=== PATIENT | male | born 1990 | race Caucasian/White ===

== ENCOUNTER → 2017-05-12 09:59 | Outpatient (CLI) | payer OTHER, SELFPAY ==
[2017-05-12 10:24] LABS: Basophils # 0.1 K/mm3 (0-0.2); Basophils % 0.5 % (0.1-2.0); Eosinophils # 0.7 K/mm3 (0.0-0.4); Eosinophils % 6.5 % (0.1-12.0); Hematocrit 49.3 % (42.0-52.0); Hemoglobin 16.6 g/dL (14.1-18.0); Lymphocytes % 28.4 K/mm3 (10-50); Mean Corpuscular HGB Conc 33.7 g/dL (31.8-35.4); Mean Corpuscular Hemoglobin 31.4 pg (27.0-31.2); Mean Corpuscular Volume 93.4 fl (80-94); Monocytes # 0.4 K/mm3 (0.1-1.0); Monocytes % 3.8 % (1.7-9.3); Neutrophils # 6.3 K/mm3 (1.8-7.8); Neutrophils % 60.8 % (37.0-80.0); Platelet Count 224 K/mm3 (142-424); Red Blood Count 5.28 M/mm3 (4.60-6.20); Red Cell Distribution Width 12.4 % (11.5-17.5); White Blood Count 10.3 K/mm3 (4.8-10.8)
[2017-05-12 10:35] LABS: Anion Gap 13.1 mEq/L (5-15); Blood Urea Nitrogen 14 mg/dL (7-18); Carbon Dioxide 25 mmol/L (21.0-32.0); Chloride 107 mmol/L (98-107); Creatinine,Serum 0.75 mg/dL (0.70-1.30); Estimated Glomerular Filt Rate 124 ml/min (>60); GFR (African American) 150 ML/MIN (>60); Glucose 103 mg/dL (74-106); Potassium 4.1 mmoL/L (3.5-5.1); Sodium 141 mmol/L (136-145)
== END ==
PROVIDERS: Visit Provider Surgery
DX: L72.9 Follicular cyst of the skin and subcutaneous tissue, unspecified; Z01.818 Encounter for other preprocedural examination
CPT/HCPCS: 36415; 80048; 85025

== ENCOUNTER 2017-05-15 09:31 | Day surgery (SDC) | payer OTHER, SELFPAY ==
[2017-05-15] VITALS (12 sets, daily range): BP systolic 127–158; BP diastolic 74–96; PULSE 75–91; RESP 16–18; TEMP 36.3–37.2; O2SAT 92–97
--- NOTE | 2017-05-15 10:30 | P.PN_ITS ---
[facility] Anesthesia Checklist - Patient Identification Patient Identification: Arm Band - Structural Data Admitted From: Home Planned Operative Procedure/s: I&D left perineal hidradenitis Consent for Planned Operative Procedure(s) Verified: Yes Verified Documents: Surgical Consent, History and Physical - NPO Status Verified Time NPO: 00:00 - Additional verifications Anesthesia Reactions: No - Airway Assessment C-Spine Mobility Assessed: Yes (mp2) TMJ Mobility Assessed: Yes Dentition: Good Dentition - Neurological Assessment Level of Consciousness: Awake, Alert - Anesthesia Plan Anesthesia Risk discussed: Yes Anesthesia Plan: Verified ASA Class: II Anesthesia Type: General [facility] Anesthesia HX I have reviewed the patient's past medical history: Yes Medical History: Reports:: Asthma, Hyperlipidemia, Kidney Stones, MRSA Denies:: Cancer, Diabetes Mellitus Type 1, Diabetes Mellitus Type 2, Seizures Other Medical History: Denies: Blood Transfusion Reaction Other Surgeries: Yes: Colonoscopy, Plastic Surgery, Other Amputation: No Fractures: Yes (right arm) *Family Hx:: Hypertension, Diabetes, Anemia, Asthma
--- NOTE | 2017-05-15 13:05 | HMH.OPNOTE ---
Date of procedure: 05/15/17 Pre-op Diagnosis:: Perineal abscess hidradenitis Post-op Diagnosis:: Same Procedure performed:: Incision and drainage of focal abscess hidradenitis of the perineum with debridement of skin. Surgeon:: Blake Rider MD SKIVER HEEL TAP:: Ishmael Valerio Anesthesia: LMA Estimated blood loss (mL): 20 Clinical Note:: Patient is a 27-year-old white male with a long-standing history for several years of recurrent hidradenitis of the perineum and proximal thigh area. He is undergone extensive plastic surgery of the left proximal medial thigh at the [facility] for hidradenitis. He has also had several other areas dealt with with more limited surgery. Some of these areas have resolved conservatively. He has seen dermatology in [place] and recommendation is for [facility]. However insurance approval is pending. Last time I had seen the patient he had a new area on the left medial proximal thigh. He was given course of antibiotics including Bactrim and clindamycin. However, the area was refractory to conservative management and continued to be bothersome. There was mild fluctuance with some discoloration of the skin. Plan was made for limited incision and drainage and debridement. Operative findings:: Consistent with focal abscess hidradenitis. Operative note:: Consent was obtained patient was taken the operating room. General anesthesia was induced. He was positioned in modified lithotomy position. The area was prepped and draped in the standard surgical fashion. Limited incision was made overlying the purplish area on the right perineum. There was some serous fluid in purulent material which drained. This was sent for culture. Using mostly sharp dissection the devitalized discolored skin was sharply excised. Hemostasis was achieved with liberal use of electrocautery. The wound was irrigated. Local anesthetic was infiltrated. The wound was packed with moistened saline gauze and covered with clean dry sterile dressing. Condition: stable Disposition: PACU Complications:: None
--- NOTE | 2017-05-15 13:08 | P.OP_ITS ---
Date of procedure: 05/15/17 Pre-op Diagnosis:: Perineal abscess hidradenitis Post-op Diagnosis:: Same Procedure performed:: Incision and drainage of focal abscess hidradenitis of the perineum with debridement of skin. Surgeon:: Blake Rider MD OFFICE MACHINE TECHNICIAN:: Ishmael Valerio Anesthesia: LMA Estimated blood loss (mL): 20 Clinical Note:: Patient is a 27-year-old white male with a long-standing history for several years of recurrent hidradenitis of the perineum and proximal thigh area. He is undergone extensive plastic surgery of the left proximal medial thigh at the [facility] for hidradenitis. He has also had several other areas dealt with with more limited surgery. Some of these areas have resolved conservatively. He has seen dermatology in [place] and recommendation is for [facility]. However insurance approval is pending. Last time I had seen the patient he had a new area on the left medial proximal thigh. He was given course of antibiotics including Bactrim and clindamycin. However, the area was refractory to conservative management and continued to be bothersome. There was mild fluctuance with some discoloration of the skin. Plan was made for limited incision and drainage and debridement. Operative findings:: Consistent with focal abscess hidradenitis. Operative note:: Consent was obtained patient was taken the operating room. General anesthesia was induced. He was positioned in modified lithotomy position. The area was prepped and draped in the standard surgical fashion. Limited incision was made overlying the purplish area on the right perineum. There was some serous fluid in purulent material which drained. This was sent for culture. Using mostly sharp dissection the devitalized discolored skin was sharply excised. Hemostasis was achieved with liberal use of electrocautery. The wound was irrigated. Local anesthetic was infiltrated. The wound was packed with moistened saline gauze and covered with clean dry sterile dressing. Condition: stable Disposition: PACU Complications:: None
--- NOTE | 2017-05-15 13:15 | HMH.ANESI ---
[facility] Anesthesia Record Part I Intake, IV Amount: 1,315 Estimated blood loss (mL): 10 Urine output (mL): 0 Blood Products used (#): none Blood Pressure: 158/74 SaO2: 92 Pulse Rate: 88 Respiratory Rate: 18 Temperature: 97.3 F Patient is:: Drowsy, Stable Stable to PACU at:: 13:15
--- NOTE | 2017-05-15 13:16 | HMH.ANESII ---
[facility] Anesthesia Record Part II Discharge Time: 13:45 Destination: Surgical Day Care (OP Surgery) PACU nurse assessment reviewed?: Yes Patient Condition:: Good Anesthesia Complications:: None
--- NOTE | 2017-05-15 14:05 | SUR.PHASEI ---
1340- rates incisional pain @ 8/10. 2 mg morphine given. see emar. 1345- rates pain @ 5/10. 2 mg morphine given. see emar. 1347- detailed report called to ML RN in post-op. 1349- pt transported to post-op via str per RN. Left in the care of ML RN in stable condition.
== END 2017-05-15 14:35 | disposition home or self-care (01) ==
LOC: OR 09:32
PROVIDERS: Family Provider Pediatrics; PCP Pediatrics; Visit Provider Surgery
PROC: (CPT 10060; principal; 2017-05-15 11:15)
DX: L73.2 Hidradenitis suppurativa (principal)
CPT/HCPCS: 10060; 87070; 87077; 87205; 96374; J0131; J2405

== ENCOUNTER → 2017-12-19 12:08 | Outpatient (CLI) | payer OTHER, SELFPAY ==
[2017-12-19 12:54] LABS: Basophils % 0.6 % (0.1-2.0); Eosinophils # 0.2 K/mm3 (0.0-0.4); Eosinophils % 3.3 % (0.1-12.0); Hematocrit 44.7 % (42.0-52.0); Hemoglobin 14.7 g/dL (14.1-18.0); Lymphocytes # 2.6 K/mm3 (0.7-4.5); Lymphocytes % 36.4 K/mm3 (10-50); Mean Corpuscular HGB Conc 32.9 g/dL (31.8-35.4); Mean Corpuscular Hemoglobin 30.8 pg (27.0-31.2); Mean Corpuscular Volume 93.8 fl (80-94); Mean Platelet Volume 7.3 fl (7.4-10.4); Monocytes # 0.4 K/mm3 (0.1-1.0); Neutrophils # 3.9 K/mm3 (1.8-7.8); Neutrophils % 54.9 % (37.0-80.0); Platelet Count 244 K/mm3 (142-424); Red Blood Count 4.77 M/mm3 (4.60-6.20); Red Cell Distribution Width 12.6 % (11.5-17.5); White Blood Count 7.1 K/mm3 (4.8-10.8)
[2017-12-19 14:45] LABS: Anion Gap 16.4 mEq/L (5-15); Blood Urea Nitrogen 14 mg/dL (7-18); Calcium 9.2 mg/dL (8.5-10.1); Carbon Dioxide 26 mmol/L (21.0-32.0); Chloride 105 mmol/L (98-107); Creatinine,Serum 0.61 mg/dL (0.70-1.30); Estimated Glomerular Filt Rate 157 ml/min (>60); GFR (African American) 190 ML/MIN (>60); Glucose 87 mg/dL (74-106); Potassium 4.4 mmoL/L (3.5-5.1); Sodium 143 mmol/L (136-145)
== END ==
PROVIDERS: PCP Pediatrics; Visit Provider Surgery
DX: L73.2 Hidradenitis suppurativa (principal)
CPT/HCPCS: 36415; 80048; 85025

== ENCOUNTER → 2018-12-18 11:08 | Outpatient (CLI) | payer OTHER, SELFPAY ==
[2018-12-18 11:34] LABS: Basophils % 0.6 % (0.1-2.0); Eosinophils # 0.4 K/mm3 (0.0-0.4); Eosinophils % 5.7 % (0.1-12.0); Hematocrit 43.2 % (42.0-52.0); Mean Corpuscular HGB Conc 32.3 g/dL (31.8-35.4); Mean Corpuscular Hemoglobin 30.6 pg (27.0-31.2); Mean Corpuscular Volume 94.7 fl (80-94); Mean Platelet Volume 8.6 fl (7.4-10.4); Monocytes # 0.3 K/mm3 (0.1-1.0); Monocytes % 4.9 % (1.7-9.3); Neutrophils # 3.5 K/mm3 (1.8-7.8); Neutrophils % 56.7 % (37.0-80.0); Platelet Count 220 K/mm3 (142-424); Red Blood Count 4.56 M/mm3 (4.60-6.20); Red Cell Distribution Width 13.5 % (11.5-17.5); White Blood Count 6.1 K/mm3 (4.8-10.8)
[2018-12-18 12:30] LABS: Anion Gap 12.9 mEq/L (5-15); Blood Urea Nitrogen 13 mg/dL (7-18); Calcium 9.5 mg/dL (8.5-10.1); Carbon Dioxide 28 mmol/L (21.0-32.0); Chloride 106 mmol/L (98-107); Creatinine,Serum 0.66 mg/dL (0.70-1.30); Estimated Glomerular Filt Rate 143 ml/min (>60); GFR (African American) 173 ML/MIN (>60); Glucose 90 mg/dL (74-106); Potassium 3.9 mmoL/L (3.5-5.1); Sodium 143 mmol/L (136-145)
== END ==
PROVIDERS: Visit Provider Surgery
DX: L73.2 Hidradenitis suppurativa (principal)
CPT/HCPCS: 36415; 80048; 85025

== ENCOUNTER → 2019-05-07 13:37 | Outpatient (CLI) | payer OTHER, SELFPAY ==
[2019-05-07 14:30] LABS: Basophils # 0.1 K/mm3 (0-0.2); Basophils % 0.8 % (0.1-2.0); Eosinophils # 0.3 K/mm3 (0.0-0.4); Eosinophils % 4.4 % (0.1-12.0); Hematocrit 42.1 % (42.0-52.0); Hemoglobin 14.6 g/dL (14.1-18.0); Lymphocytes # 2.4 K/mm3 (0.7-4.5); Lymphocytes % 33.2 % (10-50); Mean Corpuscular HGB Conc 34.6 g/dL (31.8-35.4); Mean Corpuscular Hemoglobin 31.6 pg (27.0-31.2); Mean Corpuscular Volume 91.3 fl (80-94); Mean Platelet Volume 7.9 fl (7.4-10.4); Monocytes # 0.3 K/mm3 (0.1-1.0); Monocytes % 4.6 % (1.7-9.3); Neutrophils # 4.1 K/mm3 (1.8-7.8); Neutrophils % 57.1 % (37.0-80.0); Platelet Count 237 K/mm3 (142-424); Red Blood Count 4.61 M/mm3 (4.60-6.20); Red Cell Distribution Width 13.3 % (11.5-17.5); White Blood Count 7.1 K/mm3 (4.8-10.8)
[2019-05-07 15:11] LABS: Anion Gap 11.6 mEq/L (5-15); Blood Urea Nitrogen 13 mg/dl (9-20); Calcium 10.2 mg/dl (8.4-10.2); Carbon Dioxide 28 mmol/L (22.0-30.0); Chloride 105 mmol/L (98-107); Estimated Glomerular Filt Rate 158 ml/min (>60); GFR (African American) 191 ML/MIN (>60); Glucose 83 mg/dl (74-100); Potassium 4.6 mmoL/L (3.5-5.1); Sodium 140 mmol/L (136-145)
== END ==
PROVIDERS: Visit Provider Surgery
DX: L73.2 Hidradenitis suppurativa (principal)
CPT/HCPCS: 36415; 80048; 85025

== ENCOUNTER → 2019-07-04 11:10 | Outpatient (CLI) | payer OTHER, SELFPAY ==
[2019-07-04 11:53] LABS: Basophils # 0.1 K/mm3 (0-0.2); Basophils % 0.8 % (0.1-2.0); Eosinophils # 0.3 K/mm3 (0.0-0.4); Eosinophils % 4.1 % (0.1-12.0); Hematocrit 43.5 % (42.0-52.0); Lymphocytes # 2.5 K/mm3 (0.7-4.5); Lymphocytes % 34.1 % (10-50); Mean Corpuscular HGB Conc 34.6 g/dL (31.8-35.4); Mean Corpuscular Hemoglobin 31.1 pg (27.0-31.2); Mean Platelet Volume 7.6 fl (7.4-10.4); Monocytes # 0.4 K/mm3 (0.1-1.0); Monocytes % 4.9 % (1.7-9.3); Neutrophils # 4.1 K/mm3 (1.8-7.8); Platelet Count 243 K/mm3 (142-424); Red Blood Count 4.84 M/mm3 (4.60-6.20); Red Cell Distribution Width 13.3 % (11.5-17.5); White Blood Count 7.3 K/mm3 (4.8-10.8)
[2019-07-04 11:56] LABS: Anion Gap 15.2 mEq/L (5-15); Blood Urea Nitrogen 11 mg/dl (9-20); Calcium 10.5 mg/dl (8.4-10.2); Carbon Dioxide 28 mmol/L (22.0-30.0); Chloride 101 mmol/L (98-107); Estimated Glomerular Filt Rate 158 ml/min (>60); GFR (African American) 191 ML/MIN (>60); Glucose 93 mg/dl (74-100); Potassium 4.2 mmoL/L (3.5-5.1); Sodium 140 mmol/L (136-145)
[2019-07-05 17:21] LABS: Covid-19 Nasal PCR Sendout Lex Not Detected
== END ==
PROVIDERS: PCP Pediatrics; Visit Provider Surgery
DX: Z01.818 Encounter for other preprocedural examination (principal); L73.2 Hidradenitis suppurativa; Z03.818 Encounter for observation for suspected exposure to other biological agents ruled out
CPT/HCPCS: 36415; 80048; 85025; U0003

== ENCOUNTER 2019-07-06 06:10 | Day surgery (SDC) | payer OTHER, SELFPAY ==
[2019-07-05 11:24] VITALS: BMI 28.0
--- NOTE | 2019-07-05 17:25 | PC.NURSE ---
notified pt of negative COVID 19 results.
--- NOTE | 2019-07-05 17:35 | PC.NURSE ---
notified Dr. Rider of negative COVID 19 results.
[2019-07-06] VITALS (14 sets, daily range): BP systolic 134–155; BP diastolic 75–98; PULSE 75–89; RESP 12–20; TEMP 36.4–43; O2SAT 97–100
--- NOTE | 2019-07-06 07:47 | P.OP_ITS ---
Date of procedure: 07/06/19 Pre-op Diagnosis:: Hidradenitis Post-op Diagnosis:: Same Procedure performed:: Incision and drainage with excision of hidradenitis (debridement of skin from suprapubic and scrotal area) Surgeon:: Blake Rider MD SLEEPING CAR SERVICE ATTENDANT:: John Carbajal Anesthesia: LMA Estimated blood loss (mL): 5 Clinical Note:: Patient is a 29-year-old male from [place]. He has a longstanding history of refractory hidradenitis of the perineal and groin areas. I had previously performed several incision and drainage on him for refractory hidradenitis suppurativa. He actually did undergo extensive excision and plastic surgery flap at [facility] at one point. Patient had previously been on Humira which seemed to keep his symptoms controlled. However, he underwent laparoscopic gastric bypass surgery in [place] and he can no longer take the Humira. Most recent surgery I had performed was incision and drainage of left groin and suprapubic. The left groin wound was slower to heal and the suprapubic area healed quite quickly. However, recently he had presented with recurrent drainage from the suprapubic site. This has been refractory to antibiotic nonoperative management. He also has an area on the left scrotum which has been persistent. He was scheduled for surgery for unroofing of the suprapubic and scrotal hidradenitis however this needed to be rescheduled a couple of times. He has had ongoing issue with drainage from both areas. Operative findings:: Left scrotal area consistent with hidradenitis with underlying granulation tissue. Suprapubic area consistent with chronic folliculitis versus hidradenitis Operative note:: Patient was taken to the operating room. He was positioned supine position and general anesthesia was induced via LMA. The areas were prepped and draped in the standard surgical fashion. Attention was first turned to the scrotal lesion. He had a couple of draining sinuses. Blunt probe was inserted in this tract to both draining sinuses. The overlying skin was incised with electrocautery unroofing underlying hidradenitis tissue characterized by chronic granulation tissue. This was debrided with a small curette. The suprapubic area was then probed. There was no evidence of any sinus opening. Limited incision was made with electrocautery. The inflamed tissue was excised in elliptical fashion using electrocautery. This was sent as debrided tissue, suprapubic hidradenitis. Local anesthetic was infiltrated. Both wounds were packed with small amount of saline moistened gauze and covered with clean dry sterile dressing. Condition: stable Disposition: PACU Complications:: None immediately apparent
--- NOTE | 2019-07-06 07:56 | HMH.ANESCL ---
[facility] Anesthesia Checklist - Structural Data Admitted From: Home Planned Operative Procedure/s: i/d hydrradenitis Consent for Planned Operative Procedure(s) Verified: Yes - Additional verifications Anesthesia Reactions: No Hx Blood Transfusions: No Blood Transfusion Reaction: No - Airway Assessment C-Spine Mobility Assessed: Yes TMJ Mobility Assessed: Yes Dentition: Good Dentition - Neurological Assessment Level of Consciousness: Awake, Alert, Appropriate - Anesthesia Plan Anesthesia Risk discussed: Yes Anesthesia Plan: Verified ASA Class: II Anesthesia Type: General [facility] History I have reviewed the patient's past medical history: Yes Medical History: Reports:: Asthma, Depression, Gastroesophageal Reflux Disease(GERD), Hyperlipidemia, Hypertension, Kidney Stones Denies:: Cancer, Diabetes Mellitus Type 1, Diabetes Mellitus Type 2, Internal Pacemaker, MRSA, Seizures *Have you ever received a pneumonia vaccine?: No *Have you received a flu vaccine this season?: No Other Medical History: Denies: Blood Transfusion Reaction Anesthesia experience/problems:: none Other Surgeries: Yes: Bariatric Surgery, Colonoscopy, Plastic Surgery, Other. No: Pacemaker Amputation: No Fractures: Yes - *Social History Educational Level: Completed High School Smoking Status: Never smoker Tobacco Type: cigarettes # Packs/Day (cigarettes): 1 Alcohol Intake: never Alcohol Intake Frequency:: holidays/special occasions only Substance Use Type: denies use *Occupational Status:: unemployed Housing: house Household Members: spouse *Travel in the last 8 weeks: None - Psychiatric History Pschychiatric History:: Reports:: Depression Family Hx:: Hypertension, Diabetes, Anemia, Asthma
--- NOTE | 2019-07-06 07:58 | HMH.ANESI ---
[facility] Anesthesia Record Part I Intake, IV Amount: 1,000 Estimated blood loss (mL): 0 Urine output (mL): 0 Blood Pressure: 155/91 SaO2: 98 Pulse Rate: 86 Respiratory Rate: 12 Temperature: 99 F Patient is:: Drowsy, Stable Stable to PACU at:: 07:50
--- NOTE | 2019-07-06 10:28 | SUR.PHASEII ---
0852 initial postop assessment Intermediate assessments occurred 0835, 0844, 0855 Discharge assessement 0907 Computer not allowing RN to go back in and correct times of assessments
--- NOTE | 2019-07-06 14:48 | HMH.ANESII ---
[facility] Anesthesia Record Part II Discharge Time: 08:24 Destination: Surgical Day Care (OP Surgery) PACU nurse assessment reviewed?: Yes Patient Condition:: Good Anesthesia Complications:: None Swallowing reflex intact?: Yes Cyanosis?: No Blood Pressure: 134/75 Pulse Rate: 75 Temperature: 97.6 F Mental Status: Alert & Oriented Pain level:: 3 Nausea and/or vomitting:: None Intake, IV Amount: 0
== END 2019-07-06 09:10 | disposition home or self-care (01) ==
LOC: OR 06:12
PROVIDERS: PCP Pediatrics; Visit Provider Surgery
PROC: (CPT 11462; principal; 2019-07-06 07:30)
DX: L73.2 Hidradenitis suppurativa (principal)
CPT/HCPCS: 11462; 96374; J2405

== ENCOUNTER → 2020-04-03 10:49 | Outpatient (CLI) | payer OTHER, SELFPAY ==
[2020-04-03 11:17] LABS: Basophils # 0.1 K/mm3 (0-0.2); Basophils % 0.7 % (0.1-2.0); Eosinophils # 0.6 K/mm3 (0.0-0.4); Eosinophils % 5.6 % (0.1-12.0); Hematocrit 49.6 % (42.0-52.0); Hemoglobin 16.5 g/dL (14.1-18.0); Lymphocytes # 2.9 K/mm3 (0.7-4.5); Lymphocytes % 28.4 % (10-50); Mean Corpuscular HGB Conc 33.3 g/dL (31.8-35.4); Mean Corpuscular Hemoglobin 32.2 pg (27.0-31.2); Mean Platelet Volume 8.7 fl (7.4-10.4); Monocytes # 0.5 K/mm3 (0.1-1.0); Neutrophils # 6.1 K/mm3 (1.8-7.8); Neutrophils % 60.3 % (37.0-80.0); Platelet Count 190 K/mm3 (142-424); Red Blood Count 5.12 M/mm3 (4.60-6.20); Red Cell Distribution Width 13.3 % (11.5-17.5)
[2020-04-03 11:36] LABS: Chloride 104 mmol/L (98-107); Potassium 4.3 mmoL/L (3.5-5.1); Sodium 138 mmol/L (136-145)
[2020-04-03 11:40] LABS: Anion Gap 10.3 mEq/L (5-15); Blood Urea Nitrogen 14 mg/dl (9-20); Calcium 10.1 mg/dl (8.4-10.2); Carbon Dioxide 28 mmol/L (22.0-30.0); Estimated Glomerular Filt Rate 157 ml/min (>60); GFR (African American) 190 ML/MIN (>60); Glucose 100 mg/dl (74-100)
[2020-04-03 11:51] LABS: Coronavirus 19 IgG Antibody Negative (Negative); Coronavirus 19 IgM Antibody Negative (Negative)
== END ==
PROVIDERS: Visit Provider Surgery
DX: Z01.812 Encounter for preprocedural laboratory examination (principal); Z20.822 Contact with and (suspected) exposure to COVID-19; L73.2 Hidradenitis suppurativa
CPT/HCPCS: 36415; 80048; 85025; 86328

== ENCOUNTER 2020-04-05 06:06 | Day surgery (SDC) | payer OTHER, SELFPAY ==
[2020-03-31 15:20] VITALS: BMI 25.0
[2020-04-05] VITALS (11 sets, daily range): BP systolic 132–148; BP diastolic 81–97; PULSE 69–89; RESP 12–18; TEMP 36.1–36.8; O2SAT 92–99
--- NOTE | 2020-04-05 07:27 | HMH.ANESCL ---
[facility] Anesthesia Checklist - Structural Data Admitted From: Home Planned Operative Procedure/s: i/d r groin Consent for Planned Operative Procedure(s) Verified: Yes - Additional verifications Anesthesia Reactions: No Hx Blood Transfusions: No Blood Transfusion Reaction: No - Airway Assessment C-Spine Mobility Assessed: Yes TMJ Mobility Assessed: Yes Dentition: Good Dentition - Neurological Assessment Level of Consciousness: Awake, Alert, Appropriate - Anesthesia Plan Anesthesia Risk discussed: Yes Anesthesia Plan: Verified ASA Class: II Anesthesia Type: General [facility] History I have reviewed the patient's past medical history: Yes Medical History: Reports:: Asthma, Depression, Gastroesophageal Reflux Disease(GERD), Hyperlipidemia, Hypertension, Kidney Stones Denies:: Cancer, Diabetes Mellitus Type 1, Diabetes Mellitus Type 2, Internal Pacemaker, MRSA, Seizures *Have you ever received a pneumonia vaccine?: No *Have you received a flu vaccine this season?: Yes Other Medical History: Denies: Blood Transfusion Reaction Anesthesia experience/problems:: none Other Surgeries: Yes: Bariatric Surgery, Colonoscopy, Plastic Surgery, Other. No: Pacemaker Amputation: No Fractures: Yes - *Social History Last grade of school completed: High school graduate Smoking Status: Current every day smoker Tobacco Type: cigarettes # Packs/Day (cigarettes): 1 Alcohol Intake: never Alcohol Intake Frequency:: holidays/special occasions only Substance Use Type: denies use *Occupational Status:: unemployed Housing: house Household Members: spouse, children *Travel in the last 8 weeks: None - Psychiatric History Pschychiatric History:: Reports:: Depression Family Hx:: Coronary Artery Disease, Diabetes, Heart Attack, Hyperlipidemia, Hypertension, Stroke
--- NOTE | 2020-04-05 07:37 | P.OP_ITS ---
Date of procedure: 04/05/20 Pre-op Diagnosis:: Right groin hidradenitis Post-op Diagnosis:: Same Procedure performed:: Incision and drainage unroofing right groin hidradenitis Surgeon:: Blake Rider MD PICKING MACHINE OPERATOR:: John Carbajal Anesthesia: LMA Estimated blood loss (mL): 5 Clinical Note:: He is a 29-year-old male from [place] whom I am very familiar with. He has had problems with hidradenitis. I have performed numerous unroofing and incision and drainage of groin and perineal hidradenitis. He did undergo extensive plastic surgery of the left medial proximal thigh area for hidradenitis at [facility]. His symptoms have been controlled when he was on Humira by a bridge operator slip. He had to discontinue this for some time after his gastric bypass. He then had some recurrent hidradenitis requiring minor procedures. He has been able to reinitiate Humira. This is kept his disease in check. He has lost a significant amount of weight. He states that over the past 2 months in the right groin crease he has had a couple of areas that have flared up. It sounds as though they became abscessed and he actually had cellulitis extending onto his lower abdomen. This has subsequently improved but he does have residual hidradenitis inflammation. Plan was for unroofing of what appeared to be chronic hidradenitis suppurativa in the right groin area. Please note that the morning of the surgery in the preoperative area patient complained of a possible area on his tailbone. Examination revealed findings in the left gluteal cleft in the post coccygeal region consistent with possible inflamed pilonidal cyst. Operative findings:: Consistent with hidradenitis Operative note:: Patient was taken to the operating room. He was given preoperative intravenous antibiotics. In the operating room he was placed in a supine position. The area was exposed and prepped and draped in the standard surgical fashion. There were a couple of areas consistent with chronic skin inflammation and skin punctum consistent with hidradenitis. This was probed with a blunt probe. There was subcutaneous tunneling. This was opened with electrocautery incising the overlying skin and superficial subcutaneous tissues. The 2 areas did not communicate as previously suspected. This was debrided excising inflamed granulation tissue using a very small curette. Hemostasis was achieved with electrocautery. Wound was irrigated. Wound was covered with clean dry sterile dressing. Plan will be for the patient to cleanse the area well in the shower or with irrigation twice daily and cover with clean dry sterile dressing. We will give him antibiotics for possible pilonidal cyst inflammation. He is return to the office in about 5 days. Condition: stable Disposition: PACU Specimens:: None Complications:: None immediately apparent
--- NOTE | 2020-04-05 07:44 | HMH.ANESI ---
[facility] Anesthesia Record Part I Intake, IV Amount: 1,000 Estimated blood loss (mL): 0 Urine output (mL): 0 Blood Pressure: 137/81 SaO2: 96 Pulse Rate: 74 Respiratory Rate: 12 Temperature: 97 F Patient is:: Awake, Stable Stable to PACU at:: 07:40
--- NOTE | 2020-04-05 08:57 | SUR.PHASEII ---
STERILE 4X4'S. STERILE WATER, 60CC SYRINGE FOR IRRIGATION, MEDIPORT TAPE SUPPLIED FOR PT. [facility] [place]
[2020-04-06 12:20] VITALS: BP 140/88; PULSE 73; TEMP 36.4
--- NOTE | 2020-04-06 12:20 | HMH.ANESII ---
[facility] Anesthesia Record Part II Discharge Time: 08:27 Destination: Surgical Day Care (OP Surgery) PACU nurse assessment reviewed?: Yes Patient Condition:: Good Anesthesia Complications:: None Swallowing reflex intact?: Yes Cyanosis?: No Blood Pressure: 140/88 Pulse Rate: 73 Temperature: 97.6 F Mental Status: Alert & Oriented Pain level:: 4 Nausea and/or vomitting:: None Intake, IV Amount: 0
== END 2020-04-05 08:57 | disposition home or self-care (01) ==
LOC: OR 06:09
PROVIDERS: PCP Pediatrics; Visit Provider Surgery
PROC: (CPT 10061; principal; 2020-04-05 07:30)
DX: L73.2 Hidradenitis suppurativa (principal); E78.5 Hyperlipidemia, unspecified; I10 Essential (primary) hypertension; J45.909 Unspecified asthma, uncomplicated; F32.9 Major depressive disorder, single episode, unspecified; K21.9 Gastro-esophageal reflux disease without esophagitis; Z87.442 Personal history of urinary calculi; Z72.0 Tobacco use; Z79.899 Other long term (current) drug therapy; Z98.84 Bariatric surgery status; Z83.3 Family history of diabetes mellitus; Z82.49 Family history of ischemic heart disease and other diseases of the circulatory system
CPT/HCPCS: 10061; 96374; J2405

== ENCOUNTER → 2021-01-01 14:23 | Outpatient (CLI) | payer OTHER, SELFPAY ==
[2021-01-01 15:15] LABS: Basophils # 0.1 K/mm3 (0-0.2); Basophils % 0.8 % (0.1-2.0); Eosinophils # 0.4 K/mm3 (0.0-0.4); Eosinophils % 6.6 % (0.1-12.0); Hematocrit 46.8 % (42.0-52.0); Lymphocytes # 3.1 K/mm3 (0.7-4.5); Lymphocytes % 49.6 % (10-50); Mean Corpuscular HGB Conc 34.2 g/dL (31.8-35.4); Mean Corpuscular Hemoglobin 32.8 pg (27.0-31.2); Mean Corpuscular Volume 96.1 fl (80-94); Mean Platelet Volume 8.7 fl (7.4-10.4); Monocytes # 0.3 K/mm3 (0.1-1.0); Monocytes % 4.1 % (1.7-9.3); Neutrophils # 2.4 K/mm3 (1.8-7.8); Neutrophils % 38.9 % (37.0-80.0); Platelet Count 231 K/mm3 (142-424); Red Blood Count 4.87 M/mm3 (4.60-6.20); Red Cell Distribution Width 12.9 % (11.5-17.5); White Blood Count 6.2 K/mm3 (4.8-10.8)
[2021-01-01 16:14] LABS: Anion Gap 13.8 mEq/L (5-15); Blood Urea Nitrogen 13 mg/dl (9-20); Calcium 9.5 mg/dl (8.4-10.2); Carbon Dioxide 28 mmol/L (22.0-30.0); Chloride 103 mmol/L (98-107); Estimated Glomerular Filt Rate 194 ml/min (>60); GFR (African American) 235 ML/MIN (>60); Glucose 86 mg/dl (74-100); Potassium 4.8 mmoL/L (3.5-5.1); Sodium 140 mmol/L (136-145)
== END ==
PROVIDERS: Visit Provider Surgery
DX: Z01.812 Encounter for preprocedural laboratory examination (principal); Z11.52 Encounter for screening for COVID-19; L02.91 Cutaneous abscess, unspecified
CPT/HCPCS: 36415; 80048; 85025; C9803; U0003; U0005

== ENCOUNTER 2021-01-02 08:18 | Day surgery (SDC) | payer OTHER, SELFPAY ==
[2020-12-26 13:06] VITALS: BMI 25.9
[2021-01-02] VITALS (12 sets, daily range): BP systolic 125–143; BP diastolic 75–91; PULSE 72–86; RESP 16–20; TEMP 36.1–43; O2SAT 95–100
--- NOTE | 2021-01-02 09:21 | HMH.ANESCL ---
[facility] Anesthesia Checklist - Patient Identification Patient Identification: Arm Band - Structural Data Admitted From: Home Planned Operative Procedure/s: I&D of Perineal and Perianal Abscess Consent for Planned Operative Procedure(s) Verified: Yes Verified Documents: Surgical Consent, History and Physical - NPO Status Verified Time NPO: 00:00 - Additional verifications Anesthesia Reactions: No Hx Blood Transfusions: No Blood Transfusion Reaction: No - Airway Assessment C-Spine Mobility Assessed: Yes (mp2) TMJ Mobility Assessed: Yes Dentition: Good Dentition - Neurological Assessment Level of Consciousness: Awake, Alert - Anesthesia Plan Anesthesia Risk discussed: Yes Anesthesia Plan: Verified ASA Class: II Anesthesia Type: General [facility] History I have reviewed the patient's past medical history: Yes Medical History: Reports:: Asthma, Depression, Gastroesophageal Reflux Disease(GERD), Hyperlipidemia, Hypertension, Kidney Stones Denies:: Cancer, Diabetes Mellitus Type 1, Diabetes Mellitus Type 2, Internal Pacemaker, MRSA, Seizures *Have you ever received a pneumonia vaccine?: No *Have you received a flu vaccine this season?: No Other Medical History: Denies: Blood Transfusion Reaction Anesthesia experience/problems:: nac Other Surgeries: Yes: Bariatric Surgery, Colonoscopy, Plastic Surgery, Other. No: Pacemaker Amputation: No Fractures: Yes - *Social History Last grade of school completed: High school graduate Smoking Status: Former smoker Tobacco Type: cigarettes # Packs/Day (cigarettes): 1 #Yrs smoked (if former smoker): 12 Alcohol Intake: never Alcohol Intake Frequency:: holidays/special occasions only Substance Use Type: denies use *Occupational Status:: unemployed Housing: house Household Members: family *Travel in the last 8 weeks: Inside the [place] - Psychiatric History Pschychiatric History:: Reports:: Depression Family Hx:: Heart Attack, Stroke
--- NOTE | 2021-01-02 09:50 | P.PN_ITS ---
[facility] Anesthesia Record Part I Intake, IV Amount: 600 Estimated blood loss (mL): 5 Urine output (mL): 0 Blood Pressure: 126/76 SaO2: 95 Pulse Rate: 86 Respiratory Rate: 16 Temperature: 97.2 F Patient is:: Drowsy, Stable Stable to PACU at:: 09:50
--- NOTE | 2021-01-02 09:53 | P.OP_ITS ---
Date of procedure: 01/02/21 Pre-op Diagnosis:: Right groin hidradenitis, possible perianal hidradenitis Post-op Diagnosis:: Same Procedure performed:: Incision and drainage with unroofing of right groin and perianal hidradenitis suppurativa Surgeon:: Blake Rider MD DATA ENTRY OPERATOR:: Easton Farley Anesthesia: GETA Estimated blood loss (mL): 10 Clinical Note:: Patient is a 30-year-old male from [place]. He has a longstanding history of refractory hidradenitis of the perineal and groin areas. I had previously performed several incision and drainage on him for refractory hidradenitis suppurativa. He actually did undergo extensive excision and plastic surgery flap at [facility] at one point. He has recently restarted Humira prescribed by dermatology. This has previously kept his areas in check. Most recently over the past couple days he has had some purulent drainage from a couple of areas that he had previous incision and drainage in the right proximal medial thigh/perineal area. He also describes an area in the perianal location which has been persistent and occasionally tender with occasional drainage. Operative findings:: Right groin area had some communication in the subcutaneous tissues between 2 previous relatively recent incision and drainage site. There is no pus. Per ianal location revealed some underlying granulation tissue and some deeper pus. This did track towards the anus. This could potentially be a perianal fistula. Operative note:: Patient was taken to the operating room. He was positioned in a supine position. General anesthesia was induced. He was positioned in some of the frog-leg position to allow for exposure of the area in the right inguinal area. This was prepped and draped in the standard surgical fashion. It was much less inflamed than it had been in the office a couple of weeks ago. Limited incision was made in the upper area of scarring where there was some palpable induration. Probe was then inserted. This did track towards the other area. Overlying tissues were incised. There was minimal underlying granulation tissue consistent with hidradenitis. This was debrided with a small curette. Local anesthetic was infiltrated. Wound was packed with a saline moistened gauze and covered with clean dry sterile dressing. Next, patient was positioned in left lateral position. Perianal area was prepped and draped. Lesion in the posterior perianal location was probed with a blunt probe. There was some tracking subcutaneously. The overlying tissues were incised. There was some underlying granulation tissue. Additional probing revealed this to track somewhat medially which was opened with there was appreciable granulation tissue. It was then noted to track somewhat inferiorly and deeply where there was noted to be some pus. This was opened up as well. Tissues were debrided with a small curette. Local anesthetic was infiltrated. Wound was packed with a small amount of saline moistened gauze. Clean dry sterile dressing was applied. Condition: stable Disposition: PACU Complications:: None immediately apparent
[2021-01-03 10:08] VITALS: BP 125/76; PULSE 83; TEMP 36.4
--- NOTE | 2021-01-03 10:08 | HMH.ANESII ---
[facility] Anesthesia Record Part II Discharge Time: 10:20 Destination: [facility] PACU nurse assessment reviewed?: Yes Patient Condition:: Good Anesthesia Complications:: None Swallowing reflex intact?: Yes Cyanosis?: No Blood Pressure: 125/76 Pulse Rate: 83 Temperature: 97.6 F Mental Status: Alert & Oriented Pain level:: 0 Nausea and/or vomitting:: None Intake, IV Amount: 500
== END 2021-01-02 11:10 | disposition home or self-care (01) ==
LOC: OR 08:19
PROVIDERS: PCP Pediatrics; Visit Provider Surgery
PROC: (CPT 10061; principal; 2021-01-02 09:45)
DX: L73.2 Hidradenitis suppurativa (principal); J45.909 Unspecified asthma, uncomplicated; F32.9 Major depressive disorder, single episode, unspecified; K21.9 Gastro-esophageal reflux disease without esophagitis; E78.5 Hyperlipidemia, unspecified; I10 Essential (primary) hypertension; Z87.891 Personal history of nicotine dependence; Z82.3 Family history of stroke; Z79.899 Other long term (current) drug therapy
CPT/HCPCS: 10061; 96374; J2405

== ENCOUNTER 2021-01-12 14:09 | Emergency (ER) | payer OTHER, SELFPAY ==
[2021-01-12] VITALS (7 sets, daily range): BP systolic 123–156; BP diastolic 76–96; PULSE 77–98; RESP 16–20; TEMP 37; O2SAT 98–100; BMI 25.7
--- NOTE | 2021-01-12 14:38 | CT_ITS ---
PROCEDURE: CT ABDOMEN PELVIS W CON CLINICAL INDICATION: R lower abd pain COMPARISON: CT CT ABDOMEN PELVIS W CON from 02/21/2019 TECHNIQUE: IV Contrast: 75ML OPTIRAY 350 Oral Contrast none given Axial images obtained with sagittal and coronal reformats. All CT scans at the facility use one or more dose reduction, viz: automated exposure control, ma/kV adjustment per patient size (including targeted exams where dose is matched to indication, i.e. head), or iterative reconstruction technique. FINDINGS: Lower thorax: No acute finding ABDOMEN: Liver: No masses or biliary dilatation. Gallbladder: Post cholecystectomy Pancreas: No masses or peripancreatic fluid collections. Spleen: unremarkable there are few scattered calcifications within the spleen. Adrenals: unremarkable Kidneys/ureters: The kidneys are normal in size and show symmetrical function. There is hydronephrotic change right kidney with a 7 mm calculus in the proximal right ureter. The left kidney appears normal. ABDOMEN & PELVIS: Stomach bowel: Post gastric bypass changes. The small bowel appears normal. There is a large amount stool in the cecum and ascending colon. Moderate stool seen in the descending and sigmoid colon. The rectum is normal. Peritoneum: No abnormal fluid collections. No obvious inflammatory changes. No free air. Lymph nodes: No enlarged lymph nodes apparent. Vasculature: No evidence of abdominal aortic aneurysm. No retroperitoneal hemorrhage evident. Bones: There are mild degenerate changes thoracolumbar junction. PELVIS: Reproductive: unremarkable Bladder: The prostate is normal in size. Appendix: Unremarkable. No distention or periappendiceal phlegmonous change. IMPRESSION: 7 mm proximal right ureteral calculus causing only mild obstructive uropathy of the right kidney, other nonacute findings as described above Dictated by: Dr. Sherif Beck MD 01/12/2021 15:13 Dr. Sherif Beck MD in [place] 01/12/2021 15:13
[2021-01-12 14:44] LABS: Microscopic, Urine URINE MICROSCOPIC (MICROSCOPIC)
[2021-01-12 14:45] LABS: Appearance,Urine CLEAR (Clear); Blood, Urine 3+ (Negative); Color,Urine YELLOW (Yellow); Glucose,Urine (UA) Negative (Negative); Ketones,Urine TRACE (Negative); Leukocyte Esterase,Urine Negative (Negative); Nitrate,Urine POSITIVE (Negative); Protein,Urine 2+ (Negative); Specific Gravity, Urine >= 1.030 (1.005-1.030)
[2021-01-12 14:54] LABS: Bilirubin,Urine 1+ (Negative)
[2021-01-12 14:55] LABS: Alanine Aminotransferase 23 U/L (12-78); Albumin Level 4.6 g/dl (3.5-5.0); Albumin/Globulin Ratio 1.5 (1.1-1.8); Alkaline Phosphatase 105 U/L (38-126); Aspartate Amino Transferase 31 U/L (17-59); Bilirubin,Total 0.8 mg/dl (0.2-1.3); Blood Urea Nitrogen 10 mg/dl (9-20); Calcium 9.4 mg/dl (8.4-10.2); Chloride 103 mmol/L (98-107); Creatinine Clearance Estimated 261 mL/min (50-200); Estimated Glomerular Filt Rate 194 ml/min (>60); GFR (African American) 235 ML/MIN (>60); Glucose 98 mg/dl (74-100); Lipase 63 U/L (23-300); Potassium 3.9 mmoL/L (3.5-5.1); Sodium 139 mmol/L (136-145); Total Protein,Serum 7.6 g/dl (6.3-8.2)
[2021-01-12 14:59] LABS: Bacteria,Urine 4+ /lpf; RBC,Urine TNTC #/hpf (0-3); Squamous Epithelial Cell,Urine Occasional #/hpf (0-5)
[2021-01-12 15:02] LABS: Basophils # 0.1 K/mm3 (0-0.2); Basophils % 0.9 % (0.1-2.0); Eosinophils # 0.3 K/mm3 (0.0-0.4); Eosinophils % 3.1 % (0.1-12.0); Hematocrit 45.4 % (42.0-52.0); Hemoglobin 15.5 g/dL (14.1-18.0); Lymphocytes # 2.4 K/mm3 (0.7-4.5); Lymphocytes % 24.9 % (10-50); Mean Corpuscular HGB Conc 34.1 g/dL (31.8-35.4); Mean Corpuscular Hemoglobin 32.7 pg (27.0-31.2); Mean Corpuscular Volume 95.7 fl (80-94); Mean Platelet Volume 8.4 fl (7.4-10.4); Monocytes # 0.4 K/mm3 (0.1-1.0); Monocytes % 4.5 % (1.7-9.3); Neutrophils # 6.3 K/mm3 (1.8-7.8); Neutrophils % 66.5 % (37.0-80.0); Platelet Count 245 K/mm3 (142-424); Red Blood Count 4.74 M/mm3 (4.60-6.20); Red Cell Distribution Width 12.9 % (11.5-17.5); White Blood Count 9.5 K/mm3 (4.8-10.8)
[2021-01-12 16:04] LABS: Anion Gap 14.9 mEq/L (5-15); Carbon Dioxide 25 mmol/L (22.0-30.0)
[2021-01-12 16:54] LABS: Coronavirus 19, PCR Not Detected (NotDetected); Influenza A, PCR Not Detected (NotDetected); Influenza B, PCR Not Detected (NotDetected)
--- NOTE | 2021-01-12 17:04 | HMH.EDABDPAI ---
ED Disposition Clinical Impression: Kidney stone on right side UTI (urinary tract infection) Qualifiers: Urinary tract infection type: acute cystitis Hematuria presence: with hematuria Qualified Code(s): N30.01 - Acute cystitis with hematuria Disposition: Home, Self-Care Condition on Discharge: Good Instructions: Kidney Stones -- Adult Prescriptions: cephALEXin [Cephalexin 500mg Tab] 500 mg PO BID #20 tab Transmission Status: Pending to [facility] [employer] #[id number] Tamsulosin HCl [Flomax 0.4mg capsule] 0.4 mg PO DAILY #10 cap Transmission Status: Pending to [facility] #[id number] Oxycodone HCl/Acetaminophen [Percocet 7.5-325 mg Tablet] 1 each PO Q6 #12 tablet Transmission Status: Received by [facility] #[id number] Ondansetron [Zofran 4mg ODT] 4 mg PO BIDP PRN #10 tab PRN Reason: Nausea Transmission Status: Pending to [facility] #[id number] Referrals: Sunny Horton [Primary Care Provider] - Walter Weeks MD [Staff Physician] - 01/15/21 9:00 am - Critical Care Critical Care Time: No Attestation: On 01/12/21, the high probability of a clinically significant, sudden or life threatening deterioration of the following system(s) required my full and direct attention, intervention and personal management. The time I documented below is in addition to time spent performing reported procedures but includes the following listed in this critical care notation. Medical Decision Making - Medical Records Medical records reviewed: Yes: I reviewed the patient's medical records. - Juan Inquiry Pt receiving controlled substance: Yes Juan was queried for this patient: Yes Reference #:: [id number] Risks and benefits of using a controlled substance: were discussed with pt by me Vital Signs: 01/12/21 14:21 Temperature 98.6 F Temperature Source Oral Pulse Rate [Right Radial] 98 H Respiratory Rate 16 Blood Pressure [Right Arm] 154/96 H Blood Pressure Mean [Right Arm] 115 Blood Pressure Source [Right Arm] Automatic Cuff Blood Pressure Position [Right Arm] Sitting 02 Sat by Pulse Oximetry 98 Oxygen Delivery Method Room Air - Lab Data Lab Results 01/12/21 14:25: Urine Color Yellow, Urine Appearance Clear, Urine pH 6.0, Ur Specific [place] >= 1.030, Urine Protein 2+, Urine Glucose (UA) Negative, Urine Ketones Trace, Urine Blood 3+, Urine Nitrate Positive, Urine Bilirubin 1+ A, Urine Urobilinogen 1.0, Ur Leukocyte Esterase Negative, Urine RBC Tntc, Urine WBC 10-20, Ur Squamous Epith Cells Occasional, Urine Bacteria 4+ 01/12/21 14:30: WBC 9.5, RBC 4.74, Hgb 15.5, Hct 45.4, MCV 95.7 H, MCH 32.7 H, MCHC 34.1, RDW 12.9, Plt Count 245, MPV 8.4, Neut % (Auto) 66.5, Lymph % (Auto) 24.9, [place] % (Auto) 4.5, Eos % (Auto) 3.1, Baso % (Auto) 0.9, Neut # (Auto) 6.3, Lymph # (Auto) 2.4, [place] # (Auto) 0.4, Eos # (Auto) 0.3, Baso # (Auto) 0.1 01/12/21 14:30: Sodium 139, Potassium 3.9, Chloride 103, Carbon Dioxide 25, Anion Gap 14.9, BUN 10, Creatinine 0.50 L, Estimated Creat Clear 261, Estimated GFR 194, Est GFR ( Amer) 235, Glucose 98, Calcium 9.4, Total Bilirubin 0.8, AST 31, ALT 23, Alkaline Phosphatase 105, Total Protein 7.6, Albumin 4.6, Globulin 3.0, Albumin/Globulin Ratio 1.5, Lipase 63 Result diagrams: 01/12/21 14:30 01/12/21 14:30 Orders (Tests/Meds): ED MEDICATIONS Generic Name Dose Route Start Last Admin Trade Name Freq PRN Reason Stop Dose Admin Ceftriaxone Sodium 1 gm/ 50 mls @ 100 mls/hr 01/12/21 16:00 01/12/21 16:39 Sodium Chloride IV 01/26/21 15:59 100 mls/hr Q24H LILIAN Administration Discontinued Medications Generic Name Dose Route Start Last Admin Trade Name Freq PRN Reason Stop Dose Admin Sodium Chloride 1,000 mls @ 999 mls/hr 01/12/21 15:45 01/12/21 15:47 Sod Chlor 0.9% 1000ml Bag IV 01/12/21 16:45 999 mls/hr .Q1H1M LILIAN Administration Sodium Chloride 1,000 mls @ 999 mls/hr 01/12/21 16:00 01/12/21 16:39 Sod Chlor 0.9% 1000ml Bag IV 01/12
== END 2021-01-12 18:30 | disposition home or self-care (01) ==
PROVIDERS: Emergency Provider Emergency Medicine; PCP Pediatrics
DX: N30.01 Acute cystitis with hematuria (principal); N20.1 Calculus of ureter; K21.9 Gastro-esophageal reflux disease without esophagitis; E78.5 Hyperlipidemia, unspecified; I10 Essential (primary) hypertension; Z87.891 Personal history of nicotine dependence; Z79.899 Other long term (current) drug therapy
CPT/HCPCS: 74177; 80053; 81001; 83690; 85025; 87086; 96365; 96366; 96375; 96376; 99283; C9803; J2405; Q9967; U0003; U0005

== ENCOUNTER 2021-01-15 07:13 | Day surgery (SDC) | payer OTHER, SELFPAY ==
[2021-01-15] VITALS (9 sets, daily range): BP systolic 129–149; BP diastolic 76–92; PULSE 74–87; RESP 12–18; TEMP 36.5–38; O2SAT 80–99; BMI 57.1
--- NOTE | 2021-01-15 08:19 | P.PN_ITS ---
[facility] Anesthesia Checklist - Patient Identification Patient Identification: Arm Band - Structural Data Admitted From: Home Planned Operative Procedure/s: Cysto with stent placement Consent for Planned Operative Procedure(s) Verified: Yes - NPO Status Verified Time NPO: 00:00 - Additional verifications Anesthesia Reactions: No Hx Blood Transfusions: No Blood Transfusion Reaction: No - Airway Assessment C-Spine Mobility Assessed: Yes TMJ Mobility Assessed: Yes Dentition: Good Dentition - Neurological Assessment Level of Consciousness: Awake Hx Seizures: No Numbness or tingling in extremities: No - Anesthesia Plan Anesthesia Risk discussed: Yes Anesthesia Plan: Verified ASA Class: II Anesthesia Type: General [facility] History I have reviewed the patient's past medical history: Yes Medical History: Reports:: Asthma, Depression, Gastroesophageal Reflux Disease(GERD), Hyperlipidemia, Hypertension, Kidney Stones Denies:: Cancer, Diabetes Mellitus Type 1, Diabetes Mellitus Type 2, Internal Pacemaker, MRSA, Seizures *Have you ever received a pneumonia vaccine?: No *Have you received a flu vaccine this season?: No Other Medical History: Denies: Blood Transfusion Reaction Anesthesia experience/problems:: None Other Surgeries: Yes: Bariatric Surgery, Colonoscopy, Plastic Surgery, Other. No: Pacemaker Amputation: No Fractures: Yes - *Social History Last grade of school completed: High school graduate Smoking Status: Current every day smoker Tobacco Type: cigarettes # Packs/Day (cigarettes): 1 #Yrs smoked (if former smoker): 12 Alcohol Intake: never Alcohol Intake Frequency:: holidays/special occasions only Substance Use Type: denies use *Occupational Status:: unemployed Housing: house Household Members: family *Travel in the last 8 weeks: None - Psychiatric History Pschychiatric History:: Reports:: Depression Family Hx:: Heart Attack, Stroke
--- NOTE | 2021-01-15 09:35 | P.PN_ITS ---
[facility] Anesthesia Record Part I Intake, IV Amount: 500 Estimated blood loss (mL): 0 Urine output (mL): 0 Blood Pressure: 134/80 SaO2: 99 Pulse Rate: 74 Respiratory Rate: 12 Temperature: 97.9 F Patient is:: Awake, Stable Stable to PACU at:: 09:30
--- NOTE | 2021-01-15 09:43 | XR_ITS ---
PROCEDURE: XR KUB CLINICAL INDICATION: STENT PLACED IN OR COMPARISON: No exams were available for comparison FINDINGS: Fluoroscopy time: 1.21 minutes. Two images submitted with the C-arm show interval placement of a right ureteral stent with the proximal aspect in the right upper quadrant and the distal aspect in the lower pelvis area on the right. IMPRESSION: Post right-sided stent placement with C-arm assistance Dictated by: Daniel Pearson MD 01/15/2021 10:07 Daniel Pearson MD in [place] 01/15/2021 10:07
--- NOTE | 2021-01-15 13:09 | HMH.OPNOTE ---
Date of procedure: 01/15/21 Pre-op Diagnosis:: Right proximal ureteral calculus Post-op Diagnosis:: Right proximal ureteral calculus Procedure performed:: Cystoscopy with stone manipulation and right stent placement Surgeon:: Walter Weeks MD PHYSICS TECHNICIAN:: John Carbajal Anesthesia: LMA Estimated blood loss (mL): 0 Clinical Note:: Patient is a 30-year-old white male with right flank pain 3 days ago. He presented to the emergency room where CT scan showed a 7 mm stone in the right proximal ureter with hydronephrosis. Patient was discharged home with pain medication, antibiotics and nausea medication.. States he has continued to have some discomfort through the weekend but manageable. He presents today for urologic management. Operative findings:: Fluoroscopy reveals a 6 mm stone in the right proximal ureter. The stone was manipulated back into the renal pelvis and a 4.8 x 26 [place] stent was placed. Operative note:: Patient taken to the operating room after informed consent was obtained. He was placed on the operating table in the supine position and general anesthesia administered. Preoperative antibiotics and sequential compression devices placed. Placed into the dorsal lithotomy position and prepped and draped in the standard surgical fashion. A 22 [place] cystoscope passed into the urethra and into the bladder. The bladder was examined in a systematic fashion and was within normal limits. A 5 [place] ureteral catheter passed into the right ureteral orifice and under fluoroscopy passed up to the right proximal ureteral stone. The stone was manipulated back into the renal pelvis. A guidewire then passed through the ureteral catheter and the ureteral catheter removed. A 4.8 x 26 [place] stent was then passed over the guidewire and under fluoroscopy the guidewire removed and a good curl was noted proximally and distally. String was left on for later removal. The bladder emptied and scope removed. Urojet placed into the urethra. Patient tolerated procedure well. Condition: stable Disposition: PACU Specimens:: None Complications:: None
--- NOTE | 2021-01-17 19:59 | HMH.ANESII ---
[facility] Anesthesia Record Part II Discharge Time: 10:05 Destination: home PACU nurse assessment reviewed?: Yes Patient Condition:: Good Anesthesia Complications:: None none Swallowing reflex intact?: Yes Cyanosis?: No Blood Pressure: 137/78 Pulse Rate: 77 Temperature: 97.7 F Mental Status: Alert & Oriented Pain level:: 0 Nausea and/or vomitting:: None Intake, IV Amount: 0
[2021-01-17 20:00] VITALS: BP 137/78; PULSE 77; TEMP 36.5
== END 2021-01-15 10:35 | disposition home or self-care (01) ==
LOC: OR 07:14
PROVIDERS: PCP Pediatrics; Visit Provider Urology
PROC: (CPT 52330; principal; 2021-01-15 08:30)
DX: N13.2 Hydronephrosis with renal and ureteral calculous obstruction (principal); J45.909 Unspecified asthma, uncomplicated; F32.9 Major depressive disorder, single episode, unspecified; K21.9 Gastro-esophageal reflux disease without esophagitis; E78.5 Hyperlipidemia, unspecified; I10 Essential (primary) hypertension; Z72.0 Tobacco use; Z82.3 Family history of stroke; Z79.899 Other long term (current) drug therapy
CPT/HCPCS: 52330; 74018; 76000; 96374; C2617

== ENCOUNTER → 2021-04-07 12:03 | Outpatient (CLI) | payer OTHER, SELFPAY ==
[2021-04-07 14:53] LABS: Basophils # 0.2 K/mm3 (0-0.2); Basophils % 1.6 % (0.1-2.0); Eosinophils # 0.6 K/mm3 (0.0-0.4); Hematocrit 47.1 % (42.0-52.0); Hemoglobin 15.5 g/dL (14.1-18.0); Mean Corpuscular Volume 99.7 fl (80-94); Mean Platelet Volume 9.6 fl (7.4-10.4); Monocytes # 0.4 K/mm3 (0.1-1.0); Monocytes % 4.7 % (1.7-9.3); Neutrophils % 54.7 % (37.0-80.0); Platelet Count 203 K/mm3 (142-424); Red Blood Count 4.72 M/mm3 (4.60-6.20); Red Cell Distribution Width 12.8 % (11.5-17.5); White Blood Count 9.1 K/mm3 (4.8-10.8)
[2021-04-07 15:36] LABS: Anion Gap 13.4 mEq/L (5-15); Blood Urea Nitrogen 13 mg/dl (9-20); Calcium 9.9 mg/dl (8.4-10.2); Carbon Dioxide 27 mmol/L (22.0-30.0); Chloride 106 mmol/L (98-107); Estimated Glomerular Filt Rate 131 ml/min (>60); GFR (African American) 158 ML/MIN (>60); Glucose 71 mg/dl (74-100); Potassium 4.4 mmoL/L (3.5-5.1); Sodium 142 mmol/L (136-145)
== END ==
PROVIDERS: PCP Pediatrics; Visit Provider Surgery
DX: Z01.812 Encounter for preprocedural laboratory examination (principal); U07.1 COVID-19; L73.2 Hidradenitis suppurativa
CPT/HCPCS: 80048; 85025; C9803; U0003; U0005

== ENCOUNTER 2021-04-10 06:56 | Day surgery (SDC) | payer OTHER, SELFPAY ==
[2021-04-04 13:10] VITALS: BMI 25.4
[2021-04-10] VITALS (10 sets, daily range): BP systolic 123–154; BP diastolic 65–99; PULSE 71–85; RESP 12–18; TEMP 36.2–36.9; O2SAT 93–100
--- NOTE | 2021-04-10 08:07 | P.PN_ITS ---
[facility] Anesthesia Checklist - Patient Identification Patient Identification: Arm Band, Verbal (Name & ) - Structural Data Admitted From: Home Planned Operative Procedure/s: Excision of Bilateral groin Hydradentitis Consent for Planned Operative Procedure(s) Verified: Yes Verified Documents: Surgical Consent - NPO Status Verified Time NPO: 00:00 - Chart Verification Results Verified: BMP - Additional verifications Anesthesia Reactions: No Hx Blood Transfusions: No Blood Transfusion Reaction: No - Anesthesia Plan Anesthesia Risk discussed: Yes ASA Class: II Anesthesia Type: General [facility] History Medical History: Reports:: Asthma, Depression, Gastroesophageal Reflux Disease(GERD), Hyperlipidemia, Hypertension, Kidney Stones Denies:: Cancer, Diabetes Mellitus Type 1, Diabetes Mellitus Type 2, Internal Pacemaker, MRSA, Seizures *Have you ever received a pneumonia vaccine?: No *Have you received a flu vaccine this season?: Yes Other Medical History: Denies: Blood Transfusion Reaction Anesthesia experience/problems:: none Other Surgeries: Yes: Bariatric Surgery, Colonoscopy, Plastic Surgery, Other. No: Pacemaker Amputation: No Fractures: Yes - *Social History Last grade of school completed: High school graduate Smoking Status: Current every day smoker Tobacco Type: cigarettes # Packs/Day (cigarettes): 1 #Yrs smoked (if former smoker): 12 Alcohol Intake: never Alcohol Intake Frequency:: holidays/special occasions only Substance Use Type: denies use *Occupational Status:: unemployed Housing: house Household Members: family *Travel in the last 8 weeks: None - Psychiatric History Pschychiatric History:: Reports:: Depression Family Hx:: Diabetes, Heart Attack, Hypertension, Stroke
--- NOTE | 2021-04-10 08:14 | P.OP_ITS ---
Date of procedure: 04/10/21 Pre-op Diagnosis:: Perineal and perianal hidradenitis Post-op Diagnosis:: Same Procedure performed:: Excision and debridement of perineal/perianal hidradenitis Surgeon:: Blake Rider MD [employer] MACHINE OPERATOR:: Other Anesthesia: LMA Estimated blood loss (mL): 15 Clinical Note:: Patient is a 31-year-old male from [place]. He has a very longstanding history of somewhat refractory recurrent hidradenitis of the perineal and groin areas. I have performed multiple incision and drainage on him for refractory hidradenitis suppurativa. He actually did undergo extensive excision and plastic surgery flap at [facility] at one point. He has seen dermatology and has been on Humira which often keeps these areas in check. I had performed incision and drainage and debridement of a area on the right medial proximal thigh area in lesion and there is concern that this could be a perianal fistula January. He has been followed in the office regularly. Interestingly he does state that he has had some has had some drainage from the perianal location but this seems to have healed completely. Last time he was in the office he had complained of an area of mild inflammation in the left anterior perianal/perineal location. I had started him on clindamycin. He recently presented to the office stating that the area is still inflamed. Interestingly he has had some drainage from the perianal wound. In the left anterior perianal location there was an area of focal mild inflammation. Plan was made for incision and drainage and unroofing. When he presented to the preoperative area previous area in the right groin area had become quite inflamed and tender. Plan was made for incision and drainage and debridement of these areas. Operative findings:: Consistent with hidradenitis Operative note:: Consent was obtained and patient was taken the operating room. He was positioned supine position. Anesthesia was induced via LMA. He was repositioned in modified lithotomy position. The areas were prepped and draped in the standard surgical fashion. Attention was first turned to the right groin. There is some minor erythema at lower area of hidradenitis. Limited incision was made with scalpel. There was some underlying purulent drainage. This was sent for culture. Inflamed skin was excised. There was some underlying granulation tissue consistent with inflamed hidradenitis suppurativa. This was debrided with curette. The more anterior lesion did not appear to be terribly inflamed and was not addressed at this time. Attention was turned to the perianal area. This was probed. The overlying skin was incised with electrocautery. Underlying tissue appeared to be consistent with hidradenitis. Subcutaneous tissues were debrided with a small curette. Local anesthetic was infiltrated into both wounds. Wounds were packed with dry gauze. Clean dry sterile dressings were applied. Condition: stable Disposition: PACU Specimens:: Debrided hidradenitis Complications:: None immediately apparent
--- NOTE | 2021-04-10 08:21 | HMH.ANESI ---
[facility] Anesthesia Record Part I Intake, IV Amount: 300 Estimated blood loss (mL): 5 Urine output (mL): 0 Blood Pressure: 123/74 SaO2: 93 Pulse Rate: 76 Respiratory Rate: 12 Temperature: 97.5 F Patient is:: Drowsy
[2021-04-12 08:02] VITALS: BP 133/75; PULSE 75; TEMP 36.2
--- NOTE | 2021-04-12 08:02 | P.PN_ITS ---
[facility] Anesthesia Record Part II Discharge Time: 08:48 Destination: Surgical Day Care (OP Surgery) PACU nurse assessment reviewed?: Yes Patient Condition:: Good Anesthesia Complications:: None Swallowing reflex intact?: Yes Cyanosis?: No Blood Pressure: 133/75 Pulse Rate: 75 Temperature: 97.1 F Mental Status: Alert & Oriented Pain level:: 4 Nausea and/or vomitting:: None Intake, IV Amount: 0
== END 2021-04-10 09:40 | disposition home or self-care (01) ==
LOC: OR 06:57
PROVIDERS: PCP Pediatrics; Visit Provider Surgery
PROC: (CPT 11470; principal; 2021-04-10 08:30)
DX: L73.2 Hidradenitis suppurativa (principal); J45.909 Unspecified asthma, uncomplicated; F32.A Depression, unspecified; K21.9 Gastro-esophageal reflux disease without esophagitis; E78.5 Hyperlipidemia, unspecified; I10 Essential (primary) hypertension; Z72.0 Tobacco use; Z87.442 Personal history of urinary calculi; Z83.3 Family history of diabetes mellitus; Z82.3 Family history of stroke; Z82.49 Family history of ischemic heart disease and other diseases of the circulatory system; Z79.899 Other long term (current) drug therapy
CPT/HCPCS: 11470; 11000; 87070; 87075; 87205; 96374; J2405

== ENCOUNTER 2021-05-29 19:43 | Emergency (ER) | payer OTHER, SELFPAY ==
[2021-05-29] VITALS (7 sets, daily range): BP systolic 122–158; BP diastolic 82–87; PULSE 78–90; RESP 12–24; TEMP 36.7–37.2; O2SAT 98–100; BMI 26.2
--- NOTE | 2021-05-29 19:49 | ECG_ITS ---
APPROVED REPORT Exam: Resting ECG HR:91 bpm ECG Measurements Heart Rate 91 AXES CA 163 P 68 QRSd 93 QRS 64 QT 331 T 60 QTc 380 Conclusion SINUS RHYTHM NORMAL ECG UNCONFIRMED REPORT Electronically signed by : Ishmael Yoon MD 05/31/2021 16:04:25
--- NOTE | 2021-05-29 19:59 | XR_ITS ---
PROCEDURE INFORMATION: Exam: XR Chest Exam date and time: 05/29/2021 8:17 PM Age: 31 years old Clinical indication: Other: Chest pressure, elevated BP. ; Additional info: Chest pain TECHNIQUE: Imaging protocol: XR of the chest. Views: 2 views. COMPARISON: SD XR KUB 01/15/2021 9:43 AM FINDINGS: Lungs: Unremarkable. No consolidation. Pleural spaces: No pleural effusion. No pneumothorax. Heart/Mediastinum: Normal heart size. Bones/joints: Unremarkable. IMPRESSION: No acute findings.
[2021-05-29 20:30] LABS: Basophils # 0.1 K/mm3 (0-0.2); Basophils % 1.8 % (0.1-2.0); Eosinophils # 0.3 K/mm3 (0.0-0.4); Hematocrit 43.6 % (42.0-52.0); Hemoglobin 15.2 g/dL (14.1-18.0); Lymphocytes # 2.5 K/mm3 (0.7-4.5); Lymphocytes % 31.7 % (10-50); Mean Corpuscular HGB Conc 34.7 g/dL (31.8-35.4); Mean Corpuscular Hemoglobin 33.1 pg (27.0-31.2); Mean Corpuscular Volume 95.3 fl (80-94); Mean Platelet Volume 8.9 fl (7.4-10.4); Monocytes # 0.3 K/mm3 (0.1-1.0); Monocytes % 4.2 % (1.7-9.3); Neutrophils # 4.6 K/mm3 (1.8-7.8); Neutrophils % 58.3 % (37.0-80.0); Platelet Count 189 K/mm3 (142-424); Red Blood Count 4.58 M/mm3 (4.60-6.20); Red Cell Distribution Width 13.3 % (11.5-17.5); White Blood Count 7.8 K/mm3 (4.8-10.8)
[2021-05-29 20:38] LABS: Chloride 108 mmol/L (98-107); Potassium 3.6 mmoL/L (3.5-5.1); Sodium 137 mmol/L (136-145)
[2021-05-29 20:41] LABS: Alanine Aminotransferase 27 U/L (12-78); Albumin Level 4.3 g/dl (3.5-5.0); Alkaline Phosphatase 90 U/L (38-126); Anion Gap 9.6 mEq/L (5-15); Aspartate Amino Transferase 29 U/L (17-59); Bilirubin,Direct 0.3 mg/dl (0.0-0.4); Bilirubin,Indirect 0.3 mg/dL (0.0-0.9); Bilirubin,Total 0.6 mg/dl (0.2-1.3); Bilirubin,Unconjugated 0.2 mg/dL (0.0-1.1); Blood Urea Nitrogen 13 mg/dl (9-20); Calcium 8.4 mg/dl (8.4-10.2); Carbon Dioxide 23 mmol/L (22.0-30.0); Creatinine Clearance Estimated 219 mL/min (50-200); Estimated Glomerular Filt Rate 156 ml/min (>60); GFR (African American) 189 ML/MIN (>60); Glucose 145 mg/dl (74-100); Total Protein,Serum 6.7 g/dl (6.3-8.2)
[2021-05-29 20:42] LABS: Magnesium 1.7 mg/dl (1.6-2.3)
[2021-05-29 20:54] LABS: Troponin I < 0.01 ng/ml (0.00-0.034)
--- NOTE | 2021-05-29 21:01 | HMH.EDCP ---
ED Disposition Clinical Impression: Atypical chest pain, Palpitations Disposition: Home, Self-Care Condition on Discharge: Good Instructions: DI for Palpitations Additional Instructions: see card for follow up Referrals: Sunny Horton [Primary Care Provider] - - Critical Care Critical Care Time: No Attestation: On 05/29/21, the high probability of a clinically significant, sudden or life threatening deterioration of the following system(s) required my full and direct attention, intervention and personal management. The time I documented below is in addition to time spent performing reported procedures but includes the following listed in this critical care notation. Medical Decision Making - Medical Records Medical records reviewed: Yes: I reviewed the patient's medical records. - Juan Inquiry Pt receiving controlled substance: No Vital Signs: 05/29/21 19:51 05/29/21 20:00 05/29/21 20:30 Temperature 98.9 F Temperature Source Oral Pulse Rate 90 86 Pulse Rate [Left Radial] 87 Respiratory Rate 15 18 20 Blood Pressure 136/84 130/87 Blood Pressure [Right Arm] 158/87 H Blood Pressure Mean Blood Pressure Mean [Right Arm] 110 02 Sat by Pulse Oximetry 99 98 98 Oxygen Delivery Method Room Air 05/29/21 21:00 05/29/21 21:30 05/29/21 22:00 Temperature Temperature Source Pulse Rate 82 85 Pulse Rate [Left Radial] Respiratory Rate 24 21 12 Blood Pressure 131/87 130/82 122/83 Blood Pressure [Right Arm] Blood Pressure Mean 97 93 94 Blood Pressure Mean [Right Arm] 02 Sat by Pulse Oximetry 100 99 99 Oxygen Delivery Method - Lab Data Lab results reviewed: Yes: I reviewed the patient's lab results. Lab Results 05/29/21 20:14: WBC 7.8, RBC 4.58 L, Hgb 15.2, Hct 43.6, MCV 95.3 H, MCH 33.1 H, MCHC 34.7, RDW 13.3, Plt Count 189, MPV 8.9, Neut % (Auto) 58.3, Lymph % (Auto) 31.7, [place] % (Auto) 4.2, Eos % (Auto) 4.0, Baso % (Auto) 1.8, Neut # (Auto) 4.6, Lymph # (Auto) 2.5, [place] # (Auto) 0.3, Eos # (Auto) 0.3, Baso # (Auto) 0.1 05/29/21 20:14: Sodium 137, Potassium 3.6, Chloride 108 H, Carbon Dioxide 23, Anion Gap 9.6, BUN 13, Creatinine 0.60 L, Estimated Creat Clear 219, Estimated GFR 156, Est GFR ( Amer) 189, Glucose 145 H, Calcium 8.4, Total Bilirubin 0.6, Direct Bilirubin 0.3, Conjugated Bilirubin 0.0, Indirect Bilirubin 0.3, Unconjugated Bilirubin 0.2, AST 29, ALT 27, Alkaline Phosphatase 90, Troponin I < 0.01, Total Protein 6.7, Albumin 4.3 05/29/21 20:14: Magnesium 1.7 05/29/21 22:26: Troponin I < 0.01, Thyroxine (T4) 8.7 Result diagrams: 05/29/21 20:14 05/29/21 20:14 Orders (Tests/Meds): ED MEDICATIONS Generic Name Dose Route Start Last Admin Trade Name Freq PRN Reason Stop Dose Admin Sodium Chloride 1,000 mls @ 999 mls/hr 05/29/21 20:15 05/29/21 20:05 Sod Chlor 0.9% 1000ml Bag IV 05/29/21 21:15 999 mls/hr .Q1H1M LILIAN Administration Discontinued Medications Generic Name Dose Route Start Last Admin Trade Name Freq PRN Reason Stop Dose Admin Aspirin 324 mg 05/29/21 19:58 05/29/21 20:05 Aspirin 81mg Chewable Tablet PO 05/29/21 19:59 324 mg ONCE ONE Administration ORDERS Category Date Time Status T4 (Thyroxine) Stat Lab 05/29/21 22:26 Results TSH [Thyroid Stimulating Hormone] Stat Lab 05/29/21 22:26 Results Troponin I Q3H Lab 05/29/21 22:26 Results Troponin I Q3H Lab 05/30/21 02:00 Ordered Holter Monitor Req by Madhav/ Stat Y 05/29/21 23:18 Ordered - Radiology Data #1 Image(s): Chest Image Reviewed: Yes I have reviewed radiologist's interpretation Preliminary Findings: Normal/NAD - ECG Data Tracing #1 Normal Sinus Rhythm: Yes Ischemic changes: non-specific ST-T wave changes Medical Decision Narrative: has possible a fib but nsr now and stable exam - will try to place holter and refer to card Chest Pain HPI - General Chief Complaint: Chest Pain Stated Complaint: LEFT ARM COLD AND NUMB
[2021-05-29 23:03] LABS: Troponin I < 0.01 ng/ml (0.00-0.034)
[2021-05-29 23:08] LABS: T4 (Thyroxine) 8.7 ug/dl (5.53-11.0)
[2021-05-29 23:21] LABS: Thyroid Stimulating Hormone 1.05 uIU/mL (0.465-4.68)
== END 2021-05-29 23:43 | disposition home or self-care (01) ==
PROVIDERS: Emergency Provider Emergency Medicine; PCP Pediatrics
DX: R07.89 Other chest pain (principal); R00.2 Palpitations; R20.2 Paresthesia of skin; K21.9 Gastro-esophageal reflux disease without esophagitis; I10 Essential (primary) hypertension; I48.0 Paroxysmal atrial fibrillation; E78.5 Hyperlipidemia, unspecified; F17.210 Nicotine dependence, cigarettes, uncomplicated; Z98.84 Bariatric surgery status; Z79.899 Other long term (current) drug therapy
CPT/HCPCS: 71046; 80048; 80076; 83735; 84436; 84443; 84484; 85025; 93005; 96360; 96365; 99284

== ENCOUNTER → 2021-05-30 14:48 | Outpatient (CLI) | payer OTHER, SELFPAY | PROVIDERS: PCP Pediatrics; Visit Provider Physician Assistant | DX: R07.89 Other chest pain (principal); R00.2 Palpitations | CPT/HCPCS: 93225; 93226 ==

== ENCOUNTER → 2022-10-09 08:09 | Outpatient (CLI) | payer BC, OTHER, SELFPAY ==
--- NOTE | 2022-10-09 08:19 | US_ITS ---
FINAL REPORT CLINICAL HISTORY: HX OF GASTRIC BYPass X 4 YRS-- NOW WITH NAUSEA-- GB REMOVED-- BLOATING ON LT SIDE OFG ABD COMPARISON: None FINDINGS: Sonographic images of the abdomen were obtained. The liver has an unremarkable appearance with normal echogenicity. The gallbladder has been surgically resected. There is no evidence of biliary ductal dilatation. The common hepatic duct measures 2 mm, which is within normal limits. Limited images of the pancreas are unremarkable. Multiple splenic calcifications are present compatible with calcified granulomas. The right kidney measures 11.2 in length. The left kidney measures 11.6 in length. There is normal renal echogenicity. There are foci of increased echogenicity in both kidneys with posterior acoustical shadowing most compatible with bilateral renal stones, the largest of which is in the left kidney. There is no evidence of hydronephrosis. The aorta has an unremarkable appearance. Limited images of the inferior vena cava are unremarkable. IMPRESSION: Prior cholecystectomy. No biliary ductal dilatation is identified. Bilateral renal stones, largest on the left. Would recommend CT with renal stone protocol if clinically indicated. Reviewed, Interpreted and Dictated by Blake James III, MD Transcribed by Patricia Kuo Authenticated and . [facility]
== END ==
PROVIDERS: PCP Pediatrics; Visit Provider Nurse Practitioner Family
DX: R14.0 Abdominal distension (gaseous) (principal)
CPT/HCPCS: 76700

== ENCOUNTER → 2022-11-06 10:46 | Outpatient (CLI) | payer BC, OTHER, SELFPAY ==
--- NOTE | 2022-11-06 10:50 | FL_ITS ---
FINAL REPORT CLINICAL HISTORY: abd pain ft- 1.17 dap- 2103.87 FINDINGS: Upper GI and small bowel follow-through. HISTORY: Status post gastric-bypass with acute left abdominal pain. PROCEDURE: The patient ingested barium contrast. Spot and overhead films were obtained. FINDINGS: UGI: The esophagus is unremarkable. There is no gastroesophageal reflux demonstrated. The gastric pouch is normal. There is no GG fistula or evidence of leak. SBFT: Water Well Driller film demonstrates suture material in the left upper quadrant consistent with gastric-bypass. The small bowel loops in the left upper quadrant are mildly distended. The distal anastomosis is patent. Mucosal fold pattern of the small bowel is normal. Transit time is normal with contrast in the colon at 90 minutes. Fluoro dose: 2103.87 DAP in uG[employer] Fluoroscopy time: 1 minute 17 seconds Total images: 45 IMPRESSION: Status post gastric-bypass without evidence of leak or G-G fistula. The transit time to the colon is normal. Reviewed, Interpreted and Dictated by Blake James III, MD Transcribed by Kaye Jerome PA-C Authenticated and [facility]
== END ==
PROVIDERS: PCP Pediatrics; Visit Provider Nurse Practitioner Family
DX: R10.9 Unspecified abdominal pain (principal)
CPT/HCPCS: 74246; 74248

== ENCOUNTER 2023-12-12 09:06 | Outpatient (CLI) | payer BC, SELFPAY ==
[2023-12-12 09:47] VITALS: BMI 55.6
[2023-12-12 10:08] LABS: Basophils # 0.1 K/mm3 (0-0.2); Basophils % 1.1 % (0.1-2.0); Eosinophils # 0.5 K/mm3 (0.0-0.4); Eosinophils % 4.7 % (0.1-12.0); Hematocrit 44.3 % (42.0-52.0); Hemoglobin 15.3 g/dL (14.1-18.0); Lymphocytes # 2.1 K/mm3 (0.7-4.5); Lymphocytes % 20.9 % (10-50); Mean Corpuscular HGB Conc 34.6 g/dL (31.8-35.4); Mean Corpuscular Hemoglobin 32.7 pg (27.0-31.2); Mean Corpuscular Volume 94.8 fl (80-94); Mean Platelet Volume 8.1 fl (7.4-10.4); Monocytes # 0.6 K/mm3 (0.1-1.0); Monocytes % 5.8 % (1.7-9.3); Neutrophils # 6.6 K/mm3 (1.8-7.8); Neutrophils % 67.5 % (37.0-80.0); Platelet Count 200 K/mm3 (142-424); Red Blood Count 4.68 M/mm3 (4.60-6.20); Red Cell Distribution Width 13.2 % (11.5-17.5); White Blood Count 9.8 K/mm3 (4.8-10.8)
[2023-12-12 10:10] LABS: Chloride 104 mmol/L (98-107); Sodium 140 mmol/L (136-145)
[2023-12-12 10:11] LABS: Potassium 4.5 mmoL/L (3.5-5.1)
[2023-12-12 10:13] LABS: Blood Urea Nitrogen 15 mg/dl (9-20); Creatinine Clearance Estimated 143 mL/min (50-200); Estimated Glomerular Filt Rate 111 ml/min (>60); GFR (African American) 134 ML/MIN (>60)
[2023-12-12 10:14] LABS: Anion Gap 8.5 mEq/L (5-15); Calcium 10.1 mg/dl (8.4-10.2); Carbon Dioxide 32 mmol/L (22.0-30.0); Glucose 84 mg/dl (74-100)
== END 2023-12-12 23:59 | disposition home or self-care (01) ==
LOC: PREOP 09:07
PROVIDERS: PCP Pediatrics; Visit Provider Surgery
DX: Z01.812 Encounter for preprocedural laboratory examination (principal)
CPT/HCPCS: 80048; 85025

== ENCOUNTER 2023-12-22 11:26 | Day surgery (SDC) | payer BC, SELFPAY ==
[2023-12-12 09:52] VITALS: BMI 25.2
[2023-12-22] VITALS (9 sets, daily range): BP systolic 121–148; BP diastolic 55–95; PULSE 80–110; RESP 16–18; TEMP 36.4–36.7; O2SAT 95–99
--- NOTE | 2023-12-22 11:56 | P.PNANES_ITS ---
[facility] Disclaimer: The information contained in this section may have been updated after the patient was seen, as this information can be updated by other users. Medical History Hidradenitis Migraine Glaucoma Surgical History History of ureteroscopy History of cholecystectomy History of gastric bypass History of incision and drainage Family History Other Family history of diabetes mellitus Family history of heart disease Family history of hypertension Social History Smoking Status: Current every day smoker tobacco type: cigarettes packs per day: 1 second hand exposure: No alcohol intake: never counseling provided: provider counseling substance use type: denies use current occupational status: employed and unemployed Travel in the last 8 weeks: None household members: family housing: house 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 current occupational exposures/hazards: No caffeine: Yes [facility] Anesthesia Checklist Patient Identification Patient Identification: Arm Band and Verbal (Name & ) Structural Data Admitted From: Home Planned Operative Procedure/s: I & D perianal hidradenitis Consent for Planned Operative Procedure(s) Verified: Yes Verified Documents: Surgical Consent and History and Physical NPO Status Verified Time NPO: 00:00 Additional verifications Anesthesia Reactions: No Hx Blood Transfusions: No Blood Transfusion Reaction: No Airway Assessment Mallampati Score:: Class I C-Spine Mobility Assessed: Yes TMJ Mobility Assessed: Yes Dentition: Good Dentition Neurological Assessment Level of Consciousness: Awake Hx Seizures: No Numbness or tingling in extremities: No Anesthesia Plan Anesthesia Risk discussed: Yes Anesthesia Plan: Verified ASA Class: II Anesthesia Type: General
[2023-12-22] MEDS: CLINDAMYCIN PHOSPHATE/D5W 900 MG/50 ML PIGGYBACK 100 MG IV (13:37)
[2023-12-22] MEDS: ROPIVACAINE 0.5% 30ML VIAL 150 MG (13:55)
[2023-12-22] MEDS: LIDOCAINE 1% 20ML MDV 20 ML (13:55)
--- NOTE | 2023-12-22 14:14 | P.OP_ITS ---
Date of procedure: 12/22/23 Pre-op Diagnosis:: Perineal hidradenitis Post-op Diagnosis:: Same Procedure performed:: Incision and drainage debridement perineal hidradenitis Surgeon:: Blake Rider MD PRODUCTION DRILLING MACHINE OPERATOR:: Mehran Avila Anesthesia: LMA Estimated blood loss (mL): 5 Operative findings:: At the base of the left scrotum there was a fistulous opening with purulent drainage. There was purulent granulation tissue. There was a slightly fluctuant nodule near the base of the right hemiscrotum containing pus. Operative note:: Consent was obtained and patient was taken the operating room. He was given preoperative intravenous antibiotics. In the operating room he was placed in a supine position. General anesthesia was induced via LMA. He was positioned in the lithotomy position. Area was prepped and draped in the standard surgical fashion. Attention was first turned to the area at the base of the left scrotum. There was a fistulous opening which was probed. There was undermining for a couple of centimeters. This was unroofed with electrocautery. There was somewhat purulent granulation tissue present once unroofing and this was debrided bluntly with a curette. Local anesthetic was infiltrated. Attention was then turned to the somewhat fluctuant nodule at the base of the right hemiscrotum. Very limited tiny incision was made. There was purulent material. This was probed with a probe and opened for about a centimeter. Underlying tissues were debrided with curette. Both wounds were irrigated. Local anesthetic was infiltrated. They were packed with half-inch plain packing gauze and covered with clean dry sterile dressing. Condition: stable Disposition: PACU Complications:: None immediately
--- NOTE | 2023-12-22 14:21 | EXP.ANES.I ---
[facility] Anesthesia Record Part I Anesthesia Record I Intake, IV Amount: 300 Hydration: Adequate Estimated blood loss (mL): 5 Urine output (mL): 0 Blood Products used (#): none Blood Pressure: 121/55 SaO2: 95 Pulse Rate: 110 Airway Patency: Patent Respiratory Rate: 18 Temperature: 98.1 F Patient is:: Drowsy and Stable Stable to PACU at:: 14:17
--- NOTE | 2023-12-23 10:33 | P.PNANES_ITS ---
[facility] Anesthesia Record Part II Anesthesia Record Part II Discharge Time: 14:45 Destination: Surgical Day Care (OP Surgery) PACU nurse assessment reviewed?: Yes Patient Condition:: Good Anesthesia Complications:: None Swallowing reflex intact?: Yes Airway Patency: Patent Cyanosis?: No Blood Pressure: 148/94 SaO2: 96 Respiratory Rate: 18 Pulse Rate: 85 Temperature: 97.6 F Mental Status: Alert & Oriented Pain level:: 0 Nausea and/or vomitting:: None Intake, IV Amount: 0 Hydration: Adequate
[2023-12-23 10:35] VITALS: BP 148/94; PULSE 85; RESP 18; TEMP 36.4; O2SAT 96
== END 2023-12-22 15:10 | disposition home or self-care (01) ==
PROVIDERS: PCP Pediatrics; Visit Provider Surgery
PROC: (CPT 11470; principal; 2023-12-22 13:20)
DX: L73.2 Hidradenitis suppurativa (principal)
CPT/HCPCS: 11470; J1100; J1885; J2250; J2405; J3010

== ENCOUNTER 2024-03-31 15:05 | Outpatient (CLI) | payer BC, SELFPAY ==
[2024-03-31 15:33] LABS: Basophils % 0.6 % (0.1-2.0); Eosinophils # 0.4 K/mm3 (0.0-0.4); Eosinophils % 5.7 % (0.1-12.0); Hematocrit 41.5 % (42.0-52.0); Hemoglobin 14.2 g/dL (14.1-18.0); Lymphocytes # 1.8 K/mm3 (0.7-4.5); Lymphocytes % 26.1 % (10-50); Mean Corpuscular HGB Conc 34.2 g/dL (31.8-35.4); Mean Corpuscular Hemoglobin 31.8 pg (27.0-31.2); Mean Platelet Volume 10.3 fl (7.4-10.4); Monocytes # 0.4 K/mm3 (0.1-1.0); Monocytes % 5.4 % (1.7-9.3); Neutrophils # 4.2 K/mm3 (1.8-7.8); Neutrophils % 61.9 % (37.0-80.0); Platelet Count 173 K/mm3 (142-424); Red Blood Count 4.46 M/mm3 (4.60-6.20); Red Cell Distribution Width 12.4 % (11.5-17.5); White Blood Count 6.8 K/mm3 (4.8-10.8)
[2024-03-31 15:42] LABS: Chloride 104 mmol/L (98-107); Sodium 137 mmol/L (136-145)
[2024-03-31 15:45] LABS: Blood Urea Nitrogen 15 mg/dl (9-20); Estimated Glomerular Filt Rate 153 ml/min (>60); GFR (African American) 186 ML/MIN (>60)
[2024-03-31 15:46] LABS: Calcium 9.6 mg/dl (8.4-10.2); Carbon Dioxide 25 mmol/L (22.0-30.0); Glucose 116 mg/dl (74-100)
[2024-03-31 16:17] VITALS: BMI 25.7
== END 2024-03-31 23:59 | disposition home or self-care (01) ==
LOC: PREOP 15:07
PROVIDERS: PCP Pediatrics; Visit Provider Surgery
DX: L73.2 Hidradenitis suppurativa (principal)
CPT/HCPCS: 80048; 85025

== ENCOUNTER 2024-04-05 07:11 | Day surgery (SDC) | payer BC, SELFPAY ==
[2024-03-31 16:18] VITALS: BMI 25.7
[2024-04-05] VITALS (11 sets, daily range): BP systolic 116–142; BP diastolic 70–87; PULSE 69–85; RESP 13–18; TEMP 35.7–36.4; O2SAT 95–100
[2024-04-05] MEDS: LACTATED RINGERS 1000ML 1,000 ML 25 ML IV (07:34)
--- NOTE | 2024-04-05 07:42 | EXP.ANES.CKL ---
[facility] Disclaimer: The information contained in this section may have been updated after the patient was seen, as this information can be updated by other users. Medical History Hidradenitis Migraine Glaucoma Surgical History History of ureteroscopy History of cholecystectomy History of gastric bypass History of incision and drainage Family History Other Family history of diabetes mellitus Family history of heart disease Family history of hypertension Social History Smoking Status: Current every day smoker tobacco type: cigarettes packs per day: 1 second hand exposure: No alcohol intake: never counseling provided: provider counseling substance use type: denies use current occupational status: employed Travel in the last 8 weeks: None household members: family housing: house 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 current occupational exposures/hazards: No caffeine: Yes Have you lived/traveled outside [place] in past 30 days?: No Contact w/someone who lives/traveled outside US past 30 days?: No Exposure to someone with infectious disease in past 14 days?: No Do you have a fever (greater than 100.4 F or 38 C)?: No Have you tested positive for COVID-19: No Exposed to someone with COVID-19 in past 14 days?: No Do you have a sore throat?: No Do you have a cough?: No Do you have any weakness?: No Do you have any diarrhea?: No Are you experiencing any unusual bleeding?: No Do you have any muscle aches/pain?: No Do you have any abdominal pain?: No Are you experiencing loss of taste or smell?: No [facility] Anesthesia Checklist Patient Identification Patient Identification: Arm Band Structural Data Admitted From: Home Planned Operative Procedure/s: I&D Perineal Abscess Consent for Planned Operative Procedure(s) Verified: Yes Verified Documents: Surgical Consent and History and Physical NPO Status Verified Time NPO: 00:00 Additional verifications Anesthesia Reactions: No Hx Blood Transfusions: No Blood Transfusion Reaction: No Airway Assessment Mallampati Score:: Class II C-Spine Mobility Assessed: Yes TMJ Mobility Assessed: Yes Dentition: Good Dentition Neurological Assessment Level of Consciousness: Awake, Alert and Appropriate Anesthesia Plan Anesthesia Risk discussed: Yes Anesthesia Plan: Verified ASA Class: II Anesthesia Type: General
--- NOTE | 2024-04-05 07:59 | P.HP_ITS ---
HPI HPI HPI: Patient presents for incision and unroofing of hidradenitis. He underwent incision and debridement with unroofing of hidradenitis on 12/22/2023. The area at the base of the right hemiscrotum was slow to heal. At this point he states that this area has healed but he has concerns about another area. Patient has undergone numerous incision and drainage for refractory hidradenitis suppurativa and actually had extensive excision and plastic surgery flap at [facility] years ago. He does see a warper tender. He has an area in the left perineum and somewhat of the left anterior lateral perianal location which has developed a small hole which occasionally drains. Lockstitch Shoulder Joiner has increased his dose of Cosentyx recently. [facility] Disclaimer: The information contained in this section may have been updated after the patient was seen, as this information can be updated by other users. Medical History Hidradenitis Migraine Glaucoma Surgical History History of ureteroscopy History of cholecystectomy History of gastric bypass History of incision and drainage Family History Other Family history of diabetes mellitus Family history of heart disease Family history of hypertension Social History Smoking Status: Current every day smoker tobacco type: cigarettes packs per day: 1 second hand exposure: No alcohol intake: never counseling provided: provider counseling substance use type: denies use current occupational status: employed Travel in the last 8 weeks: None household members: family housing: house 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 current occupational exposures/hazards: No caffeine: Yes Have you lived/traveled outside [place] in past 30 days?: No Contact w/someone who lives/traveled outside US past 30 days?: No Exposure to someone with infectious disease in past 14 days?: No Do you have a fever (greater than 100.4 F or 38 C)?: No Have you tested positive for COVID-19: No Exposed to someone with COVID-19 in past 14 days?: No Do you have a sore throat?: No Do you have a cough?: No Do you have any weakness?: No Do you have any diarrhea?: No Are you experiencing any unusual bleeding?: No Do you have any muscle aches/pain?: No Do you have any abdominal pain?: No Are you experiencing loss of taste or smell?: No Other Medical History Have you received the Flu Vaccine for this season: No Have you received the Pneumonia Vaccine: No Meds Home Medications and Allergies Home Medications ?Medication ?Instructions ?Recorded ?Confirmed ?Type buspirone 15 mg tablet 15 mg PO DAILY 11/27/23 04/05/24 History linaclotide 72 mcg capsule 72 mcg PO DAILY 11/27/23 04/05/24 History (Linzess) loratadine 10 mg tablet 10 mg PO DAILY 11/27/23 04/05/24 History secukinumab 300 mg/2 mL (150 300 mg SQ WEEKLY 11/27/23 04/05/24 History mg/mL) subcutaneous pen injector (Cosentyx UnoReady Pen) topiramate 25 mg tablet 25 mg PO DAILY 11/27/23 04/05/24 History New Prescriptions to Start Prescriptions: Allergies Allergy/AdvReac Type Severity Reaction Status Date / Time No Known Allergies Allergy Verified 03/31/24 16:18 Exam Data for Last 24 hours Vital signs and Labs for Last 24 Hours: Temp Pulse Resp BP Pulse Ox O2 Del Method 97.6 F 82 16 135/85 100 Room Air 04/05/24 07:25 04/05/24 07:25 04/05/24 07:25 04/05/24 07:25 04/05/24 07:25 04/05/24 07:25 *Routine HEENT Exam Head: Present normocephalic Eye: Present EOMI ENT: Present mucous membranes moist *Routine Respiratory Exam Respiratory: Present CTA bilaterally *Routine Cardiovascular Exam Cardiovascular: Present RRR *Routine Abdominal Exam Abdominal: Present soft *Routine Rectal Exam Rectal:: deferred *Routine Genitalia Exam Genitalia:: normal male *Routine Skin Exam Comments: He has extensive scarring from hidradenitis. There is a sinus open somewhat of a generous distance from the anal opening but in the left anterior lateral location. I am unable to express any purulence and there is no fluctuance at this time. In the midline there is an area of mild induration and fluctuance. Assessment and Plan *Assessment and plan (1) Hidradenitis: Status: Acute Category: Medical Code(s): L73.2 - Hidradenitis suppurativa Plan Plan will be for incision and unroofing of perineal hidradenitis. I did explain to him there is a possibility that this could be a perianal fistula but this seems less likely given the location and history.
[2024-04-05] MEDS: CLINDAMYCIN PHOSPHATE/D5W 900 MG/50 ML PIGGYBACK 25 MG (08:25)
[2024-04-05] MEDS: LIDOCAINE 1% 20ML MDV 20 ML (08:40)
--- NOTE | 2024-04-05 08:52 | EXP.OP.NOTE ---
Date of procedure: 04/05/24 Pre-op Diagnosis:: Hidradenitis Post-op Diagnosis:: Same Procedure performed:: Incision and debridement of perineal hidradenitis Surgeon:: Blake Rider MD SCHEDULE PLANNING MANAGER:: Other Anesthesia: LMA Estimated blood loss (mL): 3 Clinical Note:: Patient presents for incision and unroofing of hidradenitis. He underwent incision and debridement with unroofing of hidradenitis on 12/22/2023. The area at the base of the right hemiscrotum was slow to heal. At this point he states that this area has healed but he has concerns about another area. Patient has undergone numerous incision and drainage for refractory hidradenitis suppurativa and actually had extensive excision and plastic surgery flap at [facility] years ago. He does see a scientific glass blower. He has an area in the left perineum and somewhat of the left anterior lateral perianal location which has developed a small hole which occasionally drains. In the preoperative area patient also pointed out an area in the midline in the perianal location inferior to the scrotum which is somewhat tender and indurated. Operative findings:: Consistent with focal hidradenitis of the perineum Operative note:: Consent was obtained patient was taken the operating room. He was positioned in supine position. General anesthesia was induced. He was repositioned in modified lithotomy position. The area was prepped and draped in the standard surgical fashion. He had a punctate sinus in the left anterior perianal location. This is the area that was symptomatic to him noted preoperatively. There was no purulence noted. The area was probed. It tracked somewhat medially for about a centimeter. This was unroofed. There was some underlying chronic granulation tissue consistent with hidradenitis. The wound was probed in all directions and there was no other unroofing. It was very limited area. It was debrided with a small curette removing the inflamed granulation tissue. Next attention was turned to the area of mild focal induration and erythema in the midline. Limited incision was made with electrocautery. There was some minimal purulence. The area was inspected and probed. There was no evidence of any significant granulation tissue but some of the inflamed tissues were excised with tenotomy scissors. This was a rather focal area as well. Hemostasis was achieved electrocautery. Both wounds were irrigated. Clean dry sterile dressing was applied. Condition: stable Disposition: PACU Complications:: None immediately apparent
[2024-04-05] MEDS: KETOROLAC 30MG/ML VIAL 30 MG IV (09:37)
--- NOTE | 2024-04-05 12:26 | P.PNANES_ITS ---
[facility] Anesthesia Record Part I Anesthesia Record I Intake, IV Amount: 200 Hydration: Adequate Estimated blood loss (mL): 5 Urine output (mL): 0 Blood Products used (#): none Blood Pressure: 116/76 SaO2: 95 Pulse Rate: 85 Airway Patency: Patent Respiratory Rate: 16 Temperature: 96.2 F Patient is:: Drowsy and Stable Stable to PACU at:: 09:00
--- NOTE | 2024-04-05 13:33 | P.PNANES_ITS ---
[facility] Anesthesia Record Part II Anesthesia Record Part II Discharge Time: 09:40 Destination: Surgical Day Care (OP Surgery) PACU nurse assessment reviewed?: Yes Patient Condition:: Good Anesthesia Complications:: None Swallowing reflex intact?: Yes Airway Patency: Patent Cyanosis?: No Blood Pressure: 135/73 SaO2: 99 Respiratory Rate: 14 Pulse Rate: 69 Temperature: 97.1 F Mental Status: Alert & Oriented Pain level:: 6 Nausea and/or vomitting:: None Intake, IV Amount: 0 Hydration: Adequate
== END 2024-04-05 10:10 | disposition home or self-care (01) ==
PROVIDERS: PCP Pediatrics; Visit Provider Surgery
PROC: (CPT 11470; principal; 2024-04-05 08:35)
DX: L73.2 Hidradenitis suppurativa (principal)
CPT/HCPCS: 11470; J0736; J1100; J1885; J2250; J2405; J3010; J7120

== ENCOUNTER 2024-10-17 16:29 | Emergency (ER) | payer SELFPAY ==
--- OUTSIDE RECORDS SUMMARY | 2024-10-04 14:45 | XMS_ITS | Encounter Summary ---
Author Organization [facility] Address [address] [place] [address] Care Team Providers Care Teacher Drama Name Role Phone Sunny Horton MD Primary Care Provider [phone] Reason for Referral * Imaging (Routine) - Canceled Specialty Diagnoses / Procedures Referred By Howard sanchez Referred To Contact Radiology Diagnoses Kidney stones Procedures CT Abdomen wo IV Contrast Adilson Alfredo MD [address] [address] Phone: tel: fax: Referral ID Status Reason Start Date Expiration Date V isits Requested Visits Authorized [id number] Canceled 02/19/2024 08/20/2025 1 1 Reason for Visit * Imaging (Routine) - Canceled Specialty Diagnoses / Procedures Referred By Howard sanchez Referred To Contact Radiology Diagnoses Kidney stones Procedures CT Abdomen wo IV Contrast Adilson Alfredo MD [address] [address] Phone: tel: fax: Referral ID Status Reason Start Date Expiration Date V isits Requested Visits Authorized [id number] Canceled 02/19/2024 08/20/2025 1 1 Encounter Details Date Type Department Care Team (Latest Contact Info) Description 10/04/2024 2:45 PM EDT - 10/04/2024 11:59 PM EDT Hospital Encounter [facility] [address] [place] [address] Kidney stones Discharge Disposition: Home [...] capsule 11 02/19/2024 Vitamin D3 1.25 MG (93527 UT) capsule Take 1 capsule (50,000 Units) by mouth 1 (one) time per week. documented as of this encounter Plan of Treatment Upcoming Encounters Date Type Department Care Team (Late st Contact Info) Description 03/04/2025 2:30 PM EST Appointment [facility] Ultrasound [address] [place] [address] documented as of this encounter Procedures Procedure [...] in the right lower pole (series 3, [id number]).No hydronephrosis. GI Tract/Mesentery/Peritoneum: The large and small [...] signing this report, I, the attending physician, cathie I have personally reviewed the images/data for [...] documented as of this encounter Care Teams Teacher Drama Relationship Specialty Start Date End Date Sunny Horton MD [address] [place] [address] PCP - General 07/14/20 documented as of this encounter
--- OUTSIDE RECORDS SUMMARY | 2024-10-14 08:00 | XMS_ITS | Encounter Summary ---
Author Organization [facility] Address [address] [place] [address] Care Team Providers Care Phlebotomy Technician Name Role Phone Sunny Horton MD Primary Care Provider [phone] Encounter Details Date Type Department Care Team ([facility] Contact Info) Description 10/14/2024 8:00 AM EDT Office Visit Medical Office Building Urology [address] [facility], [address] [place] [address] Adilson Alfredo MD [address] [place] [address] Social History Tobacco Use Types Packs/Day Years Used Date Smoking Tobacco: Some Days Cigarettes 0.3 15 Smokeless Tobacco: Never Tobacco Cessation:Ready to Q uit: Not Asked; Counseling Given: Not Answered Comments:2cigs/day Alcohol Use Standard Drinks/Week Comments No [...] Bridger Costa documented as of this encounter Plan of Treatment Upcoming Encounters Date Type Department Care Team (Late st Contact Info) Description 03/04/2025 2:30 PM EST Appointment [facility] Ultrasound [address] [place] [address] documented as of this encounter Visit Diagnoses Not on filedocumented in this encounter Additional Health Concerns Assessment Noted Time PHQ-9 Depression Total Score: 0 10/15/19 25 7:47 AM EDT A fall risk assessment has been complete d for the patient 10/14/2024 7:47 AM EDT A Body Mass Index follow-up plan has been documented for the patient 03/25/2024 3:51 PM EST documented as of this encounter Care Teams Phlebotomy Technician Relationship Specialty Start Date End Date Sunny Horton MD [address] [place] [address] [place] [address] PCP - General 07/14/20 documented as of this encounter
[2024-10-17] VITALS (20 sets, daily range): BP systolic 115–154; BP diastolic 71–91; PULSE 78–122; RESP 13–27; TEMP 36.6–36.8; O2SAT 95–100; BMI 26.8
--- NOTE | 2024-10-17 16:43 | ECG_ITS ---
APPROVED REPORT Exam: Resting ECG HR:110 bpm ECG Measurements Heart Rate 110 AXES OH 137 P 64 QRSd 78 QRS 65 QT 297 T 68 QTc 362 Conclusion SINUS TACHYCARDIA ABNORMAL RHYTHM ECG Electronically signed by : NITA BALDWIN, 10/30/2024 00:13:21
--- NOTE | 2024-10-17 16:45 | HMH.EDGENADL ---
Discharge Plan Disposition Patient Disposition: Home, Self-Care Condition: Good Prescriptions Prescriptions: New sulfamethoxazole-trimethoprim [Bactrim DS] 800-160 mg tablet 1 tab PO BID 7 Days Qty: 14 0RF No Action topiramate 25 mg tablet 25 mg PO DAILY Patient Comments: TAKE 1 TABLET BY MOUTH EVERY NIGHT Cosentyx UnoReady Pen 300 mg/2 mL (150 mg/mL) pen injector 300 mg SQ WEEKLY Linzess 72 mcg capsule 72 mcg PO DAILY Patient Comments: TAKE 1 CAPSULE BY MOUTH 30 MINUTES BEFORE A MEAL ON AN EMPTY STOMACH loratadine 10 mg tablet 10 mg PO DAILY Patient Comments: TAKE 1 TABLET BY MOUTH EVERY DAY buspirone 15 mg tablet 15 mg PO DAILY Patient Comments: TAKE 1 TABLET BY MOUTH THREE TIMES DAILY duloxetine 30 mg capsule,delayed release(DR/EC) PO Patient Comments: TAKE 1 CAPSULE BY MOUTH DAILY montelukast 10 mg tablet 10 mg PO Patient Comments: TAKE 1 TABLET BY MOUTH EVERY NIGHT doxycycline hyclate 100 mg tablet 100 mg PO BID 10 Days Qty: 20 0RF Referrals Follow up/Referrals: Sunny Horton MD [Primary Care Provider, Medical] - See instructions Clinical Impressions Clinical Impression: Abscess of scrotum Instructions Patient Instructions: DI for Skin Abscess Print Language Print Language: Kyrgyz Discharge ED Provider: Myrtle Villa General Adult HPI <Joanna Jones - Last Filed: 10/17/24 19:35> General Chief complaint: Skin/Abscess/Foreign Body Stated complaint: lightheaded,nausea,faint feelins Time Seen by Provider: 10/17/24 16:45 Mode of Arrival: Ambulatory Source of Information: Patient Description of Symptoms (Recalled from ER Triage Doc. by RN): Pt presents with c/o rash to left upper arm that developed today. Pt states he checked his HR at home and it was in the 120s, and has felt increasingly fatigued. History of Present Illness HPI narrative: 34-year-old male with a history of hidradenitis presents to the emergency department with complaints of fever, chills, lightheadedness, tachycardia, pain to his right groin since yesterday. Patient states he has a swollen firm area in his right groin that he suspected was part of his [place] nidus however he reports last night it opened up and started draining a black material. He has not take any medication for fever control prior to arrival. Related Data Home Medications ?Medication ?Instructions ?Recorded ?Confirmed buspirone 15 mg tablet 15 mg PO DAILY 11/27/23 04/20/24 linaclotide 72 mcg capsule 72 mcg PO DAILY 11/27/23 04/20/24 (Linzess) loratadine 10 mg tablet 10 mg PO DAILY 11/27/23 04/20/24 secukinumab 300 mg/2 mL 300 mg SQ WEEKLY 11/27/23 04/20/24 subcutaneous pen injector (Cosentyx UnoReady Pen) topiramate 25 mg tablet 25 mg PO DAILY 11/27/23 04/20/24 duloxetine 30 mg capsule,delayed mg PO 04/20/24 04/20/24 release montelukast 10 mg tablet 10 mg PO 04/20/24 04/20/24 Previous Rx's ?Medication ?Instructions ?Recorded doxycycline hyclate 100 mg tablet 100 mg PO BID 10 days #20 tabs 04/20/24 sulfamethoxazole 800 1 tab PO BID 7 days #14 tabs 10/17/24 mg-trimethoprim 160 mg tablet (Bactrim DS) Allergies Allergy/AdvReac Type Severity Reaction Status Date / Time No Known Allergies Allergy Verified 04/20/24 09:12 [facility] <Joanna Jones - Last Filed: 10/17/24 19:35> [facility] Disclaimer: The information contained in this section may have been updated after the patient was seen, as this information can be updated by other users. Medical History Hidradenitis Migraine Glaucoma Surgical History History of ureteroscopy History of cholecystectomy History of gastric bypass History of incision and drainage Family History Other Family history of diabetes mellitus Family history of heart disease Family history of hypertension Social History Smoking Status: Former smoker tobacco type: cigarettes packs per day: 1 second hand exposure: No alcohol intake: never counseling provided: provider counseling substance use type: denies use current occupational status: employed Travel in the last 8 weeks?: None household members: family housing: house 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 current occupational exposures/hazards: No caffeine: Yes Have you lived/traveled outside [place] in past 30 days?: No Contact w/someone who lives/traveled outside US past 30 days?: No Exposure to someone with infectious disease in past 14 days?: No Do you have a fever (greater than 100.4 F or 38 C)?: No Have you tested positive for COVID-19?: No Exposed to someone with COVID-19 in past 14 days?: No Do you have a sore throat?: No Do you have a cough?: No Do you have any weakness?: Yes Do you have any diarrhea?: No Are you experiencing any unusual bleeding?: No Do you have any muscle aches/pain?: No Do you have any abdominal pain?: No Are you experiencing loss of taste or smell?: No Other Medical History Have you received the Flu Vaccine for this season: No Have you received the Pneumonia Vaccine: No <Joanna Jones - Last Filed: 10/17/24 19:35> ROS Obtained: Yes All systems reviewed & no additional complaints except as documented Physical Exam <Joanna Jones - Last Filed: 10/17/24 19:35> Narrative Physical exam: Reveals a firm tender nodule in patient's right groin. No drainage or bleeding noted at this time. Patient has numerous scars in bilateral groin area from previous procedures for his hidradenitis. Abdomen is soft nontender with normal active bowel sounds. Also clear bilaterally with normal heart sounds. Patient with 2+ pulses in all extremities and intact sensation. Rest of exam is unremarkable General General appearance: alert Respiratory Respiratory exam: Present normal lung sounds bilaterally Cardiovascular Cardiovascular exam: Present regular rate Neurological Exam Neurological exam: Present alert Medical Decision Making <Joanna Jones - Last Filed: 10/17/24 19:35> Medical Records Screening: Per USPSTF and CDC recommendations, given the prevalence of disease in our region, it is our hospital?s policy to screen for HIV and viral Hepatitis for all patients aged 18 and over and those with ongoing risk factors. Juan Inquiry Pt receiving controlled substance: No Vital Signs: 10/17/24 16:33 10/17/24 16:37 10/17/24 16:51 Temperature 98.0 F 98 F Temperature Source Oral Oral Pulse Rate 122 H Pulse Rate [Right] 122 H Respiratory Rate 18 18 Blood Pressure 154/88 H Blood Pressure [Right Arm] 154/88 H Blood Pressure Mean Blood Pressure Mean [Right Arm] 110 Blood Pressure Source Automatic Cuff Blood Pressure Source [Right Arm] Automatic Cuff Blood Pressure Position Supine Blood Pressure Position [Right Arm] Sitting 02 Sat by Pulse Oximetry 98 98 98 Oxygen Delivery Method Room Air Room Air Room Air 10/17/24 17:10 10/17/24 17:20 10/17/24 17:35 Temperature Temperature Source Pulse Rate 105 H Pulse Rate [Right] Respiratory Rate 22 24 13 Blood Pressure 139/87 142/85 H Blood Pressure [Right Arm] Blood Pressure Mean Blood Pressure Mean [Right Arm] Blood Pressure Source Blood Pressure Source [Right Arm] Blood Pressure Position Blood Pressure Position [Right Arm] 02 Sat by Pulse Oximetry 98 Oxygen Delivery Method 10/17/24 17:40 10/17/24 17:50 10/17/24 18:00 Temperature Temperature Source Pulse Rate 91 H 94 H 87 Pulse Rate [Right] Respiratory Rate 27 H 14 17 Blood Pressure 131/84 142/90 H 138/90 Blood Pressure [Right Arm] Blood Pressure Mean Blood Pressure Mean [Right Arm] Blood Pressure Source Blood Pressure Source [Right Arm] Blood Pressure Position Blood Pressure Position [Right Arm] 02 Sat by Pulse Oximetry 100 100 100 Oxygen Delivery Method 10/17/24 18:10 10/17/24 18:20 10/17/24 18:30 Temperature Temperature Source Pulse Rate 106 H 88 95 H Pulse Rate [Right] Respiratory Rate 22 18 21 Blood Pressure 133/72 118/76 115/88 Blood Pressure [Right Arm] Blood Pressure Mean Blood Pressure Mean [Right Arm] Blood Pressure Source Blood Pressure Source [Right Arm] Blood Pressure Position Blood Pressure Position [Right Arm] 02 Sat by Pulse Oximetry 100 100 98 Oxygen Delivery Method 10/17/24 19:00 10/17/24 19:00 10/17/24 19:10 Temperature Temperature Source Pulse Rate 78 Pulse Rate [Right] Respiratory Rate 22 Blood Pressure 126/77 118/82 Blood Pressure [Right Arm] Blood Pressure Mean 93 91 Blood Pressure Mean [Right Arm] Blood Pressure Source Blood Pressure Source [Right Arm] Blood Pressure Position Blood Pressure Position [Right Arm] 02 Sat by Pulse Oximetry 95 Oxygen Delivery Method 10/17/24 19:20 10/17/24 19:20 10/17/24 19:30 Temperature Temperature Source Pulse Rate 83 Pulse Rate [Right] Respiratory Rate 22 Blood Pressure 125/71 119/71 Blood Pressure [Right Arm] Blood Pressure Mean 81 78 Blood Pressure Mean [Right Arm] Blood Pressure Source Blood Pressure Source [Right Arm] Blood Pressure Position Blood Pressure Position [Right Arm] 02 Sat by Pulse Oximetry 100 Oxygen Delivery Method 10/17/24 19:40 10/17/24 19:40 10/17/24 19:45 Temperature Temperature Source Pulse Rate 88 Pulse Rate [Right] Respiratory Rate 15 13 Blood Pressure 119/76 Blood Pressure [Right Arm] Blood Pressure Mean 90 Blood Pressure Mean [Right Arm] Blood Pressure Source Blood Pressure Source [Right Arm] Blood Pressure Position Blood Pressure Position [Right Arm] 02 Sat by Pulse Oximetry 100 Oxygen Delivery Method 10/17/24 19:50 10/17/24 19:50 10/17/24 19:51 Temperature 98.3 F Temperature Source Oral Pulse Rate 78 Pulse Rate [Right] Respiratory Rate 13 18 Blood Pressure 139/91 H 139/91 H Blood Pressure [Right Arm] Blood Pressure Mean 107 Blood Pressure Mean [Right Arm] Blood Pressure Source Blood Pressure Source [Right Arm] Blood Pressure Position Blood Pressure Position [Right Arm] 02 Sat by Pulse Oximetry Oxygen Delivery Method Room Air Lab Data Lab Results 10/17/24 16:39: SARS-CoV-2 (PCR) Not detected, Influenza A Untype (PCR) Not detected, Influenza Type B (PCR) Not detected 10/17/24 16:45: Urine Color Yellow, Urine Appearance Clear, Urine pH 6.0, Ur Specific [place] 1.025, Urine Protein Negative, Urine Glucose (UA) Negative, Urine Ketones Negative, Urine Blood Negative, Urine Nitrate Negative, Urine Bilirubin Negative, Urine Urobilinogen 0.2, Ur Leukocyte Esterase Negative, Urine RBC None, Urine WBC Occasional, Ur Squamous Epith Cells 3-5, Urine Bacteria Trace, Urine Mucus 1+ 10/17/24 16:55: WBC 8.2, RBC 4.97, Hgb 16.0, Hct 46.1, MCV 92.8, MCH 32.2 H, MCHC 34.7, RDW 12.3, Plt Count 227, MPV 9.7, Neut % (Auto) 64.8, Lymph % (Auto) 23.0, [place] % (Auto) 7.0, Eos % (Auto) 4.2, Baso % (Auto) 0.6, Neut # (Auto) 5.3, Lymph # (Auto) 1.9, [place] # (Auto) 0.6, Eos # (Auto) 0.3, Baso # (Auto) 0.1, Sodium 140, Potassium 3.9, Chloride 104, Carbon Dioxide 28, Anion Gap 11.9, BUN 17, Creatinine 0.80, Estimated Creat Clear 164, Estimated GFR 110, Est GFR ( Amer) 133, Glucose 93, Calcium 10.0, Total Bilirubin 0.7, AST 34, ALT 40, Alkaline Phosphatase 119, Total Protein 8.6 H D, Albumin 5.1 H, Globulin 3.5 H, Albumin/Globulin Ratio 1.5 10/17/24 16:58: VBG pH 7.34, VBG pCO2 46.1, VBG pO2 45.0 H, VBG HCO3 24.1, VBG Total CO2 25.5, VBG O2 Saturation 78.6 H, VBG Base Excess -1.7, VBG Lactic Acid 1.2 10/17/24 16:55 10/17/24 16:55 Orders (Tests/Meds): ED MEDICATIONS Discontinued Medications Generic Name Dose Route Start Last Admin Trade Name Freq PRN Reason Stop Dose Admin Acetaminophen 1,000 mg 10/17/24 16:51 10/17/24 17:09 Acetaminophen 500mg Tab PO 10/17/24 16:52 1,000 mg ONCE ONE Administration Sodium Chloride 2,330 mls @ 1,165 mls/hr 10/17/24 16:51 10/17/24 17:09 Sod Chlor 0.9% 1000ml Bag 30 ml/kg infuse over 2 hr (2330 ml) 10/17/24 18:50 1,165 mls/hr IV Administration .Q2H ONE Lactated Ringer's 500 mls @ 999 mls/hr 10/17/24 18:30 10/17/24 18:38 Lactated Ringer's 500ml IV 10/17/24 19:00 Not Given .Q31M ONE Iopamidol 75 ml 10/17/24 17:33 10/17/24 17:34 Iopamidol-370 (76%);100ml Bottle IV 10/17/24 17:34 75 ml ONCE ONE Administration Ondansetron HCl 4 mg 10/17/24 17:01 10/17/24 17:18 Ondansetron 4mg/2ml Vial IV 10/17/24 17:02 4 mg ONCE ONE Administration Sodium Chloride 10 ml 10/17/24 17:33 10/17/24 17:34 Sodium Chloride 0.9% 10ml Syr (Rad Only) IV 11/16/24 17:32 10 ml NEEDED PRN Administration Maintain IV Site ORDERS Category Date Time Status CT abdomen pelvis w con Stat Cat Scan 10/17/24 16:53 Completed CBC w/Auto Diff [Complete Blood Count Auto Diff] Stat Lab 10/17/24 16:55 Completed CMP [Comprehensive Metabolic Panel] Stat Lab 10/17/24 16:55 Completed Lactate Venous Stat Lab 10/17/24 17:10 Ordered Rapid PCR Covid and Flu A/B Stat Lab 10/17/24 16:39 Completed Urinalysis and Microscopic Stat Lab 10/17/24 16:45 Completed Blood Culture Stat Micro 10/17/24 17:12 Received Venous Blood Gas Stat RT 10/17/24 16:58 Completed Medical Decision Narrative: 34-year-old male presents emergency department with complaints of fever, lightheadedness, tachycardia with pain to his right groin that started yesterday. Patient reports that he has a history of hidradenitis and has had numerous procedures on bilateral groins for this condition. Reports he has had a swollen firm nodule to his left groin for the past couple of days however it has recently opened up and started draining a black drainage. Patient has not take any medication for fever control prior to arrival. On exam patient has multiple scars in bilateral groins there is a firm nodule to his right groin that is tender to palpation. Bleeding or drainage noted from this area. Exam is unremarkable. Patient is currently tachycardic reports fevers at home we will move forward with a sepsis workup including blood cultures. We will also do a CT scan of abdomen pelvis with IV contrast to look for any pelvic abscesses. In addition we will give patient normal saline bolus at 30 mL/kg and Tylenol for fever control. Patient complains of nausea so we will also give Zofran. In addition we will swab for COVID and flu. Patient's laboratory studies including urinalysis were nonactionable. His COVID and flu swabs were also negative. CT of abdomen pelvis with IV contrast shows a small subcutaneous 2.3 x 2.2 x 1.5 cm complex fluid collection with surrounding enhancement and inflammation within the right upper scrotum which is consistent with a developing abscess. Gas was noted within this fluid collection or in the surrounding tissue. Contacted [facility] and spoke with Dr. Calderon with [facility] as well as urology provider. He states that it would be appropriate to treat patient with oral Bactrim for this abscess and have him follow-up with his primary care provider. I reviewed the findings today's workup with patient and spouse and informed him of this abscess that is developing. Advised him that we will prescribed Bactrim to treat the abscess. I also recommended that he continue with Tylenol for fever control while increasing his fluids and rest for the next several days. Informed him to return immediately to the emergency department if he develops uncontrolled fevers, worsening pain, redness or swelling to the area. He is agreeable to the plan of care. <Myrtle Villa MD - Last Filed: 10/18/24 00:00> Vital Signs: 10/17/24 16:33 10/17/24 16:37 10/17/24 16:51 Temperature 98.0 F 98 F Temperature Source Oral Oral Pulse Rate 122 H Pulse Rate [Right] 122 H Respiratory Rate 18 18 Blood Pressure 154/88 H Blood Pressure [Right Arm] 154/88 H Blood Pressure Mean Blood Pressure Mean [Right Arm] 110 Blood Pressure Source Automatic Cuff Blood Pressure Source [Right Arm] Automatic Cuff Blood Pressure Position Supine Blood Pressure Position [Right Arm] Sitting 02 Sat by Pulse Oximetry 98 98 98 Oxygen Delivery Method Room Air Room Air Room Air 10/17/24 17:10 10/17/24 17:20 10/17/24 17:35 Temperature Temperature Source Pulse Rate 105 H Pulse Rate [Right] Respiratory Rate 22 24 13 Blood Pressure 139/87 142/85 H Blood Pressure [Right Arm] Blood Pressure Mean Blood Pressure Mean [Right Arm] Blood Pressure Source Blood Pressure Source [Right Arm] Blood Pressure Position Blood Pressure Position [Right Arm] 02 Sat by Pulse Oximetry 98 Oxygen Delivery Method 10/17/24 17:40 10/17/24 17:50 10/17/24 18:00 Temperature Temperature Source Pulse Rate 91 H 94 H 87 Pulse Rate [Right] Respiratory Rate 27 H 14 17 Blood Pressure 131/84 142/90 H 138/90 Blood Pressure [Right Arm] Blood Pressure Mean Blood Pressure Mean [Right Arm] Blood Pressure Source Blood Pressure Source [Right Arm] Blood Pressure Position Blood Pressure Position [Right Arm] 02 Sat by Pulse Oximetry 100 100 100 Oxygen Delivery Method 10/17/24 18:10 10/17/24 18:20 10/17/24 18:30 Temperature Temperature Source Pulse Rate 106 H 88 95 H Pulse Rate [Right] Respiratory Rate 22 18 21 Blood Pressure 133/72 118/76 115/88 Blood Pressure [Right Arm] Blood Pressure Mean Blood Pressure Mean [Right Arm] Blood Pressure Source Blood Pressure Source [Right Arm] Blood Pressure Position Blood Pressure Position [Right Arm] 02 Sat by Pulse Oximetry 100 100 98 Oxygen Delivery Method 10/17/24 19:00 10/17/24 19:00 10/17/24 19:10 Temperature Temperature Source Pulse Rate 78 Pulse Rate [Right] Respiratory Rate 22 Blood Pressure 126/77 118/82 Blood Pressure [Right Arm] Blood Pressure Mean 93 91 Blood Pressure Mean [Right Arm] Blood Pressure Source Blood Pressure Source [Right Arm] Blood Pressure Position Blood Pressure Position [Right Arm] 02 Sat by Pulse Oximetry 95 Oxygen Delivery Method 10/17/24 19:20 10/17/24 19:20 10/17/24 19:30 Temperature Temperature Source Pulse Rate 83 Pulse Rate [Right] Respiratory Rate 22 Blood Pressure 125/71 119/71 Blood Pressure [Right Arm] Blood Pressure Mean 81 78 Blood Pressure Mean [Right Arm] Blood Pressure Source Blood Pressure Source [Right Arm] Blood Pressure Position Blood Pressure Position [Right Arm] 02 Sat by Pulse Oximetry 100 Oxygen Delivery Method 10/17/24 19:40 10/17/24 19:40 10/17/24 19:45 Temperature Temperature Source Pulse Rate 88 Pulse Rate [Right] Respiratory Rate 15 13 Blood Pressure 119/76 Blood Pressure [Right Arm] Blood Pressure Mean 90 Blood Pressure Mean [Right Arm] Blood Pressure Source Blood Pressure Source [Right Arm] Blood Pressure Position Blood Pressure Position [Right Arm] 02 Sat by Pulse Oximetry 100 Oxygen Delivery Method 10/17/24 19:50 10/17/24 19:50 10/17/24 19:51 Temperature 98.3 F Temperature Source Oral Pulse Rate 78 Pulse Rate [Right] Respiratory Rate 13 18 Blood Pressure 139/91 H 139/91 H Blood Pressure [Right Arm] Blood Pressure Mean 107 Blood Pressure Mean [Right Arm] Blood Pressure Source Blood Pressure Source [Right Arm] Blood Pressure Position Blood Pressure Position [Right Arm] 02 Sat by Pulse Oximetry Oxygen Delivery Method Room Air Lab Data Lab Results 10/17/24 16:39: SARS-CoV-2 (PCR) Not detected, Influenza A Untype (PCR) Not detected, Influenza Type B (PCR) Not detected 10/17/24 16:45: Urine Color Yellow, Urine Appearance Clear, Urine pH 6.0, Ur Specific [place] 1.025, Urine Protein Negative, Urine Glucose (UA) Negative, Urine Ketones Negative, Urine Blood Negative, Urine Nitrate Negative, Urine Bilirubin Negative, Urine Urobilinogen 0.2, Ur Leukocyte Esterase Negative, Urine RBC None, Urine WBC Occasional, Ur Squamous Epith Cells 3-5, Urine Bacteria Trace, Urine Mucus 1+ 10/17/24 16:55: WBC 8.2, RBC 4.97, Hgb 16.0, Hct 46.1, MCV 92.8, MCH 32.2 H, MCHC 34.7, RDW 12.3, Plt Count 227, MPV 9.7, Neut % (Auto) 64.8, Lymph % (Auto) 23.0, [place] % (Auto) 7.0, Eos % (Auto) 4.2, Baso % (Auto) 0.6, Neut # (Auto) 5.3, Lymph # (Auto) 1.9, [place] # (Auto) 0.6, Eos # (Auto) 0.3, Baso # (Auto) 0.1, Sodium 140, Potassium 3.9, Chloride 104, Carbon Dioxide 28, Anion Gap 11.9, BUN 17, Creatinine 0.80, Estimated Creat Clear 164, Estimated GFR 110, Est GFR ( Amer) 133, Glucose 93, Calcium 10.0, Total Bilirubin 0.7, AST 34, ALT 40, Alkaline Phosphatase 119, Total Protein 8.6 H D, Albumin 5.1 H, Globulin 3.5 H, Albumin/Globulin Ratio 1.5 10/17/24 16:58: VBG pH 7.34, VBG pCO2 46.1, VBG pO2 45.0 H, VBG HCO3 24.1, VBG Total CO2 25.5, VBG O2 Saturation 78.6 H, VBG Base Excess -1.7, VBG Lactic Acid 1.2 Orders (Tests/Meds): ED MEDICATIONS Discontinued Medications Generic Name Dose Route Start Last Admin Trade Name Sarita PRN Reason Stop Dose Admin Acetaminophen 1,000 mg 10/17/24 16:51 10/17/24 17:09 Acetaminophen 500mg Tab PO 10/17/24 16:52 1,000 mg ONCE ONE Administration Sodium Chloride 2,330 mls @ 1,165 mls/hr 10/17/24 16:51 10/17/24 17:09 Sod Chlor 0.9% 1000ml Bag 30 ml/kg infuse over 2 hr (2330 ml) 10/17/24 18:50 1,165 mls/hr IV Administration .Q2H ONE Lactated Ringer's 500 mls @ 999 mls/hr 10/17/24 18:30 10/17/24 18:38 Lactated Ringer's 500ml IV 10/17/24 19:00 Not Given .Q31M ONE Iopamidol 75 ml 10/17/24 17:33 10/17/24 17:34 Iopamidol-370 (76%);100ml Bottle IV 10/17/24 17:34 75 ml ONCE ONE Administration Ondansetron HCl 4 mg 10/17/24 17:01 10/17/24 17:18 Ondansetron 4mg/2ml Vial IV 10/17/24 17:02 4 mg ONCE ONE Administration Sodium Chloride 10 ml 10/17/24 17:33 10/17/24 17:34 Sodium Chloride 0.9% 10ml Syr (Rad Only) IV 11/16/24 17:32 10 ml NEEDED PRN Administration Maintain IV Site ORDERS Category Date Time Status CT abdomen pelvis w con Stat Cat Scan 10/17/24 16:53 Completed CBC w/Auto Diff [Complete Blood Count Auto Diff] Stat Lab 10/17/24 16:55 Completed CMP [Comprehensive Metabolic Panel] Stat Lab 10/17/24 16:55 Completed Lactate Venous Stat Lab 10/17/24 17:10 Ordered Rapid PCR Covid and Flu A/B Stat Lab 10/17/24 16:39 Completed Urinalysis and Microscopic Stat Lab 10/17/24 16:45 Completed Blood Culture Stat Micro 10/17/24 17:12 Received Venous Blood Gas Stat RT 10/17/24 16:58 Completed Medical Decision Narrative: 34-year-old male presents emergency department with complaints of fever, lightheadedness, tachycardia with pain to his right groin that started yesterday. Patient reports that he has a history of hidradenitis and has had numerous procedures on bilateral groins for this condition. Reports he has had a swollen firm nodule to his left groin for the past couple of days however it has recently opened up and started draining a black drainage. Patient has not take any medication for fever control prior to arrival. On exam patient has multiple scars in bilateral groins there is a firm nodule to his right groin that is tender to palpation. Bleeding or drainage noted from this area. Exam is unremarkable. Patient is currently tachycardic reports fevers at home we will move forward with a sepsis workup including blood cultures. We will also do a CT scan of abdomen pelvis with IV contrast to look for any pelvic abscesses. In addition we will give patient normal saline bolus at 30 mL/kg and Tylenol for fever control. Patient complains of nausea so we will also give Zofran. In addition we will swab for COVID and flu. Patient's laboratory studies including urinalysis were nonactionable. His COVID and flu swabs were also negative. CT of abdomen pelvis with IV contrast shows a small subcutaneous 2.3 x 2.2 x 1.5 cm complex fluid collection with surrounding enhancement and inflammation within the right upper scrotum which is consistent with a developing abscess. Gas was noted within this fluid collection or in the surrounding tissue. Contacted [facility] and spoke with Dr. Calderon with [facility] as well as urology provider. He states that it would be appropriate to treat patient with oral Bactrim for this abscess and have him follow-up with his primary care provider. I reviewed the findings today's workup with patient and spouse and informed him of this abscess that is developing. Advised him that we will prescribed Bactrim to treat the abscess. I also recommended that he continue with Tylenol for fever control while increasing his fluids and rest for the next several days. Informed him to return immediately to the emergency department if he develops uncontrolled fevers, worsening pain, redness or swelling to the area. He is agreeable to the plan of care. I was consulted by the FELICIA, and we discussed the complexity of problems being addressed. I approved the treatment and management plan for this patient's care in the emergency department, thus performing a substantial portion of the medical decision making. Myrtle Villa MD Critical Care <Joanna Jones - Last Filed: 10/17/24 19:35> Critical Care Time Critical Care Time: No
--- OUTSIDE RECORDS SUMMARY | 2024-10-17 16:46 | XMS_ITS | Clinical Summary ---
Author Organization [facility] Address [address] [place] [address] Phone Care Team Providers Care Group Managing Director Name Role Phone Parviz VALADEZ, Coleman Stark [phone] Conditions or Problems Problem Name Problem Code Onset Date Status Entry Date Provider Comment Standard Description Annotate Obesity 845980038 (SNOMED CT) Active 04/21 Coleman Jj MD. Obesity Hidradenitis 28939731 (SNOMED CT) Active 04/20 Gricelda Andres Hidradenitis Abscess of right leg L02.415 (ICD-10-CM) Active 04/20 Gricelda Andres Cutaneous abscess of right lower limb Cellulitis of right leg L03.115 (ICD-10-CM) Active 04/20 Gricelda Andres Cellulitis of right lower limb Benign Essential Hypertension 85899466 (SNOMED CT) Active 04/20 Gricelda Andres Benign hypertension Nicotine dependence, cigarettes F17.210 (ICD-10-CM) Active 04/20 Gricelda Andres Nicotine dependence, cigarettes, uncomplicated Abscess, groin 25175365 (SNOMED CT) Active 04/20 Gricelda Andres Abscess of groin Medications Medication Instructions Start Date Stop Date Generic Name [facility] Provider BACTROBAN 2 % EXTERNAL OINTMENT apply to each nostril twice a day x 5 days. MUPIROCIN [id number] Coleman Jj MD. SULFAMETHOXAZOLE -TRIMETHOPRIM 800-160 MG TABS take 2 tablets by mouth twice a day SULFAMETHOXAZOLE -TRIMETHOPRIM 59858836467 Estefani S RANITIDINE HCL 150 MG ORAL TABLET take 1 tablet by mouth every evening RANITIDINE HCL 78088382991 Estefani Lee ACYCLOVIR 800 MG TABS take 1 tablet by mouth five times a day for 10 days ACYCLOVIR 93305961223 Estefani S GABAPENTIN 300 MG CAPS take 1 capsule by mouth at bedtime MAY INCREASE TO TWICE DAILY GABAPENTIN 03418063749 Estefani S GABAPENTIN 300 MG CAPS take 1 capsule by mouth at bedtime MAY INCREASE TO TWICE DAILY GABAPENTIN 19141174376 Karime Ko ACYCLOVIR 800 MG TABS take 1 tablet by mouth five times a day for 10 days ACYCLOVIR 25862278967 Karime Ko RANITIDINE HCL 150 MG ORAL TABLET take 1 tablet by mouth every evening RANITIDINE HCL 67422553124 Karime Ko LISINOPRIL-HYDRO CHLOROTHIAZIDE 10-12.5 MG TABS 1 po qd LISINOPRIL-HYDRO CHLOROTHIAZIDE 31628303848 Karime Ko PRAVASTATIN SODIUM 20 MG TABS take 1 tablet by mouth at bedtime PRAVASTATIN SODIUM 04945671501 Karime Ko CIPROFLOXACIN HCL 0.3 % SOLN INSTILL 1 DROP INTO AFFECTED EYE WHILE WAKE EVERY 4 HOURS CIPROFLOXACIN HCL 80796110883 Karime Ko SULFAMETHOXAZOLE -TRIMETHOPRIM 800-160 MG TABS take 2 tablets by mouth twice a day SULFAMETHOXAZOLE -TRIMETHOPRIM 66914482113 Karime Ko AMOXICILLIN-POT CLAVULANATE 875-125 MG TABS take 1 tablet by mouth twice a day for 10 days AMOXICILLIN-POT CLAVULANATE 69627761747 Karime Ko Medications Administered No information available. Allergies, Adverse Reactions, Alerts Observed no known allergies at Results Date Name Value Unit Range Flag Description Office Visit: New Patient [place] om #4 MEDS REVIEW Done Documenta tion of current medications (procedure) ORALTOBACUSE Never Tobacco smoking status CIGARET SMKG yes Tobacco smoking status SMOK STATUS Current every day smoker Tobacco smoking status Lab Report: Culture MRSA Scr een CULTURE Specimen: Screening Nares culture, comment Lab Report: Panel [id number] 2296/02/19 [id number] NR Non Reactive GE use only - for LinkLogic import when terms are not otherwise specified Plan of Care Type Date Detail Pending order HIV 1/2 atb/ag 4 th generation with cascade reflex Pending order Nasal Swab for M RSA Procedures Code Procedure Name Date Entry Date CPT-749576 HIV 1/2 atb/ag 4th generation with cascad e reflex CPT-91692 Nasal Swab for MRSA Vital Signs Date Name Value Unit Description BMI (Body Mass Index) 32.19 kg/m2 Bod y Mass Index (Ratio) Body Temperature 97.6 [degF] temperat ure E&M BP Diastolic 68 mm[Hg] blood pressu re, diastolic BP Systolic 120 mm[Hg] blood pressur e, systolic Heart Rate 80 /min pulse rate Height 71 [in_us] height E&M Respiratory Rate 12 /min respirat ory rate E&M Weight Measured 230.8 [lb_av] weight E& M Weight Measured 230.8 [lb_av] weight E& M Immunizations No information available. Advance Directives No information available.
--- OUTSIDE RECORDS SUMMARY | 2024-10-17 16:47 | XMS_ITS | Encounter Summary ---
Author Organization Healthcare Address [address] [place] [address] Care Team Providers Care Chassis Engineer Name Role Phone Sunny Horton MD Primary Care Provider [phone] Encounter Details Date Type Department Care Team (Latest Contact Info) Description 10/14/2024 Travel Social History Tobacco Use Types Packs/Day Years Used Date Smoking Tobacco: Some Days Cigarettes 0.3 15 Smokeless Tobacco: Never Comments:2cigs/day Alcohol Use Standard Drinks/Week Comments No [...] of Assessment Author 0 10/14/2024 7:44 AM EDT Jasmin Lynn * Question Answer Date of Assessment Author Q1: How often do you have a drink containing alcohol? Never 10/14/2024 7:44 AM Bridger Costa Q2: How many drinks containing alcohol do you have on a typical day when you are drinking? Patient does not drink 10/14/2024 7:44 AM Bridger Cosat Q3: How often do you have six [...] Not difficult at all 10/14/2024 7:47 AM EDT Bridger Lynn documented as of this encounter Plan of Treatment Upcoming Encounters Date Type Department Care Team (Late st Contact Info) Description 03/04/2025 2:30 PM EST Appointment [facility] Ultrasound [address] [place] [address] documented as of this encounter Visit Diagnoses [...] documented as of this encounter Care Teams Chassis Engineer Relationship Specialty Start Date End Date Sunny Horton MD [address] [place] [address] PCP - General 07/14/20 documented as of this encounter
--- OUTSIDE RECORDS SUMMARY | 2024-10-17 16:47 | XMS_ITS | Encounter Summary ---
Author Organization [facility] Address [address] [place] [address] Care Team Providers Care Biscuit Maker Name Role Phone Sunny Horton MD Primary Care Provider Encounter Details Date Type Department Care Team (Late st Contact Info) Description 08/27/2024 Telephone [facility] [address] [place] [address] Sunny Horton MD [address] [place] [address] Social History Tobacco Use Types Packs/Day Years Used Date Smoking Tobacco: Former Cigarettes 2 10 0 09/10/2007 - 09/09/2017 Smokeless Tobacco: Never Alcohol Use Standard Drinks/Week Comments Not Currently 0 (1 standard drink = 0.6 oz pur e alcohol) PHQ-2 Answer Date Recorded Retired PHQ-9: Brief Depression Severity Measure Score 0 11/14/2022 PHQ-2 Answer Date Recorded Patient Health Questionnaire-2 Score 0 04/19/2024 Sex and Gender Information Value Date Recorded Sex Assigned at Not on file Legal Sex Male 10:50 AM EST Gender Identity Not on file Sexual Orientation Not on file documented as of this encounter Miscellaneous Notes * Telephone Encounter - Joanne Cobb MA - 08/27/2024 4:25 PM EDT Let know meds have been sent * Telephone Encounter - Sunny Horton MD - 08/27/2024 4:05 PM EDT I have sent in the Chantix with the starter pack 0.5 months follow-up monthly prescriptions. Do caution vivid dreams, sometimes agitation with the medicine, although most people do well. Also reinforced importance of setting a quit date within the next month or 2 which will help the likelihood of cessation. * Telephone Encounter - Joanne Cobb MA - 08/27/2024 3:58 PM EDT He would like to initiate chantix if possible. I see you all discussed it at his visit in April but at that time he did not want to pursue this. Can we send in or does he need to be seen to discuss? documented in this encounter Plan of Treatment Upcoming Encounters Date Type Department Care Team (Late st Contact Info) Description 10/19/2024 11:15 AM EDT Office Visit [facility] [address] [place] [address] [place] [phone] Sunny Horton MD [address] [place] [address] [place] [id number] 01/03/2025 1:00 PM EST Office Visit [facility] [address] [place] [place] [phone] Trini Andres MD [address] [id number] documented as of this encounter Visit Diagnoses Not on filedocumented in this encounter Care Teams Biscuit Maker Relationship Specialty Start Date End Date Sunny Horton MD [address] [place] [address] [place] [id number] PCP - General Internal Medicine 11/09/21 documented as of this encounter
--- OUTSIDE RECORDS SUMMARY | 2024-10-17 16:47 | XMS_ITS | Clinical Summary ---
[facility] Address [address] [place] [address] Care Team Providers Care Senior Regulatory Affairs Specialist Name Role Phone Sunny Horton MD Primary Care Provider [phone] Allergies Active Allergy Reactions Criticality Noted Date Comments Nsaids Other (See Comments) Low 01/23/2021 Doesn't take after gastric bypass surgery Medications Linzess 72 MCG capsule capsule Take 1 capsule by mouth Daily. 4 Active Cosentyx Sensoready, 300 MG, 150 MG/ML solution auto-injector 4 Active busPIRone (BUSPAR) 15 MG tabletIndication s:Anxiety and depression Take 1 tablet by mouth 2 (Two) Times a Day. 180 tablet 1 4 Active DULoxetine (Cymbalta) 30 MG capsuleIndicatio ns:Anxiety and depression Take 1 capsule by mouth Daily. 30 capsule 2 4 Active fluticasone (FLONASE) 50 MCG/ACT nasal sprayIndications :Seasonal allergic rhinitis due to pollen Administer 2 sprays into the nostril(s) as directed by provider Daily. 16 g 2 4 Active loratadine (CLARITIN) 10 MG tabletIndication s:Seasonal allergic rhinitis due to pollen Take 1 tablet by mouth Daily. 90 tablet 1 4 Active rizatriptan (MAXALT) 5 MG tabletIndication s:Migraine with aura and without status migrainosus, not intractable Take 1 tablet by mouth 1 (One) Time As Needed for Migraine. May repeat in 2 hours if needed 9 tablet 1 4 Active albuterol sulfate HFA 108 (90 Base) MCG/ACT inhaler Inhale 2 puffs Every 4 (Four) Hours As Needed for Wheezing or Shortness of Air. 8 g 5 Active montelukast (SINGULAIR) 10 MG tabletIndication s:Seasonal allergic rhinitis due to pollen TAKE 1 TABLET BY MOUTH EVERY NIGHT 30 tablet 3 5 Active varenicline (CHANTIX) 1 MG tabletIndication s:Cigarette smoker Take 1 tablet by mouth 2 (Two) Times a Day for 140 days. 56 tablet 4 5 02/12/20 25 Active Varenicline Tartrate, Starter, 0.5 MG X 11 & 1 MG X 42 tablet therapy packIndications: Cigarette smoker Take 0.5 mg by mouth Daily for 3 days, THEN 0.5 mg 2 (Two) Times a Day for 4 days, THEN 1 mg 2 (Two) Times a Day for 21 days. Take 0.5 mg po daily x 3 days, then 0.5 mg po bid x 4 days, then 1 mg po bid 1 each 5 09/25/19 25 Active Problems Problem Noted Date Diagnosed Date Left upper quadrant abdominal pain 04/19/2024 Assessment & Plan (04/19/2024 10:44 AM EST): Intermittent pattern of some left upper quadrant abdominal cramping, that might last half an hour 45 minutes a couple times a week, maybe a few times a week at most. Not clearly associated to postprandial or post defecation pattern, he does have notable irritable bowel syndrome type symptoms but thinks his bowels are doing fairly well. No fevers or chills. Between the episodes that it flares he feels completely baseline. I would like to obtain lipase to assess pancreas, in addition to standard screening blood work for complete liver function test. Reassuring examination findings today 04/19/2024. He also has follow-up with his [facility] for his irritable bowel syndrome, Dr. Cabrera in case. Influenza B 03/05/2024 Assessment & Plan (03/08/2024 7:11 PM EST): Patient testing positive for flu B in office today. He does have some concerning wheezes on rhonchi on auscultation giving concern for potential secondary bacterial pathogen. Will treat with azithromcyin zpack as directed. Will also give prednisone for inflammation and tessalon for cough. Advised plenty of rest and increased fluids. Patient on cosentyx injection, advised to hold dosing until illness resolved. Will advise if no imrpovement Common wart 02/20/2024 Assessment & Plan (02/20/2024 3:31 PM EST): Common wart approxi-3/4 cm on the right posterior middle finger at the mid phalanx. Not responsive [id number] treatment. As such with informed verbal consent, I cleaned the area, with shaving down to the base and applied 40 seconds of cryotherapy with scant bleeding and good toleration. Triple antibiotic ointment and bandage applied. Continue similar treatment over the next few days, then as needed. Reassess how is doing at follow-up in 2 months where he might benefit from another treatment. Advise concerns. Vaping nicotine dependence, tobacco product 02/01 Assessment & Plan (04/19/2024 10:48 AM EST): Since smoking cessation in early 2023 transition to vaping daily with continued nicotine use, which he was planning to pursue cessation by weaning off gradually. Reinforced benefits of doing so. Advise concerns. Assessment & Plan (02/20/2024 3:31 PM EST): Since smoking cessation in early 2023 transition to vaping daily with continued nicotine use, which he was planning to pursue cessation by weaning off gradually. Reinforced benefits of doing so. Advise concerns. Migraine with aura and witho ut status migrainosus, not intractable 07/25/2023 Assessment & Plan (04/19/2024 10:45 AM EST): Diagnosed 07/25/2023 with aura with a bit of a visual altered sensation, no previous pattern known although his strong family history including the mother. Pattern of temporal headache with visual aura, light and sound sensitive and nauseous but never vomiting. Good response to initiation of topiramate 25 mg at nighttime as of 07/25/2023 using for a few months he is doing better subsequently and is weaned off and has had rare need for the Maxalt is initiated at that time did. Continue Maxalt 5 mg daily as needed for onset headache, caution sedation. No new concerns as of 04/19/2024. Assessment & Plan (02/20/2024 3:33 PM EST): Diagnosed 07/25/2023 with aura with a bit of a visual altered sensation, no previous pattern known although his strong family history including the mother. Pattern of temporal headache with visual aura, light and sound sensitive and nauseous but never vomiting. Good response to initiation of topiramate 25 mg at nighttime as of 07/25/2023 using for a few months he is doing better subsequently and is weaned off and has had rare need for the Maxalt is initiated at that time did. Continue Maxalt 5 mg daily as needed for onset headache, caution sedation. Advise any notable recurrence or worsening. Assessment & Plan (07/25/2023 1:58 PM EDT): Newly diagnosed 07/25/2023 with aura with a bit of a visual altered sensation, no previous pattern known although his strong family history including the mother. Pattern of temporal headache with visual aura, light and sound sensitive and nauseous but never vomiting. Sometimes a bit of a tingly sensation in weird sensation in the body associated as well, where he feels fatigued for the few hours. Initiate topiramate 25 mg at nighttime which could be titrated up further follow-up. Add Maxalt 5 mg daily as needed for onset headache, caution sedation. Reassess how he is doing in 2-month follow-up visit, sooner as needed. COVID-19 11/14/2022 Assessment & Plan (11/14/2022 1:21 PM EDT): presents today for cough, sore throat, fever, headache, nausea and myalgias. Patient reports onset of symptoms today yesterday, however this morning severe worsening of symptoms and development of temperature of 102. Patient reports this is exactly how he felt previously when he was diagnosed with COVID. He has taken a test at home which was positive for COVID. He has utilized NyQuil, ibuprofen and Tylenol at home with little to no benefit. He describes his cough as dry in nature. No associated vomiting and diarrhea at this time. Patient testing negative for COVID and flu in office today, however with clinical presentation and home COVID test likely he is positive. -Follow CDC guidelines for strict 5-day quarantine followed by continued mask wearing for additional 5 days as long as symptoms are improving. -Give Zofran for nausea -We will give prednisone Medrol Dosepak for wheezing and chest tightness -Prescribed Bromfed for cough and congestion Strep pharyngitis 01/14/2022 Acute non-recurrent pansinusitis 01/14/2022 Assessment & Plan (01/14/2022 3:45 PM EST): Complaints of earache, sore throat and sinus congestion x two weeks in duration. He denies any runny nose or eye crusting. He feels his sinuses are tender to the touch, mucous varies from clear, to yellow to green. No nosebleeds. No nausea, vomiting, diarrhea fever or rash. He reports some days he has felt as though he's getting better but then will worsen again. He has no known sick contacts. No change in appetite or activity. Will treat with amoxicillin 500mg BID x 7 days Advised use of flonase two sprays each nostril daily Advised use of daily claritin or zyrtec Prediabetes 11/16/2021 Assessment & Plan (04/19/2024 10:46 AM EST): Diagnosis with hemoglobin A1c 6.0 on 04/10/2018, with notable weight loss status post bariatric surgery, improved to 5.6% 09/08/2018, 5.0 01/07/2019. Today's hemoglobin A1c continues in good range at 5.3%, compared to previous 5.2%, 5.3%, 5.1%. Caution recurrence risk if he gains weight again. Monitor every 6 to 12 months with good stability. Assessment & Plan (02/20/2024 3:35 PM EST): Diagnosis with hemoglobin A1c 6.0 on 04/10/2018, with notable weight loss status post bariatric surgery, improved to 5.6% 09/08/2018, 5.0 01/07/2019. Today's hemoglobin A1c continues in good range at 5.2%, previous 5.3%, previous 5.1%. Monitor at minimum yearly in context of history, caution recurrence risk if he gains weight again. Assessment & Plan (03/28/2023 12:23 PM EST): Diagnosis with hemoglobin A1c 6.0 on 04/10/2018, with notable weight loss status post bariatric surgery, improved to 5.6% 09/08/2018, 5.0 01/07/2019. Today's hemoglobin A1c continues in good range at 5.3%, previous 5.1% with nonfasting glucose 90. Monitor at minimum yearly in context of history, caution recurrence risk if he gains weight again. Assessment & Plan (11/16/2021 5:43 PM EDT): Notable diagnosis with hemoglobin A1c 6.0 on 04/10/2018, subsequent improved to 5.6% 09/08/2018, 5.0 01/07/2019, 4.9% to 21/06/2019, 4.8% 11/05/2019. Today's globin A1c continues to do well at 5.1% with nonfasting glucose 90. Monitor yearly in context of history, caution recurrence risk if he gains weight again. Routine general medical exam ination at a health care facility 11/16/2021 Assessment & Plan (04/19/2024 10:48 AM EST): Last screening blood work 03/28/2023, including additionally negative HIV and hepatitis C virus screening 11/16/2021. Repeat blood work today 04/19/2024 with management per results. Tdap given 03/29/2022 through work at [employer]. Flu vaccine given yearly. Patient declines pneumococcal 20 valent vaccine with smoking history. Assessment & Plan (03/28/2023 12:23 PM EST): Last screening blood work 11/16/2021 including negative HIV and hepatitis C virus screening. Repeated today 03/28/2023 with managed per results. Tdap given 03/29/2022 through work at [employer]. Flu vaccine given 11/16/2022. Patient Clines pneumococcal 20 valent vaccine with smoking history. GERD (gastroesophageal reflux disease) Assessment & Plan (04/19/2024 10:44 AM EST): Shai fundoplication December 2015 with benefit. Recurrence of some abdominal complaints as of May 2017 resulting in a negative screening blood work, right upper quadrant ultrasound and HIDA scan negative, referral to gastroenterology with June 2017 negative colonoscopy and EGD only consistent with reflux pattern. Good improvement status post weight loss, no longer requiring omeprazole. Continue reflux precautions, advise recurrence. No new concerns as of 04/19/2024. Assessment & Plan (02/20/2024 3:32 PM EST): Shai fundoplication December 2015 with benefit. Recurrence of some abdominal complaints as of May 2017 resulting in a negative screening blood work, right upper quadrant ultrasound and HIDA scan negative, referral to gastroenterology with June 2017 negative colonoscopy and EGD only consistent with reflux pattern. Good improvement status post weight loss, no longer requiring omeprazole. Continue reflux precautions, advise recurrence. Assessment & Plan (03/28/2023 12:21 PM EST): Shai fundoplication December 2015 with benefit. Recurrence of some abdominal complaints as of May 2017 resulting in a negative screening blood work, right upper quadrant ultrasound and HIDA scan negative, referral to gastroenterology with June 2017 negative colonoscopy and EGD only consistent with reflux pattern. Good improvement status post weight loss. Assessment & Plan (11/16/2021 5:42 PM EDT): Shai fundoplication December 2015 with benefit. Recurrence of some abdominal complaints as of May 2017 resulting in a negative screening blood work, right upper quadrant ultrasound and HIDA scan negative, referral to gastroenterology with June 2017 negative colonoscopy and EGD only consistent with reflux pattern. Good improvement status post weight loss. Hidradenitis suppurativa 11/16/2021 Assessment & Plan (04/19/2024 10:45 AM EST): Status post surgical incision by Dr. Rider in 2014, as well as status post evaluations with infectious disease, dermatology. Per advanced dermatology, initiated Humira 2018 transiently and resumed again August 2019 with benefit. Ongoing follow-up with dermatology with additional surgical interventions to help with drainage multiple times, most recently early April 2024 on the left groin region. Keep regular follow-up. Assessment & Plan (03/28/2023 12:21 PM EST): Status post surgical incision by Dr. Rider in 2014, as well as status post evaluations with infectious disease, dermatology. Per advanced dermatology, initiated Humira 2018 transiently and resumed again August 2019 with benefit. Keep follow-up with dermatology, overall doing better since weight loss. Assessment & Plan (11/16/2021 5:40 PM EDT): Status post surgical incision by Dr. Rider in 2014, as well as status post evaluations with infectious disease, dermatology. Per advanced dermatology, initiated Humira 2017 transiently and resumed again August 2019 with benefit. Primary hypertension 11/16/2021 Assessment & Plan (04/19/2024 10:47 AM EST): Early 2019 resumption of losartan/HCTZ 50/12.5, ultimately discontinued after weight loss. Blood pressure continues in good range pain. Based on history, EKG 04/19/2024 normal, unchanged compared to 03/28/2023, 02/28/2021. I continue to recommend dietary modification with weight loss, initiate exercise, continued smoking cessation. No new concerns as of 04/19/2024. Assessment & Plan (02/20/2024 3:35 PM EST): Early 2019 resumption of losartan/HCTZ 50/12.5, ultimately discontinued after weight loss. Blood pressure continues in good range pain. Based on history of obtain EKG 03/28/2023 which is reassuring and normal, unchanged compared to 02/28/2021. I continue to recommend dietary modification with weight loss, initiate exercise, continued smoking cessation. No new concerns as of 02/20/2024. Assessment & Plan (03/28/2023 12:14 PM EST): Early 2019 resumption of losartan/HCTZ 50/12.5, ultimately discontinued after weight loss. Blood pressure continues in good range pain. Based on history of obtain EKG 03/28/2023 which is reassuring and normal, unchanged compared to 02/28/2021. I continue to recommend dietary modification with weight loss, initiate exercise, continued smoking cessation. Assessment & Plan (11/16/2021 5:40 PM EDT): Early 2019 resumption of losartan/HCTZ 50/12.5, ultimately discontinued after weight loss. At this time no longer having hypertensive pattern but we will monitor closely. I continue to recommend dietary modification with weight loss, initiate exercise, continued smoking cessation. Overweight (BMI 25.0-29.9) 11/16/2021 Assessment & Plan (04/19/2024 10:45 AM EST): Status post 10/13/2018 bariatric surgery, with greater than 90 pound weight loss within the following year. Comorbid risk factors including hypertension, recently diagnosed obstructive sleep apnea, hyperlipidemia, prediabetes, all improving. Continue efforts to eat healthy, be active, with continue benefits of more modest weight loss. Slight increase in weight of BMI at 25.6 but overall still in good range. Continue healthy diet and exercise. Assessment & Plan (02/20/2024 3:34 PM EST): Status post 10/13/2018 bariatric surgery, with greater than 90 pound weight loss within the following year. Comorbid risk factors including hypertension, recently diagnosed obstructive sleep apnea, hyperlipidemia, prediabetes, all improving. Continue efforts to eat healthy, be active, with continue benefits of more modest weight loss. Slight increase in weight of BMI 25.8 but still overall good stability. Assessment & Plan (11/16/2021 5:38 PM EDT): Status post 10/13/2018 bariatric surgery, with greater than 90 pound weight loss within the following year. Comorbid risk factors including hypertension, recently diagnosed obstructive sleep apnea, hyperlipidemia, prediabetes, all improving. Continue efforts to eat healthy, be active, with continue benefits of more modest weight loss Seasonal allergic rhinitis 11/16/2021 Assessment & Plan (04/19/2024 10:48 AM EST): Modest flare of allergies azafol 2023, prescription provided for resumption of Claritin Flonase and Singulair, to use for next couple weeks, then as needed. Additional benefit of saline spray, nasal flushing. Continue recommending benefits of smoking cessation. No new concerns as of 04/19/2024. Assessment & Plan (02/20/2024 3:35 PM EST): Modest flare of allergies azafol 2023, prescription provided for resumption of Claritin Flonase and Singulair, to use for next couple weeks, then as needed. Additional benefit of saline spray, nasal flushing. Continue recommending benefits of smoking cessation. Advised if not improving. Assessment & Plan (07/25/2023 1:57 PM EDT): Modest flare of allergies this time, recommend resumption of Claritin Flonase and Singulair, as these can also be exacerbating factor the migraine headache pattern which has been diagnosed to date 07/25/2023. Singulair notably added 03/28/2023. Additional benefit of saline spray, nasal flushing. Continue recommending benefits of smoking cessation. Advised if not improving. Assessment & Plan (03/28/2023 12:24 PM EST): Good response to as needed Flonase, Claritin. With some modest breakthrough symptoms she would be interested in trying Singulair and I prescribed today 03/28/2023. Additional benefit of saline spray, nasal flushing. Continue recommending benefits of smoking cessation. Advised if not improving. Assessment & Plan (11/16/2021 5:39 PM EDT): Good response to as needed Flonase, Claritin, and Singulair. Continue recommending benefits of smoking cessation. Personal history of tobacco use, presenting hazards to health 11/16/2021 Assessment & Plan (04/19/2024 10:46 AM EST): Cessation 09/09/17, using Chantix. Recurrence as of 11/05/2019 with the of his mother, use of 2 to 3 cigarettes daily until quitting early 2023, Using nicotine patches. Nonetheless he transition to vaping at a low level daily which he will also pursue cessation of. Ongoing daily use of vaping as of 04/19/2024, recommend benefits of pursuing cessation, he declines need for Chantix or nicotine replacement therapy. Assessment & Plan (02/20/2024 3:30 PM EST): Cessation 09/09/17, using Chantix. Recurrence as of 11/05/2019 with the of his mother, use of 2 to 3 cigarettes daily until quitting early 2023, Using nicotine patches. Nonetheless he transition to vaping at a low level daily which he will also pursue cessation of. Assessment & Plan (03/28/2023 12:17 PM EST): Cessation 09/09/17, using Chantix. Recurrence as of 11/05/2019 with the of his mother, and ongoing since now at about 3 to 4 cigarettes/day. He would be interested in cessation would like to try patches and I provided 21 mcg x 1 month followed by 14 mcg x 1 month and then 3 months of 7 mcg dosing, reinforcing benefit of setting a quit date. We could also consider use of Chantix again in the future if not responsive to the patches. Reinforced benefits of cessation. Assessment & Plan (11/16/2021 5:41 PM EDT): Cessation 09/09/17, using Chantix. Recurrence as of 11/05/2019 with the of his mother, he plans to pursue cessation is the only smoking a couple cigarettes per day. He might decide to use Chantix again but he will let me know. Reinforced benefits of cessation. Anxiety and depression 11/16/2021 Assessment & Plan (04/19/2024 10:43 AM EST): Historically more depression than anxiety symptoms. Initially evaluated 08/19/2016, related to money and home stressors. Resumption of buspirone and fluoxetine as of 09/18/2021 with benefit. He had some delayed ejaculatory pattern on the fluoxetine at 20 mg dosing but not too bothersome but we did have improvement when he decreased to the 10 mg dosing. Current buspirone 15 mg twice daily, which was increased in July 2023 with previous fluoxetine which had been increased to 20 mg to since discontinued. As of visit 02/20/2024, with, we switched to a different class with modest breakthrough symptoms but due to ejaculatory difficulty on fluoxetine, we switched to a different class of medicine with, and he has seen good benefit. He feels it is working better, no ejaculatory difficulties. He would like to continue unchanged Cymbalta 30 mg daily. Continue buspirone unchanged. No SI/HI. Continue lifestyle modifications to benefit mood including proceeded enjoyable activities, improved socialization, exercise, et cetera. Reassess at follow-up visit 6 months, sooner as needed. Assessment & Plan (02/20/2024 3:29 PM EST): Historically more depression than anxiety symptoms. Initially evaluated 08/19/2016, related to money and home stressors. Resumption of buspirone and fluoxetine as of 09/18/2021 with benefit. He had some delayed ejaculatory pattern on the fluoxetine at 20 mg dosing but not too bothersome but we did have improvement when he decreased to the 10 mg dosing. Current buspirone 15 mg twice daily, which was increased in July 2023 with previous fluoxetine which had been increased to 20 mg to since discontinued. Nonetheless modest breakthrough symptoms but due to ejaculatory difficulty on fluoxetine he would like to try something else. As such we will try different class with Cymbalta 30 mg daily today on 02/20/2024. Continue buspirone unchanged. No SI/HI. Continue lifestyle modifications to benefit mood including proceeded enjoyable activities, improved socialization, exercise, et cetera. Reassess at follow-up visit in 2 months. Advise concerns. Assessment & Plan (07/25/2023 1:56 PM EDT): Historically more depression than anxiety symptoms. Initially evaluated 08/19/2016, related to money and home stressors. Resumption of buspirone and fluoxetine as of 09/18/2021 with benefit. He had some delayed ejaculatory pattern on the fluoxetine at 20 mg dosing but not too bothersome but we did have improvement when he decreased to the 10 mg dosing. Current buspirone 7.5 mg twice daily and fluoxetine at 10 mg daily but with some modest breakthrough symptoms I would like to increase fluoxetine back to 20 mg daily and buspirone to 15 mg twice daily as of 07/25/2023 visit. No SI/HI. I do feel that this is likely exacerbating migraine headache pattern. Caution delayed ejaculatory pattern with fluoxetine. Continue lifestyle modifications to benefit mood including proceeded enjoyable activities, improved socialization, exercise, et cetera. Advise recurrence. Assessment & Plan (03/28/2023 12:21 PM EST): Historically more depression than anxiety symptoms. Initially evaluated 08/19/2016, related to money and home stressors. Resumption of buspirone and fluoxetine as of 09/18/2021 with benefit. He had some delayed ejaculatory pattern but ultimately stayed on the dosing, but as he has been doing better he would like to try to decrease at this time. As such continue buspirone 7.5 mg twice daily and decrease fluoxetine from 20 mg down to 10 mg daily. Reassess at follow-up. He understands benefit of lifestyle modifications to benefit mood including proceeded enjoyable activities, improved socialization, exercise, et cetera. Advise recurrence. Assessment & Plan (11/16/2021 5:47 PM EDT): Morbid with generalized anxiety disorder. Initially evaluated 08/19/2016, related to money and home stressors. Resumption of buspirone and fluoxetine as of 09/18/2021 and he is doing very well with this medicine again. Fortunately, he has had some delayed ejaculatory pattern with his medicine as can occur, but he feels he is done so well he would like to try the lower dose. As such decrease fluoxetine to 10 mg daily, if still having problems we could consider different SSRI therapy. Reassess at follow-up. He understands benefit of lifestyle modifications to benefit mood including proceeded enjoyable activities, improved socialization, exercise, et cetera. Advise recurrence. Mixed hyperlipidemia 11/16/2021 Assessment & Plan (04/19/2024 10:45 AM EST): Most recent cholesterol 03/28/2023 with total cholesterol 169, triglycerides 90, HDL 63 and LDL 89, much improved after weight loss status post bariatric surgery. Prior 04/10/2018 total cholesterol 223, triglycerides 152, HDL 56, LDL 137, 05/14/2017 total cholesterol 209, triglycerides 148, HDL 44, LDL 135. Previous pravastatin 20 mg daily, not taking since weight loss. continue healthy diet, exercise, pursuit of ongoing stable pattern. Recheck pending with blood work 04/19/2024, management per results. Assessment & Plan (02/20/2024 3:34 PM EST): Most recent cholesterol 03/28/2023 with total cholesterol 169, triglycerides 90, HDL 63 and LDL 89, much improved after weight loss status post bariatric surgery. Prior 04/10/2018 total cholesterol 223, triglycerides 152, HDL 56, LDL 137, 05/14/2017 total cholesterol 209, triglycerides 148, HDL 44, LDL 135. Previous pravastatin 20 mg daily, not taking since weight loss. continue healthy diet, exercise, pursuit of ongoing stable pattern. Assessment & Plan (03/28/2023 12:22 PM EST): 04/10/2018 total cholesterol 223, triglycerides 152, HDL 56, LDL 137. Previous 05/14/2017 total cholesterol 209, triglycerides 148, HDL 44, LDL 135. Previous pravastatin 20 mg daily, not taking since weight loss. Recheck with blood work, if notably elevated we could consider restarting statin therapy. Continue healthy diet, exercise and maintaining healthy weight pattern. Assessment & Plan (11/16/2021 5:42 PM EDT): 04/10/2018 total cholesterol 223, triglycerides 152, HDL 56, LDL 137. Previous 05/14/2017 total cholesterol 209, triglycerides 148, HDL 44, LDL 135. Current pravastatin 20 mg daily. Recheck pending. Elevated liver function tests 11/16/2021 Assessment & Plan (04/19/2024 10:44 AM EST): 01/07/2019 liver function tests normalize. 04/10/2018 AST 64, ALT 116, previous 05/14/2017 total bilirubin 0.5, AST, similar cervical pattern. Notable for LFTs historically in somewhat similar range, on 04/08/2016 total bilirubin 0.6, AST 21, ALT 61. Consistent with fatty liver disease. Recheck with blood work 03/28/2023, completely normalized liver function test. Recheck liver function test with blood work 04/19/2024. Assessment & Plan (02/20/2024 3:32 PM EST): 01/07/2019 liver function tests normalize. 04/10/2018 AST 64, ALT 116, previous 05/14/2017 total bilirubin 0.5, AST, similar cervical pattern. Notable for LFTs historically in somewhat similar range, on 04/08/2016 total bilirubin 0.6, AST 21, ALT 61. Consistent with fatty liver disease. Recheck with blood work 03/28/2023, completely normalized liver function test, plan to recheck with blood work early 2024. Assessment & Plan (03/28/2023 12:18 PM EST): 01/07/2019 liver function tests normalize. 04/10/2018 AST 64, ALT 116, previous 05/14/2017 total bilirubin 0.5, AST, similar cervical pattern. Notable for LFTs historically in somewhat similar range, on 04/08/2016 total bilirubin 0.6, AST 21, ALT 61. Consistent with fatty liver disease. Recheck with pending blood work 03/28/2023. Assessment & Plan (11/16/2021 5:41 PM EDT): 01/07/2019 liver function tests normalize. 04/10/2018 AST 64, ALT 116, previous 05/14/2017 total bilirubin 0.5, AST, similar cervical pattern. Notable for LFTs historically in somewhat similar range, on 04/08/2016 total bilirubin 0.6, AST 21, ALT 61. Consistent with fatty liver disease. Monitor periodically. Vitamin D deficiency 11/16/2021 Assessment & Plan (04/19/2024 10:49 AM EST): This is per screening blood work prior to gastric bypass, from 04/10/2018 with vitamin D 25-hydroxy level at 11.5, followup 26.4 to 01/07/2019. Last vitamin D level 25.2 on 11/16/2021. Current vitamin D replacement daily, Up with vitamin D 25-hydroxy level normal at 39.2 on 03/28/2023. Repeat with 04/19/2024, management per results. Assessment & Plan (03/28/2023 12:24 PM EST): This is per screening blood work prior to gastric bypass, from 04/10/2018 with vitamin D 25-hydroxy level at 11.5, followup 26.4 to 01/07/2019. Last vitamin D level 25.2 on 11/16/2021. Current vitamin D replacement daily, recheck blood work pending 03/28/2023. Assessment & Plan (11/16/2021 5:40 PM EDT): This is per screening blood work prior to gastric bypass, from 04/10/2018 with vitamin D 25-hydroxy level at 11.5, followup 26.4 to 01/07/2019. Continue vitamin D 2000 units daily, recheck pending. Need for vaccination 11/16/2021 Obstructive sleep apnea 11/16/2021 Assessment & Plan (04/19/2024 10:45 AM EST): Per Dr. Andres, initiation of CPAP as of October 2017 with benefit and resolution of sleep apnea clinically after weight loss. Advise any recurrence of concerns of breath-holding, snoring or sleep apnea symptoms. Assessment & Plan (03/28/2023 12:22 PM EST): Per Dr. Andres, initiation of CPAP as of October 2017 with benefit and resolution of sleep apnea clinically after weight loss. Advise any recurrence of concerns of breath-holding, snoring or sleep apnea symptoms. Assessment & Plan (11/16/2021 5:39 PM EDT): Per Dr. Andres, initiation of CPAP as of October 2017 with benefit and resolution of sleep apnea clinically after weight loss. Advise any recurrence of concerns of breath-holding, snoring or sleep apnea symptoms. Mild intermittent asthma without complication Assessment & Plan (04/19/2024 10:45 AM EST): Overall doing well, typically triggers associated to allergies and also exacerbated when he smokes. Previous use of Qvar no longer required, advise any worsening. Reinforced importance of smoking cessation. No new concerns as of 04/19/2024. Assessment & Plan (02/20/2024 3:33 PM EST): Overall doing well, typically triggers associated to allergies and also exacerbated when he smokes. Previous use of Qvar no longer required, advise any worsening. Reinforced importance of smoking cessation. No new concerns as of 02/20/2024. Assessment & Plan (11/16/2021 5:45 PM EDT): Overall doing well, typically triggers associated to allergies and also exacerbated when he smokes. Previous use of Qvar no longer required, advise any worsening. Reinforced importance of smoking cessation. Resolved Problems Problem Noted Date Diagnosed Date Resolved Date Generalized anxiety disorder 11/16/2021 03/28/2023 Assessment & Plan (11/16/2021 5:43 PM EDT): Refer to assessment plan for recurrent depression for details. Anxiety 11/16/2021 11/16/2021 Encounters Date Type Department Care Team Description 08/27/2024 Telephone [facility] [address] [place] [address] ANJANA JUARES [phone] Sunny Horton MD 08/17/2024 Refill [facility] [address] [place] [address] ANJANA JUARES [phone] Sunny Horton MD Seasonal allergic rhinitis due to pollen from Last 3 Months Immunizations Immunization Administration Dates Next Due COVID-19 (MODERNA) 1st,2nd,3 rd Dose Monovalent 03/06/2021,01/30/2021 Flu Vaccine Intradermal Quad 18-64YR 11/27/2009 Fluzone >6mos 11/14/2023 Fluzone (or Fluarix & Flulav al for VFC) >6mos 11/13/2022 Fluzone Quad >6mos (Multi-dose) 11/16/2021 Hep B, Adolescent or Pediatric 10/20/2000,2000,04/21/2000 Hepatitis B Adult/Adolescent IM 06/15/19 21,01/19/2020,10/20/2000,2000,04/21/2000 Influenza Seasonal Injectable 11/27/2009 Influenza, Unspecified 11/16/2021,03/31/2015 MMR 04/21/2000,10/15/1991 Tdap 03/29/2022,02/15/2012 Social History Tobacco Use Types Packs/Day Years Used Date Smoking Tobacco: Former Cigarettes 2 10 0 09/10/2007 - 09/09/2017 Smokeless Tobacco: Never Tobacco Cessation:Counseling Given: No Alcohol Use Standard Drinks/Week Comments Not Currently [...] on file Sexual Orientation Not on file Last Filed Vital Signs Vital Sign Reading Time Taken Comments Blood Pressure 122/72 04/19/2024 10:13 AM EST Pulse 89 04/19/2024 9:56 AM EST Temperature 37.2 C (98.9 F) 04/19/2024 9:56 AM EST Respiratory Rate 16 03/05/2024 4:07 PM EST Oxygen Saturation 100% 04/19/2024 9:56 AM EST Inhaled Oxygen Concentration - - Weight 85.7 kg (189 lb) 04/19/2024 9:56 AM EST Height 182.9 cm (6') 04/19/2024 9:56 AM EST Body Mass Index 25.63 04/19/2024 9:56 AM EST Plan of Treatment Upcoming Encounters Date Type Department Care Team (Late st Contact Info) Description 10/19/2024 11:15 AM EDT Office Visit [facility] [address] [place] [address] ANJANA JUARES [phone] Sunny Horton MD [address] [place] [address] ANJANA JUARES [address] 01/03/2025 1:00 PM EST Office Visit [facility] [address] [place] [address] Trini Andres MD [address] [place] [address] Health Maintenance Due Date Last Done Comments Pneumococcal Vaccine 0-49 (1 of 2 - PCV) 2008 COVID-19 Vaccine (3 - 2023-2 5 season) 2023 03/06/2021, 01/30/2021 INFLUENZA VACCINE 12/01/2024 11/14/2023, , 11/16/2021, Additional history exists ANNUAL PHYSICAL 04/19/2025 04/19/2024 LIPID PANEL 04/19/2025 04/19/2024, 03/04, 11/16/2021 TDAP/TD VACCINES (3 - Td or Tdap) 03/29/2032 023, 02/15/2012 HEPATITIS C SCREENING Completed 11/16/2021 Procedures Procedure Name Priority Date/Time Associated Diagnosis Comments LIPID PANEL Routine 04/19/2024 10:15 AM EST Routine general medical examination at a health care facility HEPATITIS C ANTIBODY Routine 11/16/2021 2:38 PM EDT Routine general medical examination at a health care facility from Last 3 Months or Most Recently Relevant to Health Maintenance Results * (ABNORMAL) Lipid Panel (04/19/2024 10:15 AM EST) Total Cholesterol 200(H) 100 - 199 mg/dL [facility] Triglycerides 85 0 - 149 mg/dL [facility] HDL Cholesterol 66 >39 mg/dL [facility] VLDL Cholesterol Kwadwo 15 5 - 40 mg/dL [facility] LDL Chol Calc (NIH) 119(H) 0 - 99 mg/dL [facility] Blood 04/19/2024 10:1 5 AM EST 04/19/2024 Comment:Blood Release to leobardo Parra [facility] ([facility]) - 04/20/2024 8:07 AM EST Performed at: - [facility] [address] [place] [id number] Service Order Clerk: Moo Fay PhD, Phone: [phone] us Sunny Horton MD LAB BLOOD ORDERABLES Final Resul t Performing Organization Address [facility] de Phone Number [facility] (AMBULATORY) [address] [place] [address], [facility] [address] [place] [address], [place] [phone] * Hepatitis C Antibody (11/16/2021 2:38 PM EDT) Pathologist [facility] Hep C Virus Ab <0.1 0.0 - 0.9 s/co ratio [facility] Comment: Negative: < 0.8 Indeterminate: 0.8 - 0.9 Positive: > 0.9 HCV antibody alone does not differentiate between previous resolved infection and active infection. The CDC and current clinical guidelines recommend that a positive HCV antibody result be followed up with an HCV RNA test to support the diagnosis of acute HCV infection. [facility] offers Hepatitis C Virus (HCV) RNA, Diagnosis, LINDY (512526) and Hepatitis C Virus (HCV) Antibody with reflex to Quantitative Real-time PCR ([id number]). Blood Structure of left upper limb / Unknown 11/16/2021 2:38 PM EDT 11/16/2021 Comment:Blood Release to leobardo Parra [facility] (AMBULATORY) - 11/18/2021 9:06 AM EDT Performed at: - [address] [id number] Service Order Clerk: Moo Fay PhD, Phone: [phone] us Sunny Horton MD LAB BLOOD ORDERABLES Final Resul t Performing Organization Address [facility]/ZIP Co de Phone Number [facility] (AMBULATORY) [address] [place] [address], [place] [phone] [facility] [address] [place] [address], from Last 3 Months or Most Recently Relevant to Health Maintenance Insurance [facility] MEDICAID Care Teams Senior Regulatory Affairs Specialist Relationship Specialty Start Date End Date Sunny Horton MD [address] [place] [address] [place] [address] PCP - General Internal Medicine 11/09/21
--- OUTSIDE RECORDS SUMMARY | 2024-10-17 16:47 | XMS_ITS | Encounter Summary ---
Author Organization Healthcare Address [address] [place] [address] Care Team Providers Care Disability Case Manager Name Role Phone Sunny Horton MD Primary Care Provider [phone] Encounter Details Date Type Department Care Team (Latest Contact Info) Description 10/07/2024 Travel Social History Tobacco Use Types Packs/Day Years Used Date Smoking Tobacco: Some Days Cigarettes 0.3 15 Smokeless Tobacco: Current Comments:2cigs/day Alcohol Use Standard Drinks/Week Comments No 0 (1 standard drink = 0.6 oz pur e alcohol) PHQ-2 Answer Date Recorded Patient Health Questionnaire-2 Score 0 02/19/2024 Sex and Gender Information Value Date Recorded Sex Assigned at Male 01/23/2021 2:50 PM EST Legal Sex Male 6:20 PM EDT Gender Identity Male 01/23/2021 2:50 PM EST Sexual Orientation Straight 10/03/2024 3: 28 PM EDT documented as of this encounter Plan of Treatment Upcoming Encounters Date Type Department Care Team (Late st Contact Info) Description 03/04/2025 2:30 PM EST Appointment [facility] Ultrasound [address] [place] [address] documented as of this encounter Visit Diagnoses Not on filedocumented in this encounter Additional Health Concerns Assessment Noted Time A fall risk assessment has been complete d for the patient 02/19/2024 2:51 PM EST A Body Mass Index follow-up plan has been documented for the patient 03/25/2024 3:51 PM EST documented as of this encounter Care Teams Disability Case Manager Relationship Specialty Start Date End Date Sunny Horton MD [address] [place] [address] PCP - General 07/14/20 documented as of this encounter
--- OUTSIDE RECORDS SUMMARY | 2024-10-17 16:47 | XMS_ITS | Clinical Summary ---
Author Organization Healthcare Address [address] [place] [address] Care Team Providers Care Quality Assurance Supervisor Trim Name Role Phone Sunny Horton MD Primary Care Provider [phone] Allergies Active Allergy Reactions Criticality Noted Date Comments Nsaids Other - please docum ent in the comment field Low 01/23/2021 Doesn't take after gastric bypass surgery Medications * This document contains information received from the source organization and may not represent a complete record from that organization. Multiple Vitamins-Minera ls (MULTI FOR HIM PO) Take by mouth 1 (one) time each day. 9 Active BENZAC AC WASH 10 % external wash WASH AFFECTED AREA ONCE DAILY WHILE SHOWERING 1 Active clindamycin (Cleocin T) 1 % external solution APPLY TOPICALLY TO THE AFFECTED AREA AT BEDTIME 1 Active omeprazole (PriLOSEC) [address] capsule Take 1 capsule (20 mg) by mouth 1 (one) time each day. Do not crush or chew. Active fluticasone (Flonase) 50 MCG/ACT nasal spray Administer 2 sprays into each nostril 1 (one) time each day. 3 Active loratadine (Claritin) 10 MG tablet Take 1 tablet (10 mg) by mouth 1 (one) time each day. 3 Active ondansetron (Zofran) 4 MG tablet Take 1 tablet (4 mg) by mouth every 8 (eight) hours if needed for nausea or vomiting. 3 Active busPIRone (Buspar) 7.5 MG tablet Take 1 tablet (7.5 mg) by mouth 2 (two) times a day. 4 Active Vitamin D3 1.25 MG (21752 UT) capsule Take 1 capsule (50,000 Units) by mouth 1 (one) time per week. Active Linzess 72 MCG capsule capsule TAKE 1 CAPSULE BY MOUTH 30 MINUTES BEFORE A MEAL ON AN EMPTY STOMACH Active nicotine (Nicoderm CQ) 21 MG/24HR patch Place 1 patch on the skin 1 (one) time each day at the same time. 4 Active secukinumab, 300 MG Dose, (Cosentyx, 300 MG Dose,) 150 MG/ML injection Inject 2 mL (300 mg) under the skin every 30 (thirty) days. 4 Active rizatriptan (Maxalt) 5 MG tablet Take 1 tablet (5 mg) by mouth. 4 Active oxyCODONE (Roxicodone) 5 MG immediate release tablet Take 1 tablet (5 mg) by mouth every 6 (six) hours if needed for severe pain. 7 tablet 4 Active Additional Information Patient not taking.Reported on 02/19/2024 tamsulosin (Flomax) 0.4 MG 24 hr capsule Take 1 capsule (0.4 mg) by mouth 1 (one) time each day. 30 capsule 11 4 02/19/20 25 Active Encounters Date Type Department Care Team Description 10/14/2024 8:00 AM EDT Office Visit Medical Office Building Urology [address], [address] [place] [address] Adilson Alfredo MD 10/14/2024 Travel 10/07/2024 Travel 10/04/2024 2:45 PM EDT - 10/04/2024 11:59 PM EDT Hospital Encounter [facility] [address] [place] [address] Kidney stones Discharge Disposition: Home or Self Care 10/04/2024 Travel 10/03/2024 Travel 10/01/2024 Telephone [facility] Urology [address] [place] [phone] Adilson Alfredo MD 09/14/2024 Telephone [facility] [address] [place] [address] SantanaMehran Hannah 09/09/2024 Telephone [facility] [address] [place] [address] Juan Manuel Mcdaniels, PharmD 09/08/2024 Telephone [facility] Urology [address] [place] [address] Adilson Alfredo MD [facility] - Patient Message; Asking for a return call; Confirmed Appt 08/31/2024 Orders Only [facility]rology [address] [place] [address] Adilson Alfredo MD Kidney stones (Primary Dx) from Last 3 Months Immunizations Immunization Administration Dates Next Due Hep B, Adolescent or Pediatric 10/20/2000,2000,04/21/2000 Hep B, adult 06/14/2020,01/19/2020 Influenza, Unspecified 11/16/2021,03/31/2015 Influenza, injectable, quadr ivalent, preservative free 11/13/2022 Influenza, seasonal, injectable 11/27/2009 Influenza, seasonal, injecta ble, preservative free 11/14/2023 MMR 04/21/2000,10/15/1991 Tdap 03/29/2022,02/15/2012 Family History Medical History Relation Name Comments Conversions - Other Father Multiple kidney stones Cardiac disorder Mother Bonnie Reyes Conversions - Other Mother Bonnie Reyes Family history unknown Diabetes Mother Bonnie Reyes Hypertension Mother Bonnie eRyes Stroke Mother Bonnie Reyes Diabetes Other 1 Conversions - Other Other 2 Multiple kidney stones Throat cancer Other 3 Cancer Paternal Grandmother Panchito daily Relation Name Status Comments Father Mother Bonnie Reyes Other 1 Other 2 Other 3 Paternal Grandmother Panchito daily Social History Tobacco Use Types Packs/Day Years [...] Orientation Straight 10/03/2024 3: 28 PM EDT Last Filed Vital Signs Vital Sign Reading Time Taken Comments Blood Pressure 132/82 08/14/2023 1:07 PM EDT Pulse 89 08/14/2023 1:07 PM EDT Temperature 36.2 C (97.2 F) 08/01/2023 2:00 PM EDT Respiratory Rate 12 08/01/2023 2:15 PM EDT Oxygen Saturation 98% 08/01/2023 2:15 PM EDT Inhaled Oxygen Concentration - - Weight 82.6 kg (182 lb) 02/19/2024 2:50 PM EST Height 182.9 cm (6') 02/19/2024 2:50 PM EST Body Mass Index 24.68 02/19/2024 2:50 PM EST Plan of Treatment Upcoming Encounters Date Type Department Care Team (Late st Contact Info) Description 03/04/2025 2:30 PM EST Appointment [facility] [address] [place] [address] Health Maintenance Due Date Last Done Comments [facility]-Infant/Child/Adol SDOH Screenings 1989 [facility]-Varicella Vaccines (1 of 2 - 13+ 2-dose series) 2002 [facility]- SDOH Screenings 2007 [facility]-Adult SDOH Screenings 2007 [facility]-Pneumococcal Vaccine: Pediatrics (0 to 5 Years) and At-Risk Patients (6 to 49 Years) (1 of 2 - PCV) 2008 HPV Vaccines (1 - 3-dose SCDM series) 2016 [id number] Vaccine (3 - season) 2023 03/06/2021, 01/30/2021 [facility]-Influenza Vaccine (#1) 11/01/202411/13, 11/13/2022, 11/16/2021, Additional history exists [facility]-Depression Screening 10/14/2025 025, 10/14/2024, 10/25/2021 [facility]-DTaP,Tdap,and Td Vaccines (3 - Td or Tdap) 03/29/2032 03/29/2022, 02/15/2012 [facility]-Zoster Vaccines (1 of 2) 2039 [facility]-Hepatitis B Vaccines Completed 021, 01/19/2020, 10/20/2000, Additional history exists [facility]-HIV Screening Completed 01/17/2021 [facility]-Hepatitis C Screening Completed 11/16/2021, [facility]-HIB Vaccines Aged Out No longer e ligible based on patient's age to complete this topic [facility]-Hepatitis A Vaccines Aged Out No longer eligible based on patient's age to complete this topic [facility]-IPV Vaccines Aged Out No longer e ligible based on patient's age to complete this topic [facility]-Rotavirus Vaccines Aged Out No lo nger eligible based on patient's age to complete this topic Medical Devices Implanted Type Area Cake Press Operator Helper Device Identifier Shelf Expiration Date Model / Serial / Lot Stent Ureteral Double Pigtail Pos 6fr 26cm - [id number] - [id number] Implanted:Qty: 1 on 01/23/2021 by Adilson Alfredo MD at [facility] Stent Right: [id number] 07/17/2022 [id number] / [id number] / Stent Ureteral Double Pigtail Pos 5fr 26cm - [id number] Implanted:Qty: 1 on 08/01/2023 by Adilson Alfredo MD at [facility] Left: Kidney [employer]-[id number] 11/06/2024 [id number] / / [id number] Procedures Procedure Name Priority Date/Time Associated Diagnosis Comments CT ABDOMEN WO IV CONTRAST Routine 10/04/2024 3:02 PM EDT Kidney stones HEPATITIS C ANTIBODY - ED W/REFLEX TO HCV QUANT PCR STAT 01/17/2021 6:02 PM EST HIV 1/2 ANTIBODY/ANTIGEN SCREEN WITH REFLEX TO HIV I/II DIFFERENTIATION STAT 01/17/2021 6:02 PM EST from Last 3 Months or Most Recently Relevant to Health Maintenance Results * CT Abdomen wo IV Contrast [...] in the right lower pole (series 3, [id number]).No hydronephrosis. GI Tract/Mesentery/Peritoneum: The large and small [...] signing this report, I, the attending physician, attestthat I have personally reviewed the images/data for the aboveexamination(s) and agree with the final edited report. Drafted by Ernie Mcacrthy MD on 10/04/2024 3:39 PM Final report signed by Zaira Johnson MD on 10/04/2024 4:43 PM Adilson Alfredo MD IMG CT PROCEDURES Final Result * HIV 1 & 2 Antibody/Antigen Screen (01/17/2021 6:02 PM EST) Pathologist [facility] HIV 1 & 2 Antibody/Anti gen Screen Nonreactive Nonreactive 01/17/2021 7:55 PM EST [facility] Blood Venous blood specimen / Unknown Venipuncture / Unknown 01/17/2021 6:02 PM EST 01/17/2021 6:18 PM EST Arun Cameron MD LAB BLOOD ORDERABLES Final Res ult [facility] [address] [place] [address] * [place] Hepatitis C Antibody (01/17/2021 6:02 PM EST) Pathologist [facility] Hepatitis C Antibody Negative Negative 01/17/2021 7:56 PM EST [facility] Blood Venous blood specimen / Unknown Venipuncture / Unknown 01/17/2021 6:02 PM EST 01/17/2021 6:18 PM EST Arun Cameron MD LAB BLOOD ORDERABLES Final Res ult [facility] [address] [place] [address] from Last 3 Months or Most Recently Relevant to Health Maintenance Insurance Care Teams Quality Assurance Supervisor Trim Relationship Specialty Start Date End Date Sunny Horton MD [address] [place] [address] PCP - General 07/14/20
--- OUTSIDE RECORDS SUMMARY | 2024-10-17 16:47 | XMS_ITS | Encounter Summary ---
Author Organization Healthcare Address [address] [place] [address] Care Team Providers Care Counter Tender Name Role Phone Sunny Horton MD Primary Care Provider [phone] Encounter Details Date Type Department Care Team (Latest Contact Info) Description 10/04/2024 Travel Social History Tobacco Use Types Packs/Day [...] Info) Description 03/04/2025 2:30 PM EST Appointment [facility] Ultrasound [address] [place] [address] documented as of this encounter Visit Diagnoses Not on filedocumented in this encounter Additional Health Concerns Assessment Noted Time A fall risk assessment has been complete d for the patient 02/19/2024 2:51 PM EST A Body Mass Index follow-up plan has been documented for the patient 03/25/2024 3:51 PM EST documented as of this encounter Care Teams Counter Tender Relationship Specialty Start Date End Date Sunny Horton MD [address] [place] [address] PCP - General 07/14/20 documented as of this encounter
--- OUTSIDE RECORDS SUMMARY | 2024-10-17 16:47 | XMS_ITS | Encounter Summary ---
Author Organization [facility] Address [address] [place] [address] Care Team Providers Care Patient Access Name Role Phone Sunny Horton MD Primary Care Provider [phone] Reason for Referral * Imaging (Routine) - Authorized Specialty Diagnoses / Procedures Referred By Contac t Referred To Contact Radiology Diagnoses Kidney stones Procedures US Renal Complete Adilson Alfredo MD [address] [address] Phone: tel: fax: Referral ID Status Reason Start Date Expiration Date V isits Requested Visits Authorized [id number] Authorized 08/31/2024 03/02/2026 1 1 Encounter Details Date Type Department Care Team (Late st Contact Info) Description 08/31/2024 Orders Only [facility] [address] [place] [address] Adilson Alfredo MD [address] [place] [address] Kidney stones (Primary Dx) Social [...] Info) Description 03/04/2025 2:30 PM EST Appointment [facility] Ultrasound [address] [place] [address] Scheduled Orders Name Type Priority Associated Diagnoses Orde r Schedule US Renal Complete Imaging Routine Kidney stones Expected: 03/03/2025 (Approximate), Expires: 03/03/2026 XR Abdomen 1 View Imaging Routine Kidney stones Expected: 03/03/2025 (Approximate), Expires: 03/03/2026 documented as of this encounter Visit Diagnoses Diagnosis Kidney stones- Primary Calculus of kidney documented in this encounter Additional Health Concerns Assessment Noted Time A fall risk assessment has been complete d for the patient 02/19/2024 2:51 PM EST A Body Mass Index follow-up plan has been documented for the patient 03/25/2024 3:51 PM EST documented as of this encounter Care Teams Patient Access Relationship Specialty Start Date End Date Sunny Horton MD [address] [place] [address] [place] [address] PCP - General 07/14/20 documented as of this encounter
--- OUTSIDE RECORDS SUMMARY | 2024-10-17 16:47 | XMS_ITS | Encounter Summary ---
Author Organization Healthcare Address [address] [place] [address] Care Team Providers Care Senior Trainer Name Role Phone Sunny Horton MD Primary Care Provider [phone] Reason for Visit * Reason Onset Date Comments HCN - Patient Message 09/08/2024 Asking for a return call 09/08/2024 Confirmed Appt 09/08/2024 Encounter Details Date Type Department Care Team (Late st Contact Info) Description 09/08/2024 Telephone [facility] [address], [address] [place] [address] Adilson Alfredo MD [address] [place] [address] HCN - Patient Message; Asking for a return call; Confirmed Appt Social History Tobacco Use Types Packs/Day Years [...] PM EDT documented as of this encounter Miscellaneous Notes * Telephone Encounter - Salome Neal 09/09/2024 8:[address] and Th appt with patients . * Telephone Encounter - Salome Neal - 09/09/2024 8:06 AM EDT Left voice mail asking to call back to r/s appointments. * Telephone Encounter - Agus Gooden - 09/08/2024 12:35 PM EDT Patient Phone Message Reason for Call: Pt's called to r/s his CT and f/u with Dr. Alfredo. Best contact number and optimal time of day to reach caller: [phone] - anytime Note: Please do not reply to this message. Follow-up communication and further actions as a result of this message need to be communicated with the patient directly, if the patient is not active onMyChart. If the patient is active on MyChart, they will receive notification of the communication/outcome via rankur. documented in this encounter Plan of Treatment Upcoming Encounters Date Type Department Care Team (Late st Contact Info) Description 03/04/2025 2:30 PM EST Appointment [facility] Ultrasound [address] [place] [address] documented as of this encounter Visit Diagnoses Not on filedocumented in this encounter Additional Health Concerns Assessment Noted Time A fall risk assessment has been complete d for the patient 02/19/2024 2:51 PM EST A Body Mass Index follow-up plan has been documented for the patient 03/25/2024 3:51 PM EST documented as of this encounter Care Teams Senior Trainer Relationship Specialty Start Date End Date Sunny Horton MD [address] [place] [address] [place] [address] PCP - General 07/14/20 documented as of this encounter
--- OUTSIDE RECORDS SUMMARY | 2024-10-17 16:47 | XMS_ITS | Encounter Summary ---
Author Organization Healthcare Address [address] [place] [address] Care Team Providers Care Licensed Chemical Spray Technician Name Role Phone Sunny Horton MD Primary Care Provider [phone] Encounter Details Date Type Department Care Team (Latest Contact Info) Description 10/03/2024 Travel Social History Tobacco Use Types Packs/Day [...] Info) Description 03/04/2025 2:30 PM EST Appointment [facility] Ultrasound [address] [place] [address] documented as of this encounter Visit Diagnoses Not on filedocumented in this encounter Additional Health Concerns Assessment Noted Time A fall risk assessment has been complete d for the patient 02/19/2024 2:51 PM EST A Body Mass Index follow-up plan has been documented for the patient 03/25/2024 3:51 PM EST documented as of this encounter Care Teams Licensed Chemical Spray Technician Relationship Specialty Start Date End Date Sunny Horton MD [address] [place] [address] PCP - General 07/14/20 documented as of this encounter
--- OUTSIDE RECORDS SUMMARY | 2024-10-17 16:47 | XMS_ITS | Encounter Summary ---
Author Organization Healthcare Address [address] [place] [address] Care Team Providers Care Shingle Inspector Name Role Phone Sunny Horton MD Primary Care Provider [phone] Encounter Details Date Type Department Care Team (Late Contact Info) Description 10/01/2024 Telephone [facility] [address] [place] [address] Adilson Alfredo MD [address] [place] [address] Social History Tobacco Use Types [...] Encounters Date Type Department Care Team (Late Contact Info) Description 03/04/2025 2:30 PM EST Appointment [facility] Ultrasound [address] [place] [address] documented as of this encounter Visit Diagnoses Not on filedocumented in this encounter Additional Health Concerns Assessment Noted Time A fall risk assessment has been complete d for the patient 02/19/2024 2:51 PM EST A Body Mass Index follow-up plan has been documented for the patient 03/25/2024 3:51 PM EST documented as of this encounter Care Teams Shingle Inspector Relationship Specialty Start Date End Date Sunny Horton MD [address] [place] [address] PCP - General 07/14/20 documented as of this encounter
--- OUTSIDE RECORDS SUMMARY | 2024-10-17 16:47 | XMS_ITS | Encounter Summary ---
Author Organization Healthcare Address [address] [place] [address] Care Team Providers Care Pipe And Tank Fabricator Name Role Phone Sunny Horton MD Primary Care Provider Encounter Details Date Type Department Care Team (Late st Contact Info) Description 09/09/2024 Telephone [facility] [address] [place] [address] Juan Manuel Mcdaniels, PharmD Social History Tobacco Use Types Packs/Day Years [...] Info) Description 03/04/2025 2:30 PM EST Appointment [facility] Ultrasound [address] [place] [address] documented as of this encounter Visit Diagnoses Not on filedocumented in this encounter Additional Health Concerns Assessment Noted Time A fall risk assessment has been complete d for the patient 02/19/2024 2:51 PM EST A Body Mass Index follow-up plan has been documented for the patient 03/25/2024 3:51 PM EST documented as of this encounter Care Teams Pipe And Tank Fabricator Relationship Specialty Start Date End Date Sunny Horton MD [address] [place] [address] PCP - General 07/14/20 documented as of this encounter
--- OUTSIDE RECORDS SUMMARY | 2024-10-17 16:47 | XMS_ITS | Encounter Summary ---
Author Organization [facility] Address [address] [place] [address] Care Team Providers Care Gas Engine Operator Compressors Name Role Phone Sunny Horton MD Primary Care Provider [phone] Encounter Details Date Type Department Care Team (Late st Contact Info) Description 09/14/2024 Telephone [facility] [address] [place] [address] Mehran Dillon Social History Tobacco Use Types Packs/Day Years [...] encounter Miscellaneous Notes * Telephone Encounter - Mehran Dillon - 09/14/2024 10:50 AM EDT [facility] Specialty Medication Initial Care Plan Justice Reyes is a 34 y.o. male assessed via phone for initiation of drug therapy Bimzelx for diagnosis Hidradenitis suppurativa. Plan for administration of therapy in patient's home Therapeutic Category: Other: Hidradenitis suppurativa Chart Review Allergies: Nsaids Current Outpatient Medications Medication Instructions BENZAC AC WASH 10 % external wash WASH AFFECTED AREA ONCE DAILY WHILE SHOWERING busPIRone (BUSPAR) 7.5 mg, 2 times daily cholecalciferol (VITAMIN D-3) 50,000 Units, Weekly clindamycin (Cleocin T) 1 % external solution APPLY TOPICALLY TO THE AFFECTED AREA AT BEDTIME fluticasone (Flonase) 50 MCG/ACT nasal spray Administer 2 sprays into each nostril 1 (one) time each day. Linzess 72 MCG capsule capsule TAKE 1 CAPSULE BY MOUTH 30 MINUTES BEFORE A MEAL ON AN EMPTY STOMACH loratadine (CLARITIN) 10 mg, Daily Multiple Vitamins-Minerals (MULTI FOR HIM PO) Daily nicotine (Nicoderm CQ) 21 MG/24HR patch 1 patch, Every 24 hours omeprazole (PRILOSEC) 20 mg, Daily ondansetron (ZOFRAN) 4 mg, Every 8 hours PRN oxyCODONE (ROXICODONE) 5 mg, Oral, Every 6 hours PRN rizatriptan (MAXALT) 5 mg secukinumab, 300 MG Dose, (Cosentyx, 300 MG Dose,) 150 MG/ML injection Inject 2 mL (300 mg) under the skin every 30 (thirty) days. tamsulosin (FLOMAX) 0.4 mg, Oral, Daily Problem List[1] Immunization History Administered Date(s) Administered Hep B, Adolescent or Pediatric 04/21/2000, 05/19/2000, 10/20/2000 Hep B, adult 01/19/2020, 06/14/2020 Influenza, Unspecified 03/31/2015, 11/16/2021 Influenza, injectable, quadrivalent, preservative free 11/13/2022 Influenza, seasonal, injectable 11/27/2009 Influenza, seasonal, injectable, preservative free 11/14/2023 MMR 10/15/1991, 04/21/2000 Moderna COVID-19 Vaccine ([employer]) 12+ years 01/30/2021, 03/06/2021 Tdap 02/15/2012, 03/29/2022 Selected lab results: Lab Results Component Value Date WBC 7.8 04/19/2024 HGB 15.6 04/19/2024 HCT 46.2 04/19/2024 PLT 255 04/19/2024 , Lab Results Component Value Date NA 141 01/17/2021 K 4.2 01/17/2021 CL 104 01/17/2021 CREATININE 0.95 01/17/2021 BUN 17 01/17/2021 GLUCOSE 95 01/17/2021 CALCIUM 9.9 01/17/2021 CO2 23 01/17/2021 , Lab Results Component Value Date ALBUMIN 4.8 01/17/2021 ALKPHOS 138 (H) 01/17/2021 ALT 30 01/17/2021 AST 22 01/17/2021 BILITOT 0.5 01/17/2021 , No results found for: QUANTIFERON , No results found for: HEPBCAB , HEPBSAG , HEPBSAB , HBVINTERP , and No results found for: CHOL , HDL , TRIG , CRATIO , LDLCALC , [id number] Patient profile review for changes in Medications, Allergies, Conditions, Vaccinations? Reviewed - no changes Medication reconciliation - review all current medications including prescriptions, PTC, herbals, and supplements with the patient? Completed Is this an infusion therapy? No Patient is treatment: Experienced: Previous therapies include COSENTYX , HUMIRA , doxycycline, clindamycin topical Reasons for previous treatment failure Treatment failure or lack of response Is patient of child bearing potential? No Disease specific labs or assessments: Other CBC,CMP Does patient have an active infection? None Drug Review Patient drug therapy to be initiated: Bimzelx Planned date of initiation: 09/15/2024 Is the patient taking concomitant therapy for this disease? No Drug assessment: Is this the appropriate drug/dose/route/frequency/duration? Yes Drug utilization review Drug-disease precautions: No clinically significant issues identified Drug-drug interactions: No clinically significant issues identified Drug-patient precautions: No clinically significant issues identified Adherence summary: What percent of doses did the patient miss in the past 4 weeks? Unable to assess Therapeutic benefit summary: Unable to assess Patient's therapy is appropriate to: Initiate Education and Counseling Patient educated & counseled on disease education including an overview of the condition, its progression and potential complications, associated comorbidities, prevention strategies, goals of therapy, and treatment and therapy management. Patient educated & counseled on medication(s) including REMS/Black box warnings, proper use, timely administration or intake, missed dose instructions, potential side effects, contraindications, safety and handling precautions, storage and disposal guidelines, and general warnings and precautions. Patient educated & counseled on adherence including the importance of adherence and adherence management strategies. Medication specific education provided: Discussion with patient included (but was not limited to): dosage, administration, duration, frequency, potential side effects, contraindications, safety and handling precautions, adherence and missed dose management, drug/drug interactions (if applicable) and storage & disposal. The patient has communicated understanding and had no further questions. Monitoring Questions Patient reported outcomes: Do you feel comfortable administering your medication and following the treatment plan as prescribed? Yes If therapy is injectable, does patient require further injection training? No How would you rate your pain on average? (0 = no pain, 10 = worst pain imaginable) 7 On a scale from 1 to 10, with 10 being very well and 1 being very poor, how are you feeling overall? 5 How satisfied are you with the ongoing education and counseling you receive regarding your health condition, on a scale of 1 to 5, with 5 being completely satisfied and 1 being dissatisfied? Patient management score: 5-Completely Satisfied Patient Management Assessment scores must be reviewed by a clinician with each Care Plan. Scores of2 or lower must be documented in a Clinical Intervention Care Plan. Disease symptoms assessment Has the patient been seen for planned or unplanned healthcare visit in the last 4 weeks? Planned provider visit: PCP visit Has the patient missed any days from work, school, or planned activities in the past 4 weeks due totheir disease? Yes Care Plan Questions Goal(s) of therapy: Improving or maintaining quality of life, Control signs and symptoms of disease, Reduce disability and/or long-term complications, and Minimize/manage side effects or toxicities Strategies to achieve goal(s) of therapy: Adhere to plan of care (drug therapy), Comply to lab tests/imaging, and Comply to follow up appointments Identified barrier(s) to care/intervention problem type: No problems identified (No barriers to care or risks associated with medication storage and handling identified) Mitigation strategy for identified barriers: N/A Outcome of Clinical Intervention: Intervention not needed Current adverse events/side effects patient is experiencing: Unable to assess Counseled patient on selected side effects: Patient verbalized understanding Summary/Plan Prior authorization for Bimzelx has been approved and education provided. The Initial Shipment has been set up and anticipated therapy start date is: 09/15/2024 from [facility] Please seepharmacy encounter note for details. Pharmacist reviewed the plan of care in regards to specialty medication Bimzelx for diagnosis of Other Hidradenitis suppurativa. Patient starting therapy with anticipated therapy start date is: 09/15/2024.. Anticipated filling pharmacy is: [facility] and location of administration will be patient's home Assessment: endorses lesion around scar from last surgery has not resolved. Still has lesions on groin and buttocks. Pain on average 7/10. Endorses missing work 1-2 days a week because of condition. Overall QOL 5/10. Reviewed new medication with . She had no questions or concerns at this time. Plan/Patient specific needs: Start Bimzelx Patient/caregiver participated in the development and agreed to the plan of care. Patient/caregiverhad no additional questions or concerns for the care team. Patient/caregiver voiced understanding of the goals with the regimen and agreed to attend follow up appointments to assess progress toward their goal. The plan of care will be reviewed at least annually, or more often if there is a need. The patient agrees with all elements of the care plan: Yes Mehran Dillon 09/14/2024 10:50 AM [1] There is no problem list on file for this patient. documented in this encounter Plan of Treatment Upcoming Encounters Date Type Department Care Team (Late st Contact Info) Description 03/04/2025 2:30 PM EST Appointment [facility] Ultrasound [address] [place] [address] documented as of this encounter Visit Diagnoses Not on filedocumented in this encounter Additional Health Concerns Assessment Noted Time A fall risk assessment has been complete d for the patient 02/19/2024 2:51 PM EST A Body Mass Index follow-up plan has been documented for the patient 03/25/2024 3:51 PM EST documented as of this encounter Care Teams Gas Engine Operator Compressors Relationship Specialty Start Date End Date Sunny Horton MD [address] [place] [address] [place] [address] PCP - General 07/14/20 documented as of this encounter
[2024-10-17 16:49] LABS: Coronavirus 19, PCR Not Detected (NotDetected); Influenza A, PCR Not Detected (NotDetected); Influenza B, PCR Not Detected (NotDetected)
[2024-10-17 16:53] LABS: Microscopic, Urine URINE MICROSCOPIC (MICROSCOPIC)
--- NOTE | 2024-10-17 16:53 | CT_ITS ---
PROCEDURE INFORMATION: Exam: CT Abdomen And Pelvis With Contrast Exam date and time: 10/17/2024 5:31 PM Age: 34 years old Clinical indication: Other: Abscess; Additional info: Right sided groin abscess TECHNIQUE: Imaging protocol: Computed tomography of the abdomen and pelvis with contrast. Radiation optimization: All CT scans at this facility use at least one of these dose optimization techniques: automated exposure control; mA and/or kV adjustment per patient size (includes targeted exams where dose is matched to clinical indication); or iterative reconstruction. Contrast material: ISOVUE; Contrast volume: 75 ml; Contrast route: IV; COMPARISON: CT ABDOMEN PELVIS W CON 01/12/2021 2:55 PM FINDINGS: Liver: Normal. No mass. Gallbladder and biliary ducts: Surgical absence of the gallbladder. Pancreas: Normal. No ductal dilation. Spleen: Normal-size spleen with multiple calcified granulomata. Adrenal glands: Normal. No mass. Kidneys and ureters: Normal-size kidneys with symmetrical enhancement. Multiple small retained renal stones bilaterally. No hydronephrosis or ureteral stone appreciated. Stomach and bowel: Previous gastric bypass. No significant small bowel distension is appreciated. There are some fluid-filled loops of small bowel within the lower abdomen which show a mild degree of wall enhancement. Mobile cecum which is directed anteriorly. There is fluid within the ascending colon. No significant colonic distension. Appendix: There is a retrocecal appendix in the right lower quadrant. There is a mild degree of enhancement of the wall of the appendix. There is no appendiceal distension or surrounding inflammation. Intraperitoneal space: Unremarkable. No free air. No significant fluid collection. Vasculature: Normal caliber and enhancement aorta. Mild atherosclerotic plaquing aortic bifurcation. Lymph nodes: Unremarkable. No enlarged lymph nodes. Urinary bladder: Unremarkable as visualized. Reproductive: See Soft tissues finding. Bones/joints: Unremarkable. No acute fracture. Soft tissues: Within the crease of the upper right scrotum there is a subcutaneous 2.3 x 2.2 x 1.5 cm complex fluid collection with a mild degree of wall enhancement and surrounding fatty increased attenuation. There is no gas within this area. There is some gas within the adjacent skin crease. No significant hydrocele is appreciated. IMPRESSION: 1. There is a small subcutaneous 2.3 x 2.2 x 1.5 cm complex fluid collection with surrounding enhancement and inflammation within the upper right scrotum which has an appearance most consistent with a developing abscess. There is no gas within this abnormality or the adjacent soft tissues. 2. Fluid-filled loops of large and small bowel with mild wall enhancement including mild enhancement of the wall of the appendix. Possible mild ileus or gastroenteritis. The appendiceal enhancement is likely related to a more diffuse process however clinical correlation is recommended. 3. Multiple retained bilateral renal stones. 4. Other findings above. COMMENT: THIS REPORT CONTAINS FINDINGS THAT MAY BE CRITICAL TO PATIENT CARE. The exam findings were verbally communicated by me to Joanna Jones NP via telephone conference at 7:13 PM EDT on 10/17/2024. The findings were acknowledged and understood.
[2024-10-17 16:54] LABS: Bilirubin,Urine Negative (Negative); Color,Urine YELLOW (Yellow); Glucose,Urine (UA) Negative (Negative); Ketones,Urine Negative (Negative); Leukocyte Esterase,Urine Negative (Negative); PH,Urine 6.0 (5.0-8.5); Protein,Urine Negative (Negative); Specific Gravity, Urine 1.025 (1.005-1.030); Urobilinogen,Urine 0.2 EU/dl (0.2)
[2024-10-17 17:05] LABS: Lactate Venous 1.2 mmol/L (0.4-2.0); VBG HCO3 24.1 mmol/L (23-30); VBG PCO2 46.1 mmol/L (35-51); VBG PH 7.34 mmol/L (7.31-7.41); VBG PO2 45.0 mmol/L (28-40)
[2024-10-17 17:07] LABS: Hematocrit 46.1 % (42.0-52.0); Hemoglobin 16.0 g/dL (14.1-18.0); Immature Granulocytes % 0.4 %; Mean Corpuscular HGB Conc 34.7 g/dL (31.8-35.4); Mean Corpuscular Hemoglobin 32.2 pg (27.0-31.2); Mean Corpuscular Volume 92.8 fl (80-94); Nucleated Red Blood Cells % 0 %; Platelet Count 227 K/mm3 (142-424); Red Blood Count 4.97 M/mm3 (4.60-6.20); Red Cell Distribution Width-SD 41.6 fL; White Blood Count 8.2 K/mm3 (4.8-10.8)
[2024-10-17] MEDS: 0.9 % SODIUM CHLORIDE 1000ML 2,330 ML 1165 ML IV (17:09)
[2024-10-17] MEDS: ACETAMINOPHEN 500MG TAB 1000 MG PO (17:09)
[2024-10-17 17:14] LABS: Albumin Level 5.1 g/dl (3.5-5.0); Chloride 104 mmol/L (98-107); Potassium 3.9 mmoL/L (3.5-5.1); Sodium 140 mmol/L (136-145)
[2024-10-17 17:16] LABS: Blood Urea Nitrogen 17 mg/dl (9-20); Creatinine Clearance Estimated 164 mL/min (50-200); Creatinine,Serum 0.80 mg/dl (0.66-1.25); Estimated Glomerular Filt Rate 110 ml/min (>60); GFR (African American) 133 ML/MIN (>60)
[2024-10-17 17:17] LABS: Alanine Aminotransferase 40 U/L (12-78); Albumin/Globulin Ratio 1.5 (1.1-1.8); Alkaline Phosphatase 119 U/L (38-126); Anion Gap 11.9 mEq/L (5-15); Aspartate Amino Transferase 34 U/L (17-59); Bilirubin,Total 0.7 mg/dl (0.2-1.3); Calcium 10.0 mg/dl (8.4-10.2); Carbon Dioxide 28 mmol/L (22.0-30.0); Globulin 3.5 g/dL (1.3-3.2); Glucose 93 mg/dl (74-100); Total Protein,Serum 8.6 g/dl (6.3-8.2)
[2024-10-17] MEDS: ONDANSETRON 4MG/2ML VIAL 4 MG IV (17:18)
[2024-10-17] MEDS: SODIUM CHLORIDE 0.9% 10ML SYR (RAD ONLY) 10 ML IV (17:34)
[2024-10-17] MEDS: IOPAMIDOL-370 (76%);100ML BOTTLE 75 ML IV (17:34)
[2024-10-17 17:37] LABS: Bacteria,Urine Trace /lpf; Mucus,Urine 1+ /lpf; WBC,Urine Occasional #/hpf (0-3)
--- NOTE | 2024-10-17 19:17 | PC.NURSE ---
Called [facility] regarding a consult
== END 2024-10-17 19:55 | disposition home or self-care (01) ==
PROVIDERS: Nurse Practitioner Family; Emergency Provider Student in an Organized Health Care Education/Training Program; PCP Pediatrics
DX: R42 Dizziness and giddiness (principal); N49.2 Inflammatory disorders of scrotum; R00.0 Tachycardia, unspecified; R50.9 Fever, unspecified; F17.210 Nicotine dependence, cigarettes, uncomplicated
CPT/HCPCS: 74177; 80053; 81001; 82803; 85025; 87040; 87636; 93005; 96365; 96366; 99285; J2405; J7030; Q9967

== ENCOUNTER 2024-10-27 11:07 | Outpatient (CLI) | payer MEDICAID, SELFPAY ==
--- OUTSIDE RECORDS SUMMARY | 2024-10-04 14:45 | XMS_ITS | Encounter Summary ---
Author Organization [facility] Address [address] [place] [address] Care Team Providers Care Internet Marketer Name Role Phone Sunny Horton MD Primary Care Provider [phone] Reason for Referral * Imaging (Routine) - Canceled Specialty Diagnoses / Procedures Referred By Howard sanchez Referred To Contact Radiology Diagnoses Kidney stones Procedures CT Abdomen wo IV Contrast Adilson Alfredo MD [address] [address] Phone: tel: fax: Referral ID Status Reason Start Date Expiration Date V isits Requested Visits Authorized [id number] Canceled 02/19/2024 08/20/2025 1 1 Reason for Visit * Imaging (Routine) - Canceled Specialty Diagnoses / Procedures Referred By Howard sanchez Referred To Contact Radiology Diagnoses Kidney stones Procedures CT Abdomen wo IV Contrast Adlison Alfredo MD [address] [address] Phone: tel: fax: Referral ID Status Reason Start Date Expiration Date V isits Requested Visits Authorized [id number] Canceled 02/19/2024 08/20/2025 1 1 Encounter Details Date Type Department Care Team (Latest Contact Info) Description 10/04/2024 2:45 PM EDT - 10/04/2024 11:59 PM EDT Hospital Encounter [facility] [address] [place] [address] Kidney stones Discharge Disposition: Home or Self Care Social History Tobacco Use Types Packs/Day Years Used Date Smoking Tobacco: Some Days Cigarettes 0.3 15 Smokeless Tobacco: Current Comments:2cigs/day Alcohol Use Standard Drinks/Week Comments No 0 (1 standard drink = 0.6 oz pur e alcohol) PHQ-2 Answer Date Recorded Patient Health Questionnaire-2 Score 0 10/14/2024 PHQ-9 Answer Date Recorded Patient Health Questionnaire-9 Score 0 10/14/2024 AUDIT-C Answer Date Recorded Q1: How often do you have a drink containing alcohol? Never 10/14/2024 Q2: How many drinks containi ng alcohol do you have on a typical day when you are drinking? Patient does not drink Q3: How often do you have si x or more drinks on one occasion? Never 10/14/2024 Sex and Gender Information Value Date Recorded Sex Assigned at Male 01/23/2021 2:50 PM EST Legal Sex Male 6:20 PM EDT Gender Identity Male 01/23/2021 2:50 PM EST Sexual Orientation Straight 10/03/2024 3: 28 PM EDT documented as of this encounter Functional Status * AUDIT-C Score Answer Date of Assessment Author 0 10/14/2024 7:44 AM Jasmin Costa * Question Answer Date of Assessment Author Q1: How often do you have a drink containing alcohol? Never 10/14/2024 7:44 AM Bridger Costa Q2: How many drinks containing alcohol do you have on a typical day when you are drinking? Patient does not drink 10/14/2024 7:44 AM Bridger Costa Q3: How often do you have six or more drinks on one occasion? Never 10/14/2024 7:44 AM Bridger Costa * Over the past 2 weeks, how often have you been bothered by any of the following problems? Question Answer Date of Assessment Author Little interest or pleasure in doing things Not at all 10/14/2024 7:47 AM Bridger Costa Feeling down, depressed, or hopeless Not at all 10/14/2024 7:47 AM Bridger Costa Patient Health Questionnaire -2 Score 0 10/14/2024 7:47 AM Bridger Costa * Question Answer Date of Assessment Author Trouble falling or staying a sleep, or sleeping too much Not at all 10/14/2024 7:47 AM Bridger Costa Feeling tired or having grace le energy Not at all 10/14/2024 7:47 AM Bridger Costa Poor appetite or overeating Not at all 10/14/2024 7: 47 AM Bridger Costa Feeling bad about yourself - or that you are a failure or have let yourself or your family down Not at all 10/14/2024 7:47 AM Rob Costa Trouble concentrating on thi ngs, such as reading the newspaper or watching television Not at all 10/14/2024 7:47 AM Bridger Costa Moving or speaking so slowly that other people could have noticed? Or the opposite - being so fidgety or restless that you have been moving around a lot more than usual. Not at all 10/14/2024 7:47 AM Bridger Costa Thoughts that you would be b sanam off or hurting yourself in some way Not at all 10/14/2024 7:47 AM Bridger Costa Patient Health Questionnaire -9 Score 0 10/14/2024 7:47 AM Bridger Costa * If you checked off any problems on this questionnaire so far, Question Answer Date of Assessment Author How difficult have these problems made it for you to do your work, take care of things at home, or get along with other people? Not difficult at all 10/14/2024 7:47 AM Bridger Costa documented as of this encounter Medications at Time of Discharge BENZAC AC WASH 10 % external wash WASH AFFECTED AREA ONCE DAILY WHILE SHOWERING 01/05/2021 busPIRone (Buspar) 7.5 MG tablet Take 1 tablet (7.5 mg) by mouth 2 (two) times a day. 05/16/2023 clindamycin (Cleocin T) 1 % external solution APPLY TOPICALLY TO THE AFFECTED AREA AT BEDTIME 01/05/2021 fluticasone (Flonase) 50 MCG/ACT nasal spray Administer 2 sprays into each nostril 1 (one) time each day. 05/22/2022 Linzess 72 MCG capsule capsule TAKE 1 CAPSULE BY MOUTH 30 MINUTES BEFORE A MEAL ON AN EMPTY STOMACH loratadine (Claritin) 10 MG tablet Take 1 tablet (10 mg) by mouth 1 (one) time each day. 09/11/2022 Multiple Vitamins-Mineral s (MULTI FOR HIM PO) Take by mouth 1 (one) time each day. 01/18/2019 nicotine (Nicoderm CQ) 21 MG/24HR patch Place 1 patch on the skin 1 (one) time each day at the same time. 03/28/2023 omeprazole (PriLOSEC) [address] capsule Take 1 capsule (20 mg) by mouth 1 (one) time each day. Do not crush or chew. ondansetron (Zofran) 4 MG tablet Take 1 tablet (4 mg) by mouth every 8 (eight) hours if needed for nausea or vomiting. 10/24/2022 oxyCODONE (Roxicodone) 5 MG immediate release tablet Take 1 tablet (5 mg) by mouth every 6 (six) hours if needed for severe pain. 7 tablet 08/01/2023 rizatriptan (Maxalt) 5 MG tablet Take 1 tablet (5 mg) by mouth. 07/25/2023 secukinumab, 300 MG Dose, (Cosentyx, 300 MG Dose,) 150 MG/ML injection Inject 2 mL (300 mg) under the skin every 30 (thirty) days. 05/30/2023 tamsulosin (Flomax) 0.4 MG 24 hr capsule Take 1 capsule (0.4 mg) by mouth 1 (one) time each day. 30 capsule 11 02/19/2024 Vitamin D3 1.25 MG (24884 UT) capsule Take 1 capsule (50,000 Units) by mouth 1 (one) time per week. documented as of this encounter Plan of Treatment Upcoming Encounters Date Type Department Care Team (Late st Contact Info) Description 03/04/2025 2:30 PM EST Appointment [facility] Ultrasound [address], [address] [place] [address] 04/14/2025 1:00 PM EST Appointment Medical Office Building Radiology [address] [place] [address] 04/14/2025 2:00 PM EST Office Visit Medical Office Building Urology [address] [facility], [address] [place] [address] Adilson Alfredo MD [address] [place] [address] documented as of this encounter Procedures Procedure Name Priority Date/Time Associated Diagnosis Comments CT ABDOMEN WO IV CONTRAST Routine 10/04/2024 3:02 PM EDT Kidney stones documented in this encounter Results * CT Abdomen wo IV Contrast (10/04/2024 3:02 PM EDT) Anatomical Region Laterality Modality Abdomen Computed Tomogra phy Impressions 10/04/2024 4:43 PM EDT Bilateral subcentimeter nonobstructive nephrolithiasis, CRITICAL RESULT: No. COMMUNICATION: Per this written report. By electronically signing this report, I, the attending physician, attest that I have personally reviewed the images/data for the above examination(s) and agree with the final edited report. Drafted by Ernie Mccarthy MD on 10/04/2024 3:39 PM Final report signed by Zaira Johnson MD on 10/04/2024 4:43 PM Narrative 10/04/2024 4:43 PM EDT CLINICAL INDICATION: Kidney Stones TECHNIQUE: Multiple axial CT images were obtained from lung bases through upper pelvis without the administration of IV contrast. Reformatted images in the coronal and sagittal planes were generated from the axial data set to facilitate diagnostic accuracy. Total DLP (Dose-Length Product): 100.51 mGy.cm. Please note: The reported value represents the total of one or more individual components during the CT acquisition on this date and at this time, and as such, the same value may appear in more than one CT report depending on the interpreting/reporting physicians. COMPARISON: Ultrasound performed February 19, 2024 FINDINGS: Lower Chest: No suspicious findings. Analysis of the abdominopelvic viscera is limited by the absence of intravenous contrast material. Solid Abdominal Organs: Unremarkable liver. Surgically absent gallbladder. Granulomatous changes of the spleen. No suspicious pancreatic findings. No suspicious adrenal findings. Multiple bilateral punctate calculi , the largest on the left measuring approximately 3 mm in the left lower pole (series 3 image 123), 3 mm in the right lower pole (series 3, image 134).No hydronephrosis. GI Tract/Mesentery/Peritoneum: The large and small bowel appear normal in caliber. No evidence of inflammatory change. No suspicious peritoneal/mesenteric findings. Surgical changes compatible with gastric bypass. Lymph Nodes/Vasculature: No lymphadenopathy by CT size criteria. The aortoiliac vasculature is normal in caliber. Free Fluid: No ascites. Musculoskeletal and Body Wall: No aggressive or suspicious findings. Procedure Note Zaira Johnson MD - 10/04/2024 CLINICAL INDICATION: Kidney Stones TECHNIQUE: Multiple axial CT images were obtained from lung bases through upperpelvis without the administration of IV contrast. Reformatted images inthe coronal and sagittal planes were generated from the axial data set tofacilitate diagnostic accuracy. Total DLP (Dose-Length Product): 100.51 mGy.cm. Please note: The reportedvalue represents the total of one or more individual components during theCT acquisition on this date and at this time, and as such, the same valuemay appear in more than one CT report depending on theinterpreting/reporting physicians. COMPARISON: Ultrasound performed February 19, 2024 FINDINGS: Lower Chest: No suspicious findings. Analysis of the abdominopelvic viscera is limited by the absence ofintravenous contrast material. Solid Abdominal Organs: Unremarkable liver. Surgically absent gallbladder.Granulomatous changes of the spleen. No suspicious pancreatic findings. Nosuspicious adrenal findings. Multiple bilateral punctate calculi , thelargest on the left measuring approximately 3 mm in the left lower pole(series 3 image 123), 3 mm in the right lower pole (series 3, [id number]).No hydronephrosis. GI Tract/Mesentery/Peritoneum: The large and small bowel appear normal incaliber. No evidence of inflammatory change. No suspiciousperitoneal/mesenteric findings. Surgical changes compatible with gastricbypass. Lymph Nodes/Vasculature: No lymphadenopathy by CT size criteria. Theaortoiliac vasculature is normal in caliber. Free Fluid: No ascites. Musculoskeletal and Body Wall: No aggressive or suspicious findings. IMPRESSION: Bilateral subcentimeter nonobstructive nephrolithiasis, CRITICAL RESULT: No. COMMUNICATION: Per this written report. By electronically signing this report, I, the attending physician, armandoat I have personally reviewed the images/data for the aboveexamination(s) and agree with the final edited report. Drafted by Ernie Mccarthy MD on 10/04/2024 3:39 PM Final report signed by Zaira Johnson MD on 10/04/2024 4:43 PM Adilson Alfredo MD IMG CT PROCEDURES Final Result documented in this encounter Visit Diagnoses Diagnosis Kidney stones Calculus of kidney documented in this encounter Additional Health Concerns Assessment Noted Time A fall risk assessment has been complete d for the patient 02/19/2024 2:51 PM EST A Body Mass Index follow-up plan has been documented for the patient 03/25/2024 3:51 PM EST documented as of this encounter Care Teams Internet Marketer Relationship Specialty Start Date End Date Sunny Horton MD [address] [place] [address] PCP - General 07/14/20 documented as of this encounter
--- OUTSIDE RECORDS SUMMARY | 2024-10-14 08:00 | XMS_ITS | Encounter Summary ---
Author Organization [facility] Address [address] [place] [address] Care Team Providers Care Court Manager Name Role Phone Sunny Horton MD Primary Care Provider [phone] Reason for Referral * Imaging (Routine) - Authorized Specialty Diagnoses / Procedures Referred By Contac t Referred To Contact Radiology Diagnoses Kidney stones Procedures US Renal Complete Adilson Alfredo MD [id number] [place] [address] Phone: tel: fax: Referral ID Status Reason Start Date Expiration Date V isits Requested Visits Authorized [id number] Authorized 10/20/2024 04/21/2026 1 1 Encounter Details Date Type Department Care Team ([facility] Contact Info) Description 10/14/2024 8:00 AM EDT Office Visit Medical Office Building Urology [address] [facility], [address] [place] [address] Adilson Alfredo MD [address] [facility] [address] [place] [address] Kidney stones (Primary Dx) Social [...] Bridger Costa documented as of this encounter Miscellaneous Notes [...] with possible small calcifications. No hydronephrosis. Left kidney with possible small calcifications, no hydronephrosis. CT Abd [...] Patient confirms they are physically located in [place]? Yes If the patient is not physically located in [place], the provider has confirmed with Legal thatthe provider is authorized to provide services in patient's stated location? N/A Provider Location: HealthCare Facility Audio and video or audio only? Audio and video Approximately 25 min was spent on this encounter. Adilson Alfredo MD Department of Urology [phone] documented in this encounter Plan of Treatment Upcoming Encounters Date Type Department Care Team (Late st Contact Info) Description 03/04/2025 2:30 PM EST Appointment [facility] Ultrasound [address] [place] [address] 04/14/2025 1:00 PM EST Appointment Medical Office Building Radiology [address] [place] [address] 04/14/2025 2:00 PM EST Office Visit Medical Office Building Urology [address] [facility], [address] [place] [address] Adilson Alfredo MD [address] [place] [address] Scheduled Orders Name Type Priority Associated Diagnoses [...] documented as of this encounter Care Teams Court Manager Relationship Specialty Start Date End Date Sunny Horton MD [address] [place] [address] [place] [address] PCP - General 07/14/20 documented as of this encounter
--- OUTSIDE RECORDS SUMMARY | 2024-10-19 11:15 | XMS_ITS | Encounter Summary ---
[facility] Address [address] [place] [address] Care Team Providers Care Evp Global Product Leadership Name Role Phone Sunny Horton MD Primary Care Provider [phone] Reason for Visit * Reason Comments Med Refill Encounter Details Date Type Department Care Team ([facility] st Contact Info) Description 10/19/2024 11:15 AM EDT Office Visit [facility] [address] [place] [address] [place] [address] Sunny Horton MD [address] [place] [address] [place] [address] Prediabetes (Primary Dx); Common wart; Anxiety [...] on file documented as of this encounter Last Filed [...] infectious disease, dermatology. Per advanced dermatology, initiated Hum2017 transiently and resumed again August 2019 with [...] 04/21/2025) for Annual physical. Sunny Horton MD [facility] documented in this encounter Plan of Treatment Upcoming Encounters Date Type Department Care Team (Late st Contact Info) Description 11/16/2024 1:00 PM EDT Office Visit [facility] [address] [place] [address] Gwen Huber APRN [address] [place] [address] 04/21/2025 11:00 AM EST Office Visit [facility] [address] [place] [address] [place] [phone] Sunny Horton MD [address] [place] [address] [place] [address] documented as of this encounter Procedures Procedure [...] bleeding followed by 40 seconds of cryotherapy. Sunny Horton MD PROCEDURE/MINOR SURGICAL ORDERAB LES [...] Hemoglobin A1C 5.0 4.5 - 5.7 % [facility] Lot Number [id number] [facility] Expiration Date 06/16/2026 [facility] Blood 10/19/2024 11:2 2 AM EDT Sunny Horton MD POINT OF CARE TEST ORDERABLES Fi nal Result [facility]
[address] [place] [address], documented in this encounter Visit Diagnoses Diagnosis [...] deficiency documented in this encounter Care Teams Evp Global Product Leadership Relationship Specialty Start Date End Date Sunny Horton MD [address] [place] [address] PCP - General Internal Medicine 11/09/21 documented as of this encounter
--- NOTE | 2024-10-27 11:00 | US_ITS ---
FINAL REPORT CLINICAL HISTORY: abscess --pt states area has gotten smaller since prior ct scan, pt has had dark drainage from this area FINDINGS: Limited sonographic imaging in the region of the right inguinal canal reveals several benign-appearing small lymph nodes which are nonspecific. There is soft tissue edema. There may be a very small tract extending from the skin surface toward the medial soft tissues. There is no loculated fluid collection. IMPRESSION: Nonspecific soft tissue edema at the area of interest with possible very small tract. No loculated fluid collection. Developing abscess not excluded. Benign small lymph nodes, likely reactive. Reviewed, Interpreted and Dictated by Lucille Spence MD Transcribed by Devi Sorto Authenticated and [facility]
--- OUTSIDE RECORDS SUMMARY | 2024-10-27 11:11 | XMS_ITS | Clinical Summary ---
[facility] Address [address] [place] [address] Care Team Providers Care Shipping Order Clerk Name Role Phone Sunny Horton MD Primary Care Provider [phone] Allergies Active Allergy Reactions Criticality Noted Date Comments Nsaids Other (See Comments) Low 01/23/2021 Doesn't take after gastric bypass surgery Medications Linzess 72 MCG capsule capsule Take 1 capsule by mouth Daily. 03/17/19 24 Active busPIRone (BUSPAR) 15 MG tabletIndicati ons:Anxiety and depression Take 1 tablet by mouth 2 (Two) Times a Day. 180 tablet 1 02/20/20 24 Active DULoxetine (Cymbalta) 30 MG capsuleIndicat ions:Anxiety and depression Take 1 capsule by mouth Daily. 30 capsule 2 02/20/20 24 Active fluticasone (FLONASE) 50 MCG/ACT nasal sprayIndicatio ns:Seasonal allergic rhinitis due to pollen Administer 2 sprays into the nostril(s) as directed by provider Daily. 16 g 2 02/20/20 24 Active albuterol sulfate HFA 108 (90 Base) MCG/ACT inhaler Inhale 2 puffs Every 4 (Four) Hours As Needed for Wheezing or Shortness of Air. 8 g 03/05/19 25 Active montelukast (SINGULAIR) 10 MG tabletIndicati ons:Seasonal allergic rhinitis due to pollen TAKE 1 TABLET BY MOUTH EVERY NIGHT 30 tablet 3 08/18/19 25 Active Bimzelx 320 MG/2ML solution auto-injector 10/07/19 25 Active Cholecalcifero l (Vitamin D) 50 MCG (2000 UT) tabletIndicati ons:Vitamin D deficiency Take 1 tablet by mouth Daily. 30 tablet 11 10/20/19 25 026 Active rizatriptan (MAXALT) 5 MG tabletIndicati ons:Migraine with aura and without status migrainosus, not intractable Take 1 tablet by mouth 1 (One) Time As Needed for Migraine. May repeat in 2 hours if needed 9 tablet 1 10/20/19 25 Active loratadine (CLARITIN) 10 MG tabletIndicati ons:Seasonal allergic rhinitis due to pollen TAKE 1 TABLET BY MOUTH EVERY DAY 90 tablet 1 10/26/19 25 Active Cosentyx Sensoready, 300 MG, 150 MG/ML solution auto-injector 06/30/19 24 025 Discontinued loratadine (CLARITIN) 10 MG tabletIndicati ons:Seasonal allergic rhinitis due to pollen Take 1 tablet by mouth Daily. 90 tablet 1 02/20/20 24 025 Discontinued rizatriptan (MAXALT) 5 MG tabletIndicati ons:Migraine with aura and without status migrainosus, not intractable Take 1 tablet by mouth 1 (One) Time As Needed for Migraine. May repeat in 2 hours if needed 9 tablet 1 02/20/20 24 025 Discontinued(Re order) varenicline (CHANTIX) 1 MG tabletIndicati ons:Cigarette smoker Take 1 tablet by mouth 2 (Two) Times a Day for 140 days. 56 tablet 4 09/25/19 25 025 Discontinued Active Problems Problem Noted Date Diagnosed Date [...] 04/19/2024. He also has follow-up with his smoke chaser for his irritable bowel syndrome, Dr. Cabrera [...] imrpovement Common wart 02/20/2024 Assessment & Plan (10/19/2024 12:13 PM EDT): Common wart x 3 on the right thumb, irritating due to location with trying uses hands. 2 are clustered together both about 1/2 cm in size, the other is 3/4 cm. With shaving followed by 40 seconds of cryotherapy in 2 locations with 1 covering the larger lesion at 1 application covering the 2 smaller lesions together, tolerated well. Triple antibiotic ointment and bandage applied. Continue similar treatment over the next few days, then as needed. Advised if not improving. Assessment & Plan (02/20/2024 3:31 PM EST): Common wart approxi-3/4 cm on the right posterior middle finger at the mid phalanx. Not responsive [id number] treatment. As such with informed verbal consent, [...] dependence, tobacco product 02/01 Assessment & Plan (10/19/2024 12:11 PM EDT): Since smoking cessation in early 2023 transition to vaping daily with continued nicotine use, which she has at she had full cessation as of mid October 2024 over the last couple weeks, he continues to make efforts to continue standing from vaping or smoking. Assessment & Plan (04/19/2024 10:48 AM EST): [...] migrainosus, not intractable 07/25/2023 Assessment & Plan (10/19/2024 12:09 PM EDT): Diagnosed 07/25/2023 with aura with a bit [...] sedation. No new concerns as of 10/19/2024. Assessment & Plan (04/19/2024 10:45 AM EST): [...] or zyrtec Prediabetes 11/16/2021 Assessment & Plan (10/19/2024 12:11 PM EDT): Diagnosis with hemoglobin A1c 6.0 on 04/10/2018, with notable weight loss status post bariatric surgery, improved to 5.6% 09/08/2018, 5.0 01/07/2019. Today's hemoglobin A1c continues modest improved to 5.0% on 10/19/2024 despite some modest weight gain, previous 5.3%, 5.2%, 5.3%, 5.1%. Caution recurrence risk if he gains weight again. Monitor every 6 to 12 months with good stability. Assessment & Plan (04/19/2024 10:46 AM EST): [...] results. Tdap given 03/29/2022 through work at [employer]. Flu vaccine given yearly. Patient declines pneumococcal 20 valent vaccine with smoking history. Assessment & Plan (03/28/2023 12:23 PM EST): Last screening blood work 11/16/2021 including negative HIV and hepatitis C virus screening. Repeated today 03/28/2023 with managed per results. Tdap given 03/29/2022 through work at . Flu vaccine given 11/16/2022. Patient Clines pneumococcal 20 valent vaccine with smoking history. GERD (gastroesophageal reflux disease) Assessment & Plan (10/19/2024 12:08 PM EDT): Shai fundoplication December 2015 with [...] recurrence. No new concerns as of 10/19/2024. Assessment & Plan (04/19/2024 10:44 AM EST): [...] loss. Hidradenitis suppurativa 11/16/2021 Assessment & Plan (10/19/2024 12:08 PM EDT): Status post surgical incision by [...] 2 weeks. Keep regular follow-up with dermatology. Assessment & Plan (04/19/2024 10:45 AM EST): [...] Overweight (BMI 25.0-29.9) 11/16/2021 Assessment & Plan (10/19/2024 12:10 PM EDT): Status post 10/13/2018 bariatric surgery, [...] diet, but is making efforts to improve. Assessment & Plan (04/19/2024 10:45 AM EST): [...] Seasonal allergic rhinitis 11/16/2021 Assessment & Plan (10/19/2024 12:11 PM EDT): Modest flare of allergies azafol 2023, prescription provided for resumption of Claritin Flonase and Singulair, to use for next couple weeks, then as needed. Additional benefit of saline spray, nasal flushing. Continue recommending benefits of smoking cessation. No new concerns as of 10/19/2024. Assessment & Plan (04/19/2024 10:48 AM EST): [...] Anxiety and depression 11/16/2021 Assessment & Plan (10/19/2024 12:08 PM EDT): Historically more depression than anxiety [...] switched to a different class of medicine with Cymbalta, and he has seen good benefit. He [...] months, sooner as needed. Assessment & Plan (04/19/2024 10:43 AM EST): [...] recurrence. Mixed hyperlipidemia 11/16/2021 Assessment & Plan (10/19/2024 12:10 PM EDT): Most recent cholesterol 04/19/2024 with total cholesterol [...] weight loss. continue healthy diet, exercise, and we will plan to monitor yearly with next blood work due April 2025 Assessment & Plan (04/19/2024 10:45 AM EST): [...] liver function tests 11/16/2021 Assessment & Plan (10/19/2024 12:08 PM EDT): 01/07/2019 liver function tests normalize. 04/10/2018 AST 64, ALT 116, previous 05/14/2017 total bilirubin 0.5, AST, similar cervical pattern. Notable for LFTs historically in somewhat similar range, on 04/08/2016 total bilirubin 0.6, AST 21, ALT 61. Consistent with fatty liver disease. Recheck with blood work 03/28/2023, completely normalized liver function test. Last liver function test 04/19/2024 continued in normal range. Assessment & Plan (04/19/2024 10:44 AM EST): [...] Vitamin D deficiency 11/16/2021 Assessment & Plan (10/19/2024 12:12 PM EDT): This is per screening blood [...] to recheck with next year's blood work. Assessment & Plan (04/19/2024 10:49 AM EST): [...] intermittent asthma without complication Assessment & Plan (10/19/2024 12:09 PM EDT): Overall doing well, typically triggers associated to allergies and also exacerbated when he smokes. Previous use of Qvar no longer required, advise any worsening. Reinforced importance of smoking cessation. No new concerns as of 10/19/2024. Assessment & Plan (04/19/2024 10:45 AM EST): [...] Encounters Date Type Department Care Team Description 10/24/2024 Refill [facility] [address] [place] [address] [place] [address] Sunny Horton MD Seasonal allergic rhinitis due to pollen 10/19/2024 11:15 AM EDT Office Visit [facility] [address] [place] [address] [place] [address] Sunny Horton MD Prediabetes (Primary Dx); Common wart; Anxiety and depression; Elevated liver function tests; Hidradenitis suppurativa; Gastroesophageal reflux disease without esophagitis; Migraine with aura and without status migrainosus, not intractable; Mixed hyperlipidemia; Mild intermittent asthma without complication; Overweight (BMI 25.0-29.9); Vaping nicotine dependence, tobacco product; Seasonal allergic rhinitis due to pollen; Vitamin D deficiency 10/19/2024 Travel 08/27/2024 Telephone [facility] [place] [address] Sunny Horton MD 08/17/2024 Refill [facility] [address] [place] [address] [place] [address] Sunny Horton MD Seasonal allergic rhinitis due [...] F) 10/19/2024 11:13 AM EDT Respiratory Rate 16 03/05/2024 4:07 PM EST Oxygen Saturation 99% 10/19/2024 11:13 AM EDT Inhaled Oxygen Concentration - - Weight 92.1 kg (203 lb) 10/19/2024 11:13 AM EDT Height 182.9 cm (6') 10/19/2024 11:13 AM EDT Body Mass Index 27.53 10/19/2024 11:13 AM EDT Plan of Treatment Upcoming Encounters Date Type Department Care Team (Late st Contact Info) Description 11/16/2024 1:00 PM EDT Office Visit [facility] C[facility] [address] [place] [address] Gwen Huber Bridgett, CATERING DRIVER [address] [place], [place] [address] 04/21/2025 11:00 AM EST Office Visit [facility] [address] [place] [address] [place] [address] Sunny Horton MD [address] [place] [address] [place] [address] Health Maintenance Due Date Last Done Comments [...] A1C) Routine 10/19/2024 11:22 AM EDT Prediabetes SCANNED - LABS 10/17/2024 SCANNED - LABS 10/17/2024 LIPID PANEL Routine 04/19/2024 10:15 AM EST Routine general medical examination at a health care facility HEPATITIS C ANTIBODY Routine 11/16/2021 2:38 PM EDT Routine general medical examination at a health care facility from Last 3 Months or Most Recently Relevant to Health Maintenance Results * Cryotherapy, Skin Lesion (10/19/2024 12:15 [...] Hemoglobin A1C 5.0 4.5 - 5.7 % [facility] Lot Number [id number] [facility] Expiration Date 06/16/2026 [facility] Blood 10/19/2024 11:2 2 AM EDT Sunny Horton MD POINT OF CARE TEST ORDERABLES Fi nal Result [facility]
[address] [place] [address], * LABS SCANNED (10/17/2024) Only the most recent of2 resultswithin the time period is included. us Sunny Horton MD LAB BLOOD ORDERABLES Final Resul t * (ABNORMAL) Lipid Panel (04/19/2024 10:15 AM EST) Total Cholesterol 200(H) 100 - 199 mg/dL [facility] Triglycerides 85 0 - 149 mg/dL [facility] HDL Cholesterol 66 >39 mg/dL [facility] VLDL Cholesterol Kwadwo 15 5 - 40 mg/dL [facility] LDL Chol Calc (NIH) 119(H) 0 - 99 mg/dL [facility] Blood 04/19/2024 10:1 5 AM EST 04/19/2024 Comment:Blood Release to [facility] Fidel [facility] ([facility]UL[facility]) - 04/20/2024 8:07 AM EST Performed at: - [address] [id number] Dynamite Reclaimer: Moo Fay PhD, Phone: [phone] us Sunny Horton MD LAB BLOOD ORDERABLES Final Resul t [facility] [address] [place] [address], [facility] [address] [place] [address], * Hepatitis C Antibody (11/16/2021 2:38 PM EDT) Hep C Virus Ab <0.1 0.0 - 0.9 s/co ratio [facility] Comment: Negative: < 0.8 Indeterminate: 0.8 - 0.9 Positive: > 0.9 HCV antibody alone does not differentiate between previous resolved infection and active infection. The CDC and current clinical guidelines recommend that a positive HCV antibody result be followed up with an HCV RNA test to support the diagnosis of acute HCV infection. [facility] offers Hepatitis C Virus (HCV) RNA, Diagnosis, LINDY (887096) and Hepatitis C Virus (HCV) Antibody with reflex to Quantitative Real-time PCR ([id number]). Blood Structure of left upper limb / Unknown 11/16/2021 2:38 PM EDT 11/16/2021 Comment:Blood Release to leobardo valdez Fidel [facility] - 11/18/2021 9:06 AM EDT Performed at: - [facility] [address] [place], [place] [id number] Dynamite Reclaimer: Moo Fay PhD, Phone: [phone] us Sunny Horton MD LAB BLOOD ORDERABLES Final Resul t [facility] [address] [place] [address], [place] [phone] [facility] [address] [place] [address], [place] [phone] from Last 3 Months or Most Recently Relevant to Health Maintenance Insurance [facility] MEDICAID Care Teams Shipping Order Clerk Relationship Specialty Start Date End Date Sunny Horton MD [address] [place] [address] [place] [address] PCP - General Internal Medicine 11/09/21
--- OUTSIDE RECORDS SUMMARY | 2024-10-27 11:11 | XMS_ITS | Encounter Summary ---
Author Organization Healthcare Address [address] [place] [address] Care Team Providers Care Return Agent Airport Name Role Phone Sunny Horton MD Primary Care Provider [phone] Encounter Details Date Type Department Care Team [...] Info) Description 03/04/2025 2:30 PM EST Appointment [facility] Ultrasound [address] [place] [id number] 04/14/2025 1:00 PM EST Appointment Medical [facility] Building Radiology [address] [place] [address] 04/14/2025 2:00 PM EST Office Visit Medical Office Building Urology [address] [facility], [address] [place] [address] Adilson Alfredo MD [address] [place] [phone] documented as of this encounter Visit Diagnoses [...] documented as of this encounter Care Teams Return Agent Airport Relationship Specialty Start Date End Date Sunny Horton MD [address] [place] [address] [place] [address] PCP - General 07/14/20 documented as of this encounter
--- OUTSIDE RECORDS SUMMARY | 2024-10-27 11:11 | XMS_ITS | Clinical Summary ---
Author Organization [facility] Address [address] [facility] [address] [place] [address] Phone Care Team Providers Care Job Boss Name Role Phone Parviz VALADEZ, Coleman Stark [phone] Conditions or Problems Problem Name Problem Code Onset Date Status Entry Date Provider Comment Standard Description Annotate Obesity 793735376 (SNOMED CT) Active 04/21 Coleman Jj MD. Obesity Hidradenitis 58208831 (SNOMED CT) Active 04/20 Gricelda Andres Hidradenitis Abscess of right leg L02.415 (ICD-10-CM) Active 04/20 Gricelda Andres Cutaneous abscess of right lower limb Cellulitis of right leg L03.115 (ICD-10-CM) Active 04/20 Gricelda Andres Cellulitis of right lower limb Benign Essential Hypertension 33917084 (SNOMED CT) Active 04/20 Gricelda Andres Benign hypertension Nicotine dependence, cigarettes F17.210 (ICD-10-CM) Active 04/20 Gricelda Andres Nicotine dependence, cigarettes, uncomplicated Abscess, groin 41095039 (SNOMED CT) Active 04/20 Gricelda Andres Abscess of groin Medications Medication Instructions Start Date Stop Date Generic Name [facility] Provider BACTROBAN 2 % EXTERNAL OINTMENT apply to each nostril twice a day x 5 days. MUPIROCIN [id number] Coleman Jj MD. SULFAMETHOXAZOLE -TRIMETHOPRIM 800-160 MG TABS take 2 tablets by mouth twice a day SULFAMETHOXAZOLE -TRIMETHOPRIM 94335257529 Estefani S RANITIDINE HCL 150 MG ORAL TABLET take 1 tablet by mouth every evening RANITIDINE HCL 70147131001 Estefani Lee ACYCLOVIR 800 MG TABS take 1 tablet by mouth five times a day for 10 days ACYCLOVIR 60389476620 Estefani S GABAPENTIN 300 MG CAPS take 1 capsule by mouth at bedtime MAY INCREASE TO TWICE DAILY GABAPENTIN 89708427311 Estefani S GABAPENTIN 300 MG CAPS take 1 capsule by mouth at bedtime MAY INCREASE TO TWICE DAILY GABAPENTIN 81732388226 Karime Ko ACYCLOVIR 800 MG TABS take 1 tablet by mouth five times a day for 10 days ACYCLOVIR 69319664596 Karime Ko RANITIDINE HCL 150 MG ORAL TABLET take 1 tablet by mouth every evening RANITIDINE HCL 38762985905 Karime Ko LISINOPRIL-HYDRO CHLOROTHIAZIDE 10-12.5 MG TABS 1 po qd LISINOPRIL-HYDRO CHLOROTHIAZIDE 01085493387 Karime Ko PRAVASTATIN SODIUM 20 MG TABS take 1 tablet by mouth at bedtime PRAVASTATIN SODIUM 56803924625 Karime Ko CIPROFLOXACIN HCL 0.3 % SOLN INSTILL 1 DROP INTO AFFECTED EYE WHILE WAKE EVERY 4 HOURS CIPROFLOXACIN HCL 76983832542 Karime Ko SULFAMETHOXAZOLE -TRIMETHOPRIM 800-160 MG TABS take 2 tablets by mouth twice a day SULFAMETHOXAZOLE -TRIMETHOPRIM 99473779375 Karime Ko AMOXICILLIN-POT CLAVULANATE 875-125 MG TABS take 1 tablet by mouth twice a day for 10 days AMOXICILLIN-POT CLAVULANATE 54001531869 Karime Ko Medications Administered No information available. [...] Screening Nares culture, comment Lab Report: Panel [id number] 1445/02/19 [id number] NR Non Reactive GE use only - for LinkLogic import when terms are not otherwise specified Plan of Care Type Date Detail Pending order HIV 1/2 atb/ag 4 th generation with cascade reflex Pending order Nasal Swab for M RSA Procedures Code Procedure Name Date Entry Date CPT-411631 HIV 1/2 atb/ag 4th generation with cascad e reflex CPT-05083 Nasal Swab for MRSA Vital Signs Date [...]
--- OUTSIDE RECORDS SUMMARY | 2024-10-27 11:11 | XMS_ITS | Encounter Summary ---
Author Organization Healthcare Address [address] [place] [address] Care Team Providers Care Regional Facilities Manager Name Role Phone Sunny Horton MD Primary Care Provider [phone] Encounter Details Date Type Department Care Team [...] Info) Description 03/04/2025 2:30 PM EST Appointment [facility] Ultrasound [address], [address]nd [place] [address] 04/14/2025 1:00 PM EST Appointment [facility] Building Radiology [address] [place] [address] 04/14/2025 2:00 PM EST Office Visit Medical Office Building Urology [address] [facility], [address] [place] [address] Adilson Alfredo MD [address] [facility] [address] [place] [address] documented as of this encounter Visit Diagnoses Not on filedocumented in this encounter Additional Health Concerns Assessment Noted Time A fall risk assessment has been complete d for the patient 02/19/2024 2:51 PM EST A Body Mass Index follow-up plan has been documented for the patient 03/25/2024 3:51 PM EST documented as of this encounter Care Teams Regional Facilities Manager Relationship Specialty Start Date End Date Sunny Horton MD [address] [place] [address] PCP - General 07/14/20 documented as of this encounter
--- OUTSIDE RECORDS SUMMARY | 2024-10-27 11:11 | XMS_ITS | Encounter Summary ---
Author Organization Healthcare Address [address] [place] [address] Care Team Providers Care Tire Buster Name Role Phone Sunny Horton MD Primary Care Provider [phone] Encounter Details Date Type Department Care Team (Late Contact Info) Description 10/01/2024 Telephone [facility] [address], [address]nd [place] [address] Adilson Alfredo MD [address] [place] [address] Social History Tobacco Use Types [...] Info) Description 03/04/2025 2:30 PM EST Appointment [facility] Ultrasound [address], [address]nd [place] [address] 04/14/2025 1:00 PM EST Appointment Medical Office Building Radiology [address] [place] [address] 04/14/2025 2:00 PM EST Office Visit Medical Office Building Urology [address] [facility], [address] [place] [address] Adilson Alfredo MD [address] [place] [address] documented as of this encounter Visit Diagnoses Not on filedocumented in this encounter Additional Health Concerns Assessment Noted Time A fall risk assessment has been complete d for the patient 02/19/2024 2:51 PM EST A Body Mass Index follow-up plan has been documented for the patient 03/25/2024 3:51 PM EST documented as of this encounter Care Teams Tire Buster Relationship Specialty Start Date End Date Sunny Horton MD [address] [place] [address] PCP - General 07/14/20 documented as of this encounter
--- OUTSIDE RECORDS SUMMARY | 2024-10-27 11:11 | XMS_ITS | Encounter Summary ---
Author Organization Healthcare Address [address] [place] [address] Care Team Providers Care Fans Clerk Name Role Phone Sunny Horton MD Primary Care Provider [phone] Encounter Details Date Type Department Care Team [...] Info) Description 03/04/2025 2:30 PM EST Appointment [facility] Ultrasound [address], [address]nd [place] [address] 04/14/2025 1:00 PM EST Appointment Medical Office Building Radiology [address] [place] [address] 04/14/2025 2:00 PM EST Office Visit Medical Office Building Urology [address] [facility], [address] [place] [address] Adilson Alfredo MD [address] [facility] [address] [place] [address] documented as of this encounter Visit Diagnoses Not on filedocumented in this encounter Additional Health Concerns Assessment Noted Time A fall risk assessment has been complete d for the patient 02/19/2024 2:51 PM EST A Body Mass Index follow-up plan has been documented for the patient 03/25/2024 3:51 PM EST documented as of this encounter Care Teams Fans Clerk Relationship Specialty Start Date End Date Sunny Horton MD [address] [place] [address] PCP - General 07/14/20 documented as of this encounter
--- OUTSIDE RECORDS SUMMARY | 2024-10-27 11:11 | XMS_ITS | Encounter Summary ---
Author Organization [facility] Address [address] [place] [address] Care Team Providers Care Internet Network Specialist Name Role Phone Sunny Horton MD Primary Care Provider [phone] Encounter Details Date Type Department Care Team (Late st Contact Info) Description 09/14/2024 Telephone [facility] [address] [place] [address] Mehran Dillon Social History Tobacco [...] Mehran Dillon - 09/14/2024 10:50 AM EDT [facility] Specialty Medication Initial Care Plan Justice Reyes [...] 11/14/2023 MMR 10/15/1991, 04/21/2000 Moderna COVID-19 Vaccine (Insulation Technician) 12+ years 01/30/2021, 03/06/2021 Tdap 02/15/2012, 03/29/2022 [...] , TRIG , CRATIO , LDLCALC , [id number] Patient profile review for changes in Medications, [...] Upcoming Encounters Date Type Department Care Team ([facility] st Contact Info) Description 03/04/2025 2:30 PM EST Appointment [facility] Ultrasound [address], [address] [place] [address] 04/14/2025 1:00 PM EST Appointment Medical Office Building Radiology [address] [place] [address] 04/14/2025 2:00 PM EST Office Visit Medical Office Building Urology [address] [facility], [address] [place] [address] Adilson Alfredo MD [address] [place] [address] documented as of this encounter Visit Diagnoses Not on filedocumented in this encounter Additional Health Concerns Assessment Noted Time A fall risk assessment has been complete d for the patient 02/19/2024 2:51 PM EST A Body Mass Index follow-up plan has been documented for the patient 03/25/2024 3:51 PM EST documented as of this encounter Care Teams Internet Network Specialist Relationship Specialty Start Date End Date Sunny Horton MD [address] [place] [address] PCP - General 07/14/20 documented as of this encounter
--- OUTSIDE RECORDS SUMMARY | 2024-10-27 11:11 | XMS_ITS | Encounter Summary ---
Author Organization [facility] yste Address [address] [place] [address] Care Team Providers Care Textile Clothing And Footwear Mechanic Name Role Phone Sunny Horton MD Primary Care Provider [phone] Encounter Details Date Type Department Care Team (Latest Contact Info) Description 10/19/2024 Travel Social History Tobacco Use Types Packs/Day [...] on file documented as of this encounter Plan of Treatment Upcoming Encounters Date Type Department Care Team (Late st Contact Info) Description 11/16/2024 1:00 PM EDT Office Visit [facility] CARDIOLOGY [address] [place] [address] Gwen Huber APRN [address] [place] [address] 04/21/2025 11:00 AM EST Office Visit [facility] PRIMARY CARE [address] [place] [address] [place] [place] [address] Sunny Horton MD [address] [place] [address] documented as of this encounter Visit Diagnoses Not on filedocumented in this encounter Care Teams Textile Clothing And Footwear Mechanic Relationship Specialty Start Date End Date Sunny Horton MD [address] [place] [address] PCP - General Internal Medicine 11/09/21 documented as of this encounter
--- OUTSIDE RECORDS SUMMARY | 2024-10-27 11:11 | XMS_ITS | Encounter Summary ---
[facility] Address [address] [place] [address] Care Team Providers Care Blankmaker Name Role Phone Sunny Horton MD Primary Care Provider [phone] Reason for Visit * Reason Comments Med Refill Encounter Details Date Type Department Care Team (Late Contact Info) Description 10/24/2024 Refill [facility] PRIMARY CARE [address] [place] [address] [place] [address] Sunny Horton MD [address] [place] [address] [place] [address] Seasonal allergic rhinitis due to pollen Social History Tobacco Use Types Packs/Day Years [...] Upcoming Encounters Date Type Department Care Team ([facility] Contact Info) Description 11/16/2024 1:00 PM EDT Office Visit [facility] CARDIOLOGY [address] [place] [address] Gwen Huber APRN [address] [place] [address] 04/21/2025 11:00 AM EST Office Visit [facility] PRIMARY CARE [address] [place] [address] [place] [place] [address] Sunny Horton MD [address] [place] [address] [place] [address] documented as of this encounter Visit Diagnoses Diagnosis Seasonal allergic rhinitis due to pollen documented in this encounter Care Teams Blankmaker Relationship Specialty Start Date End Date Sunny Horton MD [address] [place] [address] [place] [address] PCP - General Internal Medicine 11/09/21 documented as of this encounter
--- OUTSIDE RECORDS SUMMARY | 2024-10-27 11:11 | XMS_ITS | Encounter Summary ---
Author Organization Healthcare Address [address] [place] [address] Care Team Providers Care African History Professor Name Role Phone Sunny Horton MD Primary Care Provider [phone] Encounter Details Date Type Department Care Team (Late Contact Info) Description 10/17/2024 Orders Only External Location [address] [place] [address] [place] [address] Social History Tobacco Use Types Packs/Day Years [...] Info) Description 03/04/2025 2:30 PM EST Appointment [facility] Ultrasound [address], 2nd [place] [address] 04/14/2025 1:00 PM EST Appointment Medical Office Building Radiology [address] [place] [address] 04/14/2025 2:00 PM EST Office Visit Medical Office Building Urology [address] [facility], [address] [place] [address] Adilson Alfredo MD [address] [place] [address] documented as of this encounter Procedures Procedure Name Priority Date/Time Associated Diagnosis Comments CT OUTSIDE IMAGES 10/17/2024 5:31 PM EDT documented in this encounter Results * CT OUTSIDE IMAGES (10/17/2024 5:31 PM EDT) Anatomical Region Laterality Modality Computed Tomogra phy 10/17/2024 5:31 PM EDT Joanna Jones [facility] [place] [place] PROCEDURES Final Result documented in this encounter Visit Diagnoses Not on filedocumented [...] documented as of this encounter Care Teams African History Professor Relationship Specialty Start Date End Date Sunny Horton MD [address] [place] [address] PCP - General 07/14/20 documented as of this encounter
--- OUTSIDE RECORDS SUMMARY | 2024-10-27 11:11 | XMS_ITS | Encounter Summary ---
Author Organization Healthcare Address [address] [place] [address] Care Team Providers Care Hog Operator Name Role Phone Sunny Horton MD Primary Care Provider [phone] Reason for Visit * Reason Onset Date Comments Litholink 24Hr Urine Panel 10/18/2024 Encounter Details Date Type Department Care Team (Late st Contact Info) Description 10/18/2024 Telephone [facility] [address], [address] [place] [address] Adilson Alfredo MD [address] [place] [address] Litholink 24Hr Urine Panel Social History Tobacco Use Types Packs/Day Years [...] encounter Miscellaneous Notes * Telephone Encounter - Nivia Evans - 10/18/2024 6:46 PM EDT 10/18/24-Litholink 24 Hr Urine results were received and have been uploaded to media. Pt was seen last week. documented in this encounter Plan of Treatment Upcoming Encounters Date Type Department Care Team (Late st Contact Info) Description 03/04/2025 2:30 PM EST Appointment [facility] Ultrasound [address] [place] [address] 04/14/2025 1:00 PM EST Appointment Medical Office Building Radiology [address] [place] [address] 04/14/2025 2:00 PM EST Office Visit Medical Office Building Urology [address] [facility], [address] [place] [address] Adilson Alfredo MD [address] [place] [address] documented as of this encounter Visit Diagnoses Not on filedocumented in this encounter Additional Health Concerns Assessment Noted Time PHQ-9 Depression Total Score: 0 10/15/19 7:47 AM EDT A fall risk assessment has been complete d for the patient 10/14/2024 7:47 AM EDT A Body Mass Index follow-up plan has been documented for the patient 10/20/2024 9:43 PM EDT documented as of this encounter Care Teams Hog Operator Relationship Specialty Start Date End Date Sunny Horton MD [address] [place] [address] [place] [address] PCP - General 07/14/20 documented as of this encounter
--- OUTSIDE RECORDS SUMMARY | 2024-10-27 11:11 | XMS_ITS | Encounter Summary ---
Author Organization Healthcare Address [address] [place] [address] Care Team Providers Care Brake Lining Driller Name Role Phone Sunny Horton MD Primary Care Provider [phone] Reason for Visit * Reason Onset Date Comments Appt Info 10/21/2024 Encounter Details Date Type Department Care Team (Late st Contact Info) Description 10/21/2024 Telephone [facility] [address], [address] [place] [address] Adilson Alfredo MD [address] [place] [address] Appt Info Social History Tobacco Use Types Packs/Day Years [...] encounter Miscellaneous Notes * Telephone Encounter - AnivalminnaRazaSalome Emmett - 10/21/2024 8:22 AM EDT Left detailed message regarding follow up appointments for 04/14, asked the patient to return call to the clinic if he would like for th US to be moved to the same day appt. If patient calls back thatcan be moved. documented in this encounter Plan of Treatment Upcoming Encounters Date Type Department Care Team (Late st Contact Info) Description 03/04/2025 2:30 PM EST Appointment [facility] Ultrasound [address], 2nd [place] [address] 04/14/2025 1:00 PM EST Appointment Medical Office Building Radiology [address] [place] [address] 04/14/2025 2:00 PM EST Office Visit Medical Office Building Urology [address] [facility], [address] [place] [address] Adilson Alfredo MD [address] [place] [address] documented as of this encounter Visit Diagnoses [...] documented as of this encounter Care Teams Brake Lining Driller Relationship Specialty Start Date End Date Sunny Horton MD [address] [place] [address] [place] [address] PCP - General 07/14/20 documented as of this encounter
--- OUTSIDE RECORDS SUMMARY | 2024-10-27 11:11 | XMS_ITS | Encounter Summary ---
Author Organization Healthcare Address [address] [place] [address] Care Team Providers Care Plant Care Worker Name Role Phone Sunny Horton MD Primary Care Provider [phone] Encounter Details Date Type Department Care Team [...] Appointment [facility] Ultrasound [address], [address]nd [place] [address] 04/14/2025 1:00 PM EST Appointment Medical Office Building Radiology [address] [place] [address] 04/14/2025 2:00 PM EST Office Visit Medical Office Building Urology [address] [facility], [address] [place] [address] Adilson Alfredo MD [address] [facility] [address] [place] [address] documented as of this encounter Visit Diagnoses Not on filedocumented in this encounter Additional Health Concerns Assessment Noted Time A fall risk assessment has been complete d for the patient 02/19/2024 2:51 PM EST A Body Mass Index follow-up plan has been documented for the patient 03/25/2024 3:51 PM EST documented as of this encounter Care Teams Plant Care Worker Relationship Specialty Start Date End Date Sunny Horton MD [address] [place] [address] PCP - General 07/14/20 documented as of this encounter
--- OUTSIDE RECORDS SUMMARY | 2024-10-27 11:11 | XMS_ITS | Clinical Summary ---
Author Organization Healthcare Address [address] [place] [address] Care Team Providers Care Regional Liaison Name Role Phone Sunny Horton MD Primary Care Provider [phone] Allergies Active Allergy Reactions Criticality Noted Date [...] day. 4 Active Vitamin D3 1.25 MG (52140 UT) capsule Take 1 capsule (50,000 Units) [...] Encounters Date Type Department Care Team Description 10/21/2024 Telephone [facility] Urology [address], [address] [place] [address] Adilson Alfredo MD Appt Info 10/18/2024 Telephone [facility] [address], [address] [place] [address] Adilson Alfredo MD Litholink 24Hr Urine Panel 10/17/2024 Orders Only External Location [address] [place] [address] Joanna Jones 10/14/2024 8:00 AM EDT Office Visit Medical Office Building Urology [address] [facility], [address] [place] [address] Adilson Alfredo MD Kidney stones (Primary Dx) 10/14/2024 Travel 10/07/2024 Travel 10/04/2024 2:45 PM EDT - 10/04/2024 11:59 PM EDT Hospital Encounter [facility] [address]nd [place] [address] Kidney stones Discharge Disposition: Home or Self Care 10/04/2024 Travel 10/03/2024 Travel 10/01/2024 Telephone [facility] [address], [address] [place] [address] Adilson Alfredo MD 09/14/2024 Telephone [facility] [address] [place] [address] Mehran Dillon 09/09/2024 Telephone [facility] [address] [place] [address] Juan Manuel Mcdaniels, PharmD 09/08/2024 Telephone [facility] [address], [address] [place] [address] Adilson Alfredo MD HCN - Patient Message; Asking for a return call; Confirmed Appt 08/31/2024 Orders Only [facility] [address], [address] [place] [address] Adilson Alfredo MD Kidney stones (Primary Dx) [...] Diabetes Mother Bonnie Reyes Hypertension Mother Bonnie Reyes Stroke Mother Bonnie Reyes Diabetes Other 1 [...] Sign Reading Time Taken Comments Blood Pressure 115/88 10/17/2024 7:23 PM EDT Pulse 95 10/17/2024 7:23 PM EDT Temperature 36.2 C (97.2 F) 08/01/2023 2:00 PM EDT Respiratory Rate 21 10/17/2024 7:23 PM EDT Oxygen Saturation 98% 10/17/2024 7:23 PM EDT RA Inhaled Oxygen Concentration - - Weight 82.6 kg (182 lb) 02/19/2024 2:50 PM EST Height 182.9 cm (6') 02/19/2024 2:50 PM EST Body Mass Index 24.68 02/19/2024 2:50 PM EST Plan of Treatment Upcoming Encounters Date Type Department Care Team (Late st Contact Info) Description 03/04/2025 2:30 PM EST Appointment [facility] Ultrasound [address], [address]nd [place] [address] 04/14/2025 1:00 PM EST Appointment Medical Office Building Radiology [address] [place] [address] 04/14/2025 2:00 PM EST Office Visit Medical Office Building Urology [address] [facility], [address] [place] [address] Adilson Alfredo MD [address] [place] [address] Health Maintenance Due Date Last Done Comments [facility]-Infant/Child/Adol SDOH Screenings 1989 [facility]-Varicella Vaccines (1 of 2 - 13+ 2-dose series) 2002 [facility]- SDOH Screenings 2007 [facility]-Adult SDOH Screenings 2007 [facility]-Pneumococcal Vaccine: Pediatrics (0 to 5 Years) and At-Risk Patients (6 to 49 Years) (1 of 2 - PCV) 2008 HPV Vaccines (1 - 3-dose SCDM series) 2016 [facility]-YSCNT-12 Vaccine (3 - 2023- season) 2023 03/06/2021, 01/30/2021 [facility]-Influenza Vaccine (#1) [...] this topic Medical Devices Implanted Type Area Personal Security Specialist Device Identifier Shelf Expiration Date Model / Serial / Lot Stent Ureteral Double Pigtail Pos 6fr 26cm - [id number] - [id number] Implanted:Qty: 1 on 01/23/2021 by Adilson Alfredo MD at [facility] Stent Right: [id number] 07/17/2022 [id number] / [id number] / Stent Ureteral Double Pigtail Pos 5fr 26cm - [id number] Implanted:Qty: 1 on 08/01/2023 by Adilson Alfredo MD at [facility] Left: Kidney [id number] 11/06/2024 [id number] / / [id number] Procedures Procedure Name Priority Date/Time Associated Diagnosis Comments CT OUTSIDE IMAGES 10/17/2024 5:[address] ABDOMEN WO IV CONTRAST Routine 10/04/2024 3:02 PM EDT Kidney stones HEPATITIS C ANTIBODY - ED W/REFLEX TO HCV QUANT PCR STAT 01/17/2021 6:02 PM EST HIV 1/2 ANTIBODY/ANTIGEN SCREEN WITH REFLEX TO HIV I/II DIFFERENTIATION STAT 01/17/2021 6:02 PM EST from Last 3 Months or Most Recently Relevant to Health Maintenance Results * CT OUTSIDE IMAGES (10/17/2024 5:31 PM EDT) Anatomical Region Laterality Modality Computed Tomogra phy 10/17/2024 5:31 PM EDT us Joanna Jones [facility] [place] PROCEDURES Final Result * CT Abdomen wo IV Contrast (10/04/2024 [...] Zaira Johnson MD on 10/04/2024 4:43 PM us Adilson Alfredo MD IM CT PROCEDURES Final Result * HIV 1 & 2 Antibody/Antigen Screen (01/17/2021 6:02 PM EST) HIV 1 & 2 Antibody/Anti gen Screen Nonreactive Nonreactive 01/17/2021 7:55 PM EST [facility] Blood Venous blood specimen / Unknown Venipuncture / Unknown 01/17/2021 6:02 PM EST 01/17/2021 6:18 PM EST Arun Cameron MD LAB BLOOD ORDERABLES Final Res ult Performing Organization Address City/[facility]/ZIP Co de Phone Number [facility]ALTH[facility]ARE [facility] [address] [place] [address] * [place] Hepatitis C Antibody (01/17/2021 6:02 PM EST) Pathologist [facility] Hepatitis C Antibody Negative Negative 01/17/2021 7:56 PM EST [facility] Blood Venous blood specimen / Unknown Venipuncture / Unknown 01/17/2021 6:02 PM EST 01/17/2021 6:18 PM EST Arun Cameron MD LAB BLOOD ORDERABLES Final Res ult Performing Organization Address City/[facility] Co de Phone Number [facility]ALTH[facility]ARE [facility] [address] [place] [address] from Last 3 Months or Most Recently Relevant to Health Maintenance Insurance Care Teams Regional Liaison Relationship Specialty Start Date End Date Sunny Horton MD [address] [place] [address] PCP - General 07/14/20
--- OUTSIDE RECORDS SUMMARY | 2024-10-27 11:12 | XMS_ITS | Encounter Summary ---
Author Organization Healthcare Address [address] [place] [address] Care Team Providers Care Watershed Manager Name Role Phone Sunny Horton MD Primary Care Provider [phone] Encounter Details Date Type Department Care Team (Late st Contact Info) Description 09/09/2024 Telephone [facility] [address] [place] [address] Juan Manuel Mcdaniels, PharmD Social [...] Description 03/04/2025 2:30 PM EST Appointment [facility] Ultrasound [address] 2nd [place] [address] 04/14/2025 1:00 PM EST Appointment Medical Office Building Radiology [address] [place] [address] 04/14/2025 2:00 PM EST Office Visit Medical Office Building Urology [address] [facility], [address] [place] [address] Adilson Alfredo MD [address] [facility] [address] [place] [address] documented as of this encounter Visit Diagnoses Not on filedocumented in this encounter Additional Health Concerns Assessment Noted Time A fall risk assessment has been complete d for the patient 02/19/2024 2:51 PM EST A Body Mass Index follow-up plan has been documented for the patient 03/25/2024 3:51 PM EST documented as of this encounter Care Teams Watershed Manager Relationship Specialty Start Date End Date Sunny Horton MD [address] [place] [address] PCP - General 07/14/20 documented as of this encounter
--- OUTSIDE RECORDS SUMMARY | 2024-10-27 11:12 | XMS_ITS | Encounter Summary ---
Author Organization Healthcare Address [address] [place] [address] Care Team Providers Care Resawyer Name Role Phone Sunny Horton MD Primary Care Provider Reason for Visit * Reason Onset Date Comments HCN - Patient Message 09/08/2024 Asking for a return call 09/08/2024 Confirmed Appt 09/08/2024 Encounter Details Date Type Department Care Team (Late st Contact Info) Description 09/08/2024 Telephone ID Clinic Urology [address] [place] [address] Adilson Alfredo MD [address] [place] [address] HCN - Patient Message; Asking [...] optimal time of day to reach caller: [phone] - anytime Note: Please do not reply to this message. Follow-up communication and further actions as a result of this message need to be communicated with the patient directly, if the patient is not active onMyChart. If the patient is active on MyChart, they will receive notification of the communication/outcome via Tamagot. documented in this encounter Plan of Treatment Upcoming Encounters Date Type Department Care Team ([facility] st Contact Info) Description 03/04/2025 2:30 PM EST Appointment [facility] Ultrasound [address] [place] [phone] 04/14/2025 1:00 PM EST Appointment [facility] Building Radiology [address] [place] [address] 04/14/2025 2:00 PM EST Office Visit Medical Office Building Urology [address] [facility], [address] [place] [address] Adilson Alfredo MD [address] [place] [phone] documented as of this encounter Visit Diagnoses Not on filedocumented in this encounter Additional Health Concerns Assessment Noted Time A fall risk assessment has been complete d for the patient 02/19/2024 2:51 PM EST A Body Mass Index follow-up plan has been documented for the patient 03/25/2024 3:51 PM EST documented as of this encounter Care Teams Resawyer Relationship Specialty Start Date End Date Sunny Horton MD [address] [place] [address] PCP - General 07/14/20 documented as of this encounter
--- OUTSIDE RECORDS SUMMARY | 2024-10-27 11:12 | XMS_ITS | Encounter Summary ---
Author Organization [facility] Address [address] [place] [address] Care Team Providers Care Manager Of Training And Development Name Role Phone Sunny Horton MD Primary Care Provider [phone] Reason for Referral * Imaging (Routine) - Authorized Specialty Diagnoses / Procedures Referred By Contac t Referred To Contact Radiology Diagnoses Kidney stones Procedures US Renal Complete Adilson Alfredo MD [address] [address] Phone: tel: fax: Referral ID Status Reason Start Date Expiration Date V isits Requested Visits Authorized [id number] Authorized 08/31/2024 03/02/2026 1 1 Encounter Details Date Type Department Care Team (Late st Contact Info) Description 08/31/2024 Orders Only [place] [facility] [address] [place] [address] Adilson Alfredo MD [address] [place] [address] Kidney stones (Primary Dx) Social [...] 2:30 PM EST Appointment [facility] Ultrasound [address] [place] [address] 04/14/2025 1:00 PM EST Appointment Medical Office Building Radiology [address] [place] [address] 04/14/2025 2:00 PM EST Office Visit Medical Office Building Urology [address] [facility], [address] [place] [address] Adilson Alfredo MD [address] [place] [phone] Scheduled Orders Name Type Priority Associated Diagnoses [...] documented as of this encounter Care Teams Manager Of Training And Development Relationship Specialty Start Date End Date Sunny Horton MD [address] [place] [address] [place] [address] PCP - General 07/14/20 documented as of this encounter
== END 2024-10-27 23:59 | disposition home or self-care (01) ==
LOC: RAD 11:07
PROVIDERS: PCP Pediatrics; Visit Provider Surgery
DX: L73.2 Hidradenitis suppurativa (principal); R60.0 Localized edema; R93.89 Abnormal findings on diagnostic imaging of other specified body structures
CPT/HCPCS: 76882

== ENCOUNTER 2024-11-11 14:08 | Outpatient (CLI) | payer MEDICAID, SELFPAY ==
--- NOTE | 2024-11-11 14:43 | XR_ITS ---
FINAL REPORT CLINICAL HISTORY: ENCOUNTER FOR OTHER PREPROCEDURAL EXAM, FORMER SMOKER FINDINGS: PA and lateral views of the chest are obtained. There is no prior exam for comparison. The cardiac and mediastinal silhouettes are within normal limits. The lungs are clear. There is no pleural effusion, pneumothorax, or acute osseous abnormality. IMPRESSION: No radiographic evidence of acute cardiac or pulmonary disease. Reviewed, Interpreted and Dictated by Lucille Spence MD Transcribed by Sandra Mccauley Authenticated and [facility]
[2024-11-11 14:56] LABS: Hematocrit 45.0 % (42.0-52.0); Hemoglobin 15.2 g/dL (14.1-18.0); Immature Granulocytes % 0.3 %; Mean Corpuscular HGB Conc 33.8 g/dL (31.8-35.4); Mean Corpuscular Hemoglobin 31.9 pg (27.0-31.2); Mean Corpuscular Volume 94.3 fl (80-94); Nucleated Red Blood Cells % 0 %; Platelet Count 228 K/mm3 (142-424); Red Blood Count 4.77 M/mm3 (4.60-6.20); Red Cell Distribution Width-SD 43.0 fL; White Blood Count 6.9 K/mm3 (4.8-10.8)
[2024-11-11 15:38] LABS: Albumin Level 4.8 g/dl (3.5-5.0); Chloride 108 mmol/L (98-107); Potassium 4.6 mmoL/L (3.5-5.1); Sodium 141 mmol/L (136-145)
[2024-11-11 15:40] LABS: Blood Urea Nitrogen 18 mg/dl (9-20); Creatinine,Serum 0.70 mg/dl (0.66-1.25); Estimated Glomerular Filt Rate 128 ml/min (>60); GFR (African American) 155 ML/MIN (>60)
[2024-11-11 15:41] LABS: Alanine Aminotransferase 34 U/L (12-78); Albumin/Globulin Ratio 1.8 (1.1-1.8); Alkaline Phosphatase 100 U/L (38-126); Anion Gap 11.6 mEq/L (5-15); Aspartate Amino Transferase 40 U/L (17-59); Bilirubin,Total 0.8 mg/dl (0.2-1.3); Calcium 9.9 mg/dl (8.4-10.2); Carbon Dioxide 26 mmol/L (22.0-30.0); Globulin 2.7 g/dL (1.3-3.2); Glucose 89 mg/dl (74-100); Total Protein,Serum 7.5 g/dl (6.3-8.2)
== END 2024-11-11 23:59 | disposition home or self-care (01) ==
LOC: LAB 14:09
PROVIDERS: PCP Pediatrics; Visit Provider Nurse Practitioner Family
DX: Z01.818 Encounter for other preprocedural examination (principal)
CPT/HCPCS: 36415; 71046; 80053; 80323; 85025

== ENCOUNTER 2024-11-23 14:05 | Outpatient (CLI) | payer MEDICAID, SELFPAY ==
--- OUTSIDE RECORDS SUMMARY | 2024-10-04 14:45 | XMS_ITS | Encounter Summary ---
Author Organization [facility] Address [address] [place] [address] Care Team Providers Care Supervisor Plastics Name Role Phone Sunny Horton MD Primary Care Provider [phone] Reason for Referral * Imaging (Routine) - Canceled Specialty Diagnoses / Procedures Referred By Howard sanchez Referred To Contact Radiology Diagnoses Kidney stones Procedures CT Abdomen wo IV Contrast Adilson Alfredo MD [address] [address] Phone: tel: fax: Referral ID Status Reason Start Date Expiration Date V isits Requested Visits Authorized [id number] Canceled 02/19/2024 08/20/2025 1 1 Reason for Visit * Imaging (Routine) - Canceled Specialty Diagnoses / Procedures Referred By Howard sanchez Referred To Contact Radiology Diagnoses Kidney stones Procedures CT Abdomen wo IV Contrast Adilson Alfredo MD [address] [address] Phone: tel: fax: Referral ID Status Reason Start Date Expiration Date V isits Requested Visits Authorized [id number] Canceled 02/19/2024 08/20/2025 1 1 Encounter Details Date Type Department Care Team (Latest Contact Info) Description 10/04/2024 2:45 PM EDT - 10/04/2024 11:59 PM EDT Hospital Encounter [facility] [address] [place] [address] Kidney stones Discharge Disposition: Home [...] 0 10/14/2024 7:47 AM Bridger Costa * How difficult have these problems made it for you to do your work, take care of things at home, or get along with other people? Answer Date of Assessment Author Not difficult at all 10/14/2024 7:47 AM Bridger Ingram documented as of this encounter Medications at [...] capsule 11 02/19/2024 Vitamin D3 1.25 MG (42548 UT) capsule Take 1 capsule (50,000 Units) by mouth 1 (one) time per week. documented as of this encounter Plan of Treatment Upcoming Encounters Date Type Department Care Team (Late st Contact Info) Description 03/04/2025 2:30 PM EST Appointment [facility] Ultrasound [address] [place] [address] 04/14/2025 1:00 PM EST Appointment Medical Office Building Radiology [address] [place] [address] 04/14/2025 2:00 PM EST Office Visit Medical Office Building Urology [address] [facility], [address] [place] [address] Adilson Alfredo MD [address] [place] [address] documented as of this encounter [...] in the right lower pole (series 3, ).No hydronephrosis. GI Tract/Mesentery/Peritoneum: The large and small [...] documented as of this encounter Care Teams Supervisor Plastics Relationship Specialty Start Date End Date Sunny Horton MD [address] [place] [address] [place] [address] PCP - General 07/14/20 documented as of this encounter
--- OUTSIDE RECORDS SUMMARY | 2024-10-14 08:00 | XMS_ITS | Encounter Summary ---
Author Organization [facility] Address [address] [place] [address] Care Team Providers Care Fire Inspector Name Role Phone Sunny Horton MD Primary Care Provider Reason for Referral * Imaging (Routine) - Authorized Specialty Diagnoses / Procedures Referred By Contac t Referred To Contact Radiology Diagnoses Kidney stones Procedures US Renal Complete Adilson Alfredo MD [id number] [place] [address] Phone: tel: fax: Referral ID Status Reason Start Date Expiration Date V isits Requested Visits Authorized [id number] Authorized 10/20/2024 04/21/2026 1 1 Encounter Details Date Type Department Care Team ([facility] Contact Info) Description 10/14/2024 8:00 AM EDT Office Visit Medical Office Building Urology [address] [facility], [address] [place] [address] Adilson Alfredo MD [address] [facility] [address] [place] [address] Kidney stones (Primary Dx) Social History Tobacco Use Types Packs/Day Years [...] Bridger Ingram documented as of this encounter Miscellaneous Notes * Progress Notes - Adilson Alfredo MD - 10/14/2024 8:00 AM EDT CC: Urinary stone disease HPI: Justice Reyes is a 34 y.o. male with a history of nephrolithiasis. He is doing fairly well since last visit. Stone History: He started having stones at 17 yo and passes 3-4 stones a year. He has always passed his stones until this recent time. Both parents with kidney stones. 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 Underwentleft ESWL 07/24/21. He is no longer taking topamax. PE: GEN: NAD LABS: I have personally reviewed the following labs: Lab Results Component Value Date CREATININE 0.95 01/17/2021 CALCIUM 9.9 01/17/2021 24 Hour Urine Date 01/201908/31/23 Vol (L) 0.63 2.00 Ca (mg) 177 409 Ox (mg) 15 38 Cit (mg) 313 354 pH 5.666 5.693 Na (mmol) 127 193 Cr (mg) 1348 1771 IMAGING: CT Abd/Pelvis 06/15/21 - There are no stones in the right kidney. There is a 5-6 mm stone in the lower portion of the left kidney. Renal US 10/22/21 - No stones or hydronephrosis noted in either kidney. KUB 10/22/21 - Difficult to tell is left renal calcification is present. Renal US 10/24/22 - possible right upper pole renal calcification, non obstructing, no hydronephrosis, 5 mm left lower pole renal calcification, non obstructing, no hydronephrosis. CT Abd 07/24/23 - There are several punctate right renal stones with the largest one being about 3 mm in size. The left kidney has several, non-obstructing stones with the largest measuring about 5 mmin size. Renal US 02/19/24 - Right kidney with possible small calcifications. No hydronephrosis. Left kidneywith possible small calcifications, no hydronephrosis. CT Abd 10/04/24 - There are small, non-obstructing stones bilaterally. No hydronephrosis. IMPRESSION: 34 y.o. male with a history of urinary stone disease. No significant flank pain or stone events. He is scheduled to complete his 24 hour urine. PLAN: RTC 6 months with a renal US and KUB Patient Verification Patient identity has been confirmed using name and date of ? Yes Authorizations and Agreements/Telemedicine Consent sent and consent confirmed? Yes Patient Location: Patient's Home Patient confirms they are physically located in [place]? Yes If the patient is not physically located in [place], the provider has confirmed with Legal thatthe provider is authorized to provide services in patient's stated location? N/A Provider Location: HealthCare Facility Audio and video or audio only? Audio and video Approximately 25 min was spent on this encounter. Adilson Alfredo MD Department of Urology [phone] documented in this encounter Plan of Treatment Upcoming Encounters Date Type Department Care Team (Late st Contact Info) Description 03/04/2025 2:30 PM EST Appointment [facility] Ultrasound [address] [place] [address] 04/14/2025 1:00 PM EST Appointment Medical Office Building Radiology [address] [place] [address] 04/14/2025 2:00 PM EST Office Visit Medical Office Building Urology [address] [facility], [address] [place] [address] Adilson Alfredo MD [address] [place] [address] Scheduled Orders Name Type Priority Associated Diagnoses Orde r Schedule US Renal Complete Imaging Routine Kidney stones Expected: 04/22/2025 (Approximate), Expires: 04/22/2026 XR Abdomen 1 View Imaging Routine Kidney stones Expected: 04/22/2025 (Approximate), Expires: 04/22/2026 documented as of this encounter Visit Diagnoses Diagnosis Kidney stones- Primary Calculus of kidney documented in this encounter Additional Health Concerns Assessment Noted Time PHQ-9 Depression Total Score: 0 10/15/19 25 7:47 AM EDT A fall risk assessment has been complete d for the patient 10/14/2024 7:47 AM EDT A Body Mass Index follow-up plan has been documented for the patient 10/20/2024 9:43 PM EDT documented as of this encounter Care Teams Fire Inspector Relationship Specialty Start Date End Date Sunny Horton MD [address] [place] [address] [place] [address] PCP - General 07/14/20 documented as of this encounter
--- OUTSIDE RECORDS SUMMARY | 2024-10-19 11:15 | XMS_ITS | Encounter Summary ---
[facility] [address] [place] [address] Care Team Providers Care Hand Coremaker Name Role Phone Sunny Horton MD Primary Care Provider [phone] Reason for Visit * Reason Comments Med Refill Encounter Details Date Type Department Care Team ([facility] st Contact Info) Description 10/19/2024 11:15 AM EDT Office Visit [facility] [address] [place] [address] [place] [address] Sunny Horton MD [address] [place] [address] [place] [address] Prediabetes (Primary Dx); Common wart; Anxiety [...] 04/21/2025) for Annual physical. Sunny Horton MD [facility] documented in this encounter Plan of Treatment Upcoming Encounters Date Type Department Care Team (Late st Contact Info) Description 11/25/2024 12:30 PM EDT Ancillary Procedure [facility] [address] [place] [phone] 11/25/2024 1:30 PM EDT Office Visit [facility] [address] [place] [address] [place] [phone] Tania Desouza APRN [address] [place] [address] [place] [address] 04/21/2025 11:00 AM EST Office Visit [facility] [address] [place] [address] [place] [address] Sunny Horton MD [address] [place] [address] [place] [address] documented as of this encounter Procedures Procedure [...] MD - 10/19/2024 12:15 PM EDT Sunny Horotn MD 10/19/2024 12:17 PM Cryotherapy, Skin Lesion [...] Hemoglobin A1C 5.0 4.5 - 5.7 % [facility] Lot Number [id number] [facility] Expiration Date 06/16/2026 [facility] Blood 10/19/2024 11:2 2 AM EDT us Sunny Horton MD POINT OF CARE TEST ORDERABLES Fi nal Result [facility]
[address] [place] [address], [place] [phone] documented in this encounter Visit Diagnoses Diagnosis [...] deficiency documented in this encounter Care Teams Hand Coremaker Relationship Specialty Start Date End Date Sunny Horton MD [address] [place] [address] [place] [address] PCP - General Internal Medicine 11/09/21 documented as of this encounter
--- OUTSIDE RECORDS SUMMARY | 2024-11-16 13:00 | XMS_ITS | Encounter Summary ---
[facility] Organization [facility] Address [address] [place] [address] Care Team Providers Care Filling Hauler Name Role Phone Sunny Horton MD Primary Care Provider [phone] Reason for Referral * Cardiac (Routine) - Closed Specialty Diagnoses / Procedures Referred By Howard sanchez Referred To Contact Diagnoses Palpitations Tachycardia Procedures Holter Monitor - 72 Hour Up To 15 Days Gwen Huber APRN [address] [place] [address] Phone: tel: fax: [facility] [address] [place] [address] Phone: tel: fax: Referral ID Status Reason Start Date Expiration Date Visits Re quested Visits Authorized [id number] Closed 11/16/2024 02/15/2026 1 1 * Diagnostic Imaging (Routine) - Pending Review Specialty Diagnoses / Procedures Referred By Howard sanchez Referred To Contact Diagnoses Preop cardiovascular exam Palpitations Tachycardia Procedures Adult Transthoracic Echo Complete W/ Cont if Necessary Per Protocol Gwen Huber APRN [address] [place] [address] Phone: tel: fax: [facility] [address] [place] [address] Phone: tel: fax: Referral ID Status Reason Start Date Expiration Date V isits Requested Visits Authorized [id number] Pending Review 11/16/2024 02/15/2026 1 1 Reason for Visit * Reason Comments Palpitations Pt referred tpdau ca rdiac clearance for a gastric bypass procedure. 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 Surgery is not scheduled to date by Dr. Natanael Edgar @ [facility]. Labs from 10/2024 in [facility] and reviewed. EKG obtained and reviewed today.Pt denies shortness of breath or chest pain, dizziness. Notes occasional palpitations. * Consultation (Routine) - Closed Specialty Diagnoses / Procedures Referred By Contac t Referred To Contact Cardiology Diagnoses Tachycardia Referring, [place] [address] Trini Andres MD [address] [place] [address] Phone: tel: fax: Referral ID Status Reason Start Date Expiration Date Visits Re quested Visits Authorized Closed 10/05/2024 01/04/2026 1 1 Encounter Details Date Type Department Care Team (Latest Contact Info) Description 11/16/2024 1:00 PM EDT Office Visit [facility] [place] [address] Gwen Huber APRN [address] [place] [address] Preop cardiovascular exam (Primary Dx); [...] in this encounter Progress Notes * Gwen Huber, KHADIJAH - 11/16/2024 1:00 PM EDTAssociated Order(s): ECG [...] to date by Dr. Natanael Edgar @ [facility]. Labs from 10/2024 in [facility] and reviewed. EKG obtained and reviewed today./Pt [...] him back after echo for preop clearance. [place] Scale is (out of 24): 3 No [...] Return for After echo/holter. Patient or patient benefits representative verbalized consent for the use of [...] Description 11/25/2024 12:30 PM EDT Ancillary Procedure [facility] [address] [place] [address] [place] [address] 11/25/2024 1:30 PM EDT Office Visit [facility] [address] [place] [address] [place] [address] Tania Desouza APRN [address] [facility] [place] [address] 04/21/2025 11:00 AM EST Office Visit [facility] [address] [place] [address] [place] [address] Sunny Horton MD [address] [place] [address] [place] [address] Pending Results Name Type Priority Associated Diagnoses [...] encounter Results * ECG 12-LEAD (11/16/2024) Narrative ECG - 11/16/2024 Gwen Huber APRN 11/16/2024 [...] Clinical impression: normal ECG Procedure Note Gwen Huber APRN - 11/16/2024 1:00 PM EDT Images from [...] to date by Dr. Natanael Edgar @ [facility].Labs from 10/2024 in [facility] and reviewed. EKG obtained and reviewedtoday./Pt denies shortness of breath or chest pain, dizziness. Notesoccasional palpitations. ) History of Present Illness Mr. Justice Reyes is a 34-year-old [facility]. He is accompanied by [...] him back after echo for preop clearance. [place] Scale is (out of 24): 3 No [...] Rfl: 1 Cholecalciferol (Vitamin D) 50 MCG (1999) tablet, Take 1 tablet bymouth Daily., Disp: [...] (72.01 ) Wt 94.8 kg (209 lb) HvH9440% BMI 28.34 kg/m Estimated body mass index [...] Return for After echo/holter. Patient or patient benefits representative verbalized consent for the use ofAmbient Listening during the visit with Gwen Huber APRN forchart documentation. 11/16/2024 14:42 EDT Gwen Huber APRN 11/16/2024 Please note that this explicitly excludes time spent on other separatebillable services such as performing procedures or test interpretation,when applicable. This note was created using dictation software whichoccasionally transcribes nonsensical phrases. Please contact the providerif any clarification is needed. Gwen Huber BLOCKMAN ECG ORDERABLES Fin al Result ECG documented in this encounter Visit Diagnoses Diagnosis Preop cardiovascular exam- Primary Pre-operative cardiovascular examination Palpitations Tachycardia Unspecified tachycardia documented in this encounter Care Teams Filling Hauler Relationship Specialty Start Date End Date Sunny Horton MD [address] [place] [address] PCP - General Internal Medicine 11/09/21 documented as of this encounter
--- OUTSIDE RECORDS SUMMARY | 2024-11-17 15:10 | XMS_ITS | Encounter Summary ---
Author Organization [facility] Address [address] [place] [address] Care Team Providers Care Manager Logistic Name Role Phone Sunny Horton MD Primary Care Provider [phone] Reason for Visit * Cardiac (Routine) - Closed Specialty Diagnoses / Procedures Referred By Howard sanchez Referred To Contact Diagnoses Palpitations Tachycardia Procedures Holter Monitor - 72 Hour Up To 15 Days Gwen Huber APRN [address] [place] [address] Phone: tel: fax: [facility] [address] [place] [address] Phone: tel: fax: Referral ID Status Reason Start Date Expiration Date Visits Re quested Visits Authorized [id number] Closed 11/16/2024 02/15/2026 1 1 Encounter Details Date Type Department Care Team (Late st Contact Info) Description 11/17/2024 3:10 PM EDT Ancillary Procedure [facility] [address] [place] [address] [place] [address] Palpitations; Tachycardia Social History Tobacco Use Types Packs/Day Years Used Date Smoking Tobacco: Former Cigarettes Q uit: 09/27/2007 Smokeless Tobacco: Never Alcohol Use Standard Drinks/Week [...] Description 11/25/2024 12:30 PM EDT Ancillary Procedure [facility] [address] [place] [address] 11/25/2024 1:30 PM EDT Office Visit [facility] [address] [place] [address] Tania Desouza, KHADIJAH [address] [place] [address] 04/21/2025 11:00 AM EST Office Visit [facility] [address] [place] [address] [place] [id number] Sunny Horton MD [address] [place] [address] [place] [address] Pending Results Name Type Priority Associated Diagnoses Date /Time Holter Monitor - 72 Hour Up To 15 Days Cardiac Services Routine Palpitations Tachycardia 11/17/2024 3:09 PM EDT documented as of this encounter Visit Diagnoses Diagnosis Palpitations Tachycardia Unspecified tachycardia documented in this encounter Care Teams Manager Logistic Relationship Specialty Start Date End Date Sunny Horton MD [address] [place] [address] PCP - General Internal Medicine 11/09/21 documented as of this encounter
--- OUTSIDE RECORDS SUMMARY | 2024-11-23 14:08 | XMS_ITS | Encounter Summary ---
Author Organization Healthcare Address [address] [place] [address] Care Team Providers Care Gluing Machine Operator Automatic Name Role Phone Sunny Horton MD Primary Care Provider [phone] Encounter Details Date Type Department Care Team (Late Contact Info) Description 10/17/2024 Orders Only External Location [address] [place] [address] [place] [address] Social History Tobacco Use Types Packs/Day Years [...] Info) Description 03/04/2025 2:30 PM EST Appointment [facility] Ultrasound [address] [place] [address] 04/14/2025 1:00 PM EST Appointment Medical Office Building Radiology [address] [place] [address] 04/14/2025 2:00 PM EST Office Visit Medical Office Building Urology [address] [facility], [address] [place] [address] Adilson Alfredo MD [address] [place] [address] documented as of this encounter Procedures Procedure Name Priority Date/Time Associated Diagnosis Comments CT OUTSIDE IMAGES 10/17/2024 5:31 PM EDT documented in this encounter Results * CT OUTSIDE IMAGES (10/17/2024 5:31 PM EDT) Anatomical Region Laterality Modality Computed Tomogra phy 10/17/2024 5:31 PM EDT Joanna Jones [facility] CT PROCEDURES Final Result documented in this [...] documented as of this encounter Care Teams Gluing Machine Operator Automatic Relationship Specialty Start Date End Date Sunny Horton MD [address] [place] [address] PCP - General 07/14/20 documented as of this encounter
--- OUTSIDE RECORDS SUMMARY | 2024-11-23 14:08 | XMS_ITS | Encounter Summary ---
Author Organization [facility] Address [address] [place] [address] Care Team Providers Care Priming Machine Operator Name Role Phone Sunny Horton MD Primary Care Provider [phone] Encounter Details Date Type Department Care Team (Late st Contact Info) Description 11/11/2024 [facility]phone [facility] [address] [facility], [address]nd [place] [address] Porsche Avila, PharmD Social History Tobacco Use Types Packs/Day [...] [facility] Ultrasound [address], [address] [place] [address] 04/14/2025 1:00 PM EST Appointment Medical Office Building Radiology [address] [place] [address] 04/14/2025 2:00 PM EST Office Visit Medical Office Building Urology [address] [facility], [address] [place] [address] Adilson Alfredo MD [address] [place] [address] documented as of this encounter [...] documented as of this encounter Care Teams Priming Machine Operator Relationship Specialty Start Date End Date Sunny Horton MD [address] [place] [address] [place] [address] PCP - General 07/14/20 documented as of this encounter
--- OUTSIDE RECORDS SUMMARY | 2024-11-23 14:08 | XMS_ITS | Encounter Summary ---
Author Organization [facility] Address [address] [place] [address] Care Team Providers Care Electric Organ Inspector And Repairer Name Role Phone Sunny Horton MD Primary Care Provider [phone] Encounter Details Date Type Department Care Team [...] 11/25/2024 12:30 PM EDT Ancillary Procedure [facility] [address] [place] [address] 11/25/2024 1:30 PM EDT Office Visit [facility] [address] [place] [address] Tania Desouza, HIDE DROPPER [address] [place] [address] 04/21/2025 11:00 AM EST Office Visit [facility] [address] [place] [address] Sunny Horton MD [address] [place] [address] [place] [address] documented as of this encounter Visit Diagnoses Not on filedocumented in this encounter Care Teams Electric Organ Inspector And Repairer Relationship Specialty Start Date End Date Sunny Horton MD [address] [place] [address] PCP - General Internal Medicine 11/09/21 documented as of this encounter
--- OUTSIDE RECORDS SUMMARY | 2024-11-23 14:08 | XMS_ITS | Encounter Summary ---
Author Organization Healthcare Address [address] [place] [address] Care Team Providers Care Organ Pipe Maker Metal Name Role Phone Sunny Horton MD Primary Care Provider [phone] Reason for Visit * Reason Onset Date Comments Appt Info 10/21/2024 Encounter Details Date Type Department Care Team (Late st Contact Info) Description 10/21/[address] Urology [address], [address] [place] [address] Adilson Alfredo MD [address] [place] [address] Appt Info Social History Tobacco [...] 03/04/2025 2:30 PM EST Appointment [facility] Ultrasound [address] [place] [address] 04/14/2025 1:00 PM EST Appointment Medical Office Building Radiology [address] [place] [address] 04/14/2025 2:00 PM EST Office Visit Medical Office Building Urology [address] [facility], [address] [place] [address] Adilson Alfredo MD [address] [place] [address] documented as of this encounter Visit Diagnoses [...] documented as of this encounter Care Teams Organ Pipe Maker Metal Relationship Specialty Start Date End Date Sunny Horton MD [address] [place] [address] [place] [address] PCP - General 07/14/20 documented as of this encounter
--- OUTSIDE RECORDS SUMMARY | 2024-11-23 14:08 | XMS_ITS | Encounter Summary ---
Author Organization Healthcare Address [address] [place] [address] Care Team Providers Care Postal Mail Carrier Name Role Phone Sunny Horton MD Primary Care Provider [phone] Encounter Details Date Type Department Care Team (Late st Contact Info) Description 11/11/2024 Telephone [facility] [address] [place] [address] Madie Rivera, Pharm[place] [address] Social History Tobacco Use Types Packs/Day Years [...] Info) Description 03/04/2025 2:30 PM EST Appointment [facility] Ultrasound [address] [place] [address] 04/14/2025 1:00 PM EST Appointment Medical Office Building Radiology [address] [place] [address] 04/14/2025 2:00 PM EST Office Visit Medical Office Building Urology [address] [facility], [address] [place] [address] Adilson Alfredo MD [address] [place] [address] documented as of this encounter [...] documented as of this encounter Care Teams Postal Mail Carrier Relationship Specialty Start Date End Date Sunny Horton MD [address] [place] [address] [place] [address] PCP - General 07/14/20 documented as of this encounter
--- OUTSIDE RECORDS SUMMARY | 2024-11-23 14:08 | XMS_ITS | Encounter Summary ---
Author Organization Healthcare Address [address] [place] [address] Care Team Providers Care Report Analyst Name Role Phone Sunny Horton MD Primary Care Provider Reason for Visit * Reason Onset Date Comments Litholink 24Hr Urine Panel 10/18/2024 Encounter Details Date Type Department Care Team (Late st Contact Info) Description 10/18/2024 Telephone [place] [facility] [address] [place] [address] Adilson Alfredo MD [address] [place] [address] [facility]olink 24Hr Urine Panel Social [...] Info) Description 03/04/2025 2:30 PM EST Appointment [facility] Ultrasound [address] [place] [address] 04/14/2025 1:00 PM EST Appointment Medical Office Building Radiology [address] [place] [address] 04/14/2025 2:00 PM EST Office Visit Medical Office Building Urology [address] [facility], [address] [place] [address] Adilson Alfredo MD [address] [place] [address] documented as of this encounter Visit Diagnoses [...] documented as of this encounter Care Teams Report Analyst Relationship Specialty Start Date End Date Sunny Horton MD [address] [place] [address] [place] [address] PCP - General 07/14/20 documented as of this encounter
--- OUTSIDE RECORDS SUMMARY | 2024-11-23 14:09 | XMS_ITS | Encounter Summary ---
Author Organization [facility] Address [address] [place] [address] Care Team Providers Care Research Biologist Name Role Phone Sunny Horton MD Primary Care Provider [phone] Encounter Details Date Type Department Care Team (Latest Contact Info) Description 11/16/2024 Travel Social History Tobacco Use Types Packs/Day [...] Description 11/25/2024 12:30 PM EDT Ancillary Procedure [facility] [address] [place] [address] 11/25/2024 1:30 PM EDT Office Visit [facility] [address] [place] [address] Tania Desouza APRN [address] [place] [address] 04/21/2025 11:00 AM EST Office Visit [facility] PRIMARY [facility] [address] [place] [address] Sunny Horton MD [address] [place] [address] [place] [address] documented as of this encounter Visit Diagnoses Not on filedocumented in this encounter Care Teams Research Biologist Relationship Specialty Start Date End Date Sunny Horton MD [address] [place] [address] PCP - General Internal Medicine 11/09/21 documented as of this encounter
--- OUTSIDE RECORDS SUMMARY | 2024-11-23 14:09 | XMS_ITS | Encounter Summary ---
Author Organization Healthcare Address [address] [place] [address] Care Team Providers Care Asphalt Spreader Operator Name Role Phone Sunny Horton MD Primary Care Provider [phone] Encounter Details Date Type Department Care Team [...] Info) Description 03/04/2025 2:30 PM EST Appointment [facility] Ultrasound [address] [place] [address] 04/14/2025 1:00 PM EST Appointment Medical Office Building Radiology [address] [place] [address] 04/14/2025 2:00 PM EST Office Visit Medical Office Building Urology [address] [facility], [address] [place] [address] Adilson Alfredo MD [address] [facility] [address] [place] [address] documented as of this encounter Visit Diagnoses Not on filedocumented in this encounter Additional Health Concerns Assessment Noted Time A fall risk assessment has been complete d for the patient 02/19/2024 2:51 PM EST A Body Mass Index follow-up plan has been documented for the patient 03/25/2024 3:51 PM EST documented as of this encounter Care Teams Asphalt Spreader Operator Relationship Specialty Start Date End Date Sunny Horton MD [address] [place] [address] PCP - General 07/14/20 documented as of this encounter
--- OUTSIDE RECORDS SUMMARY | 2024-11-23 14:09 | XMS_ITS | Clinical Summary ---
Author Organization [facility] Address [address] [facility] [address] [place] [address] Phone Care Team Providers Care Airborne Sensor Specialist Name Role Phone Parviz VALADEZ, Coleman Stark [phone] Conditions or Problems Problem Name Problem Code Onset Date Status Entry Date Provider Comment Standard Description Annotate Obesity 646548642 (SNOMED CT) Active 04/21 Coleman Jj MD. Obesity Hidradenitis 79739565 (SNOMED CT) Active 04/20 Gricelda Andres Hidradenitis Abscess of right leg L02.415 (ICD-10-CM) Active 04/20 Gricelda Andres Cutaneous abscess of right lower limb Cellulitis of right leg L03.115 (ICD-10-CM) Active 04/20 Gricelda Andres Cellulitis of right lower limb Benign Essential Hypertension 07592507 (SNOMED CT) Active 04/20 Gricelda Andres Benign hypertension Nicotine dependence, cigarettes F17.210 (ICD-10-CM) Active 04/20 Gricelda Andres Nicotine dependence, cigarettes, uncomplicated Abscess, groin 11859521 (SNOMED CT) Active 04/20 Gricelda Andres Abscess of groin Medications Medication Instructions Start Date Stop Date Generic Name [facility] Provider BACTROBAN 2 % EXTERNAL OINTMENT apply to each nostril twice a day x 5 days. MUPIROCIN [id number] Coleman Jj MD. SULFAMETHOXAZOLE -TRIMETHOPRIM 800-160 MG TABS take 2 tablets by mouth twice a day SULFAMETHOXAZOLE -TRIMETHOPRIM 34221690957 Estefani S RANITIDINE HCL 150 MG ORAL TABLET take 1 tablet by mouth every evening RANITIDINE HCL 44557327272 Estefani Lee ACYCLOVIR 800 MG TABS take 1 tablet by mouth five times a day for 10 days ACYCLOVIR 13705670367 Estefani S GABAPENTIN 300 MG CAPS take 1 capsule by mouth at bedtime MAY INCREASE TO TWICE DAILY GABAPENTIN 08704854855 Estefani S GABAPENTIN 300 MG CAPS take 1 capsule by mouth at bedtime MAY INCREASE TO TWICE DAILY GABAPENTIN 61961034772 Karime Ko ACYCLOVIR 800 MG TABS take 1 tablet by mouth five times a day for 10 days ACYCLOVIR 90785159006 Karime Ko RANITIDINE HCL 150 MG ORAL TABLET take 1 tablet by mouth every evening RANITIDINE HCL 34193595212 Karime Ko LISINOPRIL-HYDRO CHLOROTHIAZIDE 10-12.5 MG TABS 1 po qd LISINOPRIL-HYDRO CHLOROTHIAZIDE 79744348039 Karime Ko PRAVASTATIN SODIUM 20 MG TABS take 1 tablet by mouth at bedtime PRAVASTATIN SODIUM 43312912972 Karime Ko CIPROFLOXACIN HCL 0.3 % SOLN INSTILL 1 DROP INTO AFFECTED EYE WHILE WAKE EVERY 4 HOURS CIPROFLOXACIN HCL 29376717276 Karime Ko SULFAMETHOXAZOLE -TRIMETHOPRIM 800-160 MG TABS take 2 tablets by mouth twice a day SULFAMETHOXAZOLE -TRIMETHOPRIM 61248243388 Karime Ko AMOXICILLIN-POT CLAVULANATE 875-125 MG TABS take 1 tablet by mouth twice a day for 10 days AMOXICILLIN-POT CLAVULANATE 02332866826 Karime Ko Medications Administered No information available. [...] Screening Nares culture, comment Lab Report: Panel [id number] 1155/02/19 [id number] NR Non Reactive GE use only - for LinkLogic import when terms are not otherwise specified Plan of Care Type Date Detail Pending order HIV 1/2 atb/ag 4 th generation with cascade reflex Pending order Nasal Swab for M RSA Procedures Code Procedure Name Date Entry Date CPT-562029 HIV 1/2 atb/ag 4th generation with cascad e reflex CPT-36130 Nasal Swab for MRSA Vital Signs Date [...]
--- OUTSIDE RECORDS SUMMARY | 2024-11-23 14:09 | XMS_ITS | Clinical Summary ---
[facility] Address [address] [place] [address] Care Team Providers Care Head Operator Name Role Phone Sunny Horton MD Primary Care Provider [phone] Allergies Active Allergy Reactions Criticality Noted Date [...] Daily. 16 g 2 02/20/20 24 Active Bimzelx 320 MG/2ML solution auto-injector 10/07/19 25 Active Cholecalcifero l (Vitamin D) 50 MCG (1999) tabletIndicati ons:Vitamin D deficiency Take 1 tablet [...] DAY 90 tablet 1 10/26/19 25 Active loratadine (CLARITIN) 10 MG tabletIndicati ons:Seasonal allergic rhinitis due to pollen Take 1 tablet by mouth Daily. 90 tablet 1 02/20/20 24 025 Discontinued albuterol sulfate HFA 108 (90 Base) MCG/ACT inhaler Inhale 2 puffs Every 4 (Four) Hours As Needed for Wheezing or Shortness of Air. 8 g 03/05/19 25 025 Discontinued(*T herapy completed) montelukast (SINGULAIR) 10 MG tabletIndicati ons:Seasonal allergic rhinitis due to pollen TAKE 1 TABLET BY MOUTH EVERY NIGHT 30 tablet 3 08/18/19 25 025 Discontinued(*T herapy completed) Active Problems Problem Noted Date Diagnosed Date [...] 04/19/2024. He also has follow-up with his machine learning intern for his irritable bowel syndrome, Dr. Cabrera [...] finger at the mid phalanx. Not responsive [id number] treatment. As such with informed verbal consent, [...] through work at . Flu vaccine given yearly. Patient declines pneumococcal [...] & Plan (04/19/2024 10:47 AM EST): Early 2018 resumption of losartan/HCTZ 50/12.5, ultimately discontinued after [...] Encounters Date Type Department Care Team Description 11/17/2024 3:10 PM EDT Ancillary Procedure [facility] CARDIOLOG[facility] [address] [place] [address] Palpitations; Tachycardia 11/16/2024 1:00 PM EDT Office Visit [facility] CARDIOLOGY [address] [place] [address] [place] [address] Gwen Huber, APPEALS EXAMINER Preop cardiovascular exam (Primary Dx); Palpitations; Tachycardia 11/16/2024 Telephone [facility] CARDI[facility] [address] [place] [address] [place] [address] Gwen Huber, APPEALS EXAMINER 11/16/2024 Travel 11/11/2024 Telephone [facility] CARDI[facility] [address] [place] [address] [place] [address] Gwen Huber, APPEALS EXAMINER 10/24/2024 Refill [facility]IMARY CARE [address] [place] [address] [place] [address] Sunny Horton MD Seasonal allergic rhinitis due to pollen 10/19/2024 11:15 AM EDT Office Visit [facility] PRIMARY [address] [place] [address] Sunny Horton MD Prediabetes (Primary Dx); Common wart; Anxiety and depression; Elevated liver function tests; Hidradenitis suppurativa; Gastroesophageal reflux disease without esophagitis; Migraine with aura and without status migrainosus, not intractable; Mixed hyperlipidemia; Mild intermittent asthma without complication; Overweight (BMI 25.0-29.9); Vaping nicotine dependence, tobacco product; Seasonal allergic rhinitis due to pollen; Vitamin D deficiency 10/19/2024 Travel 08/27/2024 Telephone [facility] PRIMARY [address] [place] [address] Sunny Horton MD from Last 3 Months Immunizations Immunization Administration [...] Orientation Straight 11/11/2024 11 :20 PM EDT Last Filed Vital Signs Vital Sign Reading Time Taken Comments Blood Pressure 122/74 11/16/2024 1:16 PM EDT Pulse 98 11/16/2024 1:16 PM EDT Temperature 36.9 C (98.4 F) 10/19/2024 11:13 AM EDT Respiratory Rate 16 03/05/2024 4:07 PM EST Oxygen Saturation 100% 11/16/2024 1:16 PM EDT Inhaled Oxygen Concentration - - Weight 94.8 kg (209 lb) 11/16/2024 1:16 PM EDT Height 182.9 cm (6' 0.01 ) 11/16/2024 1:16 PM ED T Body Mass Index 28.34 11/16/2024 1:16 PM EDT Plan of Treatment Upcoming Encounters Date Type Department Care Team (Late st Contact Info) Description 11/25/2024 12:30 PM EDT Ancillary Procedure [facility] CARDIOLOGY CLINIC [address] [place], [place] [address] 11/25/2024 1:30 PM EDT Office Visit [facility] CARDIOLOGY [address] [place] [address] DR [place], [place] [address] Tania Desouza, KHADIJAH [address] [place] [address] 04/21/2025 11:00 AM EST Office Visit [facility] PRIMARY CARE [address] [place] [address] [place] [address] Sunny Horton MD [address] [place] [address] [place] [address] Health Maintenance Due Date Last Done Comments Pneumococcal Vaccine 0-49 (1 of 2 - PCV) 2008 INFLUENZA VACCINE 10/01/2024 11/14/2023, , 11/16/2021, Additional history exists ANNUAL PHYSICAL 04/19/2025 04/19/2024 LIPID PANEL 04/19/2025 04/19/2024, 03/04, 11/16/2021 TDAP/TD VACCINES (3 - Td or Tdap) 03/29/2032 023, 02/15/2012 HEPATITIS C SCREENING Completed 11/16/2021 Procedures Procedure Name Priority Date/Time Associated Diagnosis Comments ECG 12-LEAD Routine 11/16/2024 Preop cardiovascular exam Palpitations Tachycardia CRYOTHERAPY SKIN LESION Routine 10/19/2024 12:15 PM [...] Recently Relevant to Health Maintenance Results * ECG 12-LEAD (11/16/2024) Narrative ECG [...] to date by Dr. Natanael Edgar @ [facility].Labs from 10/2024 in [facility] and reviewed. EKG obtained and reviewedtoday./Pt denies shortness of breath or chest pain, dizziness. Notesoccasional palpitations. ) History of Present Illness Mr. Justice Reyes is a 34-year-old male [facility]. He is accompanied by [...] him back after echo for preop clearance. Duquesne Scale is (out of 24): 3 No [...] Rfl: 1 Cholecalciferol (Vitamin D) 50 MCG (1999 UT) tablet, Take 1 tablet bymouth Daily., [...] (72.01 ) Wt 94.8 kg (209 lb) IrB5256% BMI 28.34 kg/m Estimated body mass index [...] Return for After echo/holter. Patient or patient outside sales account representative verbalized consent for the use ofAmbient [...] providerif any clarification is needed. Gwen Huber APRN ECG ORDERABLES Fin al Result ECG * Cryotherapy, Skin Lesion (10/19/2024 12:15 PM [...] Hemoglobin A1C 5.0 4.5 - 5.7 % [facility] Lot Number [id number] [facility] Expiration Date 06/16/2026 [facility] Blood 10/19/2024 11:2 2 AM EDT us Sunny Horton MD POINT OF CARE TEST ORDERABLES Fi nal Result [facility]
[address] [place] [id number], [place] [phone] * LABS SCANNED (10/17/2024) Only the most [...] 5 AM EST 04/19/2024 Comment:Blood Release to pat i Narrative [facility] ([facility]AT[facility]) - 04/20/2024 8:07 AM EST Performed at: 01 - [facility] [address] [place] [address] [id number] Asphalt Tamper: Moo Fay PhD, Phone: [phone] us Sunny Horton MD LAB BLOOD ORDERABLES Final Resul t [facility] ([facility]BULATORY) [address] [place] [address], [place] [phone] [facility] [address] [place] [address], [place] [phone] * Hepatitis C Antibody (11/16/2021 2:38 PM EDT) Hep C Virus Ab <0.1 0.0 - 0.9 s/co ratio [facility] Comment: Negative: < 0.8 Indeterminate: 0.8 - 0.9 Positive: > 0.9 HCV antibody alone does not differentiate between previous resolved infection and active infection. The CDC and current clinical guidelines recommend that a positive HCV antibody result be followed up with an HCV RNA test to support the diagnosis of acute HCV infection. [facility] offers Hepatitis C Virus (HCV) RNA, Diagnosis, LINDY (159160) and Hepatitis C Virus (HCV) Antibody with reflex to Quantitative Real-time PCR (217367). Blood Structure of left upper limb / Unknown 11/16/2021 2:38 PM EDT 11/16/2021 Comment:Blood Release to leobardo Parra [facility] (AMBULATORY) - 11/18/2021 9:06 AM EDT Performed at: - [address] [id number] Asphalt Tamper: Moo Fay PhD, Phone: [phone] Sunny Horton MD LAB BLOOD ORDERABLES Final Resul t [facility] (AMBULATORY) [address] [place] [address], [facility] [address] [place] [phone], from Last 3 Months or Most Recently Relevant to Health Maintenance Insurance [facility] MEDICAID Care Teams Head Operator Relationship Specialty Start Date End Date Sunny Horton MD [address] [place] [address] PCP - General Internal Medicine 11/09/21
--- OUTSIDE RECORDS SUMMARY | 2024-11-23 14:09 | XMS_ITS | Clinical Summary ---
Author Organization Healthcare Address [address] [place] [address] Care Team Providers Care Butcher Head Name Role Phone Sunny Horton MD Primary Care Provider [phone] Allergies Active Allergy Reactions Criticality Noted Date [...] day. 4 Active Vitamin D3 1.25 MG (66051 UT) capsule Take 1 capsule (50,000 Units) [...] Encounters Date Type Department Care Team Description 11/11/2024 Telephone Health and [facility] [address] [facility], 2nd [place] [address] Porsche Avila, PharmD 11/11/2024 Telephone [facility] [address] [place] [address] Madie Rivera, PharmD 10/21/2024 Telephone [facility] [address], [address] [place] [address] Adilson Alfredo MD Appt Info 10/18/2024 Telephone [facility] [address], [address] [place] [address] Adilson Alfredo MD [employer] 24Hr Urine Panel 10/17/2024 Orders Only External Location [address] [place] [address] Joanna Jones 10/14/2024 8:00 AM EDT Office Visit Medical [facility] Building Urology [address] [facility], [address] [place] [address] Adilson Alfredo MD Kidney stones (Primary Dx) 10/14/2024 Travel 10/07/2024 Travel 10/04/2024 2:45 PM EDT - 10/04/2024 11:59 PM EDT Hospital Encounter [facility] [address] [place] [address] Kidney stones Discharge Disposition: Home or Self Care 10/04/2024 Travel 10/03/2024 Travel 10/01/2024 Telephone [facility] [address], [address] [place] [address] Adilson Alfredo MD 09/14/2024 Telephone [facility] [address] [place] [address] Mehran Dillon 09/09/2024 Telephone [facility] [address] [place] [address] Juan Manuel Mcdaniels, PharmD 09/08/2024 Telephone [facility] [address], [address] [place] [phone] Adilson Alfredo MD HCN - Patient Message; Asking for a return call; Confirmed Appt 08/31/2024 Orders Only [facility] [address], [address] [place] [address] Adilson Alfredo MD Kidney stones (Primary Dx) [...] Multiple kidney stones Cardiac disorder Mother Bonnie Sakina Rice Conversions - Other Mother Bonnie Sakina Rice Family history unknown Diabetes Mother Bonnie Sakina Rice Hypertension Mother Bonnie Sakina Rice Stroke Mother Bonnie Sakina Rice Diabetes Other 1 Conversions - Other Other 2 Multiple kidney stones Throat cancer Other 3 Cancer Paternal Grandmother Panchito daily Relation Name Status Comments Father Mother Bonnie Sakinacindi Reyes Other 1 Other 2 Other 3 [...] 03/04/2025 2:30 PM EST Appointment [facility] Ultrasound [address], [address] [place] [address] 04/14/2025 1:00 PM EST Appointment [facility] [address] [place] [address] 04/14/2025 2:00 PM EST Office Visit Medical Office Building Urology [address] [facility], [address] [place] [address] Adilson Alfredo MD [address] [place] [address] Health Maintenance Due Date Last Done Comments [facility]-Infant/Child/Adol SDOH Screenings 1989 [facility]-Varicella Vaccines (1 of 2 - 13+ 2-dose series) 2002 [facility]- SDOH Screenings 2007 [facility]-Adult SDOH Screenings 2007 [facility]-Pneumococcal Vaccine: Pediatrics (0 to 5 Years) and At-Risk Patients (6 to 49 Years) (1 of 2 - PCV) 2008 HPV Vaccines (1 - 3-dose SCDM series) 2016 [id number] Vaccine ( - season) 2024 03/06/2021, 01/30/2021 [facility]-Influenza Vaccine (#1) 11/01/202411/13, 11/13/2022, [...] this topic Medical Devices Implanted Type Area Storeperson Device Identifier Shelf Expiration Date Model / Serial / Lot Stent Ureteral Double Pigtail Pos 6fr 26cm - [id number] - [id number] Implanted:Qty: 1 on 01/23/2021 by Adilson Alfredo MD at [facility] Stent Right: U[employer]ter [employer]-[id number] 07/17/2022 [id number] / [id number] / Stent Ureteral Double Pigtail Pos 5fr 26cm - [id number] Implanted:Qty: 1 on 08/01/2023 by Adilson Alfredo MD at [facility] Left: Kidney [employer]-[id number] 11/06/2024 [id number] / / [id number] Procedures Procedure Name Priority Date/Time Associated Diagnosis [...] phy 10/17/2024 5:31 PM EDT Joanna Jones IM CT PROCEDURES Final Result * CT Abdomen [...] in the right lower pole (series 3, [id number]).No hydronephrosis. GI Tract/Mesentery/Peritoneum: The large and small [...] ORDERABLES Final Res ult Performing Organization Address City/[facility]/ZIP Co de Phone Number [facility] [address] [place] [address] * [place] Hepatitis C Antibody (01/17/2021 6:02 PM EST) Pathologist [facility] Hepatitis C Antibody Negative Negative 01/17/2021 7:56 PM EST HEALTHCARE LAB Blood Venous blood specimen / Unknown Venipuncture / Unknown 01/17/2021 6:02 PM EST 01/17/2021 6:18 PM EST Arun Cameron MD LAB BLOOD ORDERABLES Final Res ult [facility] [address] [place] [address] from Last 3 Months or Most Recently Relevant to Health Maintenance Insurance [facility] [address] MEDICAID Care Teams Butcher Head Relationship Specialty Start Date End Date Sunny Horton MD [address] [place] [address] PCP - General 07/14/20
--- OUTSIDE RECORDS SUMMARY | 2024-11-23 14:09 | XMS_ITS | Encounter Summary ---
Author Organization Healthcare Address [address] [place] [address] Care Team Providers Care Ink Printer Name Role Phone Sunny Horton MD Primary Care Provider [phone] Encounter Details Date Type Department Care Team [...] Info) Description 03/04/2025 2:30 PM EST Appointment [facility] Ultrasound [address]nd [place] [address] 04/14/2025 1:00 PM EST Appointment Medical Office Building Radiology [address] [place] [address] 04/14/2025 2:00 PM EST Office Visit Medical Office Building Urology [address] [facility], [address] [place] [address] Adilson Alfredo MD [address] [facility] [address] [place] [address] documented as of this encounter Visit Diagnoses Not on filedocumented in this encounter Additional Health Concerns Assessment Noted Time A fall risk assessment has been complete d for the patient 02/19/2024 2:51 PM EST A Body Mass Index follow-up plan has been documented for the patient 03/25/2024 3:51 PM EST documented as of this encounter Care Teams Ink Printer Relationship Specialty Start Date End Date Sunny Horton MD [address] [place] [address] PCP - General 07/14/20 documented as of this encounter
--- OUTSIDE RECORDS SUMMARY | 2024-11-23 14:09 | XMS_ITS | Encounter Summary ---
Author Organization [facility] Address [address] [place] [address] Care Team Providers Care Geotechnical Intern Name Role Phone Sunny Horton MD Primary Care Provider [phone] Encounter Details Date Type Department Care Team (Late st Contact Info) Description 11/11/2024 Telephone [facility] CARDIOLOG[facility] [address] [place] [address] Gwen Huber APRN [address] [place], [place] [phone] Social History Tobacco Use Types Packs/Day Years [...] encounter Miscellaneous Notes * Telephone Encounter - Abbey Quesada MA - 11/11/2024 10:59 AM EDT Have noted patient needs cardiac clearance at 11/16/2024 appointment. * Telephone Encounter - Salome Arboleda RegSched Rep - 11/11/2024 10:48 AM EDT Patient's spouse called and LVM requesting that cardiac clearance be done at this appointment at well as [employer] VICE PRESIDENT. 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 Patient is hoping to have surgery prior to 11/30/24 due to insurance. Patient will bring EKG order and other info to appointment. Surgery will be performed by ANJANA Price in [place]. documented in this encounter Plan of Treatment Upcoming Encounters Date Type Department Care Team (Late st Contact Info) Description 11/25/2024 12:30 PM EDT Ancillary Procedure [facility] C[facility] [address] [place] [address] 11/25/2024 1:30 PM EDT Office Visit [facility] C[facility] [address] [facility] [place] [address] Tania Desouza APRN [address] [place] [address] 04/21/2025 11:00 AM EST Office Visit [facility] [place] [address] Sunny Horton MD [address] [place] [address] [place] [address] documented as of this encounter Visit Diagnoses Not on filedocumented in this encounter Care Teams Geotechnical Intern Relationship Specialty Start Date End Date Sunny Horton MD [address] [place] [address] PCP - General Internal Medicine 11/09/21 documented as of this encounter
--- OUTSIDE RECORDS SUMMARY | 2024-11-23 14:09 | XMS_ITS | Encounter Summary ---
Author Organization [facility] ystem Address [address] [place] [address] Care Team Providers Care Maintenance Department Technician Name Role Phone Sunny Horton MD Primary Care Provider [phone] Encounter Details Date Type Department Care Team (Late st Contact Info) Description 11/16/2024 Telephone [facility] CARDIOLOGY [address] [place] [address] Gwen Huber APRN [address] [place], [place] [id number] Social History Tobacco Use Types Packs/Day Years [...] encounter Miscellaneous Notes * Telephone Encounter - Yessica Nayak RegSched Rep - 11/16/2024 4:01 PM EDT Sebastien staff attempted to follow warm transfer process and was unsuccessful Caller: CHRISTIE REYES Relationship to patient: Emergency Contact Best call back number: [phone] Patient is needing: PATIENTS , CHRISTIE REYES, CALLED AND WAS WAITING TO SPEAK TO JENNIFER. HUB PUT CALL THROUGH, CALL GOT DISCONNECTED. PLEASE REACH OUT. documented in this encounter Plan of Treatment Upcoming Encounters Date Type Department Care Team (Late st Contact Info) Description 11/25/2024 12:30 PM EDT Ancillary Procedure [facility] CARDIOLOGY CLINIC [place] [address] 11/25/2024 1:30 PM EDT Office Visit [facility] CARDIOLOGY [address] [place] [address] [place] [address] Tania Desouza APRN [address] [place] [address] 04/21/2025 11:00 AM EST Office Visit [facility] PRIMARY CARE [address] [place] [address] [place] [address] Sunny Horton MD [address] [place] [address] [place] [address] documented as of this encounter Visit Diagnoses Not on filedocumented in this encounter Care Teams Maintenance Department Technician Relationship Specialty Start Date End Date Sunny Horton MD [place] [address] PCP - General Internal Medicine 11/09/21 documented as of this encounter
--- OUTSIDE RECORDS SUMMARY | 2024-11-23 14:09 | XMS_ITS | Encounter Summary ---
Author Organization Healthcare Address [address] [place] [address] Care Team Providers Care Health Insurance Specialist Name Role Phone Sunny Horton MD Primary Care Provider [phone] Encounter Details Date Type Department Care Team (Late st Contact Info) Description 10/01/2024 Telephone [facility] [address], [address] [place] [address] Adilson Alfredo MD [address] [place] [address] Social History Tobacco Use Types [...] Bridger Ingram documented as of this encounter Plan of Treatment Upcoming Encounters Date Type Department Care Team (Late st Contact Info) Description 03/04/2025 2:30 PM EST Appointment [facility] Ultrasound [address] [place] [address] 04/14/2025 1:00 PM EST Appointment Medical Office Building Radiology [address] [place] [address] 04/14/2025 2:00 PM EST Office Visit Medical Office Building Urology [address] [facility], [address] [place] [address] Adilson Alfredo MD [address] [place] [address] documented as of this encounter Visit Diagnoses Not on filedocumented in this encounter Additional Health Concerns Assessment Noted Time A fall risk assessment has been complete d for the patient 02/19/2024 2:51 PM EST A Body Mass Index follow-up plan has been documented for the patient 03/25/2024 3:51 PM EST documented as of this encounter Care Teams Health Insurance Specialist Relationship Specialty Start Date End Date Sunny Horton MD [address] [place] [address] [place] [address] PCP - General 07/14/20 documented as of this encounter
--- OUTSIDE RECORDS SUMMARY | 2024-11-23 14:09 | XMS_ITS | Encounter Summary ---
[facility] [address] [place] [address] Care Team Providers Care Statement Clerk Name Role Phone Sunny Horton MD Primary Care Provider [phone] Reason for Visit * Reason Comments Med Refill Encounter Details Date Type Department Care Team (Late Contact Info) Description 10/24/2024 Refill [facility] PRIMARY CARE [address] [place] [address] [place] [address] Sunny Horton MD [address] [place] [address] Seasonal allergic rhinitis due to [...] Upcoming Encounters Date Type Department Care Team ([facility] Contact Info) Description 11/25/2024 12:30 PM EDT Ancillary Procedure [facility] CARDIOLOGY [address] [place] [address] 11/25/2024 1:30 PM EDT Office Visit [facility] CARDIOLOGY [address] [place] [address] [place] [address] Tania Desouza, PEDIATRIC PSYCHIATRIST [address] [place] [address] 04/21/2025 11:00 AM EST Office Visit [facility] PRIMARY CARE [address] [place] [address] [place] [address] Sunny Horton MD [address] [place] [address] [place] [address] documented as of this encounter Visit Diagnoses Diagnosis Seasonal allergic rhinitis due to pollen documented in this encounter Care Teams Statement Clerk Relationship Specialty Start Date End Date Sunny Horton MD [address] [place] [address] [place] [address] PCP - General Internal Medicine 11/09/21 documented as of this encounter
--- OUTSIDE RECORDS SUMMARY | 2024-11-23 14:09 | XMS_ITS | Encounter Summary ---
Author Organization Healthcare Address [address] [place] [address] Care Team Providers Care Benefits Specialist Name Role Phone Sunny Horton MD Primary Care Provider [phone] Encounter Details Date Type Department Care Team [...] Info) Description 03/04/2025 2:30 PM EST Appointment [facility] Ultrasound [address], [address]nd [place] [address] 04/14/2025 1:00 PM EST Appointment [facility] Radiology [address] [place] [address] 04/14/2025 2:00 PM EST Office Visit Medical Office Building Urology [address] [facility], [address] [place] [address] Adilson Alfredo MD [address] [facility] [address] [place] [address] documented as of this encounter Visit Diagnoses Not on filedocumented in this encounter Additional Health Concerns Assessment Noted Time A fall risk assessment has been complete d for the patient 02/19/2024 2:51 PM EST A Body Mass Index follow-up plan has been documented for the patient 03/25/2024 3:51 PM EST documented as of this encounter Care Teams Benefits Specialist Relationship Specialty Start Date End Date Sunny Horton MD [address] [place] [address] PCP - General 07/14/20 documented as of this encounter
--- OUTSIDE RECORDS SUMMARY | 2024-11-23 14:09 | XMS_ITS | Encounter Summary ---
Author Organization Healthcare Address [address] [place] [address] Care Team Providers Care Cotton Presser Name Role Phone Sunny Horton MD Primary Care Provider [phone] Encounter Details Date Type Department Care Team [...] at all 10/14/2024 7:47 AM EDT Bridger Dyer documented as of this encounter Plan of Treatment Upcoming Encounters Date Type Department Care Team (Late st Contact Info) Description 03/04/2025 2:30 PM EST Appointment [facility] Ultrasound [address]nd [place] [address] 04/14/2025 1:00 PM EST Appointment Medical Office Building Radiology [address] [place] [address] 04/14/2025 2:00 PM EST Office Visit Medical Office Building Urology [address] [facility], [address] [place] [address] Adilson Alfredo MD [address] [place] [address] documented as of this encounter [...] documented as of this encounter Care Teams Cotton Presser Relationship Specialty Start Date End Date Sunny Horton MD [address] [place] [address] [place] [address] PCP - General 07/14/20 documented as of this encounter
--- NOTE | 2024-11-23 14:15 | CT_ITS ---
FINAL REPORT TECHNIQUE: Axial images of the pelvis were obtained by computed tomography after the administration of IV contrast. Multiplanar reconstruction images were also reviewed. This study was performed with techniques to keep radiation doses as low as reasonably achievable, (ALARA). Individualized dose reduction techniques using automated exposure control or adjustment of mA and/or kV according to the patient's size were employed. CLINICAL HISTORY: fissure/abscess COMPARISON: CT abdomen and pelvis 10/17/2024 FINDINGS: The appendix is normal. The posterior portion of the GI tract is without acute abnormality. There is no free fluid in the pelvis. There has been interval improvement of inflammatory stranding and skin thickening along the right scrotum and proximal medial right thigh. There is a new hypodensity along the medial right gluteal fold measuring 20 mm in axial dimension well seen on image 82 of series 3. This may communicate to linear soft tissue extending to the right posterolateral anus and could represent perianal fistula and small abscess. No subcutaneous air is seen. Mildly prominent lymph nodes bilaterally in the inguinal regions are likely reactive. No acute osseous abnormality. IMPRESSION: Improved inflammatory process right scrotum. Findings along the medial right gluteal fold could represent new perianal abscess/fistula. Recommend clinical correlation. Consider MRI anal fistula protocol if further evaluation needed. Reviewed, Interpreted and Dictated by Lucille Spence MD Transcribed by Devi Sorto Authenticated and [facility]
[2024-11-23] MEDS: IOPAMIDOL-370 (76%);100ML BOTTLE 75 ML IV (14:26)
[2024-11-23] MEDS: SODIUM CHLORIDE 0.9% 10ML SYR (RAD ONLY) 10 ML IV (14:26)
== END 2024-11-23 23:59 | disposition home or self-care (01) ==
LOC: RAD 14:05
PROVIDERS: PCP Pediatrics; Visit Provider Surgery
DX: N49.2 Inflammatory disorders of scrotum (principal); R93.5 Abnormal findings on diagnostic imaging of other abdominal regions, including retroperitoneum; L02.91 Cutaneous abscess, unspecified
CPT/HCPCS: 72193; Q9967

== ENCOUNTER 2024-11-26 11:17 | Outpatient (CLI) | payer MEDICAID, SELFPAY ==
--- OUTSIDE RECORDS SUMMARY | 2024-10-04 14:45 | XMS_ITS | Encounter Summary ---
Author Organization [facility] Address [address] [place] [address] Care Team Providers Care Panel Laminator Name Role Phone Sunny Horton MD Primary Care Provider [phone] Reason for Referral * Imaging (Routine) - Canceled Specialty Diagnoses / Procedures Referred By Howard sanchez Referred To Contact Radiology Diagnoses Kidney stones Procedures CT Abdomen wo IV Contrast Adilson Alfredo MD [address] [address] Phone: tel: fax: Referral ID Status Reason Start Date Expiration Date V isits Requested Visits Authorized [id number] Canceled 02/19/2024 08/20/2025 1 1 Reason for Visit * Imaging (Routine) - Canceled Specialty Diagnoses / Procedures Referred By Howard sanchez Referred To Contact Radiology Diagnoses Kidney stones Procedures CT Abdomen wo IV Contrast Adilson Alfredo MD [address] [address] Phone: tel: fax: Referral ID Status Reason Start Date Expiration Date V isits Requested Visits Authorized [id number] Canceled 02/19/2024 08/20/2025 1 1 Encounter Details Date Type Department Care Team (Latest Contact Info) Description 10/04/2024 2:45 PM EDT - 10/04/2024 11:59 PM EDT Hospital Encounter [facility] [address] [place] [address] Kidney stones Discharge Disposition: Home [...] capsule 11 02/19/2024 Vitamin D3 1.25 MG (29086 UT) capsule Take 1 capsule (50,000 Units) by mouth 1 (one) time per week. documented as of this encounter Plan of Treatment Upcoming Encounters Date Type Department Care Team (Late st Contact Info) Description 03/04/2025 2:30 PM EST Appointment [facility] Ultrasound [address] [place] [address] 04/14/2025 1:00 PM EST Appointment Medical Office Building Radiology [address] [place] [address] 04/14/2025 2:00 PM EST Office Visit Medical Office Building Urology [address] [facility], [address] [place] [address] Adilson Alfredo MD [address] [place] [address] documented as of this encounter [...] documented as of this encounter Care Teams Panel Laminator Relationship Specialty Start Date End Date Sunny Horton MD [address] [place] [address] [place] [address] PCP - General 07/14/20 documented as of this encounter
--- OUTSIDE RECORDS SUMMARY | 2024-10-14 08:00 | XMS_ITS | Encounter Summary ---
Author Organization [facility] Address [address] [place] [address] Care Team Providers Care Program Director/Music Director Name Role Phone Sunny Horton MD Primary Care Provider [phone] Reason for Referral * Imaging (Routine) - Authorized Specialty Diagnoses / Procedures Referred By Contac t Referred To Contact Radiology Diagnoses Kidney stones Procedures US Renal Complete Adilson Alfredo MD [id number] [place] [address] Phone: tel: fax: Referral ID Status Reason Start Date Expiration Date V isits Requested Visits Authorized [id number] Authorized 10/20/2024 04/21/2026 1 1 Encounter Details Date Type Department Care Team ([facility] Contact Info) Description 10/14/2024 8:00 AM EDT Office Visit Medical Office Building Urology [address] [facility], [address] [place] [address] Adilson Alfredo MD [address] [facility] [address] [place] [address] Kidney stones (Primary Dx) [...] Patient confirms they are physically located in [place]? Yes If the patient is not physically located in [place], the provider has confirmed with Legal thatthe provider is authorized to provide services in patient's stated location? N/A Provider Location: HealthCare Facility Audio and video or audio only? Audio and video Approximately 25 min was spent on this encounter. Adilson Alfredo MD Department of Urology [phone] documented in this encounter Plan of Treatment Upcoming Encounters Date Type Department Care Team (Late st Contact Info) Description 03/04/2025 2:30 PM EST Appointment [facility] Ultrasound [address] [place] [address] 04/14/2025 1:00 PM EST Appointment Medical Office Building Radiology [address] [place] [address] 04/14/2025 2:00 PM EST Office Visit Medical Office Building Urology [address] [facility], [address] [place] [address] Adilson Alfredo MD [address] [place] [address] Scheduled Orders Name Type Priority Associated Diagnoses [...] documented as of this encounter Care Teams Program Director/Music Director Relationship Specialty Start Date End Date Sunny Horton MD [address] [place] [address] [place] [address] PCP - General 07/14/20 documented as of this encounter
--- OUTSIDE RECORDS SUMMARY | 2024-10-19 11:15 | XMS_ITS | Encounter Summary ---
Author Organization [facility] Address [address] [place] [address] Care Team Providers Care Contract Administration Specialist Name Role Phone Sunny Horton MD Primary Care Provider [phone] Reason for Visit * Reason Comments Med Refill Encounter Details Date Type Department Care Team ([facility] st Contact Info) Description 10/19/2024 11:15 AM EDT Office Visit [facility] [address] [place] [address] [place] [phone] Sunny Horton MD [address] [place] [address] [place] [phone] Prediabetes (Primary Dx); Common wart; Anxiety and depression; Elevated liver function tests; Hidradenitis suppurativa; Gastroesophageal reflux disease without esophagitis; Migraine with aura and without status migrainosus, not intractable; Mixed hyperlipidemia; Mild intermittent asthma without complication; Overweight (BMI 25.0-29.9); Vaping nicotine dependence, tobacco product; Seasonal allergic rhinitis due to pollen; Vitamin D deficiency Social History Tobacco Use Types Packs/Day Years [...] Value Date Recorded Sex Assigned at Male 11/11/2024 11:20 PM EDT Legal Sex Male 10:50 AM EST Gender Identity Not on file Sexual Orientation Straight 11/11/2024 11 :20 PM EDT documented as of this encounter Last Filed Vital Signs Vital Sign Reading Time Taken Comments Blood Pressure 118/76 10/19/2024 11:22 AM EDT Pulse 93 10/19/2024 11:13 AM EDT Temperature 36.9 C (98.4 F) 10/19/2024 11:13 AM EDT Respiratory Rate - - Oxygen Saturation 99% 10/19/2024 11:13 AM EDT Inhaled Oxygen Concentration - - Weight 92.1 kg (203 lb) 10/19/2024 11:13 AM EDT Height 182.9 cm (6') 10/19/2024 11:13 AM EDT Body Mass Index 27.53 10/19/2024 11:13 AM EDT documented in this encounter Progress Notes * Sunny Horton MD - 10/19/2024 12:13 PM EDTAssociated Problem(s): Common wart Common wart x 3 on the right thumb, irritating due to location with trying uses hands. 2 are clustered together both about 1/2 cm in size, the other is 3/4 cm. With shaving followed by 40 seconds of cryotherapy in 2 locations with 1 covering the larger lesion at 1 application covering the 2 smallerlesions together, tolerated well. Triple antibiotic ointment and bandage applied. Continue similar treatment over the next few days, then as needed. Advised if not improving. * Sunny Horton MD - 10/19/2024 12:12 PM EDTAssociated Problem(s): Vitamin D deficiency This is per screening blood work prior to gastric bypass, from 04/10/2018 with vitamin D 25-hydroxy level at 11.5, followup 26.4 to 01/07/2019. Last vitamin D level 25.9 on 04/19/2024, previous 25.2 on 39.2 on 03/28/2023. He has stopped vitamin D replacement and still is not taking, as such we will initiate vitamin D 2000 units daily and plan to recheck with next year's blood work. * Sunny Horton MD - 10/19/2024 12:11 PM EDTAssociated Problem(s): Vaping nicotine dependence, tobacco product Since smoking cessation in early 2023 transition to vaping daily with continued nicotine use, nicole has at she had full cessation as of mid October 2024 over the last couple weeks, he continues tomake efforts to continue standing from vaping or smoking. * Sunny Horton MD - 10/19/2024 12:11 PM EDTAssociated Problem(s): Seasonal allergic rhinitis Modest flare of allergies azafol 2023, prescription provided for resumption of Claritin Flonase andSingulair, to use for next couple weeks, then as needed. Additional benefit of saline spray, nasal flushing. Continue recommending benefits of smoking cessation. No new concerns as of 10/19/2024. * Sunny Horton MD - 10/19/2024 12:11 PM EDTAssociated Problem(s): Prediabetes Diagnosis with hemoglobin A1c 6.0 on 04/10/2018, with notable weight loss status post bariatric surgery, improved to 5.6% 09/08/2018, 5.0 01/07/2019. Today's hemoglobin A1c continues modest improved to 5.0% on 10/19/2024 despite some modest weight gain, previous 5.3%, 5.2%, 5.3%, 5.1%. Caution recurrence risk if he gains weight again. Monitor every 6 to 12 months with good stability. * Sunny Horton MD - 10/19/2024 12:10 PM EDTAssociated Problem(s): Overweight (BMI 25.0-29.9) Status post 10/13/2018 bariatric surgery, with greater than 90 pound weight loss within the following year. Comorbid risk factors including hypertension, recently diagnosed obstructive sleep apnea, hyperlipidemia, prediabetes, all improving. Continue efforts to eat healthy, be active, with continue benefits of more modest weight loss. Slight increase in weight of 14 pounds over the last 6 months coinciding with smoking/vaping cessation with some increased diet, but is making efforts to improve. * Sunny Horton MD - 10/19/2024 12:10 PM EDTAssociated Problem(s): Mixed hyperlipidemia Most recent cholesterol 04/19/2024 with total cholesterol 200, triglycerides 85, HDL 66, LDL 119. Modest worsening per previous but no indication of medicine this time, continue healthy diet and exercise. Comparison 03/28/2023 with total cholesterol 169, triglycerides 90, HDL 63 and LDL 89, much improved after weight loss status post bariatric surgery. Prior 04/10/2018 total cholesterol 223, triglycerides 152, HDL 56, LDL 137, 05/14/2017 total cholesterol 209, triglycerides 148, HDL 44, LDL 135. Previous pravastatin 20 mg daily, not taking since weight loss. continue healthy diet, exercise, and wewill plan to monitor yearly with next blood work due April 2025 * Sunny Horton MD - 10/19/2024 12:09 PM EDTAssociated Problem(s): Mild intermittent asthma without complication Overall doing well, typically triggers associated to allergies and also exacerbated when he smokes.Previous use of Qvar no longer required, advise any worsening. Reinforced importance of smoking cessation. No new concerns as of 10/19/2024. * Sunny Horton MD - 10/19/2024 12:09 PM EDTAssociated Problem(s): Migraine with aura and without status migrainosus, not intractable Diagnosed 07/25/2023 with aura with a bit [...] months he is doing better subsequently and isweaned off and has had rare need for the Maxalt is initiated at that time did. Continue Maxalt 5 mgdaily as needed for onset headache, caution sedation. No new concerns as of 10/19/2024. * Sunny Horton MD - 10/19/2024 12:08 PM EDTAssociated Problem(s): Hidradenitis suppurativa Status post surgical incision by Dr. Rider in 2014, as well as status post evaluations with infectious disease, dermatology. Per advanced dermatology, initiated Humira 2017 transiently and resumed again August 2019 with benefit. Ongoing follow-up with dermatology with additional surgical interventions to help with drainage multiple times, most recently change in medicine early October 2024 with discontinuation of Cosentyx but switched to Bimzelx every 2 weeks. Keep regular follow-up with dermatology. * Sunny Horton MD - 10/19/2024 12:08 PM EDTAssociated Problem(s): GERD (gastroesophageal reflux disease) Shai fundoplication December 2015 with benefit. Recurrence [...] advise recurrence. No new concerns as of 10/19/2024. * Sunny Horton MD - 10/19/2024 12:08 PM EDTAssociated Problem(s): Elevated liver function tests 01/07/2019 liver function tests normalize. 04/10/2018 AST 64, ALT 116, previous 05/14/2017 total bilirubin 0.5, AST, similar cervical pattern. Notable for LFTs historically in somewhat similar range, on 04/08/2016 total bilirubin 0.6, AST 21, ALT 61. Consistent with fatty liver disease. Recheck with blood work 03/28/2023, completely normalized liver function test. Last liver function test 04/19/2024 continued in normal range. * Sunny Horton MD - 10/19/2024 12:08 PM EDTAssociated Problem(s): Anxiety and depression Historically more depression than anxiety symptoms. Initially evaluated 08/19/2016, related to moneyand home stressors. Resumption of buspirone and fluoxetine as of 09/18/2021 with benefit. He had some delayed ejaculatory pattern on the fluoxetine at 20 mg dosing but not too bothersome but we did have improvement when he decreased to the 10 mg dosing. Current buspirone 15 mg twice daily, which wasincreased in July 2023 with previous fluoxetine which had been increased to 20 mg to since discontinued. As of visit 02/20/2024, with, we switched to a different class with modest breakthrough symptoms but due to ejaculatory difficulty on fluoxetine, we switched to a different class of medicine withCymbalta, and he has seen good benefit. He continues to see good benefit of medicine with no ejaculatory issues like he had on the previous medicine. He would like to continue unchanged Cymbalta 30 mg daily and buspirone 15 mg twice daily. No SI/HI. Continue lifestyle modifications to benefit mood i ncluding proceeded enjoyable activities, improved socialization, exercise, et cetera. Reassess at follow-up visit 6 months, sooner as needed. * Sunny Horton MD - 10/19/2024 11:15 AM EDTAssociated Order(s): Cryotherapy, Skin Lesion Images from the original note were not included. Follow Up Office Visit Date: 10/19/2024 Patient Name: Justice Reyes : 1990 Chief Complaint: Chief Complaint Patient presents with Med Refill History of Present Illness: Justice Reyes is a 34 y.o. male who is here today to follow up with multimedical problems and new concerns. He has had presentation of a few small areas of wart on the right thumb on the palmar aspect, 2 small distal and then 1 a little more proximal which is larger. Dueto location they can be irritating and bothersome return acute normal day-to-day activities with his hand. He would be interested in shaving cryotherapy. Otherwise regarding prediabetic pattern, he has had some weight gain in the last 6 months with increased eating a large part related to vaping and smoking cessation, but he is making efforts to improve. No polyuria or polydipsia. GERD symptoms still with stability on treatment. Regarding hidradenitis suppurativa ongoing follow-up with dermatology with recent change in medicine in the last couple weeks as he was having some breakthrough symptoms, too soon to see if it is benefiting. Anxiety depressive symptoms with good stability on medicine he would like to continue unchanged. Follow-up with recent blood work with normal liver test 04/19/2024 but vitamin D level is a little bit low and he has been replacing we will initiate today. Migraine headache doing well with as needed medication. Vaping pattern notable cessation the last 2 weeksand is chronic continue ongoing cessation. Subjective Review of Systems: Review of Systems I have reviewed the patients family history, social history, past medical history, past surgical history and have updated it as appropriate. Medications: Current Outpatient Medications: albuterol sulfate HFA 108 (90 Base) MCG/ACT inhaler, Inhale 2 puffs Every 4 (Four) Hours As Needed for Wheezing or Shortness of Air., Disp: 8 g, Rfl: 0 Bimzelx 320 MG/2ML solution auto-injector, , Disp: , Rfl: busPIRone (BUSPAR) 15 MG tablet, Take 1 tablet by mouth 2 (Two) Times a Day., Disp: 180 tablet, Rfl: 1 DULoxetine (Cymbalta) 30 MG capsule, Take 1 capsule by mouth Daily., Disp: 30 capsule, Rfl: 2 fluticasone (FLONASE) 50 MCG/ACT nasal spray, Administer 2 sprays into the nostril(s) as directed by provider Daily., Disp: 16 g, Rfl: 2 Linzess 72 MCG capsule capsule, Take 1 capsule by mouth Daily., Disp: , Rfl: loratadine (CLARITIN) 10 MG tablet, Take 1 tablet by mouth Daily., Disp: 90 tablet, Rfl: 1 montelukast (SINGULAIR) 10 MG tablet, TAKE 1 TABLET BY MOUTH EVERY NIGHT, Disp: 30 tablet, Rfl: 3 rizatriptan (MAXALT) 5 MG tablet, Take 1 tablet by mouth 1 (One) Time As Needed for Migraine. May repeat in 2 hours if needed, Disp: 9 tablet, Rfl: 1 Cholecalciferol (Vitamin D) 50 MCG (2000 UT) tablet, Take 1 tablet by mouth Daily., Disp: 30 tablet, Rfl: 11 Allergies: Allergies Allergen Reactions Nsaids Other (See Comments) Doesn't take after gastric bypass surgery Objective Physical Exam: Please see above Vital Signs: Vitals: 10/19/24 1113 10/19/24 1122 BP: 126/88 118/76 BP Location: Left arm Patient Position: Sitting Cuff Size: Adult Pulse: 93 Temp: 98.4 ??F (36.9 ??C) TempSrc: Temporal SpO2: 99% Weight: 92.1 kg (203 lb) Height: 182.9 cm (72 ) Facility age limit for growth %enrique is 20 years. Body mass index is 27.53 kg/m??. Physical Exam Constitutional: General: He is not in acute distress. Appearance: Normal appearance. He is not ill-appearing, toxic-appearing or diaphoretic. HENT: Head: Normocephalic and atraumatic. Right Ear: Tympanic membrane, ear canal and external ear normal. Left Ear: Tympanic membrane, ear canal and external ear normal. Nose: Nose normal. No rhinorrhea. Mouth/Throat: Mouth: Mucous membranes are moist. Pharynx: Oropharynx is clear. No oropharyngeal exudate or posterior oropharyngeal erythema. Cardiovascular: Rate and Rhythm: Normal rate and regular rhythm. Pulses: Normal pulses. Heart sounds: Normal heart sounds. No murmur heard. No friction rub. No gallop. Pulmonary: Effort: Pulmonary effort is normal. No respiratory distress. Breath sounds: Normal breath sounds. No stridor. No wheezing. Abdominal: General: Abdomen is flat. Bowel sounds are normal. There is no distension. Palpations: Abdomen is soft. There is no mass. Tenderness: There is no abdominal tenderness. There is no guarding or rebound. Musculoskeletal: Cervical back: Neck supple. No tenderness. Right lower leg: No edema. Left lower leg: No edema. Lymphadenopathy: Cervical: No cervical adenopathy. Skin: General: Skin is warm and dry. Findings: Lesion present. Comments: On the right palmar aspect of the thumb there are 2 small distal there is a common wart approximate 1/2 cm each, and more proximal on the palmar aspect of the thumb there is a 3/4 cm, wart.Please see procedure note but both had shaving to the base with scant bleeding followed by 40 seconds of cryotherapy. Neurological: General: No focal deficit present. Mental Status: He is alert and oriented to person, place, and time. Mental status is at baseline. Psychiatric: Mood and Affect: Mood normal. Behavior: Behavior normal. Thought Content: Thought content normal. Cryotherapy, Skin Lesion Date/Time: 10/19/2024 12:15 PM Performed by: Sunny Horton MD Authorized by: Sunny Horton MD Local anesthesia used: no Anesthesia: Local anesthesia used: no Sedation: Patient sedated: no Patient tolerance: patient tolerated the procedure well with no immediate complications Comments: On the right palmar aspect of the thumb there are 2 small distal there is a common wart approximate 1/2 cm each, and more proximal on the palmar aspect of the thumb there is a 3/4 cm, wart.Please see procedure note but both had shaving to the base with scant bleeding followed by 40 seconds of cryotherapy. Results: Labs: Hemoglobin A1C Date Value Ref Range Status 10/19/2024 5.0 4.5 - 5.7 % Final TSH Date Value Ref Range Status 04/19/2024 1.520 0.450 - 4.500 uIU/mL Final Imaging: No valid procedures specified. Vaccine Counseling: Assessment / Plan Assessment/Plan: Diagnoses and all orders for this visit: 1. Prediabetes (Primary) Assessment & Plan: Diagnosis with hemoglobin A1c 6.0 on 04/10/2018, with notable weight loss status post bariatric surgery, improved to 5.6% 09/08/2018, 5.0 01/07/2019. Today's hemoglobin A1c continues modest improved to 5.0% on 10/19/2024 despite some modest weight gain, previous 5.3%, 5.2%, 5.3%, 5.1%. Caution recurrence risk if he gains weight again. Monitor every 6 to 12 months with good stability. Orders: - POC Glycosylated Hemoglobin (Hb A1C) - POC Glucose, Blood 2. Common wart Assessment & Plan: Common wart x 3 on the right thumb, irritating due to location with trying uses hands. 2 are clustered together both about 1/2 cm in size, the other is 3/4 cm. With shaving followed by 40 seconds of cryotherapy in 2 locations with 1 covering the larger lesion at 1 application covering the 2 smallerlesions together, tolerated well. Triple antibiotic ointment and bandage applied. Continue similar treatment over the next few days, then as needed. Advised if not improving. Orders: - Cryotherapy, Skin Lesion 3. Anxiety and depression Assessment & Plan: Historically more depression than anxiety symptoms. Initially evaluated 08/19/2016, related to moneyand home stressors. Resumption of buspirone and fluoxetine as of 09/18/2021 with benefit. He had some delayed ejaculatory pattern on the fluoxetine at 20 mg dosing but not too bothersome but we did have improvement when he decreased to the 10 mg dosing. Current buspirone 15 mg twice daily, which wasincreased in July 2023 with previous fluoxetine which had been increased to 20 mg to since discontinued. As of visit 02/20/2024, with, we switched to a different class with modest breakthrough symptoms but due to ejaculatory difficulty on fluoxetine, we switched to a different class of medicine withCymbalta, and he has seen good benefit. He continues to see good benefit of medicine with no ejaculatory issues like he had on the previous medicine. He would like to continue unchanged Cymbalta 30 mg daily and buspirone 15 mg twice daily. No SI/HI. Continue lifestyle modifications to benefit mood i ncluding proceeded enjoyable activities, improved socialization, exercise, et cetera. Reassess at follow-up visit 6 months, sooner as needed. 4. Elevated liver function tests Assessment & Plan: 01/07/2019 liver function tests normalize. 04/10/2018 AST 64, ALT 116, previous 05/14/2017 total bilirubin 0.5, AST, similar cervical pattern. Notable for LFTs historically in somewhat similar range, on 04/08/2016 total bilirubin 0.6, AST 21, ALT 61. Consistent with fatty liver disease. Recheck with blood work 03/28/2023, completely normalized liver function test. Last liver function test 04/19/2024 continued in normal range. 5. Hidradenitis suppurativa Assessment & Plan: Status post surgical incision by Dr. Rider in 2014, as well as status post evaluations with infectious disease, dermatology. Per advanced dermatology, initiated Humira 2017 transiently and resumed again August 2019 with benefit. Ongoing follow-up with dermatology with additional surgical interventions to help with drainage multiple times, most recently change in medicine early October 2024 with discontinuation of Cosentyx but switched to Bimzelx every 2 weeks. Keep regular follow-up with dermatology. 6. Gastroesophageal reflux disease without esophagitis Assessment & Plan: Shai fundoplication December 2015 with benefit. Recurrence [...] advise recurrence. No new concerns as of 10/19/2024. 7. Migraine with aura and without status migrainosus, not intractable Assessment & Plan: Diagnosed 07/25/2023 with aura with a bit [...] months he is doing better subsequently and isweaned off and has had rare need for the Maxalt is initiated at that time did. Continue Maxalt 5 mgdaily as needed for onset headache, caution sedation. No new concerns as of 10/19/2024. Orders: - rizatriptan (MAXALT) 5 MG tablet; Take 1 tablet by mouth 1 (One) Time As Needed for Migraine. Mayrepeat in 2 hours if needed Dispense: 9 tablet; Refill: 1 8. Mixed hyperlipidemia Assessment & Plan: Most recent cholesterol 04/19/2024 with total cholesterol 200, triglycerides 85, HDL 66, LDL 119. Modest worsening per previous but no indication of medicine this time, continue healthy diet and exercise. Comparison 03/28/2023 with total cholesterol 169, triglycerides 90, HDL 63 and LDL 89, much improved after weight loss status post bariatric surgery. Prior 04/10/2018 total cholesterol 223, triglycerides 152, HDL 56, LDL 137, 05/14/2017 total cholesterol 209, triglycerides 148, HDL 44, LDL 135. Previous pravastatin 20 mg daily, not taking since weight loss. continue healthy diet, exercise, and wewill plan to monitor yearly with next blood work due April 2025 9. Mild intermittent asthma without complication Assessment & Plan: Overall doing well, typically triggers associated to allergies and also exacerbated when he smokes.Previous use of Qvar no longer required, advise any worsening. Reinforced importance of smoking cessation. No new concerns as of 10/19/2024. 10. Overweight (BMI 25.0-29.9) Assessment & Plan: Status post 10/13/2018 bariatric surgery, with greater than 90 pound weight loss within the following year. Comorbid risk factors including hypertension, recently diagnosed obstructive sleep apnea, hyperlipidemia, prediabetes, all improving. Continue efforts to eat healthy, be active, with continue benefits of more modest weight loss. Slight increase in weight of 14 pounds over the last 6 months coinciding with smoking/vaping cessation with some increased diet, but is making efforts to improve. 11. Vaping nicotine dependence, tobacco product Assessment & Plan: Since smoking cessation in early 2023 transition to vaping daily with continued nicotine use, nicole has at she had full cessation as of mid October 2024 over the last couple weeks, he continues tomake efforts to continue standing from vaping or smoking. 12. Seasonal allergic rhinitis due to pollen Assessment & Plan: Modest flare of allergies azafol 2023, prescription provided for resumption of Claritin Flonase andSingulair, to use for next couple weeks, then as needed. Additional benefit of saline spray, nasal flushing. Continue recommending benefits of smoking cessation. No new concerns as of 10/19/2024. 13. Vitamin D deficiency Assessment & Plan: This is per screening blood work prior to gastric bypass, from 04/10/2018 with vitamin D 25-hydroxy level at 11.5, followup 26.4 to 01/07/2019. Last vitamin D level 25.9 on 04/19/2024, previous 25.2 on 39.2 on 03/28/2023. He has stopped vitamin D replacement and still is not taking, as such we will initiate vitamin D 2000 units daily and plan to recheck with next year's blood work. Orders: - Cholecalciferol (Vitamin D) 50 MCG (2000 UT) tablet; Take 1 tablet by mouth Daily. Dispense: 30 tablet; Refill: 11 Follow Up: Return in about 6 months (around 04/21/2025) for Annual physical. Sunny Horton MD [facility] documented in this encounter Plan of Treatment Upcoming Encounters Date Type Department Care Team (Late st Contact Info) Description 04/21/2025 11:00 AM EST Office Visit [facility] [address] [place] [address] [place] [phone] Sunny Horton MD [address] [place] [id number] documented as of this encounter Procedures Procedure Name Priority Date/Time Associated Diagnosis Comments CRYOTHERAPY SKIN LESION Routine 10/19/2024 12:15 PM EDT Common wart POCT GLUCOSE, BLD (NON STRIP) Routine 10/19/2024 11:22 AM EDT Prediabetes POCT GLYCOSYLATED HEMOGLOBIN (HGB A1C) Routine 10/19/2024 11:22 AM EDT Prediabetes documented in this encounter Results * Cryotherapy, Skin Lesion (10/19/2024 12:15 PM EDT) Narrative Sunny Horton MD - 10/19/2024 12:15 PM EDT Sunny Horton MD 10/19/2024 12:17 PM Cryotherapy, Skin Lesion Date/Time: 10/19/2024 12:15 PM Performed by: Sunny Horton MD Authorized by: Sunny Horton MD Local anesthesia used: no Anesthesia: Local anesthesia used: no Sedation: Patient sedated: no Patient tolerance: patient tolerated the procedure well with no immediate complications Comments: On the right palmar aspect of the thumb there are 2 small distal there is a common wart approximate 1/2 cm each, and more proximal on the palmar aspect of the thumb there is a 3/4 cm, wart. Please see procedure note but both had shaving to the base with scant bleeding followed by 40 seconds of cryotherapy. us Sunny Horton MD PROCEDURE/MINOR SURGICAL ORDERAB LES Final Result * (ABNORMAL) POC Glucose, Blood (10/19/2024 11:22 AM EDT) Glucose 143(A) 70 - 130 mg/dL Lot Number [id number] Expiration Date 03/16/2025 Blood 10/19/2024 11:2 2 AM EDT Sunny Horton MD POINT OF CARE TEST ORDERABLES Fi nal Result * POC Glycosylated Hemoglobin (Hb A1C) (10/19/2024 11:22 AM EDT) Hemoglobin A1C 5.0 4.5 - 5.7 % [facility] Lot Number [id number] [facility] Expiration Date 06/16/2026 [facility] Blood 10/19/2024 11:2 2 AM EDT us Sunny Horton MD POINT OF CARE TEST ORDERABLES Fi nal Result [facility]
[id number] [address] [place] [id number], documented in this encounter Visit Diagnoses Diagnosis Prediabetes- Primary Other abnormal glucose Common wart Other specified viral warts Anxiety and depression Elevated liver function tests Other abnormal blood chemistry Hidradenitis suppurativa Hidradenitis Gastroesophageal reflux disease without esophagitis Esophageal reflux Migraine with aura and without status migrainosus, not intractable Mixed hyperlipidemia Mild intermittent asthma without complication Overweight (BMI 25.0-29.9) Overweight Vaping nicotine dependence, tobacco product Seasonal allergic rhinitis due to pollen Vitamin D deficiency documented in this encounter Care Teams Contract Administration Specialist Relationship Specialty Start Date End Date Sunny Horton MD [address] [place] [address] PCP - General Internal Medicine 11/09/21 documented as of this encounter
--- OUTSIDE RECORDS SUMMARY | 2024-11-16 13:00 | XMS_ITS | Encounter Summary ---
Author Organization [facility] Address [address] [place] [address] Care Team Providers Care Inside Sales Assistant Name Role Phone Sunny Horton MD Primary Care Provider [phone] Reason for Referral * Cardiac (Routine) - Closed Specialty Diagnoses / Procedures Referred By Howard sanchez Referred To Contact Diagnoses Palpitations Tachycardia Procedures Holter Monitor - 72 Hour Up To 15 Days Gwen Huber APRN [address] [place] [address] Phone: tel: fax: [facility] [address] [place] [address] Phone: tel: fax: Referral ID Status Reason Start Date Expiration Date Visits Re quested Visits Authorized [id number] Closed 11/16/2024 02/15/2026 1 1 * Diagnostic Imaging (Routine) - Denied Specialty Diagnoses / Procedures Referred By Howard sanchez Referred To Contact Diagnoses Preop cardiovascular exam Palpitations Tachycardia Procedures Adult Transthoracic Echo Complete W/ Cont if Necessary Per Protocol Gwen Huber APRN [address] [place] [address] Phone: tel: fax: [facility] [address] [place] [address] Phone: tel: fax: Referral ID Status Reason Start Date Expiration Date Visits Re quested Visits Authorized [id number] Denied 11/16/2024 02/15/2026 1 0 Reason for Visit * Reason Comments Palpitations Pt referred tpdau ca rdiac clearance for a gastric bypass procedure. 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 Surgery is not scheduled to date by Dr. Natanael Edgar @ [facility]. Labs from 10/2024 in [facility] and reviewed. EKG obtained and reviewed today.Pt denies shortness of breath or chest pain, dizziness. Notes occasional palpitations. * Consultation (Routine) - Closed Specialty Diagnoses / Procedures Referred By Contac t Referred To Contact Cardiology Diagnoses Tachycardia Referring, [place] [address] Trini Andres MD [address] [place] [address] Phone: tel: fax: Referral ID Status Reason Start Date Expiration Date Visits Re quested Visits Authorized [id number] Closed 10/05/2024 01/04/2026 1 1 Encounter Details Date Type Department Care Team (Latest Contact Info) Description 11/16/2024 1:00 PM EDT Office Visit [facility] [address] [place] [address] Gwen Huber APRN [address] [place] [address] Preop cardiovascular exam (Primary Dx); Palpitations; Tachycardia Social History Tobacco Use Types Packs/Day Years Used Date Smoking Tobacco: Former Cigarettes Q uit: 09/27/2007 Smokeless Tobacco: Never Tobacco Cessation:Counseling Given: Not Answered Alcohol Use Standard Drinks/Week Comments Not Currently [...] Sign Reading Time Taken Comments Blood Pressure 122/74 11/16/2024 1:16 PM EDT Pulse 98 11/16/2024 1:16 PM EDT Temperature - - Respiratory Rate - - Oxygen Saturation 100% 11/16/2024 1:16 PM EDT Inhaled Oxygen Concentration - - Weight 94.8 kg (209 lb) 11/16/2024 1:16 PM EDT Height 182.9 cm (6' 0.01 ) 11/16/2024 1:16 PM ED T Body Mass Index 28.34 11/16/2024 1:16 PM EDT documented in this encounter Progress Notes * Gwen Huber APRN - 11/16/2024 1:00 PM EDTAssociated Order(s): ECG 12 Lead Pre-Procedure Diagnose(s): Preop cardiovascular exam; Palpitations; Tachycardia Post-Procedure Diagnose(s): Preop cardiovascular exam; Palpitations; Tachycardia Images from the original note were not included. Date: 11/16/2024 Name: Justice Reyes : 1990 PCP: Sunny Horton MD REF: Self Referring Sleep and/or Cardiology Consulting Provider Note ..Palpitations (Pt referred tpdau cardiac clearance for a gastric bypass procedure. 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 Surgery is not scheduled to date by Dr. Natanael Edgar @ [facility]. Labs from 10/2024 in [facility] and reviewed. EKG obtained and reviewed today./Pt denies sh ortness of breath or chest pain, dizziness. Notes occasional palpitations. ) History of Present Illness Mr. Justice Reyes is a 34-year-old male that presents to reestablish cardiac care for preop clearance. He is accompanied by his today. He was seen in the past for palpitations and tachycardia. He had a full cardiac workup in 2019 that overall was benign. Today he needs cardiac clearance to have candy cane syndrome repair post gastric bypass surgery. He denies any chest pain or shortness of air but he does report palpitations and tachycardia. Previously tried metoprolol and other beta blockers, experienced adverse reactions. We discussed that we could potentially try a different beta- renee or different class of medications after surgery. Cannot start or stop beta-blockers at this time since he will be having surgery as soon as we update cardiac testing and cleared him. EKG today sinus rhythm. Will need to update his echo for cardiac clearance. He would also like to update his Holter monitorbut this would not keep him from being eligible for surgery. We will schedule him for an echo as well as place a 5-day Holter monitor on today. Will see him back after echo for preop clearance. [place] Scale is (out of 24): 3 No specialty comments available. There are no discontinued medications. Allergies Allergen Reactions Nsaids Other (See Comments) Doesn't take after gastric bypass surgery Current Outpatient Medications: Bimzelx 320 MG/2ML solution auto-injector, , Disp: , Rfl: busPIRone (BUSPAR) 15 MG tablet, Take 1 tablet by mouth 2 (Two) Times a Day., Disp: 180 tablet, Rfl: 1 Cholecalciferol (Vitamin D) 50 MCG (2000 UT) tablet, Take 1 tablet by mouth Daily., Disp: 30 tablet, Rfl: 11 DULoxetine (Cymbalta) 30 MG capsule, Take 1 capsule by mouth Daily., Disp: 30 capsule, Rfl: 2 fluticasone (FLONASE) 50 MCG/ACT nasal spray, Administer 2 sprays into the nostril(s) as directed by provider Daily., Disp: 16 g, Rfl: 2 Linzess 72 MCG capsule capsule, Take 1 capsule by mouth Daily., Disp: , Rfl: loratadine (CLARITIN) 10 MG tablet, TAKE 1 TABLET BY MOUTH EVERY DAY, Disp: 90 tablet, Rfl: 1 rizatriptan (MAXALT) 5 MG tablet, Take 1 tablet by mouth 1 (One) Time As Needed for Migraine. May repeat in 2 hours if needed, Disp: 9 tablet, Rfl: 1 albuterol sulfate HFA 108 (90 Base) MCG/ACT inhaler, Inhale 2 puffs Every 4 (Four) Hours As Needed for Wheezing or Shortness of Air., Disp: 8 g, Rfl: 0 montelukast (SINGULAIR) 10 MG tablet, TAKE 1 TABLET BY MOUTH EVERY NIGHT, Disp: 30 tablet, Rfl: 3 Past Medical History: Diagnosis Date Acid reflux Acute lymphadenitis of face, head and neck Allergic Anxiety Asthma COVID-19 Depression Elevated LDL cholesterol level Elevated liver function tests GERD (gastroesophageal reflux disease) Hidradenitis suppurativa Hypertension Influenza due to other identified influenza virus with other respiratory manifestations Kidney stone Left otitis media Obesity (BMI 35.0-39.9 without comorbidity) BMI 35.6 Other hypertrophic disorders of the skin Renal insufficiency Seasonal allergic rhinitis Tobacco abuse Urinary tract infection, site not specified Patient Active Problem List Diagnosis Prediabetes Routine general medical examination at a health care facility GERD (gastroesophageal reflux disease) Hidradenitis suppurativa Primary hypertension Overweight (BMI 25.0-29.9) Seasonal allergic rhinitis Personal history of tobacco use, presenting hazards to health Anxiety and depression Mixed hyperlipidemia Elevated liver function tests Vitamin D deficiency Need for vaccination Obstructive sleep apnea Mild intermittent asthma without complication Strep pharyngitis Acute non-recurrent pansinusitis COVID-19 Migraine with aura and without status migrainosus, not intractable Common wart Vaping nicotine dependence, tobacco product Influenza B Left upper quadrant abdominal pain History reviewed. No pertinent family history. family history is not on file. Social History Socioeconomic History Marital status: Tobacco Use Smoking status: Former Current packs/day: 0.00 Average packs/day: 2.0 packs/day for 10.0 years (20.0 ttl pk-yrs) Types: Cigarettes Start date: 09/10/2007 Quit date: 09/09/2017 Years since quittin.1 Smokeless tobacco: Never Vaping Use Vaping status: Every Day Start date: 12/30/2022 Substances: Nicotine Devices: Disposable Passive vaping exposure: Yes Substance and Sexual Activity Alcohol use: Not Currently Drug use: Not Currently Sexual activity: Yes Vital Signs: BP 122/74 (BP Location: Right arm, Patient Position: Sitting, Cuff Size: Adult) Pulse 98 Ht 182.9 cm (72.01 ) Wt 94.8 kg (209 lb) SpO2 100% BMI 28.34 kg/m?? Estimated body mass index is 28.34 kg/m?? as calculated from the following: Height as of this encounter: 182.9 cm (72.01 ). Weight as of this encounter: 94.8 kg (209 lb). Physical Exam Vitals reviewed. Constitutional: Appearance: Normal appearance. He is well-developed. HENT: Head: Normocephalic and atraumatic. Eyes: General: No scleral icterus. Pupils: Pupils are equal, round, and reactive to light. Cardiovascular: Rate and Rhythm: Regular rhythm. Tachycardia present. Heart sounds: Normal heart sounds. No murmur heard. Pulmonary: Breath sounds: Normal breath sounds. No wheezing or rhonchi. Musculoskeletal: General: Normal range of motion. Right lower leg: No edema. Left lower leg: No edema. Skin: General: Skin is warm and dry. Capillary Refill: Capillary refill takes less than 2 seconds. Coloration: Skin is not cyanotic. Nails: There is no clubbing. Neurological: Mental Status: He is alert and oriented to person, place, and time. Motor: No weakness. Gait: Gait normal. Psychiatric: Mood and Affect: Mood normal. Behavior: Behavior is cooperative. Thought Content: Thought content normal. Physical Exam Heart: Regular, tachycardic, and strong sounds. Lungs: Auscultated. Results ECG 12 Lead Date/Time: 11/16/2024 2:37 PM Performed by: Gwen Huber APRN Authorized by: Gwen Huber APRN Comparison: not compared with previous ECG Previous ECG: no previous ECG available Rhythm: sinus rhythm Rate: normal BPM: 94 ST Segments: ST segments normal T Waves: T waves normal QRS axis: normal Other: no other findings Clinical impression: normal ECG Assessment and Plan Diagnoses and all orders for this visit: 1. Preop cardiovascular exam (Primary) - Adult Transthoracic Echo Complete W/ Cont if Necessary Per Protocol; Future - ECG 12 Lead 2. Palpitations - Adult Transthoracic Echo Complete W/ Cont if Necessary Per Protocol; Future - ECG 12 Lead - Holter Monitor - 72 Hour Up To 15 Days; Future 3. Tachycardia - Adult Transthoracic Echo Complete W/ Cont if Necessary Per Protocol; Future - ECG 12 Lead - Holter Monitor - 72 Hour Up To 15 Days; Future Assessment & Plan - Utilize 5-day Holter. - Ordered echocardiogram. - Consider extended monitoring if 5-day Holter is insufficient or symptoms persist post-surgery. - Discussed post-surgery beta renee regimen; defer medications until post-surgery. Recommendations: ER if symptoms increase and Report if any new/changing symptoms immediately Follow Up Return for After echo/holter. Patient or patient loss prevention representative verbalized consent for the use of Ambient Listening during the visit with Gwen Huber APRN for chart documentation. 11/16/2024 14:42 EDT Gwen Huber APRN 11/16/2024 Please note that this explicitly excludes time spent on other separate billable services such as performing procedures or test interpretation, when applicable. This note was created using dictation software which occasionally transcribes nonsensical phrases. Please contact the provider if any clarification is needed. documented in this encounter Plan of Treatment Upcoming Encounters Date Type Department Care Team (Late st Contact Info) Description 04/21/2025 11:00 AM EST Office Visit [facility] [address] [place] [address] [place] [address] Sunny Horton MD [address] [place] [address] Pending Results Name Type Priority Associated Diagnoses Date /Time Holter Monitor - 72 Hour Up To 15 Days Cardiac Services Routine Palpitations Tachycardia 11/17/2024 3:09 PM EDT Scheduled Orders Name Type Priority Associated Diagnoses Orde r Schedule Adult Transthoracic Echo Complete W/ Cont if Necessary Per Protocol Echocardiography Routine Preop cardiovascular exam Palpitations Tachycardia Expected: 05/15/2025, Expires: 11/16/2025 Holter Monitor - 72 Hour Up To 15 Days Cardiac Services Routine Palpitations Tachycardia Expected: 11/21/2024, Expires: 11/16/2025 documented as of this encounter Procedures Procedure Name Priority Date/Time Associated Diagnosis Comments ECG 12-LEAD Routine 11/16/2024 Preop cardiovascular exam Palpitations Tachycardia documented in this encounter Results * ECG 12-LEAD (11/16/2024) Narrative [facility] ECG - 11/16/2024 Gwen Huber APRN 11/16/2024 2:47 PM ECG 12 Lead Date/Time: 11/16/2024 2:37 PM Performed by: Gwen Huber APRN Authorized by: Huber, Gwen Bridgett, [employer] FRONT END DEVELOPER Comparison: not compared with previous ECG Previous ECG: no previous ECG available Rhythm: sinus rhythm Rate: normal BPM: 94 ST Segments: ST segments normal T Waves: T waves normal QRS axis: normal Other: no other findings Clinical impression: normal ECG Procedure Note Gwen HuberKHADIJAH - 11/16/2024 1:00 PM EDT Images from the original note were not included. Date: 11/16/2024 Name: Justice Reyes : 1990 PCP: Sunny Horton MD REF: Self Referring Sleep and/or Cardiology Consulting Provider Note ..Palpitations (Pt referred tpdau cardiac clearance for a gastric bypassprocedure. 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 Surgery is not scheduled to date by Dr. Natanael Edgar @ [facility].Labs from 10/2024 in [facility] and reviewed. EKG obtained and reviewedtoday./Pt denies shortness of breath or chest pain, dizziness. Notesoccasional palpitations. ) History of Present Illness Mr. Justice Reyes is a 34-year-old male that presents to [facility] for preop clearance. He is accompanied by his today. He wasseen in the past for palpitations and tachycardia. He had a full cardiacworkup in 2019 that overall was benign. Today he needs cardiac clearance to have candy cane syndrome repair postgastric bypass surgery. He denies any chest pain or shortness of air but he does reportpalpitations and tachycardia. Previously tried metoprolol and other betablockers, experienced adverse reactions. We discussed that we couldpotentially try a different beta-renee or different class of medicationsafter surgery. Cannot start or stop beta-blockers at this time since hewill be having surgery as soon as we update cardiac testing and clearedhim. EKG today sinus rhythm. Will need to update his echo for cardiac clearance. He would also like toupdate his Holter monitor but this would not keep him from being eligiblefor surgery. We will schedule him for an echo as well as place a 5-day Holter monitoron today. Will see him back after echo for preop clearance. [place] Scale is (out of 24): 3 No specialty comments available. There are no discontinued medications. Allergies Allergen Reactions Nsaids Other (See Comments) Doesn't take after gastric bypass surgery Current Outpatient Medications: Bimzelx 320 MG/2ML solution auto-injector, , Disp: , Rfl: busPIRone (BUSPAR) 15 MG tablet, Take 1 tablet by mouth 2 (Two) Times aDay., Disp: 180 tablet, Rfl: 1 Cholecalciferol (Vitamin D) 50 MCG (2000 UT) tablet, Take 1 tablet bymouth Daily., Disp: 30 tablet, Rfl: 11 DULoxetine (Cymbalta) 30 MG capsule, Take 1 capsule by mouth Daily.,Disp: 30 capsule, Rfl: 2 fluticasone (FLONASE) 50 MCG/ACT nasal spray, Administer 2 sprays intothe nostril(s) as directed by provider Daily., Disp: 16 g, Rfl: 2 Linzess 72 MCG capsule capsule, Take 1 capsule by mouth Daily., Disp: ,Rfl: loratadine (CLARITIN) 10 MG tablet, TAKE 1 TABLET BY MOUTH EVERY DAY,Disp: 90 tablet, Rfl: 1 rizatriptan (MAXALT) 5 MG tablet, Take 1 tablet by mouth 1 (One) Time AsNeeded for Migraine. May repeat in 2 hours if needed, Disp: 9 tablet, Rfl:1 albuterol sulfate HFA 108 (90 Base) MCG/ACT inhaler, Inhale 2 puffsEvery 4 (Four) Hours As Needed for Wheezing or Shortness of Air., Disp: 8g, Rfl: 0 montelukast (SINGULAIR) 10 MG tablet, TAKE 1 TABLET BY MOUTH EVERYNIGHT, Disp: 30 tablet, Rfl: 3 Past Medical History: Diagnosis Date Acid reflux Acute lymphadenitis of face, head and neck Allergic Anxiety Asthma COVID-19 Depression Elevated LDL cholesterol level Elevated liver function tests GERD (gastroesophageal reflux disease) Hidradenitis suppurativa Hypertension Influenza due to other identified influenza virus with other respiratorymanifestations Kidney stone Left otitis media Obesity (BMI 35.0-39.9 without comorbidity) BMI 35.6 Other hypertrophic disorders of the skin Renal insufficiency Seasonal allergic rhinitis Tobacco abuse Urinary tract infection, site not specified Patient Active Problem List Diagnosis Prediabetes Routine general medical examination at a health care facility GERD (gastroesophageal reflux disease) Hidradenitis suppurativa Primary hypertension Overweight (BMI 25.0-29.9) Seasonal allergic rhinitis Personal history of tobacco use, presenting hazards to health Anxiety and depression Mixed hyperlipidemia Elevated liver function tests Vitamin D deficiency Need for vaccination Obstructive sleep apnea Mild intermittent asthma without complication Strep pharyngitis Acute non-recurrent pansinusitis COVID-19 Migraine with aura and without status migrainosus, not intractable Common wart Vaping nicotine dependence, tobacco product Influenza B Left upper quadrant abdominal pain History reviewed. No pertinent family history. family history is not on file. Social History Socioeconomic History Marital status: Tobacco Use Smoking status: Former Current packs/day: 0.00 Average packs/day: 2.0 packs/day for 10.0 years (20.0 ttl pk-yrs) Types: Cigarettes Start date: 09/10/2007 Quit date: 09/09/2017 Years since quittin.1 Smokeless tobacco: Never Vaping Use Vaping status: Every Day Start date: 12/30/2022 Substances: Nicotine Devices: Disposable Passive vaping exposure: Yes Substance and Sexual Activity Alcohol use: Not Currently Drug use: Not Currently Sexual activity: Yes Vital Signs: BP 122/74 (BP Location: Right arm, Patient Position: Sitting, Cuff Size:Adult) Pulse 98 Ht 182.9 cm (72.01 ) Wt 94.8 kg (209 lb) [id number]% BMI 28.34 kg/m Estimated body mass index is 28.34 kg/m as calculated from thefollowing: Height as of this encounter: 182.9 cm (72.01 ). Weight as of this encounter: 94.8 kg (209 lb). Physical Exam Vitals reviewed. Constitutional: Appearance: Normal appearance. He is well-developed. HENT: Head: Normocephalic and atraumatic. Eyes: General: No scleral icterus. Pupils: Pupils are equal, round, and reactive to light. Cardiovascular: Rate and Rhythm: Regular rhythm. Tachycardia present. Heart sounds: Normal heart sounds. No murmur heard. Pulmonary: Breath sounds: Normal breath sounds. No wheezing or rhonchi. Musculoskeletal: General: Normal range of motion. Right lower leg: No edema. Left lower leg: No edema. Skin: General: Skin is warm and dry. Capillary Refill: Capillary refill takes less than 2 seconds. Coloration: Skin is not cyanotic. Nails: There is no clubbing. Neurological: Mental Status: He is alert and oriented to person, place, and time. Motor: No weakness. Gait: Gait normal. Psychiatric: Mood and Affect: Mood normal. Behavior: Behavior is cooperative. Thought Content: Thought content normal. Physical Exam Heart: Regular, tachycardic, and strong sounds. Lungs: Auscultated. Results ECG 12 Lead Date/Time: 11/16/2024 2:37 PM Performed by: Gwen Huber APRN Authorized by: Gwen Huber APRN Comparison: not comparedwith previous ECG Previous ECG: no previous ECG available Rhythm: sinus rhythm Rate: normal BPM: 94 ST Segments: ST segments normal T Waves: T waves normal QRS axis: normal Other: no other findings Clinical impression: normal ECG Assessment and Plan Diagnoses and all orders for this visit: 1. Preop cardiovascular exam (Primary) - Adult Transthoracic Echo Complete W/ Cont if Necessary Per Protocol;Future - ECG 12 Lead 2. Palpitations - Adult Transthoracic Echo Complete W/ Cont if Necessary Per Protocol;Future - ECG 12 Lead - Holter Monitor - 72 Hour Up To 15 Days; Future 3. Tachycardia - Adult Transthoracic Echo Complete W/ Cont if Necessary Per Protocol;Future - ECG 12 Lead - Holter Monitor - 72 Hour Up To 15 Days; Future Assessment & Plan - Utilize 5-day Holter. - Ordered echocardiogram. - Consider extended monitoring if 5-day Holter is insufficient or symptomspersist post-surgery. - Discussed post-surgery beta renee regimen; defer medications untilpost- surgery. Recommendations: ER if symptoms increase and Report if any new/changingsymptoms immediately Follow Up Return for After echo/holter. Patient or patient loss prevention representative verbalized consent for the use ofAmbient Listening during the visit with Gwen Huber APRN forchart documentation. 11/16/2024 14:42 EDT Gwen Huber APRN 11/16/2024 Please note that this explicitly excludes time spent on other separatebillable services such as performing procedures or test interpretation,when applicable. This note was created using dictation software whichoccasionally transcribes nonsensical phrases. Please contact the providerif any clarification is needed. Gwne Huber APRN ECG ORDERABLES Fin al Result ECG documented in this encounter Visit Diagnoses Diagnosis Preop cardiovascular exam- Primary Pre-operative cardiovascular examination Palpitations Tachycardia Unspecified tachycardia documented in this encounter Care Teams Inside Sales Assistant Relationship Specialty Start Date End Date Sunny Horton MD [address] [place] [address] PCP - General Internal Medicine 11/09/21 documented as of this encounter
--- OUTSIDE RECORDS SUMMARY | 2024-11-17 15:10 | XMS_ITS | Encounter Summary ---
Author Organization [facility] Address [address] [place] [address] Care Team Providers Care Pile Driver Operator Barge Mounted Name Role Phone Sunny Horton MD Primary Care Provider [phone] Reason for Visit * Cardiac (Routine) - Closed Specialty Diagnoses / Procedures Referred By Howard sanchez Referred To Contact Diagnoses Palpitations Tachycardia Procedures Holter Monitor - 72 Hour Up To 15 Days Gwen Huber APRN [address] [place] [address] Phone: tel: fax: [facility] [address] [place] [address] Phone: tel: fax: Referral ID Status Reason Start Date Expiration Date Visits Re quested Visits Authorized [id number] Closed 11/16/2024 02/15/2026 1 1 Encounter Details Date Type Department Care Team (Late st Contact Info) Description 11/17/2024 3:10 PM EDT Ancillary Procedure [facility] [address] [place] [address] [place] [address] Palpitations; Tachycardia Social History Tobacco Use [...] Description 04/21/2025 11:00 AM EST Office Visit [facility] [address] [place] [id number] Sunny Horton MD [address] [place] [address] Pending Results Name Type Priority Associated Diagnoses Date /Time Holter Monitor - 72 Hour Up To 15 Days Cardiac Services Routine Palpitations Tachycardia 11/17/2024 3:09 PM EDT documented as of this encounter Visit Diagnoses Diagnosis Palpitations Tachycardia Unspecified tachycardia documented in this encounter Care Teams Pile Driver Operator Barge Mounted Relationship Specialty Start Date End Date Sunny Horton MD [address] [place] [address] PCP - General Internal Medicine 11/09/21 documented as of this encounter
--- OUTSIDE RECORDS SUMMARY | 2024-11-26 11:20 | XMS_ITS | Encounter Summary ---
Author Organization Healthcare Address [address] [place] [address] Care Team Providers Care Hoop Rolls Operator Name Role Phone Sunny Horton MD Primary Care Provider [phone] Encounter Details Date Type Department Care Team [...] 03/04/2025 2:30 PM EST Appointment [facility] Ultrasound [address], [address]nd [place] [address] 04/14/2025 1:00 PM EST Appointment Medical Office Building Radiology [address] [place] [address] 04/14/2025 2:00 PM EST Office Visit Medical Office Building Urology [address] [facility], [address] [place] [address] Adilson Alfredo MD [address] [place] [address] documented as of this encounter [...] documented as of this encounter Care Teams Hoop Rolls Operator Relationship Specialty Start Date End Date Sunny Horton MD [address] [place] [address] [place] [address] PCP - General 07/14/20 documented as of this encounter
--- OUTSIDE RECORDS SUMMARY | 2024-11-26 11:20 | XMS_ITS | Encounter Summary ---
Author Organization Healthcare Address [address] [place] [address] Care Team Providers Care Fieldwork Coordinator Name Role Phone Sunny Horton MD Primary Care Provider [phone] Encounter Details Date Type Department Care Team (Late Contact Info) Description 10/17/2024 Orders Only External Location [address] [place] [address] [place] [address] Social History Tobacco Use Types Packs/Day Years [...] Info) Description 03/04/2025 2:30 PM EST Appointment [facility] Ultrasound [address], [address]nd [place] [address] 04/14/2025 1:00 PM EST Appointment Medical Office Building Radiology [address] [place] [address] 04/14/2025 2:00 PM EST Office Visit Medical Office Building Urology [address] [facility], [address] [place] [address] Adilson Alfredo MD [address] [place] [address] documented as of this encounter Procedures Procedure Name Priority Date/Time Associated Diagnosis Comments CT OUTSIDE IMAGES 10/17/2024 5:31 PM EDT documented in this encounter Results * CT OUTSIDE IMAGES (10/17/2024 5:31 PM EDT) Anatomical Region Laterality Modality Computed Tomogra phy 10/17/2024 5:31 PM EDT Joanna Jones [facility] [place] PROCEDURES Final Result documented in this [...] documented as of this encounter Care Teams Fieldwork Coordinator Relationship Specialty Start Date End Date Sunny Horton MD [address] [place] [address] PCP - General 07/14/20 documented as of this encounter
--- OUTSIDE RECORDS SUMMARY | 2024-11-26 11:20 | XMS_ITS | Encounter Summary ---
Author Organization Healthcare Address [address] [place] [address] Care Team Providers Care Preschool Teacher'S Assistant Name Role Phone Sunny Horton MD Primary Care Provider [phone] Encounter Details Date Type Department Care Team [...] Info) Description 03/04/2025 2:30 PM EST Appointment [facility] Ultrasound [address], [address]nd [place] [address] 04/14/2025 1:00 PM EST Appointment Medical Office Building Radiology [address] [place] [address] 04/14/2025 2:00 PM EST Office Visit Medical Office Building Urology [address] [facility], [address] [place] [address] Adilson Alfredo MD [address] [facility] [address] [place] [address] documented as of this encounter Visit Diagnoses Not on filedocumented in this encounter Additional Health Concerns Assessment Noted Time A fall risk assessment has been complete d for the patient 02/19/2024 2:51 PM EST A Body Mass Index follow-up plan has been documented for the patient 03/25/2024 3:51 PM EST documented as of this encounter Care Teams Preschool Teacher'S Assistant Relationship Specialty Start Date End Date Sunny Horton MD [address] [place] [address] PCP - General 07/14/20 documented as of this encounter
--- OUTSIDE RECORDS SUMMARY | 2024-11-26 11:20 | XMS_ITS | Clinical Summary ---
Author Organization [facility] Address [address] [facility] [address] [place] [address] Phone Care Team Providers Care Wearing Apparel Assembler Name Role Phone Parviz VALADEZ, Coleman Stark [phone] Conditions or Problems Problem Name Problem Code Onset Date Status Entry Date Provider Comment Standard Description Annotate Obesity 872076784 (SNOMED CT) Active 04/21 Coleman Jj MD. Obesity Hidradenitis 72865552 (SNOMED CT) Active 04/20 Gricelda Andres Hidradenitis Abscess of right leg L02.415 (ICD-10-CM) Active 04/20 Gricelda Andres Cutaneous abscess of right lower limb Cellulitis of right leg L03.115 (ICD-10-CM) Active 04/20 Gricelda Andres Cellulitis of right lower limb Benign Essential Hypertension 77021841 (SNOMED CT) Active 04/20 Gricelda Andres Benign hypertension Nicotine dependence, cigarettes F17.210 (ICD-10-CM) Active 04/20 Gricelda Andres Nicotine dependence, cigarettes, uncomplicated Abscess, groin 59706429 (SNOMED CT) Active 04/20 Gricelda Andres Abscess of groin Medications Medication Instructions Start Date Stop Date Generic Name [facility] Provider BACTROBAN 2 % EXTERNAL OINTMENT apply to each nostril twice a day x 5 days. MUPIROCIN [id number] Coleman Jj MD. SULFAMETHOXAZOLE -TRIMETHOPRIM 800-160 MG TABS take 2 tablets by mouth twice a day SULFAMETHOXAZOLE -TRIMETHOPRIM 35870524629 Estefani S RANITIDINE HCL 150 MG ORAL TABLET take 1 tablet by mouth every evening RANITIDINE HCL 26229908042 Estefani Lee ACYCLOVIR 800 MG TABS take 1 tablet by mouth five times a day for 10 days ACYCLOVIR 74542653969 Estefani S GABAPENTIN 300 MG CAPS take 1 capsule by mouth at bedtime MAY INCREASE TO TWICE DAILY GABAPENTIN 67153462346 Estefani S GABAPENTIN 300 MG CAPS take 1 capsule by mouth at bedtime MAY INCREASE TO TWICE DAILY GABAPENTIN 58945205651 Karime Ko ACYCLOVIR 800 MG TABS take 1 tablet by mouth five times a day for 10 days ACYCLOVIR 36149213563 Karime Ko RANITIDINE HCL 150 MG ORAL TABLET take 1 tablet by mouth every evening RANITIDINE HCL 47495116403 Karime Ko LISINOPRIL-HYDRO CHLOROTHIAZIDE 10-12.5 MG TABS 1 po qd LISINOPRIL-HYDRO CHLOROTHIAZIDE 72191009660 Karime Ko PRAVASTATIN SODIUM 20 MG TABS take 1 tablet by mouth at bedtime PRAVASTATIN SODIUM 78931835549 Karime Ko CIPROFLOXACIN HCL 0.3 % SOLN INSTILL 1 DROP INTO AFFECTED EYE WHILE WAKE EVERY 4 HOURS CIPROFLOXACIN HCL 26171185617 Karime Ko SULFAMETHOXAZOLE -TRIMETHOPRIM 800-160 MG TABS take 2 tablets by mouth twice a day SULFAMETHOXAZOLE -TRIMETHOPRIM 47885568697 Karime Ko AMOXICILLIN-POT CLAVULANATE 875-125 MG TABS take 1 tablet by mouth twice a day for 10 days AMOXICILLIN-POT CLAVULANATE 55372037355 Karime Ko Medications Administered No information available. [...] Screening Nares culture, comment Lab Report: Panel [id number] 3613/02/19 [id number] NR Non Reactive GE use only - for LinkLogic import when terms are not otherwise specified Plan of Care Type Date Detail Pending order HIV 1/2 atb/ag 4 th generation with cascade reflex Pending order Nasal Swab for M RSA Procedures Code Procedure Name Date Entry Date CPT-993065 HIV 1/2 atb/ag 4th generation with cascad e reflex CPT-98666 Nasal Swab for MRSA Vital Signs Date [...]
--- OUTSIDE RECORDS SUMMARY | 2024-11-26 11:20 | XMS_ITS | Encounter Summary ---
Author Organization Healthcare Address [address] [place] [address] Care Team Providers Care Needle Process Felt Goods Supervisor Name Role Phone Sunny Horton MD Primary Care Provider [phone] Reason for Visit * Reason Onset Date Comments Litholink 24Hr Urine Panel 10/18/2024 Encounter Details Date Type Department Care Team (Late st Contact Info) Description 10/18/2024 Telephone [facility] [address], [address] [place] [address] Adilson Alfredo MD [address] [place] [address] Litholink 24Hr Urine Panel Social [...] Info) Description 03/04/2025 2:30 PM EST Appointment [facility] Ultrasound [address] [place] [address] 04/14/2025 1:00 PM EST Appointment Medical Office Building Radiology [address] [place] [address] 04/14/2025 2:00 PM EST Office Visit Medical Office Building Urology [address] [facility], [address] [place] [address] Adilson Alfredo MD [address] [place] [address] documented as of this encounter Visit Diagnoses [...] documented as of this encounter Care Teams Needle Process Felt Goods Supervisor Relationship Specialty Start Date End Date Sunny Horton MD [address] [place] [address] [place] [address] PCP - General 07/14/20 documented as of this encounter
--- OUTSIDE RECORDS SUMMARY | 2024-11-26 11:20 | XMS_ITS | Encounter Summary ---
Author Organization Healthcare Address [address] [place] [address] Care Team Providers Care Alteration Specialist Name Role Phone Sunny Horton MD Primary Care Provider [phone] Reason for Visit * Reason Onset Date Comments Appt Info 10/21/2024 Encounter Details Date Type Department Care Team (Late st Contact Info) Description 10/21/2024 Telephone [facility] [address], [address] [place] [address] Adilson Alfredo MD [address] [place] [address] Appt Info Social History Tobacco [...] Info) Description 03/04/2025 2:30 PM EST Appointment [facility] Ultrasound [address]nd [place] [address] 04/14/2025 1:00 PM EST Appointment Medical Office Building Radiology [address] [place] [address] 04/14/2025 2:00 PM EST Office Visit Medical Office Building Urology [address] [facility], [address] [place] [address] Adilson Alfredo MD [address] [place] [address] documented as of this encounter Visit Diagnoses [...] documented as of this encounter Care Teams Alteration Specialist Relationship Specialty Start Date End Date Sunny Horton MD [address] [place] [address] [place] [address] PCP - General 07/14/20 documented as of this encounter
--- OUTSIDE RECORDS SUMMARY | 2024-11-26 11:20 | XMS_ITS | Encounter Summary ---
Author Organization Healthcare Address [address] [place] [address] Care Team Providers Care Underground Mine Machinery Mechanic Name Role Phone Sunny Horton MD Primary Care Provider [phone] Encounter Details Date Type Department Care Team [...] Info) Description 03/04/2025 2:30 PM EST Appointment [facility] Ultrasound [address], 2nd [place] [address] 04/14/2025 1:00 PM EST Appointment Medical Office Building Radiology [address] [place] [address] 04/14/2025 2:00 PM EST Office Visit Medical Office Building Urology [address] [facility], [address] [place] [address] Adilson Alfredo MD [address] [facility] [address] [place] [address] documented as of this encounter Visit Diagnoses Not on filedocumented in this encounter Additional Health Concerns Assessment Noted Time A fall risk assessment has been complete d for the patient 02/19/2024 2:51 PM EST A Body Mass Index follow-up plan has been documented for the patient 03/25/2024 3:51 PM EST documented as of this encounter Care Teams Underground Mine Machinery Mechanic Relationship Specialty Start Date End Date Sunny Horton MD [address] [place] [address] PCP - General 07/14/20 documented as of this encounter
--- OUTSIDE RECORDS SUMMARY | 2024-11-26 11:20 | XMS_ITS | Encounter Summary ---
Author Organization Healthcare Address [address] [place] [address] Care Team Providers Care Parking Analyst Name Role Phone Sunny Horton MD Primary Care Provider [phone] Encounter Details Date Type Department Care Team (Late st Contact Info) Description 11/11/2024 Telephone [facility] [address] [place] [address] Madie Rivera, Pharm[place] [address] Social History Tobacco Use Types Packs/Day Years [...] Info) Description 03/04/2025 2:30 PM EST Appointment [facility] Ultrasound [address]nd [place] [address] 04/14/2025 1:00 PM EST Appointment Medical Office Building Radiology [address] [place] [address] 04/14/2025 2:00 PM EST Office Visit Medical Office Building Urology [address] [facility], [address] [place] [address] Adilson Alfredo MD [address] [place] [address] documented as of this encounter [...] documented as of this encounter Care Teams Parking Analyst Relationship Specialty Start Date End Date Sunny Horton MD [address] [place] [address] [place] [address] PCP - General 07/14/20 documented as of this encounter
--- OUTSIDE RECORDS SUMMARY | 2024-11-26 11:20 | XMS_ITS | Encounter Summary ---
Author Organization [facility] Address [address] [place] [address] Care Team Providers Care Payroll Benefits Clerk Name Role Phone Sunny Horton MD Primary Care Provider [phone] Encounter Details Date Type Department Care Team [...] Description 04/21/2025 11:00 AM EST Office Visit [facility] [address] [place] [address] Sunny Horton MD [address] [place] [address] documented as of this encounter Visit Diagnoses Not on filedocumented in this encounter Care Teams Payroll Benefits Clerk Relationship Specialty Start Date End Date Sunny Horton MD [address] [place] [address] PCP - General Internal Medicine 11/09/21 documented as of this encounter
--- OUTSIDE RECORDS SUMMARY | 2024-11-26 11:20 | XMS_ITS | Encounter Summary ---
Author Organization [facility] Address [address] [place] [address] Care Team Providers Care Caramel Candy Maker Helper Name Role Phone Sunny Horton MD Primary Care Provider Reason for Visit * Reason Comments Med Refill Encounter Details Date Type Department Care Team ([facility] Contact Info) Description 10/24/2024 Refill [facility] [address] [place] [address] [place] [address] Sunny Horton MD [address] [place] [address] Seasonal allergic rhinitis due to [...] Upcoming Encounters Date Type Department Care Team ([facility] Contact Info) Description 04/21/2025 11:00 AM EST Office Visit [facility] [address] [place] [id number] Sunny Horton MD [address] [place] [address] documented as of this encounter Visit Diagnoses Diagnosis Seasonal allergic rhinitis due to pollen documented in this encounter Care Teams Caramel Candy Maker Helper Relationship Specialty Start Date End Date Sunny Horton MD [address] [place] [address] PCP - General Internal Medicine 11/09/21 documented as of this encounter
--- OUTSIDE RECORDS SUMMARY | 2024-11-26 11:20 | XMS_ITS | Clinical Summary ---
Author Organization Healthcare Address [address] [place] [address] Care Team Providers Care Milk Runner Name Role Phone Sunny Horton MD Primary Care Provider [phone] Allergies Active Allergy Reactions Criticality Noted Date [...] day. 4 Active Vitamin D3 1.25 MG (53616 UT) capsule Take 1 capsule (50,000 Units) [...] Care Team Description 11/11/2024 Telephone [facility] [address] [facility], 2nd [place] [address] Porsche Avila, PharmD 11/11/2024 Telephone [facility] [address] [place] [address] Madie Rivera, PharmD 10/21/2024 Telephone [facility] Urology [address], [address] [place] [address] Adilson Alfredo MD Appt Info 10/18/2024 Telephone [facility] Urology [address], [address] [place] [address] Adilson Alfredo MD Litholink 24Hr Urine Panel 10/17/2024 Orders Only External Location [address] [place] [address] Joanna Jones 10/14/2024 8:00 AM EDT Office Visit Medical Office Building Urology [address] [facility], [address] [place] [address] Adilson Alfredo MD Kidney stones (Primary Dx) 10/14/2024 Travel 10/07/2024 Travel 10/04/2024 2:45 PM EDT - 10/04/2024 11:59 PM EDT Hospital Encounter [facility] [address]nd [place] [address] Kidney stones Discharge Disposition: Home or Self Care 10/04/2024 Travel 10/03/2024 Travel 10/01/2024 Telephone [facility]rology [address], [address] [place] [address] Adilson Alfredo MD 09/14/2024 Telephone [facility] [address] [place] [address] Mehran Dillon 09/09/2024 Telephone [facility] [address] [place] [address] Juan Manuel Mcdaniels, PharmD 09/08/2024 Telephone [facility] Urology [address], [address] [place] [address] Adilson Alfredo MD HCN - Patient Message; Asking for a return call; Confirmed Appt 08/31/2024 Orders Only [facility] Urology [address] [place] [address] Adilson Alfredo MD Kidney stones (Primary Dx) [...] Info) Description 03/04/2025 2:30 PM EST Appointment [facility] Ultrasound [address]nd [place] [address] 04/14/2025 1:00 PM EST Appointment Medical Office [facility] Radiology [address] [place] [address] 04/14/2025 2:00 PM EST Office Visit Medical Office Building Urology [address] [facility], [address] [place] [address] Adilson Alfredo MD [address] [place] [address] Health Maintenance Due Date Last Done Comments [facility]-Infant/Child/Adol SDOH Screenings 1989 [facility]-Varicella Vaccines (1 of 2 - 13+ 2-dose series) 2002 [facility]- SDOH Screenings 2007 [facility]-Adult SDOH Screenings 2007 [facility]-Pneumococcal Vaccine: Pediatrics (0 to 5 Years) and At-Risk Patients (6 to 49 Years) (1 of 2 - PCV) 2008 HPV Vaccines (1 - 3-dose SCDM series) 2016 [id number] Vaccine ( - season) 2024 03/06/2021, 01/30/2021 [...] this topic Medical Devices Implanted Type Area Brusher Hand Device Identifier Shelf Expiration Date Model / Serial / Lot Stent Ureteral Double Pigtail Pos 6fr 26cm - [id number] - [id number] Implanted:Qty: 1 on 01/23/2021 by Adilson Alfredo MD at [facility] Stent Right: Ureter [id number] 07/17/2022 [id number] / [id number] / Stent Ureteral Double Pigtail Pos 5fr 26cm - [id number] Implanted:Qty: 1 on 08/01/2023 by Adislon Alfredo MD at [facility] Left: Kidney [id number] 11/06/2024 [id number] / / [id number] Procedures Procedure Name Priority Date/Time Associated Diagnosis [...] ORDERABLES Final Res ult Performing Organization Address City/[facility]/ZIP Co de Phone Number [facility] [address] [place] [address] * [place] Hepatitis C Antibody (01/17/2021 6:02 PM EST) Pathologist [facility] Hepatitis C Antibody Negative Negative 01/17/2021 7:56 PM EST HEALTHCARE LAB Blood Venous blood specimen / Unknown Venipuncture / Unknown 01/17/2021 6:02 PM EST 01/17/2021 6:18 PM EST Arun Cameron MD LAB BLOOD ORDERABLES Final Res ult [facility] [address] [place] [address] from Last 3 Months or Most Recently Relevant to Health Maintenance Insurance [facility] [address] MED[address]ID Care Teams Milk Runner Relationship Specialty Start Date End Date Sunny Horton MD [address] [place] [address] PCP - General 07/14/20
--- OUTSIDE RECORDS SUMMARY | 2024-11-26 11:20 | XMS_ITS | Encounter Summary ---
Author Organization Healthcare Address [address] [place] [place] [address] Care Team Providers Care Homogenizer Operator Name Role Phone Sunny Horton MD Primary Care Provider [phone] Encounter Details Date Type Department Care Team [...] Info) Description 03/04/2025 2:30 PM EST Appointment [facility] Ultrasound [address], 2nd [place] [address] 04/14/2025 1:00 PM EST Appointment Medical Office Building Radiology [address] [place] [address] 04/14/2025 2:00 PM EST Office Visit Medical Office Building Urology [address] [facility], [address] [place] [address] Adilson Alfredo MD [address] [facility] [address] [place] [address] documented as of this encounter Visit Diagnoses Not on filedocumented in this encounter Additional Health Concerns Assessment Noted Time A fall risk assessment has been complete d for the patient 02/19/2024 2:51 PM EST A Body Mass Index follow-up plan has been documented for the patient 03/25/2024 3:51 PM EST documented as of this encounter Care Teams Homogenizer Operator Relationship Specialty Start Date End Date Sunny Horton MD [address] [place] [address] PCP - General 07/14/20 documented as of this encounter
--- OUTSIDE RECORDS SUMMARY | 2024-11-26 11:20 | XMS_ITS | Encounter Summary ---
Author Organization [facility] Address [address] [place] [address] Care Team Providers Care Tank Furnace Operator Name Role Phone Sunny Horton MD Primary Care Provider [phone] Encounter Details Date Type Department Care Team [...] Description 04/21/2025 11:00 AM EST Office Visit [facility] PRIMARY CARE [address] [place] [address] [place] [address] Sunny Horton MD [address] [place] [address] documented as of this encounter Visit Diagnoses Not on filedocumented in this encounter Care Teams Tank Furnace Operator Relationship Specialty Start Date End Date Sunny Horton MD [address] [place] [address] PCP - General Internal Medicine 11/09/21 documented as of this encounter
--- OUTSIDE RECORDS SUMMARY | 2024-11-26 11:20 | XMS_ITS | Encounter Summary ---
Author Organization [facility] Address [address] [place] [address] Care Team Providers Care Biology Faculty Member Name Role Phone Sunny Horton MD Primary Care Provider Encounter Details Date Type Department Care Team ([facility] st Contact Info) Description 11/11/2024 Telephone [facility] CARDIOLOGY [address] [place] [address] Gwen Huber APRN [address] [place] [address] Social History Tobacco Use Types Packs/Day Years [...] done at this appointment at well as FISHERIES SPECIALIST. 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 Patient is hoping to have surgery prior to 11/30/24 due to insurance. Patient will bring EKG order and other info to appointment. Surgery will be performed by ANJANA Price in [place]. documented in this encounter Plan of Treatment Upcoming Encounters Date Type Department Care Team (Late st Contact Info) Description 04/21/2025 11:00 AM EST Office Visit [facility] PRIMARY CARE [address] [place] [address] [facility] [place] [address] documented as of this encounter Visit Diagnoses Not on filedocumented in this encounter Care Teams Biology Faculty Member Relationship Specialty Start Date End Date Sunny Horton MD [address] [place] [address] PCP - General Internal Medicine 11/09/21 documented as of this encounter
--- OUTSIDE RECORDS SUMMARY | 2024-11-26 11:20 | XMS_ITS | Encounter Summary ---
[facility] Organization [facility] Address [address] [place] [address] Care Team Providers Care Sand Analyst Name Role Phone Sunny Horton MD Primary Care Provider [phone] Encounter Details Date Type Department Care Team ([facility] st Contact Info) Description 11/16/2024 Telephone [facility] CARDIOLOGY [address] [place] [address] Gwen Huber APRN [address] [place] [address] Social History Tobacco Use Types Packs/Day Years [...] RegSched Rep - 11/16/2024 4:01 PM EDT Hub staff attempted to follow warm transfer process and was unsuccessful Caller: MINCHRISTIE Relationship to patient: Emergency Contact Best call back number: [phone] Patient is needing: PATIENTS , CHRISTIE REYES, CALLED AND WAS WAITING TO SPEAK TO JENNIFER. HUB PUT CALL THROUGH, CALL GOT DISCONNECTED. PLEASE REACH OUT. documented in this encounter Plan of Treatment Upcoming Encounters Date Type Department Care Team (Late st Contact Info) Description 04/21/2025 11:00 AM EST Office Visit [facility] PRIMARY CARE [address] [place] [phone] Sunny Horton MD [address] [place] [address] [place] [address] documented as of this encounter Visit Diagnoses Not on filedocumented in this encounter Care Teams Sand Analyst Relationship Specialty Start Date End Date Sunny Horton MD [address] [place] [address] [place] [address] PCP - General Internal Medicine 11/09/21 documented as of this encounter
--- OUTSIDE RECORDS SUMMARY | 2024-11-26 11:20 | XMS_ITS | Encounter Summary ---
Author Organization Healthcare Address [address] [place] [address] Care Team Providers Care Baseball Player Name Role Phone Sunny Horton MD Primary Care Provider Encounter Details Date Type Department Care Team (Late st Contact Info) Description 10/01/2024 Telephone [facility] [address] [place] [address] Adilson Alfredo MD [address] [place] [address] Social History Tobacco Use Types [...] Description 03/04/2025 2:30 PM EST Appointment [facility] Ultrasound [address]nd [place] [address] 04/14/2025 1:00 PM EST Appointment Medical Office Building Radiology [address] [place] [address] 04/14/2025 2:00 PM EST Office Visit Medical Office Building Urology [address] [facility], [address] [place] [address] Adilson Alfredo MD [address] [place] [address] documented as of this encounter Visit Diagnoses Not on filedocumented in this encounter Additional Health Concerns Assessment Noted Time A fall risk assessment has been complete d for the patient 02/19/2024 2:51 PM EST A Body Mass Index follow-up plan has been documented for the patient 03/25/2024 3:51 PM EST documented as of this encounter Care Teams Baseball Player Relationship Specialty Start Date End Date Sunny Horton MD [address] [place] [address] [place] [address] PCP - General 07/14/20 documented as of this encounter
--- OUTSIDE RECORDS SUMMARY | 2024-11-26 11:20 | XMS_ITS | Encounter Summary ---
Author Organization [facility] Address [address] [place] [address] Care Team Providers Care Analysis Internship Name Role Phone Sunny Horton MD Primary Care Provider [phone] Encounter Details Date Type Department Care Team (Late st Contact Info) Description 11/11/2024 [facility] [address] [facility]nd [place] [address] Porsche Avila, PharmD Social History [...] Info) Description 03/04/2025 2:30 PM EST Appointment [facility] Ultrasound [address] [place] [address] 04/14/2025 1:00 PM EST Appointment Medical Office Building Radiology [address] [place] [address] 04/14/2025 2:00 PM EST Office Visit Medical Office Building Urology [address] [facility], [address] [place] [address] Adilson Alfredo MD [address] [place] [address] documented as of this encounter [...] documented as of this encounter Care Teams Analysis Internship Relationship Specialty Start Date End Date Sunny Horton MD [address] [place] [address] [place] [address] PCP - General 07/14/20 documented as of this encounter
--- OUTSIDE RECORDS SUMMARY | 2024-11-26 11:21 | XMS_ITS | Clinical Summary ---
Author Organization [facility] Address [address] [place] [address] Care Team Providers Care Business Process Consultant Name Role Phone Sunny Horton MD Primary Care Provider [phone] Allergies Active Allergy Reactions Criticality Noted Date Comments Nsaids Other (See Comments) Low 01/23/2021 Doesn't take after gastric bypass surgery Medications Linzess 72 MCG capsule capsule Take 1 capsule by mouth Daily. 4 Active busPIRone (BUSPAR) 15 MG tabletIndicatio ns:Anxiety and depression Take 1 tablet by mouth 2 (Two) Times a Day. 180 tablet 1 4 Active DULoxetine (Cymbalta) 30 MG capsuleIndicati ons:Anxiety and depression Take 1 capsule by mouth Daily. 30 capsule 2 4 Active fluticasone (FLONASE) 50 MCG/ACT nasal sprayIndication s:Seasonal allergic rhinitis due to pollen Administer 2 sprays into the nostril(s) as directed by provider Daily. 16 g 2 4 Active Bimzelx 320 MG/2ML solution auto-injector 5 Active Cholecalciferol (Vitamin D) 50 MCG (1999) tabletIndicatio ns:Vitamin D deficiency Take 1 tablet by mouth Daily. 30 tablet 11 5 10/20/19 26 Active rizatriptan (MAXALT) 5 MG tabletIndicatio ns:Migraine with aura and without status migrainosus, not intractable Take 1 tablet by mouth 1 (One) Time As Needed for Migraine. May repeat in 2 hours if needed 9 tablet 1 5 Active loratadine (CLARITIN) 10 MG tabletIndicatio ns:Seasonal allergic rhinitis due to pollen TAKE 1 TABLET BY MOUTH EVERY DAY 90 tablet 1 5 Active albuterol sulfate HFA 108 (90 Base) MCG/ACT inhaler Inhale 2 puffs Every 4 (Four) Hours As Needed for Wheezing or Shortness of Air. 8 g 5 11/17/19 25 Discontin ued(*Ther apy completed ) montelukast (SINGULAIR) 10 MG tabletIndicatio ns:Seasonal allergic rhinitis due to pollen TAKE 1 TABLET BY MOUTH EVERY NIGHT 30 tablet 3 5 11/17/19 25 Discontin ued(*Ther apy completed ) Active Problems Problem Noted Date Diagnosed Date [...] 04/19/2024. He also has follow-up with his flat ironer for his irritable bowel syndrome, Dr. Cabrera [...] finger at the mid phalanx. Not responsive tzbr-zis-uqewdyg treatment. As such with informed verbal consent, [...] Routine general medical exam ination at a [facility] care facility 11/16/2021 Assessment & Plan (04/19/2024 [...] Description 11/17/2024 3:10 PM EDT Ancillary Procedure [facility] CARDIOLOGY [address] [place] [address] Palpitations; Tachycardia 11/16/2024 1:00 PM EDT Office Visit [facility] CARDIOLOGY [address] [place] [address] Gwen Huber, MOISTURE METER OPERATOR Preop cardiovascular exam (Primary Dx); Palpitations; Tachycardia 11/16/2024 Telephone [facility]ARDIOLOG[facility] [address] [place] [address] Gwen Huber, MOISTURE METER OPERATOR 11/16/2024 Travel 11/11/2024 Telephone [facility] CARDIOLOG[facility] [address] [place] [address] Gwen Huber, MOISTURE METER OPERATOR 10/24/2024 Refill [facility] PRIMARY CARE [address] [place] [address] [place] [address] Sunny Horton MD Seasonal allergic rhinitis due to pollen 10/19/2024 11:15 AM EDT Office Visit [facility] PRIMARY [facility]ARE [address] [place] [address] [place] [address] Sunny Horton MD Prediabetes (Primary Dx); Common wart; Anxiety and depression; Elevated liver function tests; Hidradenitis suppurativa; Gastroesophageal reflux disease without esophagitis; Migraine with aura and without status migrainosus, not intractable; Mixed hyperlipidemia; Mild intermittent asthma without complication; Overweight (BMI 25.0-29.9); Vaping nicotine dependence, tobacco product; Seasonal allergic rhinitis due to pollen; Vitamin D deficiency 10/19/2024 Travel 08/27/2024 Telephone [facility] [address] [place] [address] [place] [address] Sunny Horton MD from Last 3 Months [...] Description 04/21/2025 11:00 AM EST Office Visit [facility]IMARY [facility] [address] [place] [address] [place] [address] Sunny Horton MD [address] [place] [address] Health Maintenance Due Date Last Done Comments [...] to date by Dr. Natanael Edgar @ [facility] from 10/2024 in [facility] and reviewed. EKG obtained and reviewedtoday./Pt denies shortness of breath or chest pain, dizziness. Notesoccasional palpitations. ) History of Present Illness Mr. Justice Reyes is a 34-year-old male that [facility]. He is accompanied by [...] him back after echo for preop clearance. [place] Scale is (out of 24): 3 No [...] (72.01 ) Wt 94.8 kg (209 lb) [id number]% BMI 28.34 kg/m Estimated body mass index [...] Return for After echo/holter. Patient or patient veterans employment representative verbalized consent for the use ofAmbient Listening during the visit with Gwen Huber APRN forchart documentation. 11/16/2024 14:42 EDT Gwen Huber APRN 11/16/2024 Please note that this explicitly excludes time spent on other separatebillable services such as performing procedures or test interpretation,when applicable. This note was created using dictation software whichoccasionally transcribes nonsensical phrases. Please contact the providerif any clarification is needed. us Gwen Huber APRN ECG ORDERABLES Fin al [...] 03/16/2025 Blood 10/19/2024 11:2 2 AM EDT us Sunny Horton MD POINT OF CARE TEST ORDERABLES Fi nal Result * POC Glycosylated Hemoglobin (Hb A1C) (10/19/2024 11:22 AM EDT) Hemoglobin A1C 5.0 4.5 - 5.7 % [facility] Lot Number [id number] [facility] Expiration Date 06/16/2026 [facility] Blood 10/19/2024 11:2 2 AM EDT us Sunny Horton MD POINT OF CARE TEST ORDERABLES Fi nal Result [facility]
[address] [place] [address], * LABS SCANNED (10/17/2024) Only the most recent of2 resultswithin the time period is included. Sunny Horton MD LAB BLOOD ORDERABLES Final [...] EST 04/19/2024 Comment:Blood Release to leobardo Parra [facility] (AMBULATORY) - 04/20/2024 8:07 AM EST Performed at: - [address] [id number] Deployment Manager: Moo Fay PhD, Phone: [phone] Sunny Horton MD LAB BLOOD ORDERABLES Final Resul t [facility] (AMBULATORY) [address] [place] [address], [facility] [address] [place] [address], * Hepatitis C Antibody (11/16/2021 2:38 PM EDT) Pathologist [facility] Hep C Virus Ab <0.1 0.0 - [...] support the diagnosis of acute HCV infection. [facility] Hepatitis C Virus (HCV) RNA, Diagnosis, LINDY (980362) and Hepatitis C Virus (HCV) Antibody with reflex to Quantitative Real-time PCR ([id number]). Blood Structure of left upper limb / Unknown 11/16/2021 2:38 PM EDT 11/16/2021 Comment:Blood Release to leobardo Parra [facility] ([facility]) - 11/18/2021 9:06 AM EDT Performed at: 01 - [facility] [address] [facility], [place], [place] [id number] Deployment Manager: Moo Fay PhD, Phone: [phone] Sunny Horton MD LAB BLOOD ORDERABLES Final Resul t [facility] ([facility]UL[facility]) [address] [place] [address], [place] [phone] [facility] [address] [place] [address], from Last 3 Months or Most Recently Relevant to Health Maintenance Insurance [employer] Care Teams Business Process Consultant Relationship Specialty Start Date End Date Sunny Horton MD [address] [place] [address] [place] [address] PCP - General Internal Medicine 11/09/21
== END 2024-11-26 23:59 | disposition home or self-care (01) ==
LOC: PREOP 11:18
PROVIDERS: PCP Pediatrics; Visit Provider Surgery
DX: R69 Illness, unspecified (principal)

== ENCOUNTER 2024-11-29 10:56 | Day surgery (SDC) | payer MEDICAID, SELFPAY ==
[2024-11-26 13:43] VITALS: BMI 28.3
[2024-11-26 16:09] LABS: Chloride 104 mmol/L (98-107); Potassium 4.5 mmoL/L (3.5-5.1); Sodium 140 mmol/L (136-145)
[2024-11-26 16:12] LABS: Anion Gap 13.5 mEq/L (5-15); Calcium 9.7 mg/dl (8.4-10.2); Carbon Dioxide 27 mmol/L (22.0-30.0); Glucose 69 mg/dl (74-100)
[2024-11-26 16:13] LABS: Hematocrit 46.2 % (42.0-52.0); Hemoglobin 16.4 g/dL (14.1-18.0); Immature Granulocytes % 0.3 %; Mean Corpuscular HGB Conc 35.5 g/dL (31.8-35.4); Mean Corpuscular Hemoglobin 33.3 pg (27.0-31.2); Mean Corpuscular Volume 93.7 fl (80-94); Nucleated Red Blood Cells % 0 %; Platelet Count 250 K/mm3 (142-424); Red Blood Count 4.93 M/mm3 (4.60-6.20); Red Cell Distribution Width-SD 42.5 fL; White Blood Count 6.6 K/mm3 (4.8-10.8)
[2024-11-26 16:17] LABS: Blood Urea Nitrogen 15 mg/dl (9-20); Creatinine Clearance Estimated 198 mL/min (50-200); Creatinine,Serum 0.70 mg/dl (0.66-1.25); Estimated Glomerular Filt Rate 128 ml/min (>60); GFR (African American) 155 ML/MIN (>60)
[2024-11-29] VITALS (9 sets, daily range): BP systolic 121–147; BP diastolic 64–94; PULSE 70–85; RESP 16–18; TEMP 36.2–36.5; O2SAT 90–98
[2024-11-29] MEDS: LACTATED RINGERS 1000ML 1,000 ML 25 ML IV (11:24)
[2024-11-29] MEDS: CLINDAMYCIN PHOSPHATE/D5W 900 MG/50 ML PIGGYBACK 100 MG IV (11:38)
[2024-11-29] MEDS: BUPIVACAINE 0.5% W/EPI 1:200,000 30ML VIAL 30 ML IJ (11:50)
[2024-11-29] MEDS: HYDROCORTISONE 2.5% CREAM 28GM TUBE 28 GM TP (11:50)
--- NOTE | 2024-11-29 12:05 | P.OP_ITS ---
Date of procedure: 11/29/24 Pre-op Diagnosis:: Perineal hidradenitis, possible perianal fistula Post-op Diagnosis:: Same Procedure performed:: Limited incision and drainage of right anterior lateral peritoneal hidradenitis with debridement subcutaneous tissue using small curette Surgeon:: Blake Rider MD ELECTROMEDICAL EQUIPMENT REPAIRER:: John Carbajal Anesthesia: LMA Estimated blood loss (mL): 1 Operative findings:: Focal area of mild hidradenitis in the right anterior lateral location. No fistula. Operative note:: Consent was obtained patient was taken the operating room. He was positioned supine position. Anesthesia was induced via LMA. He was repositioned in the lithotomy position. Patient was prepped and draped in the standard surgical fashion. The area of symptomatology seen in the office several days prior and had actually shown some improvement. With careful inspection there was a small punctate area with a drop of serosanguineous drainage. This was probed with a blunt probe. There was some minimal tracking for about a centimeter. This was just in the subcutaneous tissues. This was opened with electrocautery. There was minimal tracking laterally for a few millimeters and this was opened as well. There was no tracking as a perianal fistula. There is some underlying chronically inflamed granulation tissue consistent with hidradenitis. This was debrided using a small curette. Hemostasis was achieved with electrocautery. Local anesthesia was infiltrated. Clean dry sterile dressing was applied. Condition: stable Disposition: PACU Complications:: None immediately apparent
--- NOTE | 2024-11-29 12:11 | P.PNANES_ITS ---
[facility] Disclaimer: The information contained in this section may have been updated after the patient was seen, as this information can be updated by other users. Medical History Hidradenitis Migraine Glaucoma Surgical History History of ureteroscopy History of cholecystectomy History of gastric bypass History of incision and drainage Family History Other Family history of diabetes mellitus Family history of heart disease Family history of hypertension Social History (Updated 11/29/24 @ 11:22 by Abbey Luong RN) Smoking Status: Former smoker tobacco type: cigarettes packs per day: 1 second hand exposure: No alcohol intake: never counseling provided: provider counseling substance use type: denies use current occupational status: unemployed Travel in the last 8 weeks?: None household members: family housing: house 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 current occupational exposures/hazards: No caffeine: Yes Have you lived/traveled outside US in past 30 days?: No Contact w/someone who lives/traveled outside US past 30 days?: No Exposure to someone with infectious disease in past 14 days?: No Do you have a fever (greater than 100.4 F or 38 C)?: No Have you tested positive for COVID-19?: No Exposed to someone with COVID-19 in past 14 days?: No Do you have a sore throat?: No Do you have a cough?: No Do you have any weakness?: No Are you experiencing any nausea/vomitting?: No Do you have any diarrhea?: No Are you experiencing any unusual bleeding?: No Do you have any muscle aches/pain?: No Do you have any abdominal pain?: No Are you experiencing loss of taste or smell?: No [facility] Anesthesia Checklist Patient Identification Patient Identification: Verbal (Name & ) Structural Data Admitted From: Home Planned Operative Procedure/s: i/d perirectal abcess Consent for Planned Operative Procedure(s) Verified: Yes NPO Status Verified Time NPO: 00:00 Additional verifications Anesthesia Reactions: No Hx Blood Transfusions: No Blood Transfusion Reaction: No Airway Assessment Mallampati Score:: Class II C-Spine Mobility Assessed: Yes TMJ Mobility Assessed: Yes Dentition: Good Dentition Neurological Assessment Level of Consciousness: Awake, Alert and Appropriate Anesthesia Plan Anesthesia Risk discussed: Yes Anesthesia Plan: Verified ASA Class: II Anesthesia Type: General
--- NOTE | 2024-11-29 12:12 | EXP.ANES.I ---
[facility] Anesthesia Record Part I Anesthesia Record I Intake, IV Amount: 800 Hydration: Adequate Estimated blood loss (mL): 0 Urine output (mL): 0 Blood Pressure: 126/64 SaO2: 94 Pulse Rate: 85 Airway Patency: Patent Respiratory Rate: 16 Temperature: 97.6 F Patient is:: Awake and Stable Stable to PACU at:: 12:10
[2024-11-29] MEDS: MORPHINE 2MG/ML SYRINGE 2 MG IV (12:30)
--- NOTE | 2024-11-30 04:52 | P.PNANES_ITS ---
[facility] Anesthesia Record Part II Anesthesia Record Part II Discharge Time: 12:40 Destination: Surgical Day Care (OP Surgery) PACU nurse assessment reviewed?: Yes Patient Condition:: Good Anesthesia Complications:: None Swallowing reflex intact?: Yes Airway Patency: Patent Cyanosis?: No Blood Pressure: 136/75 SaO2: 97 Respiratory Rate: 18 Pulse Rate: 81 Temperature: 97.2 F Mental Status: Alert & Oriented Pain level:: 0 Nausea and/or vomitting:: None Intake, IV Amount: 0 Hydration: Adequate
[2024-11-30 04:53] VITALS: BP 136/75; PULSE 81; RESP 18; TEMP 36.2; O2SAT 97
== END 2024-11-29 13:20 | disposition home or self-care (01) ==
PROVIDERS: PCP Pediatrics; Visit Provider Surgery
PROC: (CPT 56405; principal; 2024-11-29 13:05)
DX: L73.2 Hidradenitis suppurativa (principal); K60.30 Anal fistula, unspecified; Z79.899 Other long term (current) drug therapy
CPT/HCPCS: 11470; 80048; 85025; 96374; J0736; J1100; J1885; J2003; J2250; J2270; J2405; J2704; J3010; J7120

== ENCOUNTER 2025-01-04 11:20 | Outpatient (CLI) | payer MEDICAID, SELFPAY ==
--- OUTSIDE RECORDS SUMMARY | 2025-01-04 11:22 | XMS_ITS | Clinical Summary ---
Author Organization [facility] Address [address] [place] [address] Phone Care Team Providers Care Receptionist Airline Lounge Name Role Phone Parviz BLANTON, Coleman Stark [phone] Conditions or Problems Problem Name Problem Code Onset Date Status Entry Date Provider Comment Standard Description Annotate Obesity 442008023 (SNOMED CT) Active 04/21 Coleman Jj MD Obesity Hidradenitis 40465039 (SNOMED CT) Active 04/20 Gricelda Andres Hidradenitis Abscess of right leg L02.415 (ICD-10-CM) Active 04/20 Gricelda Andres Cutaneous abscess of right lower limb Cellulitis of right leg L03.115 (ICD-10-CM) Active 04/20 Gricelda Andres Cellulitis of right lower limb Benign Essential Hypertension 88349662 (SNOMED CT) Active 04/20 Gricelda Andres Benign hypertension Nicotine dependence, cigarettes F17.210 (ICD-10-CM) Active 04/20 Gricelda Andres Nicotine dependence, cigarettes, uncomplicated Abscess, groin 56680432 (SNOMED CT) Active 04/20 Gricelda Andres Abscess of groin Medications Medication Instructions Start Date Stop Date Generic Name ND Provider BACTROBAN 2 % EXTERNAL OINTMENT apply to each nostril twice a day x 5 days. MUPIROCIN [id number] Coleman Jj MD SULFAMETHOXAZOLE -TRIMETHOPRIM 800-160 MG TABS take 2 tablets by mouth twice a day SULFAMETHOXAZOLE -TRIMETHOPRIM 79797462361 Estefani Lee RANITIDINE HCL 150 MG ORAL TABLET take 1 tablet by mouth every evening RANITIDINE HCL 18272601175 Estefani S ACYCLOVIR 800 MG TABS take 1 tablet by mouth five times a day for 10 days ACYCLOVIR 82365225184 Estefani S GABAPENTIN 300 MG CAPS take 1 capsule by mouth at bedtime MAY INCREASE TO TWICE DAILY GABAPENTIN 19112987520 Estefani S GABAPENTIN 300 MG CAPS take 1 capsule by mouth at bedtime MAY INCREASE TO TWICE DAILY GABAPENTIN 52321849942 Karime Ko ACYCLOVIR 800 MG TABS take 1 tablet by mouth five times a day for 10 days ACYCLOVIR 17125058886 Karime Ko RANITIDINE HCL 150 MG ORAL TABLET take 1 tablet by mouth every evening RANITIDINE HCL 15414012183 Karime Ko LISINOPRIL-HYDRO CHLOROTHIAZIDE 10-12.5 MG TABS 1 po qd LISINOPRIL-HYDRO CHLOROTHIAZIDE 02529025914 Karime Ko PRAVASTATIN SODIUM 20 MG TABS take 1 tablet by mouth at bedtime PRAVASTATIN SODIUM 28707006994 Karime Ko CIPROFLOXACIN HCL 0.3 % SOLN INSTILL 1 DROP INTO AFFECTED EYE WHILE WAKE EVERY 4 HOURS CIPROFLOXACIN HCL 89375067598 Karime Ko SULFAMETHOXAZOLE -TRIMETHOPRIM 800-160 MG TABS take 2 tablets by mouth twice a day SULFAMETHOXAZOLE -TRIMETHOPRIM 81703009795 Karime Ko AMOXICILLIN-POT CLAVULANATE 875-125 MG TABS take 1 tablet by mouth twice a day for 10 days AMOXICILLIN-POT CLAVULANATE 55734711798 Karime Ko Medications Administered No information available. Allergies, Adverse Reactions, Alerts Observed no known allergies at Results Date Name Value Unit Range Flag Description Office Visit: New Patient uLbna om #4 MEDS REVIEW Done Documenta tion of current medications (procedure) ORALTOBACUSE Never Tobacco smoking status CIGARET SMKG yes Tobacco smoking status SMOK STATUS Current every day smoker Tobacco smoking status Lab Report: Culture MRSA Scr een CULTURE Specimen: Screening Nares culture, comment Lab Report: Panel [id number] 9964/02/19 [id number] NR Non Reactive GE use only - for LinkLogic import when terms are not otherwise specified Plan of Care Type Date Detail Pending order HIV 1/2 atb/ag 4 th generation with cascade reflex Pending order Nasal Swab for M RSA Procedures Code Procedure Name Date Entry Date [id number]-478246 HIV 1/2 atb/ag 4th generation with cascad e reflex CPT-39191 Nasal Swab for MRSA Vital Signs Date [...]
== END 2025-01-04 23:59 | disposition home or self-care (01) ==
LOC: PREOP 11:20
PROVIDERS: PCP Pediatrics; Visit Provider Surgery
DX: Z01.818 Encounter for other preprocedural examination (principal)

== ENCOUNTER 2025-01-06 06:01 | Day surgery (SDC) | payer MEDICAID, SELFPAY ==
[2025-01-04 12:41] LABS: Hematocrit 42.9 % (42.0-52.0); Hemoglobin 14.8 g/dL (14.1-18.0); Immature Granulocytes % 0.1 %; Mean Corpuscular HGB Conc 34.5 g/dL (31.8-35.4); Mean Corpuscular Hemoglobin 32.5 pg (27.0-31.2); Mean Corpuscular Volume 94.3 fl (80-94); Nucleated Red Blood Cells % 0 %; Platelet Count 190 K/mm3 (142-424); Red Blood Count 4.55 M/mm3 (4.60-6.20); Red Cell Distribution Width-SD 43.0 fL; White Blood Count 6.7 K/mm3 (4.8-10.8)
[2025-01-04 12:51] LABS: Alanine Aminotransferase 29 U/L (12-78); Albumin Level 4.8 g/dl (3.5-5.0); Albumin/Globulin Ratio 1.5 (1.1-1.8); Alkaline Phosphatase 125 U/L (38-126); Anion Gap 12.1 mEq/L (5-15); Aspartate Amino Transferase 31 U/L (17-59); Bilirubin,Total 0.6 mg/dl (0.2-1.3); Blood Urea Nitrogen 14 mg/dl (9-20); Calcium 9.2 mg/dl (8.4-10.2); Carbon Dioxide 26 mmol/L (22.0-30.0); Chloride 106 mmol/L (98-107); Creatinine,Serum 0.70 mg/dl (0.66-1.25); Estimated Glomerular Filt Rate 128 ml/min (>60); GFR (African American) 155 ML/MIN (>60); Globulin 3.2 g/dL (1.3-3.2); Glucose 77 mg/dl (74-100); Potassium 4.1 mmoL/L (3.5-5.1); Sodium 140 mmol/L (136-145); Total Protein,Serum 8.0 g/dl (6.3-8.2)
[2025-01-04 14:57] VITALS: BMI 26.8
[2025-01-06] VITALS (10 sets, daily range): BP systolic 115–133; BP diastolic 65–92; PULSE 71–88; RESP 16–18; TEMP 36.2–36.4; O2SAT 96–100
[2025-01-06] MEDS: LACTATED RINGERS 1000ML 1,000 ML 25 ML IV (06:40)
--- NOTE | 2025-01-06 07:07 | P.PNANES_ITS ---
[facility] Disclaimer: The information contained in this section may have been updated after the patient was seen, as this information can be updated by other users. Medical History Hidradenitis Migraine Glaucoma Surgical History History of ureteroscopy History of cholecystectomy History of gastric bypass History of incision and drainage Family History Other Family history of diabetes mellitus Family history of heart disease Family history of hypertension Social History Smoking Status: Former smoker tobacco type: cigarettes packs per day: 1 second hand exposure: No alcohol intake: never counseling provided: provider counseling substance use type: denies use current occupational status: unemployed Travel in the last 8 weeks?: None household members: family housing: house 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 current occupational exposures/hazards: No caffeine: Yes Have you lived/traveled outside [place] in past 30 days?: No Contact w/someone who lives/traveled outside US past 30 days?: No Exposure to someone with infectious disease in past 14 days?: No Do you have a fever (greater than 100.4 F or 38 C)?: No Have you tested positive for COVID-19?: No Exposed to someone with COVID-19 in past 14 days?: No Do you have a sore throat?: No Do you have a cough?: No Do you have any weakness?: No Are you experiencing any nausea/vomitting?: No Do you have any diarrhea?: No Are you experiencing any unusual bleeding?: No Do you have any muscle aches/pain?: No Do you have any abdominal pain?: No Are you experiencing loss of taste or smell?: No [facility] Anesthesia Checklist Patient Identification Patient Identification: Arm Band and Verbal (Name & ) Structural Data Admitted From: Home Planned Operative Procedure/s: groin I&D Consent for Planned Operative Procedure(s) Verified: Yes Verified Documents: Surgical Consent and History and Physical NPO Status Verified Time NPO: 00:00 Additional verifications Anesthesia Reactions: No Hx Blood Transfusions: No Blood Transfusion Reaction: No Airway Assessment Mallampati Score:: Class I Dentition: Good Dentition Neurological Assessment Level of Consciousness: Awake, Alert and Appropriate Hx Seizures: No Numbness or tingling in extremities: No Anesthesia Plan Anesthesia Risk discussed: Yes Anesthesia Plan: Verified ASA Class: II Anesthesia Type: General
[2025-01-06] MEDS: CLINDAMYCIN PHOSPHATE/D5W 900 MG/50 ML PIGGYBACK 50 MG (07:23)
[2025-01-06] MEDS: LIDOCAINE 1% 20ML MDV 20 ML (07:41)
--- NOTE | 2025-01-06 07:55 | EXP.OP.NOTE ---
Date of procedure: 01/06/25 Pre-op Diagnosis:: Left groin hidradenitis suppurativa Post-op Diagnosis:: Same Procedure performed:: Incision and drainage of left groin hidradenitis with debridement of skin and subdermal tissue using electrocautery and curette Surgeon:: Blake Rider MD ASSISTANT PROFESSOR OF EDUCATION:: Venus Simms Anesthesia: LMA Estimated blood loss (mL): 1 Operative findings:: Consistent with focal hidradenitis Operative note:: Consent was obtained patient was taken to the operating room. He was positioned supine position. General anesthesia was induced via LMA. Patient was positioned in somewhat of a frog-leg position to expose the area. He was prepped and draped in the standard surgical fashion. There had been dramatic improvement in the area over the past 48 hours since seen in the office. However there did appear to be a sinus opening possibly consistent with hidradenitis. This was probed with a blunt probe. There is no definite tracking at this site. A probe was placed at the site of the skin abscess and there was evacuation of additional pus. This was sent for aerobic culture. Wound was probed after was bluntly opened. There was some tracking towards the sinus a few millimeters away. Overlying tissues were opened with electrocautery. Wound was probed deeply and there was minimal tracking inferiorly. This was opened with electrocautery. The underlying tissues were debrided with a small curette. Overall length of the incision was 2 cm. Hemostasis was achieved with electrocautery. Local anesthetic was infiltrated. Dressing was applied. Condition: stable Disposition: PACU Complications:: None immediately apparent
--- NOTE | 2025-01-06 07:59 | EXP.ANES.I ---
[facility] Anesthesia Record Part I Anesthesia Record I Intake, IV Amount: 600 Hydration: Adequate Estimated blood loss (mL): 0 Urine output (mL): 0 Blood Pressure: 117/65 SaO2: 100 Pulse Rate: 77 Airway Patency: Patent Respiratory Rate: 18 Temperature: 97.6 F Patient is:: Awake and Stable Stable to PACU at:: 08:05
--- NOTE | 2025-01-06 10:20 | P.PNANES_ITS ---
[facility] Anesthesia Record Part II Anesthesia Record Part II Discharge Time: 08:56 Destination: Surgical Day Care (OP Surgery) PACU nurse assessment reviewed?: Yes Patient Condition:: Good Anesthesia Complications:: None Swallowing reflex intact?: Yes Airway Patency: Patent Cyanosis?: No Blood Pressure: 122/77 SaO2: 99 Respiratory Rate: 18 Pulse Rate: 71 Temperature: 97.1 F Mental Status: Alert & Oriented Pain level:: 0 Nausea and/or vomitting:: None Intake, IV Amount: 0 Hydration: Adequate
== END 2025-01-06 09:00 | disposition home or self-care (01) ==
PROVIDERS: PCP Pediatrics; Visit Provider Surgery
PROC: (CPT 10061; principal; 2025-01-06 07:30)
DX: L73.2 Hidradenitis suppurativa (principal); G43.909 Migraine, unspecified, not intractable, without status migrainosus; Z79.891 Long term (current) use of opiate analgesic; Z90.49 Acquired absence of other specified parts of digestive tract; Z98.84 Bariatric surgery status; Z56.0 Unemployment, unspecified; Z87.891 Personal history of nicotine dependence; Z79.899 Other long term (current) drug therapy
CPT/HCPCS: 10061; 80053; 85025; 87070; 87077; 87186; 87205; 96374; J0736; J1100; J1200; J2003; J2250; J2405; J2704; J2795; J3010; J7120